=== PATIENT | female | born 1950 | race Caucasian/White ===

== ENCOUNTER 2018-12-06 14:27 | Observation (INO) | payer OTHER ==
--- NOTE | 2018-12-06 14:48 | RAD REPORT ---
EXAM DESCRIPTION: CT - Ct Stroke Brain Wo Cont - 12/06/2018 2:42 pm CLINICAL HISTORY: stroke symptoms CVA symptomology, headache COMPARISON: Head Brain Wo Cont dated 11/11/2017; Head Brain Wo Cont dated 11/12/2016 TECHNIQUE: All CT scans are performed using dose optimization technique as appropriate and may inclu de automated exposure control or mA/KV adjustment according to patient size. FINDINGS: No intracranial hemorrhage, hydrocephalus or extra-axial fluid collection.No areas of brai n edema or evidence of midline shift. The paranasal sinuses and mastoids are clear. The calvarium is intact. IMPRESSION: No acute intracranial abnormality. The findings were discussed with ER physician Dr. Donovan on 12/06/2018 at 2:24 p.m. by telephone.
[2018-12-06 15:02] LABS: Absolute Lymphocytes (CBC) 2.3 K/uL (0.7-4.9); Absolute Monocytes 0.5 K/uL (0.1-1.3); Absolute Neutrophil 5.3 K/uL (1.8-8.0); Basophils % 0.6 % (0-1.3); Eosinophils % 1.8 % (0-4.4); Hematocrit 41.2 % (36.0-45.0); Lymphocytes % 27.7 % (15.3-44.8); MPV 9.5 fL (7.6-11.3); Monocytes % 6.1 % (3.3-12.3); RBC Red Blood Cell Count 4.84 M/uL (3.86-4.86)
[2018-12-06 15:05] LABS: Protime INR 0.96
[2018-12-06] MEDS ORDERED: KETOROLAC 30 MG/ML INJ ONE (15:09)
[2018-12-06] MEDS ORDERED: NA CHLORIDE 0.9% 1,000 ML ONE (15:09)
[2018-12-06] MEDS ORDERED: NA CHLORIDE 0.9% 2,000 ML ONE (15:09)
[2018-12-06] MEDS ORDERED: CEFTRIAXONE/SWI 1gm 1 GM/10 ML SYR ONE (15:09)
[2018-12-06 15:32] LABS: ALT/SGPT 18 U/L (12-78); AST/SGOT 16 U/L (15-37); Albumin 4.1 g/dL (3.4-5.0); Alkaline Phosphatase 88 U/L (45-117); BUN Blood Urea Nitrogen 14 mg/dL (7-18); Bicarbonate 28 mmol/L (21-32); Bilirubin Direct < 0.1 mg/dL (0-0.2); Bilirubin Total 0.4 mg/dL (0.2-1.0); C-Reactive Protein 7.37 mg/L (<3.00); CKMB Creatine Kinase MB < 1.0 ng/mL (0.3-3.6); Creatine Phosphokinase 81 U/L (26-192); Glucose Level 207 mg/dL (74-106); Lipase 251 U/L (73-393); Potassium 3.8 mmol/L (3.5-5.1); Protein, Total 8.3 g/dL (6.4-8.2); Sodium Level 139 mmol/L (136-145)
[2018-12-06] MEDS ORDERED: ONDANSETRON 4 MG/2 ML VIAL ONE (15:42)
--- NOTE | 2018-12-06 15:51 | RAD REPORT ---
EXAM DESCRIPTION: [place] Single View12/06/2018 3:36 pm CLINICAL HISTORY: Cough COMPARISON: 2016 FINDINGS: The lungs appear clear of acute infiltrate. The heart is normal size IMPRESSION: No acute abnormalities displayed
--- NOTE | 2018-12-06 16:01 | ER ---
Nurse's Notes [facility] Name: Nelsy Perez Age: 68 yrs Sex: Female : 1950 Arrival Date: 12/06/2018 Time: 14:29 Bed 23 Private MD: Salomón Minaya Diagnosis: Cystitis, unspecified without hematuria;Sepsis due to unspecified staphylococcus Presentation: 12/06 14:30 Presenting complaint: Patient states: "balance is off and I've been running into sv ibarra." dizziness, midsternal chest pain, SOB started today around 1200. c/o occipital headache. Pt vomited after getting into the bed. Transition of care: patient was not received from another setting of care. Onset of symptoms was December 06, 2018 at 12:00. Care prior to arrival: None. 14:30 Method Of Arrival: Wheelchair sv 14:30 Acuity: ARRON 2 sv 16:04 No acute neurological deficit is noted. Risk Assessment: Do you want to hurt yourself mg2 or someone else? Patient reports no desire to harm self or others. Initial Sepsis Screen: Does the patient meet any 2 criteria? No. Patient's initial sepsis screen is negative. Does the patient have a suspected source of infection? No. Patient's initial sepsis screen is negative. Triage Assessment: 16:08 The onset of the patients symptoms was December 06, 2018 at 12:00. General: Appears in no mg2 apparent distress. Behavior is calm, cooperative. Pain: Complains of pain in chest. 16:09 Neuro: Reports dizziness. mg2 Stroke Activation: Symptom onset < 3 hours Physician: Stroke Attending; Name: ; Notified At: ; Arrived At: Physician: Chief Stroke Resident; Name: ; Notified At: ; Arrived At: Physician: Stroke Resident; Name: ; Notified At: ; Arrived At: Physician: ED Attending; Name: Dr Mackey; Notified At: 14:34; Arrived At: 14:34 Physician: ED Resident; Name: ; Notified At: ; Arrived At: Historical: - Allergies: 14:37 No Known Allergies; sv - Home Meds: 16:08 lisinopril 20 mg Oral tab 1 tab twice a day [Active]; metformin 1,000 mg Oral tab 1 tab mg2 2 times per day [Active]; metoprolol 100 mg daily ( pt reports she only takes half) [Active]; Novolog Sub-Q 5 unit before meals [Active]; - PMHx: 14:37 Diabetes - IDDM; Hypertension; sv - PSHx: 14:37 Tubal ligation; bilateral cataract surgery; sv - Immunization history:: Flu vaccine status is unknown. - Social history:: Patient/guardian denies using alcohol, street drugs, The patient lives with family, Smoking status: unknown. - Family history:: not pertinent. - Ebola Screening: : No symptoms or risks identified at this time. Screenin:09 Abuse screen: Denies threats or abuse. Denies injuries from another. Nutritional mg2 screening: No deficits noted. Tuberculosis screening: No symptoms or risk factors identified. Fall Risk IV access (20 points). Assessment: 14:31 VAN Scoring: Arm Drift: Minor drift Visual Disturbance: No visual disturbance noted. sv Aphasia: No aphasia noted. Neglect: No neglect noted. 14:36 Reassessment: CODE STROKE CALLED, PT TAKEN TO CT SCAN BY BETZAIDA. Pain: ls4 14:39 Reassessment: Pt back from CT at this time. ss 14:41 Reassessment: Araceli (molder labels) at bedside. sv 14:44 Reassessment: EKG at bedside. sv 16:05 Patient has been NPO before screening. The patient is alert, and able to follow mg2 commands. The patient does not exhibit slurred or garbled speech. The patient is not exhibiting difficulty speaking. The patient does not exhibit difficulty understanding words. The patient is able to swallow own secretions with no drooling or need for suction. Patient tolerated one teaspoon of water. No drooling, immediate coughing, gurgling, or clearing of the throat was noted. The patient tolerated 90mL of water. No drooling, immediate coughing, gurgling, or clearing of the throat was noted. The patient passed the bedside swallow screening. Oral medications may be given as ordered. Contact Physician for further diet orders. Pain: Pain began gradually, 4 hours ago. Neuro: Level of Consciousness is awake, alert, obeys commands, Oriented to person, place, time, situation. Cardiovascular: Capillary refill < 3 seconds Patient's skin is warm and dry. 16:07 Provider notified of bedside swallow screening results: Katarina Mackey MD. T-PA mg2 (Activase) Screening: Contraindications:. 16:09 Reassessment: patient for hospitalization. hospitalist at bedside examining the patient.mg2 Vital Signs: 14:43 Temp 97.6; Weight 101.6 kg; Height 5 ft. 3 in. (160.02 cm); sv 14:56 Pulse Ox 98% ; lt1 15:37 BP 161 / 86; Pulse 101; Resp 18; Pulse Ox 96% ; Pain 2/10; mg2 16:11 BP 139 / 72; Pulse 96; Resp 18; Pulse Ox 97% on R/A; mg2 16:35 BP 160 / 69; Pulse 90; Resp 16; Temp 98.4; Pulse Ox 98% ; lt1 18:24 BP 138 / 77; Pulse 79; Resp 18; Temp 98.4(O); Pulse Ox 98% on R/A; Pain 0/10; mg2 14:43 Body Mass Index 39.68 (101.60 kg, 160.02 cm) sv NIH Stroke Scale Scores: 16:05 NIHSS Score: 0 mg2 ED Course: 14:29 Patient arrived in ED. mr 14:30 Salomón Minaya MD is Private Physician. mr 14:30 Pippa Ortiz, MATHEW is Primary Nurse. ls4 14:30 Arm band placed on Patient placed in an exam room, on a stretcher. sv 14:[address] via stretcher. sv 14:36 Katarina Mackey MD is Attending Physician. ma2 14:36 Triage completed. sv 14:39 CT completed. Patient tolerated procedure well. Patient moved back from CT. vm2 14:41 [address] moved back from CT. sv 14:42 CT Stroke Brain w/o Contrast In Process Unspecified. EDMS 14:44 Patient has correct armband on for positive identification. Placed in gown. Bed in low sv position. Call light in reach. Side rails up X2. equipment monitor phototypesetting on. Pulse ox on. NIBP on. 14:45 Initial lab(s) drawn, by me, sent to lab. Inserted saline lock: 20 gauge in right sv antecubital area, using aseptic technique. ,using aseptic technique. done by Betzaida CARMONA Blood collected. 15:18 EKG done, by pharmacy technologist. reviewed by Katarina Mackey MD. 3 15:36 Davi Smith, MATHEW is Primary Nurse. mg2 15:37 Chest Single View XRAY In Process Unspecified. EDMS 15:59 Bob Ray DO is Hospitalizing Provider. ma2 16:09 No provider procedures requiring assistance completed. Patient admitted, IV remains in mg2 place. Patient maintains SpO2 saturation greater than 95% on room air. Administered Medications: 15:08 Drug: Rocephin 1 grams Route: IV; Rate: calculated rate; Site: right antecubital; mg2 16:03 Follow up: Response: No adverse reaction; IV Status: Completed infusion mg2 15:08 Drug: TORadol 30 mg Route: IVP; Site: right antecubital; mg2 16:03 Follow up: Response: No adverse reaction; Marked relief of symptoms mg2 15:09 Drug: NS 0.9% (30 ml/kg) 30 ml/kg Route: IV; Rate: bolus; Site: right antecubital; mg2 16:00 Follow up: Response: No adverse reaction; IV Status: Completed infusion mg2 15:30 Drug: Zofran 4 mg Route: IVP; Site: right antecubital; mg2 18:25 Follow up: Response: No adverse reaction; Marked relief of symptoms mg2 Point of Care Testing: Blood Glucose: 14:46 Blood Glucose: 188 mg/dL; sv 15:37 Blood Glucose: 190 mg/dL; mg2 Ranges: Outcome: 16:00 Decision to Hospitalize by Provider. ma2 18:24 Admitted to Tele accompanied by tech, via wheelchair, room 406, with chart, Report mg2 called to MATHEW Nolan 18:24 Condition: stable 18:24 Instructed on the need for admit. 18:34 Patient left the ED. mg2 NIH Stroke Scale - NIH Stroke Score Date: 12/06/2018 Time: 16:05 Total Score = 0 1a. Level of Consciousness (LOC) - 0(Alert) 1b. Level of Consciousness (LOC) (Year \\T\\ Age) - 0(Both) 1c. LOC Commands (Open \\T\\ Closes Eyes/Tinner Automatic) - 0(Both) 2. Best Gaze (Lateral Gaze Paresis) - 0(Normal) 3. Visual Field Loss - 0(No visual loss) 4. Facial Palsy - 0(Normal) 5a. Left Arm: Motor (10-second hold) - 0(No drift) 5b. Right Arm: Motor (10-second hold) - 0(No drift) 6a. Left Leg: Motor (5-second hold - always test supine) - 0(No drift) 6b. Right Leg: Motor (5-second hold - always test supine) - 0(No drift) 7. Limb Ataxia (finger/nose \\T\\ heel/castro - test with eyes open) - 0(Absent) 8. Sensory Loss (pinprick arms/legs/face) - 0(Normal) 9. Best Language: Aphasia (description/naming/reading) - 0(No aphasia) 10. Dysarthria (speech clarity - read or repeat words) - 0(Normal) 11. Extinction and Inattention (visual/tactile/auditory/spatial/personal) - 0(No abnormality) Initials: mg2 Signatures: Dispatcher [employer] Susan Jerome RN RN sv Rivera, Mary mr Betzaida Miller RN RN ss Alecia Ramirez 2 Katarina Mackey MD MD ma2 Davi Smith RN RN mg2 Farheen Hall 3 Pippa Ortiz RN RN ls4 Vanesa Alejo lt1 Corrections: (The following items were deleted from the chart) 14:43 14:30 Presenting complaint: Patient states: "balance is off and I've been sv running into ibarra." dizziness, midsternal chest pain, SOB started today around 1200. sv 15:38 15:37 Pulse 101bpm; Resp 18bpm; Pulse Ox 96%; Pain 2/10; mg2 mg2
--- NOTE | 2018-12-06 16:01 | EDPHYS ---
Physician Documentation [facility] Name: Nelsy Perez Age: 68 yrs Sex: Female : 1950 Arrival Date: 12/06/2018 Time: 14:29 Bed 23 Private MD: Salomón Minaya ED Physician Katarina Mackey HPI: 12/06 15:56 This 68 yrs old Female presents to ER via Wheelchair with complaints of Chest ma2 Pain, Shortness Of Breath. 15:56 The patient or guardian reports chest pain that is located primarily in the substernal ma2 area. Onset: suddenly, gradually, 1 day(s) ago. The pain does not radiate. Associated signs and symptoms: Pertinent positives: confusion, uti . The chest pain is described as aching. Duration: The patient or guardian reports a single episode. Severity of pain: At its worst the pain was moderate in the emergency department the pain is unchanged. Historical: - Allergies: 14:37 No Known Allergies; sv - Home Meds: 16:08 lisinopril 20 mg Oral tab 1 tab twice a day [Active]; metformin 1,000 mg Oral tab 1 tab mg2 2 times per day [Active]; metoprolol 100 mg daily ( pt reports she only takes half) [Active]; Novolog Sub-Q 5 unit before meals [Active]; - PMHx: 14:37 Diabetes - IDDM; Hypertension; sv - PSHx: 14:37 Tubal ligation; bilateral cataract surgery; sv - Immunization history:: Flu vaccine status is unknown. - Social history:: Patient/guardian denies using alcohol, street drugs, The patient lives with family, Smoking status: unknown. - Family history:: not pertinent. - Ebola Screening: : No symptoms or risks identified at this time. ROS: 15:56 Constitutional: Negative for fever, chills, and weight loss, Cardiovascular: Negative ma2 for chest pain, palpitations, and edema, Respiratory: Negative for shortness of breath, cough, wheezing, and pleuritic chest pain, Abdomen/GI: Negative for abdominal pain, nausea, diarrhea, and constipation, Psych: Negative for depression, anxiety, suicide ideation, homicidal ideation, and hallucinations, Endocrine: Negative for neck swelling, polydipsia, polyuria, polyphagia, and marked weight changes. 15:56 Cardiovascular: Positive for chest pain, Negative for orthopnea, palpitations. 15:56 All other systems are negative. Exam: 15:56 Constitutional: This is a well developed, well nourished patient who is awake, alert, ma2 and in no acute distress. Chest/axilla: Normal chest wall appearance and motion. Nontender with no deformity. No lesions are appreciated. Cardiovascular: Regular rate and rhythm with a normal S1 and S2. No gallops, murmurs, or rubs. Normal PMI, no JVD. No pulse deficits. Respiratory: Lungs have equal breath sounds bilaterally, clear to auscultation and percussion. No rales, rhonchi or wheezes noted. No increased work of breathing, no retractions or nasal flaring. Abdomen/GI: Soft, non-tender, with normal bowel sounds. No distension or tympany. No guarding or rebound. No evidence of tenderness throughout. MS/ Extremity: Pulses equal, no cyanosis. Neurovascular intact. Full, normal range of motion. Neuro: Awake and alert, GCS 15, oriented to person, place, time, and situation. Cranial nerves II-XII grossly intact. Motor strength 5/5 in all extremities. Sensory grossly intact. Cerebellar exam normal. Normal gait. Vital Signs: 14:43 Temp 97.6; Weight 101.6 kg; Height 5 ft. 3 in. (160.02 cm); sv 14:56 Pulse Ox 98% ; lt1 15:37 BP 161 / 86; Pulse 101; Resp 18; Pulse Ox 96% ; Pain 2/10; mg2 16:11 BP 139 / 72; Pulse 96; Resp 18; Pulse Ox 97% on R/A; mg2 16:35 BP 160 / 69; Pulse 90; Resp 16; Temp 98.4; Pulse Ox 98% ; lt1 18:24 BP 138 / 77; Pulse 79; Resp 18; Temp 98.4(O); Pulse Ox 98% on R/A; Pain 0/10; mg2 14:43 Body Mass Index 39.68 (101.60 kg, 160.02 cm) sv NIH Stroke Scale Scores: 16:05 NIHSS Score: 0 mg2 MDM: 14:36 Patient medically screened. ma2 15:56 Differential diagnosis: gastroesophageal reflux disease (GERD), unstable angina, UTI ma2 sepsis. Data reviewed: vital signs, nurses notes, lab test result(s), radiologic studies. ED course: has + nitrate on urine dipstick,HR 101, lactate 2. ED course: discussed with dr. darnell. 12/06 14:46 Order name: C-Reactive Protein; Complete Time: 15:38 ia2 12/06 14:46 Order name: Urine Culture [facility] 12/06 14:46 Order name: Basic Metabolic Panel; Complete Time: 15:38 [facility] 12/06 14:46 Order name: Blood Culture Adult (2) [facility] 12/06 14:46 Order name: CBC with Diff; Complete Time: 15:23 ia2 12/06 14:46 Order name: Ckmb; Complete Time: 15:38 [facility] 12/06 14:46 Order name: CPK; Complete Time: 15:38 ia12/06 14:46 Order name: Lactate; Complete Time: 15:54 [facility] 12/06 14:46 Order name: LFT's; Complete Time: 15:38 [facility] 12/06 14:46 Order name: Lipase; Complete Time: 15:38 [facility] 12/06 14:46 Order name: Procalcitonin [facility] 12/06 14:46 Order name: Protime (+inr); Complete Time: 15:23 [facility] 12/06 14:46 Order name: Ptt, Activated; Complete Time: 15:23 [facility] 12/06 14:38 Order name: CT Stroke Brain w/o Contrast; Complete Time: 15:23 bd 12/06 14:46 Order name: Urine Microscopic Only ia12/06 14:46 Order name: Chest Single View XRAY; Complete Time: 15:54 [facility] 12/06 14:46 Order name: Accucheck; Complete Time: 15:09 [facility] 12/06 14:46 Order name: Cardiac monitoring; Complete Time: 15:09 [facility] 12/06 14:46 Order name: EKG - Nurse/Tech; Complete Time: 15:09 [facility] 12/06 14:46 Order name: IV Saline Lock - Large Bore; Complete Time: 15:09 ia2 12/06 14:47 Order name: Glucose, Ancillary Testing; Complete Time: 14:47 EDMS 12/06 14:52 Order name: Troponin I [facility] 12/06 14:52 Order name: Troponin I; Complete Time: 15:23 EDMS 12/06 15:24 Order name: Urine Dipstick--Ancillary (enter results) 12/06 17:16 Order name: Glucose, Ancillary Testing [facility] 12/06 14:46 Order name: Labs collected and sent; Complete Time: 15:37 ma2 12/06 14:46 Order name: O2 Per Protocol; Complete Time: 14:49 ma2 12/06 14:46 Order name: O2 Sat Monitoring; Complete Time: 14:49 ma2 12/06 14:46 Order name: Urine Dipstick-Ancillary (obtain specimen); Complete Time: 14:49 ma2 Administered Medications: 15:08 Drug: Rocephin 1 grams Route: IV; Rate: calculated rate; Site: right antecubital; mg2 16:03 Follow up: Response: No adverse reaction; IV Status: Completed infusion mg2 15:08 Drug: TORadol 30 mg Route: IVP; Site: right antecubital; mg2 16:03 Follow up: Response: No adverse reaction; Marked relief of symptoms mg2 15:09 Drug: NS 0.9% (30 ml/kg) 30 ml/kg Route: IV; Rate: bolus; Site: right antecubital; mg2 16:00 Follow up: Response: No adverse reaction; IV Status: Completed infusion mg2 15:30 Drug: Zofran 4 mg Route: IVP; Site: right antecubital; mg2 18:25 Follow up: Response: No adverse reaction; Marked relief of symptoms mg2 Point of Care Testing: Blood Glucose: 14:46 Blood Glucose: 188 mg/dL; sv 15:37 Blood Glucose: 190 mg/dL; mg2 Ranges: Critical Glucose Levels:Adult <50 mg/dl or >400 mg/dl <40 mg/dl or >180 mg/dl Disposition: 12/06/18 16:00 Hospitalization ordered by Bob Ray for Observation. Preliminary diagnosis are Cystitis, unspecified without hematuria, Sepsis due to unspecified staphylococcus. - Bed requested for Telemetry/MedSurg (observation). - Status is Observation. mg2 - Condition is Stable. - Problem is new. - Symptoms are unchanged. UTI on Admission? Yes NIH Stroke Scale - NIH Stroke Score Date: 12/06/2018 Time: 16:05 Total Score = 0 1a. Level of Consciousness (LOC) - 0(Alert) 1b. Level of Consciousness (LOC) (Year \T\ Age) - 0(Both) 1c. LOC Commands (Open \T\ Closes Eyes/Security Operations Specialist) - 0(Both) 2. Best Gaze (Lateral Gaze Paresis) - 0(Normal) 3. Visual Field Loss - 0(No visual loss) 4. Facial Palsy - 0(Normal) 5a. Left Arm: Motor (10-second hold) - 0(No drift) 5b. Right Arm: Motor (10-second hold) - 0(No drift) 6a. Left Leg: Motor (5-second hold - always test supine) - 0(No drift) 6b. Right Leg: Motor (5-second hold - always test supine) - 0(No drift) 7. Limb Ataxia (finger/nose \T\ heel/castro - test with eyes open) - 0(Absent) 8. Sensory Loss (pinprick arms/legs/face) - 0(Normal) 9. Best Language: Aphasia (description/naming/reading) - 0(No aphasia) 10. Dysarthria (speech clarity - read or repeat words) - 0(Normal) 11. Extinction and Inattention (visual/tactile/auditory/spatial/personal) - 0(No abnormality) Initials: mg2 Signatures: Dispatcher [employer] EDMA Susan Pereira RN Sia Singh RN RN dw Alzahri, Mohammad, MD MD ma2 Gardose, Michele, RN RN mg2 Corrections: (The following items were deleted from the chart) 15:17 14:48 TROPONIN (EMERG DEPT USE ONLY)+C.LAB.BRZ ordered. EDMA EDMA 17:56 16:00 Hospitalization Ordered by Bob Ray DO for Observation. Preliminary diagnosis is Cystitis, unspecified without hematuria; Sepsis due to unspecified staphylococcus. Bed requested for Telemetry/MedSurg (observation). Status is Observation. Condition is Stable. Problem is new. Symptoms are unchanged. UTI on Admission? Yes. german 18:34 17:56 12/06/2018 16:00 Hospitalization Ordered by Bob Ray DO for mg2 Observation. Preliminary diagnosis is Cystitis, unspecified without hematuria; Sepsis due to unspecified staphylococcus. Bed requested for Telemetry/MedSurg (observation). Status is Observation. Condition is Stable. Problem is new. Symptoms are unchanged. UTI on Admission? Yes. darlin
[2018-12-06 16:07] LABS: Urine Blood TRACE (NEG); Urine Glucose 2+ (NEG); Urine Protein 1+ (NEG)
[2018-12-06 16:09] LABS: Urine Bacteria >50 /HPF (<20); Urine Culture Reflex Order NOT NEEDED; Urine RBC NONE SEEN /HPF (NONE SEEN)
--- NOTE | 2018-12-06 17:34 | P.HP ---
Certification for Inpatient Patient admitted to: Observation With expected LOS: <2 Midnights Patient will require the following post-hospital care: None Practitioner: I am a practitioner with admitting privileges, knowledge of patient current condition, hospital course, and medical plan of care. Services: Services provided to patient in accordance with Admission requirements found in Title 42 Section 412.3 of the Code of Federal Regulations Patient History Date of Service: 12/06/18 Primary Care Provider: Dr. Minaya Reason for admission: AMS, WEI, CP, back pain History of Present Illness: 68 yo HF presented emergency room with altered mental status, and other symptoms including chest pain, headache, back pain and dizziness. She also reported some fatigue. This all started today. Patient reports history of diabetes, hypertension and frequent UTIs. In the ER patient evaluated. Patient is slightly tachycardic. White count 8.2 , hemoglobin 13.6, sodium 139, potassium 3.8. Lactic acid within normal range. Urinalysis showed evidence of bacteria. CT head unremarkable. Chest x-ray unremarkable. Patient was admitted for further evaluation. IV antibiotic therapy initiated. Patient was given IV fluid bolus. When I saw the patient ER, she appeared in her normal mental state. She did not appear septic. Patient stable this time. Allergies No Known Allergies Allergy (Verified 07/21/15 11:19) Home medications list reviewed: Yes Home Medications: Canagliflozin [Invokana] 1 tab PO DAILY 11/15/15 Ezetimibe [Zetia*] 1 tab PO DAILY 11/15/15 Insulin 70/30 NPH/Reg Human [Novolin 70/30*] 26 units SQ DAILY AT SUPPER Metformin HCl [Glucophage] 1 tab PO BID 11/15/15 Lisinopril 20 mg PO BID #30 tablet 11/16/15 Magnesium Oxide [Mag 0X*] 800 mg PO DAILY #28 tab 11/16/15 - Past Medical/Surgical History Diabetic: Yes -: Diabetes mellitus type 2, insulin dependent -: HTN -: Cataracts -: Diabetic neuropathy -: Recurrent UTI -: Cataract surgery -: Tubal ligation Psychosocial/ Personal History: Patient is . She has 5 children. - Family History Family History: Reviewed- Non-Contributory - Family History Father -: Heart disease, Hypertension Notes: mother also Sister -: Cancer Notes: breast - Social History Smoking Status: Never smoker Alcohol use: Yes CD- Drugs: No Caffeine use: Yes Place of Residence: Home Review of Systems General: Fever, Weakness, Malaise, As per HPI Eyes: Unremarkable ENT: Unremarkable Respiratory: Unremarkable Cardiovascular: Chest Pain, Light Headedness, As per HPI Gastrointestinal: Nausea, Vomiting, As per HPI Genitourinary: Dysuria, Urgency, As per HPI Musculoskeletal: Unremarkable Integumentary: Unremarkable Neurological: Unremarkable Lymphatics: Unremarkable Physical Examination - Physical Exam General: Alert, In no apparent distress, Oriented x3, Cooperative HEENT: Atraumatic, Normocephalic, PERRLA, Mucous membr. moist/pink Neck: Supple Respiratory: Clear to auscultation bilaterally, Normal air movement Cardiovascular: Normal pulses, Regular rate/rhythm Gastrointestinal: Normal bowel sounds, Soft and benign, Non-distended, No tenderness, No masses, No rebound, No guarding Musculoskeletal: No erythema, No tenderness, No warmth Integumentary: No tenderness/swelling, No erythema, No warmth, No cyanosis Neurological: Normal speech, Normal strength at 5/5 x4 extr, Normal tone, Normal affect - Studies Laboratory Data (last 24 hrs) 12/06/18 14:46: WBC 8.2, Hgb 13.6, Hct 41.2, Plt Count 287 12/06/18 14:46: Sodium 139, Potassium 3.8, BUN 14, Creatinine 0.99, Glucose 207 H, Total Bilirubin 0.4, AST 16, ALT 18, Alkaline Phosphatase 88, Lipase 251 12/06/18 14:45: Troponin I < 0.02 12/06/18 14:45: PT 11.4, INR 0.96, APTT 34.8 Assessment and Plan - Plan Impression: UTI with history of recurrent UTI Diabetes mellitus type 2, insulin-dependent Hypertension Plan: UTI with history of recurrent UTI: Patient responded well to IV fluids in the emergency room. Will continue with IV fluids. IV Rocephin initiated. Blood and urine culture obtained. Anticipate discharge in the next 24 hr if significantly improved. Diabetes mellitus type 2, insulin-dependent: Will continue Accu-Cheks and sliding scale. Will start basal insulin. Hypertension: Restart home medication of lisinopril and metoprolol. Will monitor and adjust appropriately. Discharge Plan: Home Plan to discharge in: 24 Hours - Advance Directives Does patient have a Living Will: No Does patient have a Durable POA for Healthcare: No - Code Status/Comfort Care Code Status Assessed: Yes (Patient full code.) Time Spent Managing Pts Care (In Minutes): 55
[2018-12-06] MEDS ORDERED: D50W 25 GM/50 ML SYRINGE IV PRN (19:44)
[2018-12-06] MEDS ORDERED: ACETAMINOPHEN 500 MG TAB PO PRN (19:44)
[2018-12-06] MEDS ORDERED: TRAMADOL HCL 50 MG TAB PO PRN (19:44)
[2018-12-06] MEDS ORDERED: ONDANSETRON 4 MG/2 ML VIAL IV PRN (19:44)
[2018-12-06] MEDS: INSULIN -REGULAR HUMAN 50 UNIT/0.5 ML ML SQ SCH ×2 (19:44→21:00)
[2018-12-06] MEDS ORDERED: GLUCAGON 1 MG/VIAL IM PRN (19:44)
[2018-12-06] MEDS ORDERED: INSULIN GLARGINE 100 UNITS/ML SQ SCH (21:00)
[2018-12-06] MEDS: NA CHLORIDE 0.9% 1,000 ML IV SCH (21:06)
[2018-12-06] MEDS: METFORMIN HCL 500 MG TAB PO SCH (21:06)
[2018-12-06] MEDS: METOPROLOL TAR 25 MG TAB PO SCH (21:07)
[2018-12-06] MEDS: FAMOTIDINE 20 MG TAB PO SCH (21:07)
[2018-12-06] MEDS: LISINOPRIL 20 MG TAB PO SCH (21:07)
[2018-12-07 00:24] VITALS: BMI 39.6
[2018-12-07 04:57] LABS: Absolute Lymphocytes (CBC) 2.3 K/uL (0.7-4.9); Absolute Monocytes 0.4 K/uL (0.1-1.3); Absolute Neutrophil 2.5 K/uL (1.8-8.0); Basophils % 0.8 % (0-1.3); Eosinophils % 3.5 % (0-4.4); Hematocrit 33.9 % (36.0-45.0); Lymphocytes % 41.9 % (15.3-44.8); MPV 9.4 fL (7.6-11.3); Monocytes % 7.1 % (3.3-12.3); RBC Red Blood Cell Count 3.98 M/uL (3.86-4.86)
[2018-12-07 05:31] LABS: Magnesium 1.5 mg/dL (1.8-2.4); Potassium 3.8 mmol/L (3.5-5.1)
[2018-12-07] MEDS: NA CHLORIDE 0.9% 1,000 ML IV SCH (05:37)
[2018-12-07] MEDS: METOPROLOL TAR 25 MG TAB PO SCH (05:38)
[2018-12-07] MEDS: INSULIN -REGULAR HUMAN 50 UNIT/0.5 ML ML SQ SCH ×2 (07:30→11:05)
--- NOTE | 2018-12-07 07:47 | EKG ---
Test Date: 2018-12-06 Test Time: 14:46:55 Pathology Tech: DEANNA MEASUREMENT RESULTS: Intervals: Rate: 108 DE: 168 QRSD: 70 QT: 332 QTc: 444 [place]: P: 30 DE: 168 QRS: 35 T: 23 INTERPRETIVE STATEMENTS: Sinus tachycardia Cannot rule out Anterior infarct, age undetermined Abnormal ECG Compared to ECG 11/12/2016 15:00:54 Questionable myocardial infarct finding now present Sinus rhythm no longer present Electronically Signed On 12-07-18 07:47:17 CDT by Luis Turner
[2018-12-07] MEDS ORDERED: ENOXAPARIN 40 MG/0.4 ML SQ SCH (09:00)
[2018-12-07] MEDS ORDERED: Magnesium Sulfate 2gm IVPB 2 G/50 ML BAG IV ONE (09:00)
[2018-12-07] MEDS: METFORMIN HCL 500 MG TAB PO SCH (09:00)
[2018-12-07] MEDS ORDERED: CEFTRIAXONE 1 GM/NS 50 ML 1 GM/50 ML BAG IV SCH (09:00)
[2018-12-07] MEDS ORDERED: POTASSIUM CL SA 10 MEQ TAB PO ONE (09:00)
[2018-12-07] MEDS ORDERED: CEFTRIAXONE/SWI 1gm 1 GM/10 ML SYR IV SCH (09:00)
[2018-12-07] MEDS ORDERED: ASPIRIN EC 81 MG TAB PO SCH (09:00)
[2018-12-07] MEDS: LISINOPRIL 20 MG TAB PO SCH (09:14)
[2018-12-07] MEDS: FAMOTIDINE 20 MG TAB PO SCH (09:15)
[2018-12-07 09:25] VITALS: O2SAT 98
--- NOTE | 2018-12-07 10:40 | P.DS ---
Admission Date: 12/06/18 Discharge Date: 12/07/18 Primary Care Provider: Dr. Minaya Disposition: ROUTINE DISCHARGE Discharge Condition: GOOD Reason for Admission: AMS, WEI, CP, back pain Consultations: none Procedures: Chest x-ray: COMPARISON: 2016 FINDINGS: The lungs appear clear of acute infiltrate. The heart is normal size IMPRESSION: No acute abnormalities displayed CT head: FINDINGS: No intracranial hemorrhage, hydrocephalus or extra-axial fluid collection.No areas of brain edema or evidence of midline shift. The paranasal sinuses and mastoids are clear. The calvarium is intact. IMPRESSION: No acute intracranial abnormality. Medical problem list: UTI with history of recurrent UTI, urine culture shows Gram negative rods Diabetes mellitus type 2, insulin-dependent Hypertension Diabetic neuropathy Brief History of Present Illness: 68 yo HF presented emergency room with altered mental status, and other symptoms including chest pain, headache, back pain and dizziness. She also reported some fatigue. This all started today. Patient reports history of diabetes, hypertension and frequent UTIs. In the ER patient evaluated. Patient is slightly tachycardic. White count 8.2 , hemoglobin 13.6, sodium 139, potassium 3.8. Lactic acid within normal range. Urinalysis showed evidence of bacteria. CT head unremarkable. Chest x-ray unremarkable. Patient was admitted for further evaluation. IV antibiotic therapy initiated. Patient was given IV fluid bolus. When I saw the patient ER, she appeared in her normal mental state. She did not appear septic. Patient stable this time. Hospital Course: Patient presented with multiple complaints including confusion, chest pain, headache, and dizziness. Patient evaluated in the emergency room. Patient found to have UTI with history of recurrent UTI. Patient was given IV fluids with good response. Urine culture pending. At discharge she is without any significant headaches, dizziness, chest pain or fever. At discharge she will continue with Bactrim DS 1 pill twice daily for 7 days. I will also recommend to discontinue Jardiance as this will increase risk of UTIs. UTI prevention education provided. Her PCP will need to follow up on urine culture results. PCP Patient with diabetes type 2, insulin dependent. Blood sugars remained stable. Patient may continue with her current medication of insulin 70/30 20 units sub Q at night and metformin 1000 mg 1 pill twice daily. Will recommend to discontinue Jardiance due to recurrent history of UTI. Recommend for blood sugars remain less than 140 fasting and less than 200 after meals. Further adjustment can be done by her PCP. Patient with hypertension. Patient may continue with her medication of lisinopril 20 mg 1 pill twice daily and metoprolol 25 mg 1 pill twice daily. Recommend blood pressures less 150/80. Further adjustment can be done by her PCP. Patient with diabetic neuropathy. Patient may continue with gabapentin 300 mg at bedtime. Vital Signs/Physical Exam: Temp Pulse Resp BP Pulse Ox 97.2 F 70 18 169/79 H 98 12/07/18 08:00 12/07/18 09:14 12/07/18 08:00 12/07/18 09:14 12/07/18 08:00 General: Alert, In no apparent distress, Oriented x3, Cooperative HEENT: Atraumatic Neck: Supple Respiratory: Clear to auscultation bilaterally, Normal air movement Cardiovascular: Normal pulses, Regular rate/rhythm Gastrointestinal: Normal bowel sounds, Soft and benign, Non-distended, No tenderness, No masses, No rebound, No guarding Musculoskeletal: No erythema, No tenderness, No warmth Integumentary: No tenderness/swelling, No erythema, No warmth, No cyanosis Neurological: Normal speech, Normal strength at 5/5 x4 extr, Normal tone, Normal affect Laboratory Data at Discharge: WBC 5.4 K/uL (4.3-10.9) D 12/07/18 04:00 Hgb 11.2 g/dL (12.0-15.0) L 12/07/18 04:00 Hct 33.9 % (36.0-45.0) L D 12/07/18 04:00 Plt Count 206 K/uL (152-406) D 12/07/18 04:00 PT 11.4 SECONDS (9.5-12.5) 12/06/18 14:45 INR 0.96 12/06/18 14:45 APTT 34.8 SECONDS (24.3-36.9) 12/06/18 14:45 Sodium 142 mmol/L (136-145) 12/07/18 04:00 Potassium 3.8 mmol/L (3.5-5.1) 12/07/18 04:00 BUN 18 mg/dL (7-18) 12/07/18 04:00 Creatinine 0.91 mg/dL (0.55-1.3) 12/07/18 04:00 Glucose 140 mg/dL (74-106) H 12/07/18 04:00 Magnesium 1.5 mg/dL (1.8-2.4) L 12/07/18 04:00 Total Bilirubin 0.4 mg/dL (0.2-1.0) 12/06/18 14:46 AST 16 U/L (15-37) 12/06/18 14:46 ALT 18 U/L (12-78) 12/06/18 14:46 Alkaline Phosphatase 88 U/L (45-117) 12/06/18 14:46 Troponin I < 0.02 ng/mL (0.0-0.045) 12/06/18 14:45 Lipase 251 U/L (73-393) 12/06/18 14:46 Home Medications: Insulin 70/30 NPH/Reg Human [Novolin 70/30*] 20 units SQ DAILY AT SUPPER Metformin HCl [Glucophage] 1 tab PO BID 11/15/15 Lisinopril 20 mg PO BID #30 tablet 11/16/15 Gabapentin 300 mg PO BEDTIME 12/07/18 Metoprolol Succinate [Toprol Xl] 25 mg PO BID 12/07/18 Sulfamethoxazole/Trimethoprim [Bactrim Ds Tablet] 1 each PO BID #14 tablet 12/07 New Medications: Sulfamethoxazole/Trimethoprim [Bactrim Ds Tablet] 1 each PO BID #14 tablet Patient Discharge Instructions: 1. Recommend to follow up with her PCP in 1 week to follow up this hospitalization. 2. Patient presented with multiple complaints including confusion, chest pain, headache, and dizziness. Patient evaluated in the emergency room. Patient found to have UTI with history of recurrent UTI. Patient was given IV fluids with good response. Urine culture pending. At discharge she is without any significant headaches, dizziness, chest pain or fever. At discharge she will continue with Bactrim DS 1 pill twice daily for 7 days. I will also recommend to discontinue Jardiance as this will increase risk of UTIs. UTI prevention education provided. Her PCP will need to follow up on urine culture results. PCP. 3. Patient with diabetes type 2, insulin dependent. Blood sugars remained stable. Patient may continue with her current medication of insulin 70/30 20 units sub Q at night and metformin 1000 mg 1 pill twice daily. Will recommend to discontinue Jardiance due to recurrent history of UTI. Recommend for blood sugars remain less than 140 fasting and less than 200 after meals. Further adjustment can be done by her PCP. 4. Patient with hypertension. Patient may continue with her medication of lisinopril 20 mg 1 pill twice daily and metoprolol 25 mg 1 pill twice daily. Recommend blood pressures less 150/80. Further adjustment can be done by her PCP. 5. Patient with diabetic neuropathy. Patient may continue with gabapentin 300 mg at bedtime. Diet: ADA Activity: Ad regan Time spent managing pt's care (in minutes): 55
[2018-12-07 12:26] VITALS: BP 134/65; TEMP 97.1
== END 2018-12-07 13:55 | disposition home or self-care (01) ==
LOC: ER 14:27 → ERHOLD 16:19 → 4TH 18:24
PROVIDERS: ADMIT Family Medicine; ATTEND Family Medicine
DX: N39.0 Urinary tract infection, site not specified (principal); I10 Essential (primary) hypertension; E11.40 Type 2 diabetes mellitus with diabetic neuropathy, unspecified
CPT/HCPCS: 96365; 93005; 87040 ×2; 87088; 85025 ×2; 87086; 80048 ×2; 36415; 83735; 82550; 87205; 85610; 82962 ×5; 80076; 83605; 85730; 87077; 87186; 84484; 82553; 83690; 84145; 86140; 70450; 71045; 96375; 99285; J1650; J3475; J0696 ×2; J7030 ×4; J2405; G0378 ×2; 81003; 81015

== ENCOUNTER 2019-04-10 09:09 | Emergency (ER) | payer OTHER ==
[2019-04-10] MEDS ORDERED: NA CHLORIDE 0.9% 1,000 ML ONE (09:50)
--- NOTE | 2019-04-10 09:54 | RAD REPORT ---
EXAM DESCRIPTION: CT - Head Brain Wo Cont - 04/10/2019 9:29 am CLINICAL HISTORY: Double vision/headache COMPARISON: November 2018 TECHNIQUE: Computed axial tomography of the head was obtained. IV contrast was not requested. All CT scans are performed using dose optimization technique as appropriate and may include automated exposure control or mA/KV adjustment according to patient size. FINDINGS: An intracranial bleed is not seen . The ventricles are normal in caliber. No extra-axial fluid collection is noted. Mild to moderate low-density areas within periventricular, deep and subcortical white matter likely r epresent ischemic changes secondary to small vessel disease. Fluid within the sinuses/ mastoids is not seen. IMPRESSION: No acute intracranial abnormality is seen. If patient's symptoms persist MRI of the bra in would be recommended.
[2019-04-10 10:11] LABS: Absolute Lymphocytes (CBC) 1.6 K/uL (0.7-4.9); Basophils % 0.5 % (0-1.3); Hematocrit 41.9 % (36.0-45.0); Lymphocytes % 22.7 % (15.3-44.8); MPV 9.4 fL (7.6-11.3); Monocytes % 5.5 % (3.3-12.3); RBC Red Blood Cell Count 4.92 M/uL (3.86-4.86)
--- NOTE | 2019-04-10 10:14 | EKG ---
Test Date: 2019-04-10 Test Time: 09:40:26 Editorial Cartoonist: JOSSELYN MEASUREMENT RESULTS: Intervals: Rate: 68 MO: 192 QRSD: 76 QT: 418 QTc: 444 [place]: P: 44 MO: 192 QRS: 4 T: 61 INTERPRETIVE STATEMENTS: Normal sinus rhythm Normal ECG Compared to ECG 12/06/2018 14:46:55 Sinus tachycardia no longer present Myocardial infarct finding no longer present Electronically Signed On 04-10-19 10:14:24 CDT by Luis Turner
[2019-04-10 10:22] LABS: BUN Blood Urea Nitrogen 26 mg/dL (7-18); Bicarbonate 29 mmol/L (21-32); Glucose Level 100 mg/dL (74-106); Potassium 3.9 mmol/L (3.5-5.1); Sodium Level 143 mmol/L (136-145); Troponin (Emerg Dept Use Only) < 0.02 ng/mL (0.0-0.045)
[2019-04-10] MEDS ORDERED: HYDROCODONE/APAP 5/325 MG TAB ONE (10:57)
--- NOTE | 2019-04-10 12:19 | RAD REPORT ---
EXAM DESCRIPTION: MRI - Brain W/Wo Cont - 04/10/2019 12:04 pm CLINICAL HISTORY: . Headache, drowsiness, CVA symptomology COMPARISON: MRA Head Wo Cont dated 04/10/2019; Head Brain Wo Cont dated 04/10/2019; Ct Stroke Brain Wo Cont dated 12/06/2018 TECHNIQUE: Multi-sequence, multiplanar MR imaging of the brain was performed with contrast. FINDINGS: No intracranial hemorrhage, hydrocephalus, or extra-axial fluid collection.Mild T2 and FLA IR hyperintensity in the periventricular region likely representing chronic microvascular ischemia. N o edema or shift of midline structures. No intracranial mass. DWI is negative for acute CVA. The midline structures are normally formed. Mastoid air cells and paranasal sinuses are clear. Post-contrast images show no abnormal enhancement to suggest tumor or infection. IMPRESSION: Negative for acute CVA or other acute intracranial process. No pathologic post-contrast enhancement suspected.
--- NOTE | 2019-04-10 12:22 | RAD REPORT ---
EXAM DESCRIPTION: MRI - MRA Head Wo Cont - 04/10/2019 12:05 pm CLINICAL HISTORY: headache, right facial droop, diplopia CVA COMPARISON: Head Brain Wo Cont dated 04/10/2019 FINDINGS: 3D noncontrast [id number] MR angiography of the [place] was performed. No aneurysm, flow-limiting stenosis or vascular malformation is seen. Forward flow seen in codominant vertebral arteries. The visualized dural venous sinuses appear patent. IMPRESSION: No significant flow abnormality of the [place] is identified.
--- NOTE | 2019-04-10 12:27 | RAD REPORT ---
EXAM DESCRIPTION: MRI - MRA Neck W/Wo Cont - 04/10/2019 12:04 pm CLINICAL HISTORY: . Headache, drowsiness, CVA symptomology. COMPARISON: No comparisons FINDINGS: Contrast enhance 2D [id number] MR angiography of the neck vessels was performed. The left aortic arch is identified. Both common carotid arteries and subclavian arteries are widely p atent. Prominent lobulated irregular luminal narrowing is seen involving the proximal right ICA and right ca rotid bulb. Based on NASCET criteria, stenosis is estimated at 90-95%. No significant stenosis seen of the left internal carotid artery. Antegrade flow seen in both vertebr al arteries which are largely codominant. IMPRESSION: 90%-95% stenosis suspected involving the proximal right ICA.
--- NOTE | 2019-04-10 14:10 | EDPHYS ---
Physician Documentation [facility] Name: Nelsy Perez Age: 68 yrs Sex: Female : 1950 Arrival Date: 04/10/2019 Time: 09:10 Bed 2 Private MD: Unknown, Unknown ED Physician Mani Pierson HPI: 04/10 09:41 This 68 yrs old Female presents to ER via Wheelchair with complaints of rn Blurred Vision, Headache, S/S of Possible Stroke. 09:41 The patient complains of pain to the diffuse. The patient describes the headache as rn aching. Onset: The symptoms/episode began/occurred 3 day(s) ago. Associated signs and symptoms: Pertinent positives: double vision, weakness. Severity of symptoms: At its worst the pain was moderate, in the emergency department the pain has improved. The symptoms are alleviated by nothing. the symptoms are aggravated by nothing. The patient has not experienced similar symptoms in the past. Reports a few days of headache and double vision from right eye. Co-worker noticed drooping right eyelid today, patient reports has also been present but got worse today, no speech problems, no focal weakness of extremities. Reports double vision goes away when closes right eye. NO trauma. No loss of vision. Called pcp, told her to take tylenol, not improving, and along with worsening droop came in for eval today. NO chest pain/sob/abd pain.. Historical: - Allergies: 09:10 No Known Allergies; aa5 - PMHx: 09:10 Diabetes - IDDM; Hypertension; aa5 - PSHx: 09:10 Tubal ligation; bilateral cataract surgery; aa5 - Immunization history:: Adult Immunizations unknown. - Ebola Screening: : No symptoms or risks identified at this time. - Social history:: Smoking status: Patient/guardian denies using tobacco. - Family history:: not pertinent. - Hospitalizations: : No recent hospitalization is reported. ROS: 09:41 Constitutional: Negative for fever, chills, and weight loss, Eyes: Negative for injury, rn pain, redness, and discharge, ENT: Negative for injury, pain, and discharge, Neck: Negative for injury, pain, and swelling, Cardiovascular: Negative for chest pain, palpitations, and edema, Respiratory: Negative for shortness of breath, cough, wheezing, and pleuritic chest pain, Abdomen/GI: Negative for abdominal pain, nausea, vomiting, diarrhea, and constipation, MS/Extremity: Negative for injury and deformity, Skin: Negative for injury, rash, and discoloration, Neuro: Negative for numbness, tingling, and seizure. Exam: 09:41 Constitutional: This is a well developed, well nourished patient who is awake, alert, rn appears anxious Head/Face: Normocephalic, atraumatic. Eyes: Pupils equal round and reactive to light, + moderate right eyelid droop, EOM appear intact, no lower facial droop. ENT: dry MM Neck: Trachea midline, no thyromegaly or masses palpated, and no cervical lymphadenopathy. Supple, full range of motion without nuchal rigidity, or vertebral point tenderness. No Meningismus. Cardiovascular: Regular rate and rhythm. No pulse deficits. Respiratory: Lungs have equal breath sounds bilaterally, clear to auscultation. No increased work of breathing, no retractions or nasal flaring. Abdomen/GI: soft, non-tender MS/ Extremity: Pulses equal, no cyanosis. Neurovascular intact. Full, normal range of motion. Equal circumference. Neuro: Awake and alert, GCS 15, oriented to person, place, time, and situation. + right ptosis without upper facial weakness. No lower facial weakness. Motor strength 5/5 in all extremities. Sensory grossly intact. Cerebellar exam normal. 10:07 ECG was reviewed by the Attending Physician. rn Vital Signs: 09:11 BP 201 / 78; Pulse 74; Resp 18 S; Temp 97.7(O); Pulse Ox 97% on R/A; aa5 10:21 BP 164 / 66; Pulse 67; Resp 18; Pulse Ox 99% on R/A; ph 11:02 BP 154 / 82; Pulse 64; Resp 16; Pulse Ox 98% on R/A; ph 12:21 BP 180 / 87; Pulse 65; Resp 16; Pulse Ox 98% on R/A; Pain 6/10; ss 13:33 BP 170 / 72; Pulse 65; Resp 16; Pulse Ox 95% on R/A; ss 14:30 BP 167 / 70; Pulse 64; Resp 18; Pulse Ox 98% on R/A; ph 15:30 BP 170 / 71; Pulse 64; Resp 18; Temp 97.8; Pulse Ox 99% on R/A; ph NIH Stroke Scale Scores: 09:35 NIHSS Score: 1 ph [place] Com[place] Score: 14:05 Eye Response: spontaneous(4). Verbal Response: oriented(5). Motor Response: obeys rn commands(6). Total: 15. MDM: 09:18 Patient medically screened. rn 12:46 ED course: Pt just tried to eat/drink, states feels like slipping out of right side of rn mouth, so likely mild right lower facial droop as well, and in addition to ptosis, may be bells palsy if MRI brain negative for acute stroke or mass.. 14:05 Differential diagnosis: cerebral vascular accident, migraine, neoplasm, vasomotor rn headache, TIA, bells palsy, stenosis, vascular malformation. Data reviewed: vital signs, nurses notes, lab test result(s), EKG, radiologic studies, CT scan, MRI, and as a result, I will admit patient. Counseling: I had a detailed discussion with the patient and/or guardian regarding: the historical points, exam findings, and any diagnostic results supporting the discharge/admit diagnosis, lab results, radiology results, the need for further work-up and treatment in the hospital. 14:05 ED course: No neuro or vascular here for consultation, no indication for TPA given neg rn MRI for acute stroke and symptoms began 3 days ago, + 95% stenosis, will transfer to [facility] for further care, aspirin given and family updated. . 04/10 09:20 Order name: CBC with Diff; Complete Time: 11:15 rn 04/10 09:20 Order name: Basic Metabolic Panel; Complete Time: 11:15 rn 04/10 09:20 Order name: CT Head Brain wo Cont; Complete Time: 09:59 rn 04/10 09:20 Order name: Troponin (emerg Dept Use Only); Complete Time: 11:15 rn 04/10 09:20 Order name: IV Start; Complete Time: 09:57 rn 04/10 09:20 Order name: EKG; Complete Time: :22 rn 04/10 11:09 Order name: MRA Head Wo Cont; Complete Time: 13:33 EDMS 04/10 11:10 Order name: Brain W/Wo Cont; Complete Time: 13:33 EDMS 04/10 11:10 Order name: MRA Neck W/Wo Cont; Complete Time: 13:33 EDMS 04/10 09:20 Order name: EKG - Nurse/Tech; Complete Time: 09:38 rn 04/10 09:20 Order name: Robbie; Complete Time: 09:26 rn EC:07 Rate is 68 beats/min. Rhythm is regular. QRS [place] is Normal. NM interval is normal. QRS rn interval is normal. QT interval is normal. No Q waves. T waves are Normal. No ST changes noted. Clinical impression: Normal ECG. Interpreted by me. Reviewed by me. Administered Medications: 09:55 Drug: NS 0.9% 1000 ml Route: IV; Rate: 1000 ml; Site: left forearm; ph 12:30 Follow up: IV Status: Completed infusion; IV Intake: 1000ml ss 10:42 Drug: [place] 5 mg-325 mg 1 tabs Route: PO; ph 14:29 Follow up: Response: No adverse reaction; No change in condition ss 14:38 Drug: Aspirin Chewable Tablet 324 mg Route: PO; ss 15:48 Follow up: Response: No adverse reaction ph Point of Care Testing: Blood Glucose: 09:25 Blood Glucose: 97 mg/dL; aa5 Ranges: Critical Glucose Levels:Adult <50 mg/dl or >400 mg/dl <40 mg/dl or >180 mg/dl Disposition: 04/10/19 14:08 Transfer ordered to [facility]. Diagnosis are Occlusion and stenosis of right carotid artery, Ptosis of eyelid, Facial weakness, Diplopia. - Reason for transfer: Higher level of care. - Accepting physician is . - Condition is Stable. - Problem is new. - Symptoms are unchanged. NIH Stroke Scale - NIH Stroke Score Date: 04/10/2019 Time: 09:35 Total Score = 1 1a. Level of Consciousness (LOC) - 0(Alert) 1b. Level of Consciousness (LOC) (Year \T\ Age) - 0(Both) 1c. LOC Commands (Open \T\ Closes Eyes/Sports Equipment Racker) - 0(Both) 2. Best Gaze (Lateral Gaze Paresis) - 0(Normal) 3. Visual Field Loss - 0(No visual loss) 4. Facial Palsy - 1(Minor Paralysis) 5a. Left Arm: Motor (10-second hold) - 0(No drift) 5b. Right Arm: Motor (10-second hold) - 0(No drift) 6a. Left Leg: Motor (5-second hold - always test supine) - 0(No drift) 6b. Right Leg: Motor (5-second hold - always test supine) - 0(No drift) 7. Limb Ataxia (finger/nose \T\ heel/castro - test with eyes open) - 0(Absent) 8. Sensory Loss (pinprick arms/legs/face) - 0(Normal) 9. Best Language: Aphasia (description/naming/reading) - 0(No aphasia) 10. Dysarthria (speech clarity - read or repeat words) - 0(Normal) 11. Extinction and Inattention (visual/tactile/auditory/spatial/personal) - 0(No abnormality) Initials: ph Signatures: Dispatcher [employer] EDWA Kelly Viveros RN RN iw Mani Pierson MD MD rn Calderon, Audri, RN RN aa5 Betzaida Miller RN RN ss Hall, Patricia, RN RN ph Corrections: (The following items were deleted from the chart) 11:09 10:02 MR STROKE PROTOCOL+MRI.RAD.BRZ ordered. [facility] 15:50 14:08 04/10/2019 14:08 Transfer ordered to [facility]. ph Diagnosis is Occlusion and stenosis of right carotid artery; Ptosis of eyelid; Facial weakness; Diplopia. Reason for transfer: Higher level of care. Accepting physician is . Condition is Stable. Problem is new. Symptoms are unchanged. rn
--- NOTE | 2019-04-10 14:10 | ER ---
Nurse's Notes [facility] Name: Nelsy Perez Age: 68 yrs Sex: Female : 1950 Arrival Date: 04/10/2019 Time: 09:10 Bed 2 Private MD: Unknown, Unknown Diagnosis: Occlusion and stenosis of right carotid artery;Ptosis of eyelid;Facial weakness;Diplopia Presentation: 04/10 09:10 Presenting complaint: Patient states: double vision to right eye that began yesterday. aa5 Pt states "my right eye is also closed and I can barely open it". Pt c/o headaches to right side of head x 1 week ago. Pt states "my brother 1 week ago so I have been stressed". Transition of care: patient was not received from another setting of care. Onset of symptoms was April 09, 2019. Risk Assessment: Do you want to hurt yourself or someone else? Patient reports no desire to harm self or others. Initial Sepsis Screen: Does the patient meet any 2 criteria? No. Patient's initial sepsis screen is negative. Does the patient have a suspected source of infection? No. Patient's initial sepsis screen is negative. Care prior to arrival: None. 09:10 Acuity: ARRON 2 aa5 09:10 Method Of Arrival: Wheelchair aa5 Historical: - Allergies: 09:10 No Known Allergies; aa5 - PMHx: 09:10 Diabetes - IDDM; Hypertension; aa5 - PSHx: 09:10 Tubal ligation; bilateral cataract surgery; aa5 - Immunization history:: Adult Immunizations unknown. - Ebola Screening: : No symptoms or risks identified at this time. - Social history:: Smoking status: Patient/guardian denies using tobacco. - Family history:: not pertinent. - Hospitalizations: : No recent hospitalization is reported. Screenin:27 Abuse screen: Denies threats or abuse. Denies injuries from another. Nutritional ph screening: No deficits noted. Tuberculosis screening: No symptoms or risk factors identified. Fall Risk None identified. 10:30 Patient has been NPO before screening. The patient is alert, able to follow commands. ph The patient does not exhibit slurred or garbled speech The patient is not exhibiting difficulty speaking. The patient does not exhibit difficulty understanding words. The patient is able to swallow own secretions with no drooling or need for suction. Patient tolerated one teaspoon of water. No drooling, immediate coughing, gurgling, or clearing of the throat was noted. The patient tolerated 90mL of water. No drooling, immediate coughing, gurgling, or clearing of the throat was noted. The patient passed the bedside swallow screening. Oral medications may be given as ordered. Contact Physician for further diet orders. Assessment: 09:25 Reassessment: Pt taken to CT. aa5 09:58 General: Appears in no apparent distress. comfortable, well groomed, Behavior is calm, ph cooperative, appropriate for age, Denies fever, feeling ill. Pain: Complains of pain in right frontal area and right temporal area. Neuro: Level of Consciousness is awake, alert, obeys commands, Oriented to person, place, time, situation, Hypo Splasher are equal bilaterally Moves all extremities. Full function Speech is normal, droop noted to R lid, no droop noted to mouth. Reports blurred vision in right eye headache in right. Cardiovascular: Capillary refill < 3 seconds in bilateral fingers Patient's skin is warm and dry. Respiratory: Airway is patent Respiratory effort is even, unlabored. GI: No signs and/or symptoms were reported involving the gastrointestinal system. Patient currently denies abdominal pain, nausea, vomiting. Derm: Skin is intact, is healthy with good turgor, Skin is pink, warm \\T\\ dry. Musculoskeletal: Circulation, motion, and sensation intact. Range of motion: intact in all extremities. 10:44 Reassessment: Patient appears in no apparent distress at this time. Patient and/or ph family updated on plan of care and expected duration. Pain level reassessed. Patient is alert, oriented x 3, equal unlabored respirations, skin warm/dry/pink. Pt resting quietly, family at bedside, pain medication given per order, awaiting MRI, VSS. 11:30 Reassessment: Patient appears in no apparent distress at this time. Patient and/or ph family updated on plan of care and expected duration. Pain level reassessed. Patient is alert, oriented x 3, equal unlabored respirations, skin warm/dry/pink. 12:30 Reassessment: Patient appears in no apparent distress at this time. Patient and/or ph family updated on plan of care and expected duration. Pain level reassessed. Patient is alert, oriented x 3, equal unlabored respirations, skin warm/dry/pink. 13:36 Reassessment: Patient appears in no apparent distress at this time. Patient and/or ph family updated on plan of care and expected duration. Pain level reassessed. Patient is alert, oriented x 3, equal unlabored respirations, skin warm/dry/pink. Dr Pierson at bedside to speak w/ pt about MRI results. 15:24 Reassessment: Report given to community development specialist, MATHEW Das. ss 15:45 Reassessment: Patient appears in no apparent distress at this time. Patient and/or ph family updated on plan of care and expected duration. Pain level reassessed. Patient is alert, oriented x 3, equal unlabored respirations, skin warm/dry/pink. Report given to Rajat NICHOLAS-P, pt transferred by ambulance to [facility]. Vital Signs: 09:11 BP 201 / 78; Pulse 74; Resp 18 S; Temp 97.7(O); Pulse Ox 97% on R/A; aa5 10:21 BP 164 / 66; Pulse 67; Resp 18; Pulse Ox 99% on R/A; ph 11:02 BP 154 / 82; Pulse 64; Resp 16; Pulse Ox 98% on R/A; ph 12:21 BP 180 / 87; Pulse 65; Resp 16; Pulse Ox 98% on R/A; Pain 6/10; ss 13:33 BP 170 / 72; Pulse 65; Resp 16; Pulse Ox 95% on R/A; ss 14:30 BP 167 / 70; Pulse 64; Resp 18; Pulse Ox 98% on R/A; ph 15:30 BP 170 / 71; Pulse 64; Resp 18; Temp 97.8; Pulse Ox 99% on R/A; ph Earnest Coma Score: 14:05 Eye Response: spontaneous(4). Verbal Response: oriented(5). Motor Response: obeys rn commands(6). Total: 15. NIH Stroke Scale Scores: 09:35 NIHSS Score: 1 ph ED Course: 09:10 Patient arrived in ED. ag5 09:10 Arm band placed on Patient placed in an exam room, on a stretcher. aa5 09:11 Unknown, Unknown is Private Physician. ag5 09:18 Mani Pierson MD is Attending Physician. rn 09:20 Triage completed. aa5 09:22 Yeimy Sweet, RN is Primary Nurse. ph 09:28 Patient has correct armband on for positive identification. Placed in gown. Bed in low ph position. Side rails up X2. cardiac monitor on. Pulse ox on. NIBP on. Door closed. Noise minimized. Warm blanket given. Pillow given. Head of bed elevated. 09:32 CT Head Brain wo Cont In Process Unspecified. EDMS 09:50 Initial lab(s) drawn, by me, sent to lab. Inserted saline lock: 22 gauge in left ph forearm, using aseptic technique. Blood collected. 12:04 MRA Head Wo Cont In Process Unspecified. EDMS 12:04 Brain W/Wo Cont In Process Unspecified. EDMS 12:04 MRA Neck W/Wo Cont In Process Unspecified. EDMS 13:38 No provider procedures requiring assistance completed. ph 15:47 Patient transferred, IV remains in place. ph Administered Medications: 09:55 Drug: NS 0.9% 1000 ml Route: IV; Rate: 1000 ml; Site: left forearm; ph 12:30 Follow up: IV Status: Completed infusion; IV Intake: 1000ml ss 10:42 Drug: [place] 5 mg-325 mg 1 tabs Route: PO; ph 14:29 Follow up: Response: No adverse reaction; No change in condition ss 14:38 Drug: Aspirin Chewable Tablet 324 mg Route: PO; ss 15:48 Follow up: Response: No adverse reaction ph Point of Care Testing: Blood Glucose: 09:25 Blood Glucose: 97 mg/dL; aa5 Ranges: Intake: 12:30 IV: 1000ml; Total: 1000ml. ss Outcome: 14:08 ER care complete, transfer ordered by . rn 15:47 Transferred by ground EMS [place] to [facility], Transfer form ph completed. X-rays sent w/ patient. 15:47 Condition: stable 15:47 Instructed on the need for transfer. 15:50 Patient left the ED. NIH Stroke Scale - NIH Stroke Score Date: 04/10/2019 Time: 09:35 Total Score = 1 1a. Level of Consciousness (LOC) - 0(Alert) 1b. Level of Consciousness (LOC) (Year \\T\\ Age) - 0(Both) 1c. LOC Commands (Open \\T\\ Closes Eyes/Diet Therapist) - 0(Both) 2. Best Gaze (Lateral Gaze Paresis) - 0(Normal) 3. Visual Field Loss - 0(No visual loss) 4. Facial Palsy - 1(Minor Paralysis) 5a. Left Arm: Motor (10-second hold) - 0(No drift) 5b. Right Arm: Motor (10-second hold) - 0(No drift) 6a. Left Leg: Motor (5-second hold - always test supine) - 0(No drift) 6b. Right Leg: Motor (5-second hold - always test supine) - 0(No drift) 7. Limb Ataxia (finger/nose \\T\\ heel/castro - test with eyes open) - 0(Absent) 8. Sensory Loss (pinprick arms/legs/face) - 0(Normal) 9. Best Language: Aphasia (description/naming/reading) - 0(No aphasia) 10. Dysarthria (speech clarity - read or repeat words) - 0(Normal) 11. Extinction and Inattention (visual/tactile/auditory/spatial/personal) - 0(No abnormality) Initials: ph Signatures: Dispatcher [employer] EDMani Dawson MD MD rn Calderon, Audri RN RN aa5 Betzaida Miller RN RN ss Hall, Patricia, RN RN Heather Young [facility] Corrections: (The following items were deleted from the chart) 09:22 09:10 Presenting complaint: Patient states: double vision to right eye that aa5 began yesterday. Pt c/o headaches to right side of head x 1 week ago. Pt states "my brother 1 week ago so I have been stressed" aa5 09:57 09:55 NS 0.9% 1000 ml IV at 1000 ml in left antecubital ph ph 14:29 14:29 IV Status: Completed infusion; IV Intake: 1000ml ss ss
[2019-04-10] MEDS ORDERED: ASPIRIN 81 MG CHEWABLE TABLET ONE (14:53)
[2019-04-10 16:40] VITALS: BP 170/71; TEMP 97.8; O2SAT 99
== END 2019-04-10 15:50 | disposition short-term general hospital (02) ==
LOC: ER 09:09
DX: I65.21 Occlusion and stenosis of right carotid artery (principal); H02.401 Unspecified ptosis of right eyelid; R29.810 Facial weakness; H53.2 Diplopia; E11.9 Type 2 diabetes mellitus without complications; I10 Essential (primary) hypertension; Z79.4 Long term (current) use of insulin
CPT/HCPCS: 96361; 93005; 85025; 80048; 36415; 82962; 84484; 70450; 70553; 70544; 70549; 96360; 99285; A9577; J7030

== ENCOUNTER 2020-12-06 08:55 | Emergency (ER) | payer OTHER ==
--- OUTSIDE RECORDS SUMMARY | 2020-12-06 08:58 | XMS REPORT | Continuity of Care Document ---
:1950 Author Organization [facility] t Address [address] [place] [address] Care Team Providers Name Role Phone Michael Minaya Primary Care Physician Singer MICHAUD Attending Clinician Rex RN Attending Clinician Evert GAO Attending Clinician Sadaf JACOBSEN Attending Clinician PARAS SHERIDAN Attending Clinician Unavailable Sadaf JACOBSEN Admitting Clinician PARAS SHERIDAN Admitting Clinician Unavailable Problems Condition Condition Condition Status Onset Resolution Last Treating Co mments Source Name Details Category Date Date Treatment Clinician Date Carotid Carotid Disease Active [facility] artery artery 7-22 [facility] - stenosis stenosis 00:00: Medica l 00 Center Allergies, Adverse Reactions, Alerts This patient has no known allergies or adverse reactions. Social History Social Habit Start Date Stop Date Quantity Comments Source Sex Assigned At [facility] Medications Ordered Filled Start Stop Current Ordering Indication Dosage Frequency Signature Comments Components Source Medication Medication Date Date Medication? Clinician (SIG) Name Name metFORMIN Yes 1000mg Take 1,[address] [facility] (GLUCOPHAGE 7-26 mg by [facility] - ) 1000 MG 10:34: mouth 2 Medic al tablet 53 (two) Center times daily with breakfast and dinner. lisinopril Yes 20mg Take [address] (PRINIVIL,Z 7-26 by mouth 2 [facility] - ESTRIL) 20 10:34: (two) Medica l MG tablet 53 times Center daily with breakfast and dinner. gabapentin 2019-0 Yes 300mg QD Take [address] (NEURONTIN) 7-[facility] MG 10:34: mouth Medical capsule 53 daily. Center metoprolol 2019-0 Yes 25mg Q.5D Take [address] (LOPRESSOR) 7-26 by mouth 2 [facility] [facility] - 25 MG 10:34: (two) Medical tablet 53 times Center daily. Procedures This patient has no known procedures. Plan of Care Planned Activity Planned Date Details Comments Source Future Scheduled 2020-05-21 INFLUENZA VACCINE (#1) [facility]:00 [code = INFLUENZA Medical Ce nter VACCINE (#1)] Future Scheduled 2019-09-[address] [facility] - Test 00:00:00 WELLNESS (YEAR 2 or Medical Center FIRST YEAR if no IPPE) [code = MEDICARE ANNUAL WELLNESS (YEAR 2 or FIRST YEAR if no IPPE)] Future Scheduled 2015 PNEUMOCOCCAL 65+ YRS [facility] - Test 00:00:00 (1 of 1 - Medical Center [id number] PCV13) [code = PNEUMOCOCCAL 65+ YRS (1 of 1 - [id number] PCV13)] Future Scheduled [address] [facility] Test 00:00[facility]00 [facility] (procedure) [code = 745781770] Future Scheduled [address] [facility] - Test 00:00:00 [facility] breast (procedure) [code = 496515557] Encounters Start End Encounter Admission Attending Care Care Encounter Source Date/Time Date/Time Type Type Clinicians Facility Department ID 2020-08-08 2020-08-08 Emergency ADAM Rogers [id number] 09:00:00 10:08:00 Raj Eubanks [id number] [place] [id number] [place] [id number] 2019-11-29 2019-11-29 Transition Rain Goodman [id number] 00:00:00 00:00:00 of Care Sia Bowen [id number] [place] [id number] 2019-11-25 2019-11-28 Emergency Dalila Loyd [facility] [id number] 18:01:16 14:20:00 Aiyana Talavera 350.1.13.10 [place] 4.2.7.2.686 [place] [id number] Results Test Description Test Time Test Comments Results Result Comments Source POCT-GLUCOSE METER 2019-04-14 08:19:00 Test Item Value Reference Range Interpretation Comme nts POC-GLUCOSE METER (BEAKER) (test 194 mg/dL 70-110 H TESTED AT [facility] [address] [facility] code = 1538) [facility] [id number] 06:24:00 Test Item Value Reference Range Interpretation Comments MAGNESIUM (BEAKER) (test code = 1.7 mg/dL 1.6-2.6 627) BASIC METABOLIC [id number] 06:24:00 Test Item Value Reference Range Interpretation Comments SODIUM (BEAKER) 137 meq/L 136-145 (test code = 381) POTASSIUM (BEAKER) 4.4 meq/L 3.5-5.1 (test code = 379) CHLORIDE (BEAKER) 104 meq/L 98-107 (test code = 382) CO2 (BEAKER) (test 25 meq/L 22-29 code = 355) BLOOD UREA NITROGEN 31 mg/dL 7-21 H (BEAKER) (test code = 354) CREATININE (BEAKER) 0.97 mg/dL 0.57-1.25 (test code = 358) GLUCOSE RANDOM 235 mg/dL 70-105 H (BEAKER) (test code = 652) CALCIUM (BEAKER) 9.6 mg/dL 8.4-10.2 (test code = 697) EGFR (BEAKER) (test 57 mL/min/1.73 ESTIMA STACIE GFR IS code = 1092) sq m NOT ACCURATE CREATININE CLEARANCE IN PREDICTING GLOMERULAR FILTRATION RATE . ESTIMATED GFR I S NOT APPLICABLE FOR DIALYSIS PATIEN TS. CBC W/PLT COUNT & AUTO [id number] 04:51:00 Test Item Value Reference Range Interpretation Comments WHITE BLOOD CELL COUNT (BEAKER) 7.5 K/ L 3.5-10.5 (test code = 775) RED BLOOD CELL COUNT (BEAKER) 4.61 M/ L 3.93-5.22 (test code = 761) HEMOGLOBIN (BEAKER) (test code = 12.8 GM/DL 11.2-15.7 410) HEMATOCRIT (BEAKER) (test code = 39.6 % 34.1-44.9 411) MEAN CORPUSCULAR VOLUME (BEAKER) 85.9 fL 79.4-94.8 (test code = 753) MEAN CORPUSCULAR HEMOGLOBIN 27.8 pg 25.6-32.2 (BEAKER) (test code = 751) MEAN CORPUSCULAR HEMOGLOBIN CONC 32.3 GM/DL 32.2-35.5 (BEAKER) (test code = 752) RED CELL DISTRIBUTION WIDTH 13.8 % 11.7-14.4 (BEAKER) (test code = 412) PLATELET COUNT (BEAKER) (test 238 K/CU MM 150-450 code = 756) MEAN PLATELET VOLUME (BEAKER) 11.6 fL 9.4-12.3 (test code = 754) NUCLEATED RED BLOOD CELLS 0 /100 WBC 0-0 (BEAKER) (test code = 413) NEUTROPHILS RELATIVE PERCENT 57 % (BEAKER) (test code = 429) LYMPHOCYTES RELATIVE PERCENT 33 % (BEAKER) (test code = 430) MONOCYTES RELATIVE PERCENT 7 % (BEAKER) (test code = 431) EOSINOPHILS RELATIVE PERCENT 2 % (BEAKER) (test code = 432) BASOPHILS RELATIVE PERCENT 1 % (BEAKER) (test code = 437) NEUTROPHILS ABSOLUTE COUNT 4.30 K/ L 1.56-6.13 (BEAKER) (test code = 670) LYMPHOCYTES ABSOLUTE COUNT 2.47 K/ L 1.18-3.74 (BEAKER) (test code = 414) MONOCYTES ABSOLUTE COUNT (BEAKER) 0.52 K/ L 0.24-0.36 H (test code = 415) EOSINOPHILS ABSOLUTE COUNT 0.15 K/ L 0.04-0.36 (BEAKER) (test code = 416) BASOPHILS ABSOLUTE COUNT (BEAKER) 0.07 K/ L 0.01-0.08 (test code = 417) IMMATURE GRANULOCYTES-RELATIVE 0 % 0-1 PERCENT (TRUDY) (test code = 2801) POCT-GLUCOSE [id number] 22:18:00 Test Item Value Reference Range Interpretation Comments POC-GLUCOSE METER 252 mg/dL 70-110 H TESTED AT [facility] 67[address] (TRUDY) (test code = JEANNIE Jensen [facility] 1538) [id number] POCT-GLUCOSE [id number] 17:53:00 Test Item Value Reference Range Interpretation Comments POC-GLUCOSE METER 173 mg/dL 70-110 H TESTED AT [facility] [address] ([facility]) (test code = JEANNIE Jensen [facility] 1538) [id number] NEEDLE EMG, 2 [id number] 15:01:00Please do with repetitive stimulationReason for exam:->[facility] EM[facility]NCS [facility] [address] [place] [address] Name: Nelsy Perez Date of : 1950 Gender: Female Referring Physician: Freddy Awad M.D. Examining Physician: Terence Donovan D.O. Date of Exam: 04/12/2019 6:06 PM Patient History: The patient is a 68year old woman who presents for evaluation of right ptosis and diplopia. Brief neurological examination shows right ptosis and right ophthalmoplegia consistent with CN III palsy. There is weakness in(R/L) FDI (4/5) and ADM (4/5). Sensation to light touch is intact throughout. Query: Evaluate for neuromuscular junction disorder, myasthenia gravis, polyneuropathy, multiple mononeuropathies. Motor Nerve Conduction: Nerve and Site Latency Amplitude Segment Latency Difference Distance Conduction Velocity Median.R Wrist 3.7 ms 7.9 mV Abductor pollicis brevis-Wrist 3.7 ms 70 mm Elbow 7.9 ms 8.1 mV Wrist-Elbow 4.2 ms 210 mm 50 m/s Ulnar.R Wrist 3.6 ms 9.2 mV Abductor digiti minimi (manus)-Wrist 3.6 ms 70 mm Below elbow 7.5 ms 7.0 mV Wrist-Below elbow 3.9 ms 200 mm 51 m/s Above elbow 9.6 ms 6.6 mV Belowelbow-Above elbow 2.1 ms 100 mm 48 m/s Facial.R Nasalis 4.0 ms 1.5 mV Sensory Nerve Conduction: Nerve and Site Onset Latency Peak Latency Amplitude Segment Latency Difference Distance Conduction Velocity Median.R Wrist 2.7 ms 4.2 ms 14 𒣱V Digit II (index finger)-Wrist 2.7 ms 130 mm 48 m/s Ulnar.R Wrist NR ms NR ms NR 𓏛V Digit V (little finger)-Wrist 110 mm Radial.R Forearm1.9 ms 2.8 ms 24 𕐑V Anatomical snuff box-Forearm 1.9 ms 100 mm 53 m/s Sural.R Lower leg 3.3 ms 4.2 ms 5 땞V Ankle-Lower leg 3.3 ms 140 mm 42 m/s Repetitive Stimulation: Nerve Potential Amplitude Area Number Violeta. Decr. Violeta. Decr. Ulnar.R Pre-exercise 10 stimuli at 2Hz 1 8.97 mV 0 % 54.00 mVms 0 % 2 8.69 mV 3 % 53.20 mVms 1 % 3 8.54 mV 5 % 46.50 mVms 14 % 4 8.43 mV 6 % 44.50 mVms 18 % 5 8.46 mV 6 % 47.10 mVms 13 % 6 8.38 mV 7 % 50.30 mVms 7 % 7 8.28 mV 8 % 49.30 mVms 9 % 8 8.39 mV 6 % 47.20 mVms 13 % 9 8.33 mV 7 % 47.90 mVms 11 % 10 8.42 mV 6 % 45.00 mVms 17 % Immediately post-exercise 10 stimuli at 2Hz 1 9.63 mV 0 % 60.90 mVms 0 % 2 9.14 mV 5 % 57.80 mVms 5 % 3 8.94 mV 7 % 58.50 mVms 4 % 4 9.04 mV 6% 57.60 mVms 5 % 5 9.17 mV 5 % 60.00 mVms 1 % 6 9.12 mV 5 % 63.60 mVms -4 % 7 9.19 mV 5 % 67.70 mVms -11 % 8 9.18 mV 5 % 66.30 mVms -9 %9 9.18 mV 5 % 63.10 mVms -4 % 10 9.18 mV 5 % 57.70 mVms 5 % 2 min post-exercise 10 stimuli at 2Hz 1 9.64 mV 0 % 65.10 mVms 0 % 2 9.23 mV 4 % 60.00 mVms 8 % 3 9.00 mV 7 % 59.40 mVms 9 % 4 8.80 mV 9 % 57.50 mVms 12% 5 8.95 mV 7 % 59.80 mVms 8 % 6 8.78 mV 9 % 60.70 mVms 7 % 7 8.91 mV 8 % 59.30 mVms 9 % 8 8.73 mV 9 % 54.60 mVms 16 % 9 8.84 mV 8 % 54.40 mVms 16 % 10 8.81 mV 9 % 62.90 mVms 3 % 3 min post-exercise 10 stimuli at 2Hz 1 9.46 mV 0 % 60.30 mVms 0 % 2 9.13 mV 3 % 57.20 mVms 5 % 3 8.83 mV 7 % 53.00 mVms 12 % 4 8.81 mV 7 % 53.60 mVms 11 % 5 8.73 mV 8 % 52.70 mVms 13 % 6 8.73 mV 8 % 59.00 mVms 2 % 7 8.71 mV 8 % 52.20 mVms 13 % 8 8.68 mV 8 % 54.00 mVms 10 % 9 8.81 mV 7 % 59.10 mVms 2 % 10 8.67 mV 8 % 54.60 mVms 9 % 4 min post-exercise 10 stimuli at 2Hz 1 9 .15 mV 0 % 50.70 mVms 0 % 2 8.68 mV 5 % 49.00 mVms 3 % 3 8.45 mV 8 % 46.70 mVms 8 % 4 8.36 mV 9 % 47.60 mVms 6 % 5 8.41 mV 8 % 48.10 mVms 5% 6 8.44 mV 8 % 49.00 mVms 3 % 7 8.40 mV 8 % 47.50 mVms 6 % 8 8.44 mV 8 % 48.50 mVms 4 % 9 8.31 mV 9 % 47.30 mVms 7 % 10 8.51 mV 7 % 48.70 mVms 4 % Facial.R Pre-exercise 8 stimuli at 2Hz 1 1.42 mV 0 % 13.40 mVms 0 % 2 1.46 mV -3 % 13.40 mVms 0 % 3 1.44 mV -1 % 13.00 mVms 3 % 4 1.38 mV 3 % 13.10 mVms 2 % 5 1.43 mV -1 % 13.40 mVms 0 % 6 1.46 mV -3 % 13.30 mVms 1 % 7 1.43 mV -1 % 13.20 mVms 1 % 8 1.41 mV 1 % 13.20 mVms 1 % Immediately post-exercise 8 stimuli at 2Hz 1 1.47 mV 0 % 15.00 mVms 0 % 2 1.48 mV -1 % 15.00 mVms 0 % 3 1.51 mV -3 % 14.80 mVms 1 % 4 1.50 mV -2 % 15.20 mVms -1 % 5 1.57 mV -7 % 15.50 mVms -3 % 6 1.52 mV -3 %15.40 mVms -3 % 7 1.55 mV -5 % 15.40 mVms -3 % 8 1.48 mV -1 % 15.50 mVms -3 % 2 min post-exercise 8 stimuli at 2Hz 1 1.38 mV 0 % 13.50 mVms 0 % 2 1.41 mV -2 % 13.60 mVms -1 % 3 1.38 mV 0 % 13.50 mVms 0 % 4 1.42 mV -3 % 13.70 mVms -1 % 5 1.38 mV 0 % 13.60 mVms -1 % 6 1.42 mV -3 % 13.70 mVms -1 % 7 1.38 mV 0 % 13.80 mVms -2 % 8 1.40 mV -1 % 14.00 mVms -4 % 3 min post-exercise 8 stimuli at 2Hz 1 1.42 mV 0 % 12.90 mVms 0 % 2 1.44 mV -1 % 12.70 mVms 2 % 3 1.44 mV - 1 % 13.80 mVms -7 % 4 1.43 mV -1 % 14.10 mVms -9 % 5 1.43 mV -1 % 13.90 mVms -8 % 6 1.42 mV 0 % 13.70 mVms -6 % 7 1.44 mV -1 % 14.20 mVms -10 % 8 1.43 mV -1 % 14.20 mVms -10 % 4 min post-exercise 8 stimuli at 2Hz 1 1.39 mV 0 % 12.90 mVms 0 % 2 1.41 mV -1 % 13.30 mVms -3 % 3 1.47 mV -6 % 13.80 mVms -7 % 4 1.43 mV -3 % 14.10 mVms -9 % 5 1.45 mV -4 % 13.80 mVms -7 % 6 1.43 mV -3 % 13.70 mVms -6 % 7 1.45 mV -4 % 13.80 mVms -7 % 8 1.42 mV -2 % 14.00 mVms -9 % Needle EMG Examination: Insertional Spontaneous Activity Volitional MUAPs Muscle Insertional Fibs +Wave Fasc Duration Amplitude Poly Recruitment Other Deltoid.R Normal None None None Normal Normal None Normal Biceps brachii.R Normal None None None Normal Normal None Normal Triceps brachii.R Normal None None None Normal Normal None Normal Pronator teres.R Normal None None None Normal Normal None Normal Abductor pollicis brevis.R Normal None None None Normal Normal None Normal 1st dorsalinterosseous.R Normal None None None Sl. Incr. Sl. Incr. None Mild Red. Abductor digiti minimi.R Normal None None None Sl. Incr. Gr. Incr. None Mild Red. Summary of Findings: Motor and sensory nerve conduction studies are abnormal for no response in the right ulnar sensorystudy. Repetitive nerve stimulation of the right facial nerve to the nasalis muscle and the right ulnar nerve to the ADM muscle are normal. Needle electromyography (EMG) shows no abnormal insertional activity. On activation, there is evidence of chronic denervation/reinnervation in the right FDI and right ADM muscle. Impression: This is an abnormal study. 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 Comment: Repetitive nerve stimulation did not show evidence of a neuromuscular junction disorder. Normal repetitive nerve stimulation does not rule out a neuromuscular junction disorder. Terence Donovan D.O. POCT-GLUCOSE [id number] 12:29:00 Test Item Value Reference Range Interpretation Comments POC-GLUCOSE METER 233 mg/dL 70-110 H TESTED AT [facility] 6720 (BEAKER) (test code = [place]ANNIE [place] 1538) [id number] POCT-GLUCOSE [id number] 08:14:00 Test Item Value Reference Range Interpretation Comments POC-GLUCOSE METER 216 mg/dL 70-110 H TESTED AT [facility] 6720 (BEAKER) (test code = JEANNIE [place] 1538) [address] TSH/FREE T4 IF [id number] 07:06:00 Test Item Value Reference Range Interpretation Comments THYROID STIMULATING HORMONE 1.20 uIU/mL 0.35-4.94 (BEAKER) (test code = 772) [id number] 06:39:00 Test Item Value Reference Range Interpretation Comments MAGNESIUM (BEAKER) (test code = 1.9 mg/dL 1.6-2.6 627) BASIC METABOLIC [id number] 06:39:00 Test Item Value Reference Range Interpretation Comments SODIUM (BEAKER) 137 meq/L 136-145 (test code = 381) POTASSIUM (BEAKER) 4.2 meq/L 3.5-5.1 (test code = 379) CHLORIDE (BEAKER) 104 meq/L 98-107 (test code = 382) CO2 (BEAKER) (test 25 meq/L 22-29 code = 355) BLOOD UREA NITROGEN 30 mg/dL 7-21 H (BEAKER) (test code = 354) CREATININE (BEAKER) 0.91 mg/dL 0.57-1.25 (test code = 358) GLUCOSE RANDOM 244 mg/dL 70-105 H (BEAKER) (test code = 652) CALCIUM (BEAKER) 9.6 mg/dL 8.4-10.2 (test code = 697) EGFR (BEAKER) (test 61 mL/min/1.73 ESTIMA STACIE GFR IS code = 1092) sq m NOT ACCURATE CREATININE CLEARANCE IN PREDICTING GLOMERULAR FILTRATION RATE . ESTIMATED GFR I S NOT APPLICABLE FOR DIALYSIS PATIEN TS. CBC W/PLT COUNT & AUTO [id number] 05:54:00 Test Item Value Reference Range Interpretation Comments WHITE BLOOD CELL COUNT (BEAKER) 7.1 K/ L 3.5-10.5 (test code = 775) RED BLOOD CELL COUNT (BEAKER) 4.42 M/ L 3.93-5.22 (test code = 761) HEMOGLOBIN (BEAKER) (test code = 12.3 GM/DL 11.2-15.7 410) HEMATOCRIT (BEAKER) (test code = 39.0 % 34.1-44.9 411) MEAN CORPUSCULAR VOLUME (BEAKER) 88.2 fL 79.4-94.8 (test code = 753) MEAN CORPUSCULAR HEMOGLOBIN 27.8 pg 25.6-32.2 (BEAKER) (test code = 751) MEAN CORPUSCULAR HEMOGLOBIN CONC 31.5 GM/DL 32.2-35.5 L (BEAKER) (test code = 752) RED CELL DISTRIBUTION WIDTH 13.9 % 11.7-14.4 (BEAKER) (test code = 412) PLATELET COUNT (BEAKER) (test 250 K/CU MM 150-450 code = 756) MEAN PLATELET VOLUME (BEAKER) 11.3 fL 9.4-12.3 (test code = 754) NUCLEATED RED BLOOD CELLS 0 /100 WBC 0-0 (BEAKER) (test code = 413) NEUTROPHILS RELATIVE PERCENT 55 % (BEAKER) (test code = 429) LYMPHOCYTES RELATIVE PERCENT 34 % (BEAKER) (test code = 430) MONOCYTES RELATIVE PERCENT 8 % (BEAKER) (test code = 431) EOSINOPHILS RELATIVE PERCENT 2 % (BEAKER) (test code = 432) BASOPHILS RELATIVE PERCENT 1 % (BEAKER) (test code = 437) NEUTROPHILS ABSOLUTE COUNT 3.93 K/ L 1.56-6.13 (BEAKER) (test code = 670) LYMPHOCYTES ABSOLUTE COUNT 2.40 K/ L 1.18-3.74 (BEAKER) (test code = 414) MONOCYTES ABSOLUTE COUNT (BEAKER) 0.59 K/ L 0.24-0.36 H (test code = 415) EOSINOPHILS ABSOLUTE COUNT 0.12 K/ L 0.04-0.36 (BEAKER) (test code = 416) BASOPHILS ABSOLUTE COUNT (BEAKER) 0.05 K/ L 0.01-0.08 (test code = 417) IMMATURE GRANULOCYTES-RELATIVE 0 % 0-1 PERCENT (BEAKER) (test code = 2801) POCT-GLUCOSE [id number] 22:09:00 Test Item Value Reference Range Interpretation Comments POC-GLUCOSE METER 292 mg/dL 70-110 H TESTED AT [facility] 6720 (BEAKER) (test code = JEANNIE Jensen [facility] 1538) [id number] POCT-GLUCOSE [id number] 18:14:00 Test Item Value Reference Range Interpretation Comments POC-GLUCOSE METER 229 mg/dL 70-110 H TESTED AT [facility] 6720 (BEAKER) (test code = JEANNIE Jensen [facility] 1538) [id number] POCT-GLUCOSE [id number] 12:25:00 Test Item Value Reference Range Interpretation Comments POC-GLUCOSE METER 225 mg/dL 70-110 H TESTED AT [facility] 6720 (BEAKER) (test code = JEANNIE Jensen [facility] 1538) [id number] POCT-GLUCOSE [id number] 09:21:00 Test Item Value Reference Range Interpretation Comments POC-GLUCOSE METER 240 mg/dL 70-110 H TESTED AT [facility] 6720 (BEAKER) (test code = JEANNIE Jensen [facility] 1538) [id number] 06:17:00 Test Item Value Reference Range Interpretation Comments MAGNESIUM (BEAKER) (test code = 2.0 mg/dL 1.6-2.6 627) BASIC METABOLIC [id number] 06:17:00 Test Item Value Reference Range Interpretation Comments SODIUM (BEAKER) 136 meq/L 136-145 (test code = 381) POTASSIUM (BEAKER) 4.1 meq/L 3.5-5.1 (test code = 379) CHLORIDE (BEAKER) 104 meq/L 98-107 (test code = 382) CO2 (BEAKER) (test 26 meq/L 22-29 code = 355) BLOOD UREA NITROGEN 26 mg/dL 7-21 H (BEAKER) (test code = 354) CREATININE (BEAKER) 0.89 mg/dL 0.57-1.25 (test code = 358) GLUCOSE RANDOM 215 mg/dL 70-105 H (BEAKER) (test code = 652) CALCIUM (BEAKER) 9.5 mg/dL 8.4-10.2 (test code = 697) EGFR (BEAKER) (test 63 mL/min/1.73 ESTIMA STACIE GFR IS code = 1092) sq m NOT ACCURATE CREATININE CLEARANCE IN PREDICTING GLOMERULAR FILTRATION RATE . ESTIMATED GFR I S NOT APPLICABLE FOR DIALYSIS PATIEN TS. CBC W/PLT COUNT & AUTO [id number] 05:33:00 Test Item Value Reference Range Interpretation Comments WHITE BLOOD CELL COUNT (BEAKER) 6.9 K/ L 3.5-10.5 (test code = 775) RED BLOOD CELL COUNT (BEAKER) 4.52 M/ L 3.93-5.22 (test code = 761) HEMOGLOBIN (BEAKER) (test code = 12.5 GM/DL 11.2-15.7 410) HEMATOCRIT (BEAKER) (test code = 39.2 % 34.1-44.9 411) MEAN CORPUSCULAR VOLUME (BEAKER) 86.7 fL 79.4-94.8 (test code = 753) MEAN CORPUSCULAR HEMOGLOBIN 27.7 pg 25.6-32.2 (BEAKER) (test code = 751) MEAN CORPUSCULAR HEMOGLOBIN CONC 31.9 GM/DL 32.2-35.5 L (BEAKER) (test code = 752) RED CELL DISTRIBUTION WIDTH 13.7 % 11.7-14.4 (BEAKER) (test code = 412) PLATELET COUNT (BEAKER) (test 242 K/CU MM 150-450 code = 756) MEAN PLATELET VOLUME (BEAKER) 11.3 fL 9.4-12.3 (test code = 754) NUCLEATED RED BLOOD CELLS 0 /100 WBC 0-0 (BEAKER) (test code = 413) NEUTROPHILS RELATIVE PERCENT 59 % (BEAKER) (test code = 429) LYMPHOCYTES RELATIVE PERCENT 30 % (BEAKER) (test code = 430) MONOCYTES RELATIVE PERCENT 8 % (BEAKER) (test code = 431) EOSINOPHILS RELATIVE PERCENT 2 % (BEAKER) (test code = 432) BASOPHILS RELATIVE PERCENT 1 % (BEAKER) (test code = 437) NEUTROPHILS ABSOLUTE COUNT 4.08 K/ L 1.56-6.13 (BEAKER) (test code = 670) LYMPHOCYTES ABSOLUTE COUNT 2.06 K/ L 1.18-3.74 (BEAKER) (test code = 414) MONOCYTES ABSOLUTE COUNT (BEAKER) 0.55 K/ L 0.24-0.36 H (test code = 415) EOSINOPHILS ABSOLUTE COUNT 0.14 K/ L 0.04-0.36 (BEAKER) (test code = 416) BASOPHILS ABSOLUTE COUNT (BEAKER) 0.05 K/ L 0.01-0.08 (test code = 417) IMMATURE GRANULOCYTES-RELATIVE 0 % 0-1 PERCENT (BEAKER) (test code = 2801) MR, BRAIN, WITHOUT [id number] 05:23:00Reason for exam:->Right third nerve palsy/headacheWhat is the patient's sedation requirement?->No SedationIs the patient claustrophobic?->NoFINAL REPORT MRI Brain and orbits without contrast Clinical History: Right third nerve palsy/headacheRight third nerve palsy/headache Technique: MRI of the brain and orbit utilizing axial T2, FLAIR, GRE, DWI; sagittal and coronal T1-weighted images. Comparisons: None Findings: There is no evidence of acute infarct or hemorrhage. Brain parenchyma is within normal limits. Ventricles are normal in size and configuration. There is no hydrocephalus or midline shift. There are no extra-axial fluid collections. The craniocervical junction is preserved. The major intracranial flow-voids appear patent. Paranasal sinuses are clear. Middle ears and mastoid air cells are clear. Intraorbital contents are unremarkable. No aggressive osseous or soft tissue lesions identified. The preseptal soft tissues are within normal limits. The globes have a normal appearance. Extraocular muscles and intraconal spaces are within normal limits. There are no intraconal abnormalities, optic nerve lesions or mass effect. The optic chiasm is normal and there are no suprasellar cistern masses. Asymmetry of the bilateral internal auditory canals is favored to be related to volume averaging and slice selection. IMPRESSION: No evidence of acute infarct, hemorrhage, or hydrocephalus. Normal noncontrast MRI of the orbits. Signed: James Lux [facility] Verified Date/Time: 04/12/2019 05:23:37 Elec tronically signed by: JAMES LUX MD on 04/12/2019 05:23 AMMR, ORBIT, FACE, NECK, WITHOUT [id number] 05:23:00Reason for exam:->Right third nerve palsy/headacheFINAL REPORT MRI Brain and orbits without contrast Clinical History: Right third nerve palsy/headacheRight third nerve palsy/headache Technique: MRI of the brain and orbit utilizing axial T2, FLAIR, GRE, DWI; sagittal and coronal T1-weighted images. Comparisons: None Findings: There is no evidence of acute infarct or hemorrhage. Brain parenchyma is within normal limits. Ventricles are normal in size and configuration. There is no hydrocephalus or midline shift. There are no extra-axial fluid collections. The craniocervical junction is preserved. The major intracranial flow-voids appear patent. Paranasal sinuses are clear. Middle ears and mastoid air cells are clear. Intraorbital contents are unremarkable. No aggressive osseous or soft tissue lesions identified. The preseptal soft tissues are within normal limits. The globes have a normal appearance. Extraocular muscles and intraconal spaces are within normal limits. There are no intraconal abnormalities, optic nerve lesions or mass effect. The optic chiasm is normal and there are no suprasellar cistern masses. Asymmetry of the bilateral internal auditory canals is favored to be related to volume averaging and slice seven ection. IMPRESSION: No evidence of acute infarct, hemorrhage, or hydrocephalus. Normal noncontrast MRI of the orbits. Signed: [facility] Verified Date/Time: 04/12/2019 05:23:37 MR, MRA, NECK, WITHOUT IV CONTRAST 2019-04-12 05:09:00Reason for exam:->Right third nerve palsy/headacheWhat is the patient's sedation requirement?->No SedationIs the patient claustrophobic?->NoFINAL REPORT Clinical History: Right third nerve palsy/headacheRight third nerve palsy/headache Technique: MRA of the head utilizing 3-D [id number] technique, with 3-D reconstructions. MRA of the neck utilizing 2-D and 3-D lzzz-[id number] technique, with 3-D reconstructions. 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 Otherwise there is no evidence of intracranial aneurysm, focal stenosis,or major branch vessel occlusion. MRA neck: 60% stenosis of the origin of the right internal carotid artery. The left carotid artery in the neck is patent including the bifurcation. There is antegrade flow in the vertebral arteries in the neck. Enlarged right thyroid gland with a 1.5 cm hypodense nodule. IMPRESSION: MRA head: No evidence for a major saxman of [place] proximal branch vessel occlusion or intracranial aneurysm. MRA neck: 60% stenosis of the origin of the right internal carotid artery by NASCET criteria. No evidence of hemodynamically significant stenosis in the left cervical carotid or vertebral arteries. Enlarged right thyroid gland with a 1.5 cm hypodense nodule. Recommend further evaluation with a dedicated thyroid ultrasound on a nonemergent basis. Signed: James Lux Verified Date/Time: 04/12/2019 05:09:17 MR, MRA, BRAIN, WITHOUT [id number] 05:09:00Reason for exam:->Right third nerve palsy/headacheWhat is the patient's sedation requirement?->No SedationIs the patient claustrophobic?->NoFINAL REPORT Clinical History: Right third nerve palsy/headacheRight third nerve palsy/headache Technique: MRA of the head utilizing 3-D gdah-tn-txccex technique, with 3-D reconstructions. MRA of the neck utilizing 2-D and 3-D tczr-ly-bmznfu technique, with 3-D reconstructions. 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 Otherwise there is no evidence of intracranial aneurysm, focal stenosis,or major branch vessel occlusion. MRA neck: 60% stenosis of the origin of the right internal carotid artery. The left carotid artery in the neck is patent including the bifurcation. There is antegrade flow in the vertebral arteries in the neck. Enlarged right thyroid gland with a 1.5 cm hypodense n odule. IMPRESSION: MRA head: No evidence for a major saxman of [place] proximal branch vessel occlusion or intracranial aneurysm. MRA neck: 60% stenosis of the origin of the right internal carotid artery by NASCET criteria. No evidence of hemodynamically significant stenosis in the left cervical carotid or vertebral arteries. Enlarged right thyroid gland with a 1.5 cm hypodense nodule. Recommend further evaluation with a dedicated thyroid ultrasound on a nonemergent basis. Signed: James Lux Verified Date/Time: 04/12/2019 05:09:17 -GLUCOSE [id number] 21:59:00 Test Item Value Reference Range Interpretation Comments POC-GLUCOSE METER 283 mg/dL 70-110 H TESTED AT [place] [address] ([facility]) (test code = JEANNIE Jensen [place] 1538) [id number] POCT-GLUCOSE [id number] 17:44:00 Test Item Value Reference Range Interpretation Comments POC-GLUCOSE METER 178 mg/dL 70-110 H TESTED AT [place] [address] ([facility]) (test code = JEANNIE Jensen [place] 1538) [id number] POCT-GLUCOSE [id number] 17:44:00 Test Item Value Reference Range Interpretation Comments POC-GLUCOSE METER 262 mg/dL 70-110 H TESTED AT [place] [address] ([facility]) (test code = JEANNIE Jensen [facility] 1538) [id number] POCT-GLUCOSE [id number] 12:43:00 Test Item Value Reference Range Interpretation Comments POC-GLUCOSE METER 194 mg/dL 70-110 H TESTED AT [place] [address] ([facility]) (test code = JEANNIE Jensen [place] 1538) [id number] 08:18:00 Test Item Value Reference Range Interpretation Comments MAGNESIUM (BEAKER) (test code = 1.7 mg/dL 1.6-2.6 627) BASIC METABOLIC [id number] 08:18:00 Test Item Value Reference Range Interpretation Comments SODIUM (BEAKER) 138 meq/L 136-145 (test code = 381) POTASSIUM (BEAKER) 4.1 meq/L 3.5-5.1 (test code = 379) CHLORIDE (BEAKER) 103 meq/L 98-107 (test code = 382) CO2 (BEAKER) (test 27 meq/L 22-29 code = 355) BLOOD UREA NITROGEN 22 mg/dL 7-21 H (BEAKER) (test code = 354) CREATININE (BEAKER) 0.83 mg/dL 0.57-1.25 (test code = 358) GLUCOSE RANDOM 116 mg/dL 70-105 H (BEAKER) (test code = 652) CALCIUM (BEAKER) 9.5 mg/dL 8.4-10.2 (test code = 697) EGFR (BEAKER) (test 68 mL/min/1.73 ESTIMA STACIE GFR IS code = 1092) sq m NOT ACCURATE CREATININE CLEARANCE IN PREDICTING GLOMERULAR FILTRATION RATE . ESTIMATED GFR I S NOT APPLICABLE FOR DIALYSIS PATIEN TS. LIPID [id number] 08:18:00 Test Item Value Reference Range Interpretation Comments TRIGLYCERIDES (BEAKER) (test code = 276 mg/dL 540) CHOLESTEROL (BEAKER) (test code = 271 mg/dL 631) HDL CHOLESTEROL (BEAKER) (test code 35 mg/dL = 976) LDL CHOLESTEROL CALCULATED (BEAKER) 181 mg/dL (test code = 633) Triglyceride Reference Range: Low Risk <150 Borderline 150-199 High Risk 200-499 Very High Risk >=500Cholesterol Reference Range: Low Risk <200 Borderline 200-239 High Risk >240HDL Cholesterol Reference Range: Low Risk >=60 High Risk <40LDL Cholesterol Reference Range: Optimal <100 Near Optimal 100-129 Borderline 130-159 High 160-189 Very High >=190POCT-GLUCOSE [id number] 07:55:00 Test Item Value Reference Range Interpretation Comments POC-GLUCOSE METER 135 mg/dL 70-110 H TESTED AT [facility] [address] ([facility]) (test code = [place] [address]) [id number] HEMOGLOBIN [id number] 07:04:00 Test Item Value Reference Range Interpretation Comments HEMOGLOBIN A1C (BEAKER) (test code = 10.5 % 4.3-6.1 H 368) CBC W/PLT COUNT & AUTO [id number] 06:51:00 Test Item Value Reference Range Interpretation Comments WHITE BLOOD CELL COUNT (BEAKER) 7.0 K/ L 3.5-10.5 (test code = 775) RED BLOOD CELL COUNT (BEAKER) 4.61 M/ L 3.93-5.22 (test code = 761) HEMOGLOBIN (BEAKER) (test code = 12.9 GM/DL 11.2-15.7 410) HEMATOCRIT (BEAKER) (test code = 40.6 % 34.1-44.9 411) MEAN CORPUSCULAR VOLUME (BEAKER) 88.1 fL 79.4-94.8 (test code = 753) MEAN CORPUSCULAR HEMOGLOBIN 28.0 pg 25.6-32.2 (BEAKER) (test code = 751) MEAN CORPUSCULAR HEMOGLOBIN CONC 31.8 GM/DL 32.2-35.5 L (BEAKER) (test code = 752) RED CELL DISTRIBUTION WIDTH 13.9 % 11.7-14.4 (BEAKER) (test code = 412) PLATELET COUNT (BEAKER) (test 264 K/CU MM 150-450 code = 756) MEAN PLATELET VOLUME (BEAKER) 11.0 fL 9.4-12.3 (test code = 754) NUCLEATED RED BLOOD CELLS 0 /100 WBC 0-0 (BEAKER) (test code = 413) NEUTROPHILS RELATIVE PERCENT 61 % (BEAKER) (test code = 429) LYMPHOCYTES RELATIVE PERCENT 29 % (BEAKER) (test code = 430) MONOCYTES RELATIVE PERCENT 7 % (BEAKER) (test code = 431) EOSINOPHILS RELATIVE PERCENT 2 % (BEAKER) (test code = 432) BASOPHILS RELATIVE PERCENT 0 % (BEAKER) (test code = 437) NEUTROPHILS ABSOLUTE COUNT 4.27 K/ L 1.56-6.13 (BEAKER) (test code = 670) LYMPHOCYTES ABSOLUTE COUNT 2.05 K/ L 1.18-3.74 (BEAKER) (test code = 414) MONOCYTES ABSOLUTE COUNT (BEAKER) 0.51 K/ L 0.24-0.36 H (test code = 415) EOSINOPHILS ABSOLUTE COUNT 0.13 K/ L 0.04-0.36 (BEAKER) (test code = 416) BASOPHILS ABSOLUTE COUNT (BEAKER) 0.03 K/ L 0.01-0.08 (test code = 417) IMMATURE GRANULOCYTES-RELATIVE 1 % 0-1 PERCENT (BEAKER) (test code = 2801) [id number] 23:01:00 Test Item Value Reference Range Interpretation Comments MAGNESIUM (BEAKER) (test code = 1.6 mg/dL 1.6-2.6 627) BASIC METABOLIC [id number] 23:01:00 Test Item Value Reference Range Interpretation Comments SODIUM (BEAKER) 138 meq/L 136-145 (test code = 381) POTASSIUM (BEAKER) 4.2 meq/L 3.5-5.1 (test code = 379) CHLORIDE (BEAKER) 102 meq/L 98-107 (test code = 382) CO2 (BEAKER) (test 26 meq/L code = 355) BLOOD UREA NITROGEN 24 mg/dL 7-21 H (BEAKER) (test code = 354) CREATININE (BEAKER) 0.82 mg/dL 0.57-1.25 (test code = 358) GLUCOSE RANDOM 142 mg/dL 70-105 H (BEAKER) (test code = 652) CALCIUM (BEAKER) 9.4 mg/dL 8.4-10.2 (test code = 697) EGFR (BEAKER) (test 69 mL/min/1.73 ESTIMA STACIE GFR IS code = 1092) sq m NOT ACCURATE CREATININE CLEARANCE IN PREDICTING GLOMERULAR FILTRATION RATE . ESTIMATED GFR I S NOT APPLICABLE FOR DIALYSIS PATIEN TS. PROTHROMBIN [id number] 22:54:00 Test Item Value Reference Range Interpretation Comments PROTIME (BEAKER) (test code = 13.3 seconds 11.9-14.2 759) INR (BEAKER) (test code = 370) 1.1 <=5.9 Effective 02/15/2019: PT Reference Range ChangeNew: 11.9-14.2 Previous: 11.7- 14.7RECOMMENDED COUMADIN/WARFARIN INR THERAPY RANGESSTANDARD DOSE: 2.0-3.0 Includes: PROPHYLAXIS for venous thrombosis, systemic embolization; TREATMENT for venous thrombosis and/or pulmonary embolus.HIGH RISK: Target INR is2.5-3.5 for patients wiht mechanical heart valves.CBC W/PLT COUNT & AUTO [id number] 22:46:00 Test Item Value Reference Range Interpretation Comments WHITE BLOOD CELL COUNT (BEAKER) 7.7 K/ L 3.5-10.5 (test code = 775) RED BLOOD CELL COUNT (BEAKER) 4.67 M/ L 3.93-5.22 (test code = 761) HEMOGLOBIN (BEAKER) (test code = 13.2 GM/DL 11.2-15.7 410) HEMATOCRIT (BEAKER) (test code = 41.1 % 34.1-44.9 411) MEAN CORPUSCULAR VOLUME (BEAKER) 88.0 fL 79.4-94.8 (test code = 753) MEAN CORPUSCULAR HEMOGLOBIN 28.3 pg 25.6-32.2 (BEAKER) (test code = 751) MEAN CORPUSCULAR HEMOGLOBIN CONC 32.1 GM/DL 32.2-35.5 L (BEAKER) (test code = 752) RED CELL DISTRIBUTION WIDTH 13.9 % 11.7-14.4 (BEAKER) (test code = 412) PLATELET COUNT (BEAKER) (test 289 K/CU MM 150-450 code = 756) MEAN PLATELET VOLUME (BEAKER) 11.4 fL 9.4-12.3 (test code = 754) NUCLEATED RED BLOOD CELLS 0 /100 WBC 0-0 (BEAKER) (test code = 413) NEUTROPHILS RELATIVE PERCENT 71 % (BEAKER) (test code = 429) LYMPHOCYTES RELATIVE PERCENT 23 % (BEAKER) (test code = 430) MONOCYTES RELATIVE PERCENT 5 % (BEAKER) (test code = 431) EOSINOPHILS RELATIVE PERCENT 1 % (BEAKER) (test code = 432) BASOPHILS RELATIVE PERCENT 1 % (BEAKER) (test code = 437) NEUTROPHILS ABSOLUTE COUNT 5.42 K/ L 1.56-6.13 (BEAKER) (test code = 670) LYMPHOCYTES ABSOLUTE COUNT 1.73 K/ L 1.18-3.74 (BEAKER) (test code = 414) MONOCYTES ABSOLUTE COUNT (BEAKER) 0.39 K/ L 0.24-0.36 H (test code = 415) EOSINOPHILS ABSOLUTE COUNT 0.05 K/ L 0.04-0.36 (BEAKER) (test code = 416) BASOPHILS ABSOLUTE COUNT (BEAKER) 0.04 K/ L 0.01-0.08 (test code = 417) IMMATURE GRANULOCYTES-RELATIVE 0 % 0-1 PERCENT (BEAKER) (test code = 2801) POCT-GLUCOSE [id number] 21:32:00 Test Item Value Reference Range Interpretation Comments POC-GLUCOSE METER 143 mg/dL 70-110 H TESTED AT [facility] (BEAKER) (test code = JEANNIE [place] 1538) [address] RAD, CHEST, 1 VIEW, NON [id number] 19:49:00Reason for exam:->chest painShould this be performed at the bedside?->YesFINAL REPORT AP view of the chest dated 04/10/2019 CLINICAL INFORMATION: chest pain Comment: Heart is normal in size. Pulmonary vasculature is unremarkable. Lungs are clear. No pulmonary infiltrate or pleural effusion is present. Impression: No active cardiopulmonary disease.Signed: Ollie Mccain MDReport Verified Date/Time: 04/10/2019 19:49:30 Reading Location: [facility] [id number] Reading Room
--- NOTE | 2020-12-06 09:49 | ER ---
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 Coronavirus screen: At this time, the client does not indicate any symptoms associated with coronavirus-19. Ebola Screen: Patient negative for fever greater than or equal to 101.5 degrees Fahrenheit, and additional compatible Ebola Virus Disease symptoms Patient denies exposure to infectious person. Patient denies travel to an Ebola-affected area in the 21 days before illness onset. No symptoms or risks identified at this time. Initial Sepsis Screen: Does the patient meet any 2 criteria? No. Patient's initial sepsis screen is negative. Does the patient have a suspected source of infection? No. Patient's initial sepsis screen is negative. Risk Assessment: Do you want to hurt yourself or someone else? Patient reports no desire to harm self or others. Onset of symptoms was December 06, 2020. 09:14 Method Of Arrival: Ambulatory iw 09:14 Acuity: ARRON 3 iw Historical: - Allergies: 09:18 No Known Allergies; iw - Home Meds: 09:27 lisinopril 20 mg Oral tab 1 tab twice a day [Active]; metformin 1,000 mg Oral tab 1 tab tw2 2 times per day [Active]; metoprolol 100 mg daily ( pt reports she only takes half) [Active]; Novolog Sub-Q 5 unit before meals [Active]; - PMHx: 09:18 Diabetes - IDDM; Hypertension; iw - PSHx: 09:18 Tubal ligation; bilateral cataract surgery; iw - Immunization history:: Adult Immunizations up to date. - Social history:: Smoking status: Patient denies any tobacco usage or history of. Screenin:19 Abuse screen: Denies threats or abuse. Nutritional screening: No deficits noted. tw2 Tuberculosis screening: No symptoms or risk factors identified. Fall Risk None identified. Assessment: 09:19 General: Appears in no apparent distress. obese, well groomed, Behavior is calm, tw2 cooperative, appropriate for age. Pain: Denies pain. Neuro: Level of Consciousness is awake, alert, obeys commands, Oriented to person, place, time, situation. Cardiovascular: Capillary refill < 3 seconds Patient's skin is warm and dry. Respiratory: Airway is patent Respiratory effort is even, unlabored, Respiratory pattern is regular, symmetrical. GI: No signs and/or symptoms were reported involving the gastrointestinal system. : No signs and/or symptoms were reported regarding the genitourinary system. EENT: swelling present to right eyelid, compared to left eyelid right appears to be larger, pt denies pain. Derm: Skin is intact, is healthy with good turgor, Skin temperature is warm. Musculoskeletal: Range of motion: intact in all extremities. 10:01 Reassessment: PT D/C HOME AMBULATORY, DX WITH MAXIMO-ORBITAL CELLULITIS. bp Vital Signs: 09:14 BP 161 / 76; Pulse 69; Resp 16; Temp 97.6; Pulse Ox 99% on R/A; Weight 107.05 kg; iw Height 5 ft. 4 in. (162.56 cm); 10:01 BP 159 / 75; Pulse 72; Resp 16; Temp 97.8; Pulse Ox 99% ; bp 09:14 Body Mass Index 40.51 (107.05 kg, 162.56 cm) iw ED Course: 08:58 Patient arrived in ED. as 09:17 Triage completed. iw 09:18 Arm band placed on. iw 09:19 Shahana Velasquez, MATHEW is Primary Nurse. tw2 09:19 Lavon Castanon PA is PHCP. jr8 09:19 Ehsan Jordan MD is Attending Physician. jr8 09:20 Bed in low position. Call light in reach. Pulse ox on. NIBP on. Warm blanket given. tw2 10:01 No provider procedures requiring assistance completed. Patient did not have IV access bp during this emergency room visit. Administered Medications: No medications were administered Outcome: 09:49 Discharge ordered by . jr8 10:01 Discharged to home ambulatory. bp 10:01 Condition: stable 10:01 Discharge instructions given to patient, Instructed on discharge instructions, follow up and referral plans. medication usage, Demonstrated understanding of instructions, follow-up care, medications, Prescriptions given X 3. 10:03 Patient left the ED. bp Signatures: Luzmaria Ramos Irene, RN RN iw Lavon Castanon PA PA jr8 Shahana Velasquez RN RN tw2 Salomón Mak RN RN bp
--- NOTE | 2020-12-06 09:50 | EDPHYS ---
Physician Documentation [facility] Name: Nelsy Perez Age: 70 yrs Sex: Female : 1950 Arrival Date: 12/06/2020 Time: 08:58 Bed 4 Private MD: ED Physician Ehsan Jordan HPI: 12/06 09:51 This 70 yrs old Female presents to ER via Ambulatory with complaints of jr8 Facial Swelling, Eye Problem. 09:51 Onset: The symptoms/episode began/occurred acutely, today. Associated signs and jr8 symptoms: The patient has no apparent associated signs or symptoms. Modifying factors: The patient symptoms are alleviated by nothing, the patient symptoms are aggravated by nothing. The patient has not experienced similar symptoms in the past. The patient has not recently seen a physician. Patient stated that she went to bed fine. Woke up this morning with itching, burning, rash, and swelling to upper eyelids bilaterally. Had also been having tenderness to lower portion of nare on right side . Historical: - Allergies: :18 No Known Allergies; iw - Home Meds: 09:27 lisinopril 20 mg Oral tab 1 tab twice a day [Active]; metformin 1,000 mg Oral tab 1 tab tw2 2 times per day [Active]; metoprolol 100 mg daily ( pt reports she only takes half) [Active]; Novolog Sub-Q 5 unit before meals [Active]; - PMHx: 09:18 Diabetes - IDDM; Hypertension; iw - PSHx: 09:18 Tubal ligation; bilateral cataract surgery; iw - Immunization history:: Adult Immunizations up to date. - Social history:: Smoking status: Patient denies any tobacco usage or history of. ROS: 09:51 Neck: Negative for injury, pain, and swelling, Cardiovascular: Negative for chest pain, jr8 palpitations, and edema, Respiratory: Negative for shortness of breath, cough, wheezing, and pleuritic chest pain, Abdomen/GI: Negative for abdominal pain, nausea, vomiting, diarrhea, and constipation, Back: Negative for injury and pain, MS/Extremity: Negative for injury and deformity, Skin: Negative for injury, rash, and discoloration, Neuro: Negative for headache, weakness, numbness, tingling, and seizure. 09:51 Eyes: Positive for pain, redness, swelling, of the right upper eyelid and left upper eyelid. 09:51 ENT: Positive for nasal pain, Negative for drainage from ear(s), ear pain, rhinorrhea, sinus congestion. Exam: 09:51 Head/Face: Normocephalic, atraumatic. Neck: Trachea midline, no thyromegaly or masses jr8 palpated, and no cervical lymphadenopathy. Supple, full range of motion without nuchal rigidity, or vertebral point tenderness. No Meningismus. Cardiovascular: Regular rate and rhythm with a normal S1 and S2. No gallops, murmurs, or rubs. Normal PMI, no JVD. No pulse deficits. Respiratory: Lungs have equal breath sounds bilaterally, clear to auscultation and percussion. No rales, rhonchi or wheezes noted. No increased work of breathing, no retractions or nasal flaring. Skin: Warm, dry with normal turgor. Normal color with no rashes, no lesions, and no evidence of cellulitis. MS/ Extremity: Pulses equal, no cyanosis. Neurovascular intact. Full, normal range of motion. Neuro: Awake and alert, GCS 15, oriented to person, place, time, and situation. Cranial nerves II-XII grossly intact. Motor strength 5/5 in all extremities. Sensory grossly intact. Cerebellar exam normal. Normal gait. 09:51 Eyes: Periorbital structures: erythema, that is mild, bilaterally, Pupils: equal, round, and reactive to light and accomodation, Extraocular movements: intact throughout, Conjunctiva: normal, Corneas: are normal, Sclera: no appreciated abnormality, Anterior chamber: normal, no hyphema. 09:51 ENT: Exam is negative for earache, ear discharge, TM abnormalities, nasal discharge, enlarged tonsils, pharyngitis, exudate, Nose: External nose: mild swelling, erythema, and tenderness without pustule noted to right lower nare . Vital Signs: 09:14 BP 161 / 76; Pulse 69; Resp 16; Temp 97.6; Pulse Ox 99% on R/A; Weight 107.05 kg; iw Height 5 ft. 4 in. (162.56 cm); 10:01 BP 159 / 75; Pulse 72; Resp 16; Temp 97.8; Pulse Ox 99% ; bp 09:14 Body Mass Index 40.51 (107.05 kg, 162.56 cm) MDM: 09:25 Patient medically screened. jr8 09:46 Data reviewed: vital signs, nurses notes, and as a result, I will discharge patient. jr8 Data interpreted: Pulse oximetry: on room air is 99 %. Interpretation: normal. Counseling: I had a detailed discussion with the patient and/or guardian regarding: the historical points, exam findings, and any diagnostic results supporting the discharge/admit diagnosis, the need for outpatient follow up, a family practitioner, to return to the emergency department if symptoms worsen or persist or if there are any questions or concerns that arise at home. 09:51 ED course: Discussed with patient that this looks likes periocular dermititis but jr8 because she has this local nasal infection to the skin as well, will cover with Abx and muprocin to make sure it is not staph in nature . Administered Medications: No medications were administered Disposition: 10:20 Co-signature as Attending Physician, Ehsan Jordan MD I agree with the assessment and kdr plan of care. Disposition: 12/06/20 09:49 Discharged to Home. 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 - Condition is Stable. - Discharge Instructions: Cellulitis, Adult, Rash. - Prescriptions for Bactroban 2 % Topical Ointment - Apply to affected area 1 application by TOPICAL route every 12 hours apply to each nare; 30 gram. Prednisone 20 mg Oral Tablet - take 1 tablet by ORAL route once daily for 5 days; 5 tablet. Bactrim DS 800- 160 mg Oral Tablet - take 1 tablet by ORAL route every 12 hours for 7 days; 14 tablet. - Medication Reconciliation Form, Thank You Letter, Antibiotic Education, Prescription Opioid Use form. - Follow up: Private Physician; When: 5 - 6 days; Reason: Recheck today's complaints, Continuance of care, Re-evaluation by your physician. - Problem is new. - Symptoms have improved. Signatures: Ehsan Jordan MD MD [facility] Kelly Viveros, RN RN Lavon Castanon PA PA jr8 Shahana Velasquez, RN RN tw2 Salomón Mak RN RN bp Corrections: (The following items were deleted from the chart) 10:03 09:49 12/06/2020 09:49 Discharged to Home. Impression: Other degenerative disorders of bp eyelid and periocular area; Local infection of the skin and subcutaneous tissue, unspecified. Condition is Stable. Forms are Medication Reconciliation Form, Thank You Letter, Antibiotic Education, Prescription Opioid Use. Follow up: Private Physician; When: 5 - 6 days; Reason: Recheck today's complaints, Continuance of care, Re-evaluation by your physician. Problem is new. Symptoms have improved. jr8
[2020-12-06 10:07] VITALS: O2SAT 99
[2020-12-06 10:09] VITALS: BP 159/75; TEMP 97.8
== END 2020-12-06 10:03 | disposition home or self-care (01) ==
LOC: ER 08:55
DX: L08.9 Local infection of the skin and subcutaneous tissue, unspecified (principal); H02.7 Other and unspecified degenerative disorders of eyelid and periocular area; I10 Essential (primary) hypertension; E11.9 Type 2 diabetes mellitus without complications; Z79.4 Long term (current) use of insulin
CPT/HCPCS: 99283

== ENCOUNTER 2020-12-16 06:33 | Day surgery (SDC) | payer OTHER ==
[2020-12-13 16:00] LABS: Absolute Lymphocytes (CBC) 2.1 K/uL (0.7-4.9); Basophils % 0.7 % (0-1.3); Hematocrit 33.8 % (36.0-45.0); Lymphocytes % 33.4 % (15.3-44.8); MPV 9.5 fL (7.6-11.3)
[2020-12-13 16:02] LABS: Protime INR 0.91
--- NOTE | 2020-12-13 16:03 | RAD REPORT ---
EXAM DESCRIPTION: Bronson Paz (2 Views)12/13/2020 3:48 pm CLINICAL HISTORY: Hypertension/preop for cardiac catheterization COMPARISON: 2018 FINDINGS: The lungs appear clear of acute infiltrate. The heart is normal size IMPRESSION: No acute abnormalities displayed
[2020-12-13 16:19] LABS: Potassium 5.3 mmol/L (3.5-5.1)
[2020-12-16] MEDS ORDERED: LIDOCAINE 1% 20 ML MDV ONE (06:56)
[2020-12-16] MEDS ORDERED: HEPA 1000U/500MLS 2,000 UNIT/1,000 ML BAG IV ONE (06:56)
[2020-12-16] MEDS ORDERED: NA CHLORIDE 0.9% 500 ML ONE (07:26)
[2020-12-16] MEDS ORDERED: MIDAZOLAM HCL 2 MG/2 ML INJ ONE (07:39)
[2020-12-16] MEDS ORDERED: FENTANYL CITR 100 MCG/2 ML ONE (07:40)
[2020-12-16] MEDS ORDERED: ATROPINE SULF 1 MG/10 ML SYR IV ONE (07:40)
[2020-12-16 08:46] VITALS: TEMP 97
[2020-12-16 09:33] VITALS: BP 135/59; O2SAT 96
--- NOTE | 2020-12-16 10:40 | OP ---
Date of Procedure: 12/16/2020 Surgeon: Trevin Patel MD Principal Java Software Engineer: Mr. Alfred Harrison. Indications And Procedure In Detail: Ms. Nelsy Perez is a 70-year-old woman with history of C VD, hypertension, diabetes, dyslipidemia with worsening carotid Doppler on the right side, brought to the [facility] today as an outpatient for selective bilateral carotid angiogram. She was prepped and draped in the routine sterile fashion. Given Versed for sedation. It was very difficult to feel her pulse on the right common femoral area, so a venous sheath was introduced first for landmark. Dannyo wing that, a 6-Pashto sheath was introduced in the right common femoral artery successfully. Angiogr aphy there was normal. StarClose was used to close the case. A JR4 catheter was used to select the right common carotid artery first. Angiography there showed a 60% right ICA. Her common carotid art hong and external carotid artery on the right were normal. The catheter was then moved to select the left common carotid artery. The whole system, there was normal. The left ICA, left common carotid, left ECA were normal. There were no complications. Blood loss was 5 mL. Postoperative Diagnosis: Moderate cerebrovascular disease with 60% right ICA stenosis. Plan: Plan is for medical therapy. Anesthesia: Total conscious sedation was 45 minutes. As far as medical therapy is concerned, I am going to have a double her statin. She will remain at [facility] for 2 hours, go home today and I will see her in the office in 2 weeks. NICK/GONZALO Voice ID: [id number] Report ID: [id number]
== END 2020-12-16 10:10 | disposition home or self-care (01) ==
LOC: CCL 06:33
DX: I65.21 Occlusion and stenosis of right carotid artery (principal); I10 Essential (primary) hypertension; I34.1 Nonrheumatic mitral (valve) prolapse; I35.9 Nonrheumatic aortic valve disorder, unspecified; E78.2 Mixed hyperlipidemia; E11.9 Type 2 diabetes mellitus without complications; G62.9 Polyneuropathy, unspecified; E66.01 Morbid (severe) obesity due to excess calories; Z68.41 Body mass index [BMI] 40.0-44.9, adult; Z20.822 Contact with and (suspected) exposure to COVID-19; Z82.49 Family history of ischemic heart disease and other diseases of the circulatory system
CPT/HCPCS: 93005; 85025; 80048; 36415; 85610; 82947; 85730; 71046; 36222; U0003; C1893; J2250; J3010; J7040; J1644

== ENCOUNTER 2021-04-26 20:26 | Emergency (ER) | payer SELFPAY ==
--- OUTSIDE RECORDS SUMMARY | 2021-04-26 20:29 | XMS REPORT | Continuity of Care Document ---
:1950 Author Organization [facility] t Address [address] [place] [address] Care Team Providers Name Role Phone Kenton Minaya Primary Care Physician Singer MICHAUD Attending Clinician Doctor Unassigned, Name Attending Clinician Unavailable Rex CARMONA Attending Clinician Evert GAO Attending Clinician Sadaf JACOBSEN Attending Clinician PARAS SHERIDAN Attending Clinician Unavailable Sadaf JACOBSEN Admitting Clinician PARAS SHERIDAN Admitting Clinician Unavailable Problems Condition Condition Condition Status Onset Resolution Last Treating Co mments Source Name Details Category Date Date Treatment Clinician Date Carotid Carotid Disease Active [facility] artery artery 04-10 [facility] - stenosis stenosis 00:00: Medica 00 Center Allergies, Adverse Reactions, Alerts This patient has no known allergies or adverse reactions. Social History Social Habit Start Date Stop Date Quantity Comments Source Sex Assigned At [facility] Medications Ordered Filled Start Stop Current Ordering Indication Dosage Frequency Signature Comments Components Source Medication Medication Date Date Medication? Clinician (SIG) Name Name metFORMIN 2019- Yes 1000mg Take 1,[address] [facility] (GLUCOPHAGE 7-26 [facility] - ) 1000 MG 10:34: mouth 2 Medic al tablet 53 (two) Center times daily with breakfast and dinner. lisinopril 2019 Yes 20mg Take [address] (PRINIVIL,Z 7-26 by mouth 2 [facility] kes - ESTRIL) 20 10:34: (two) Medica l MG tablet 53 times Center daily with breakfast and dinner. gabapentin 2019 Yes 300mg QD Take [address] (NEURONTIN) 7-26 [facility] - 300 MG 10:34: mouth Medical capsule 53 daily. Center metoprolol Yes 25mg Q.5D Take 25 mg C [...] 00:00:00 (1 of 1 - Medical Center [id number] PCV13) [code = PNEUMOCOCCAL 65+ YRS (1 of 1 - [id number] PCV13)] Future Scheduled [address] [facility] - Test 00:00:00 malignant neoplasm of Medica l Center breast (procedure) [code = 870407519] Future Scheduled [address] [facility] - Test 00:00:00 malignant neoplasm of [facility] Center colon (procedure) [code = 416996742] Encounters Start End Encounter Admission Attending Care Care Encounter Source Date/Time Date/Time Type Type Clinicians Facility Department ID 2021-01-10 2021-01-10 Emergency Rogers, [facility] [id number] 19:30:00 21:51:00 Raj Eubanks [id number] [place] 4.2.7.2.686 [place] [id number] 2021-01-10 2021-01-10 Orders Doctor KENTON [id number] 00:00:00 00:00:00 Only Unassigned, DES 350.1.13.10 [facility] 4.2.7.2.686 [id number] 2020-08-08 2020-08-08 Emergency [facility] [id number] 09:00:00 10:08:00 Raj Eubanks 350.1.13.10 [place] 4.2.7.2.686 [place] [id number] 2019-11-29 2019-11-29 Transition Rain Goodman [id number] 00:00:00 00:00:00 of Care Sia Bowen 350.1.13.10 [place] 4.2.7.2.686 [id number] 2019-11-25 2019-11-28 [id number] 18:01:16 14:20:00 Aiyana Talavera Cha 350.1.13.10 [place] 4.2.7.2.686 [place] [id number] Results Test Description Test Time Test Comments Results Result Comments Source POCT-GLUCOSE METER 2019-04-14 08:19:00 Test Item Value Reference Range Interpretation Comme nts POC-GLUCOSE METER (BEAKER) (test 194 mg/dL 70-110 H TESTED AT [facility] [address] [facility] 7703 0 [id number] 06:24:00 Test Item Value Reference Range Interpretation Comments MAGNESIUM (BEAKER) (test code = 1.7 mg/dL 1.6-2.6 627) BASIC METABOLIC [id number] 06:24:00 Test Item Value Reference Range Interpretation [...] PATIEN TS. CBC W/PLT COUNT & AUTO [id number] 04:51:00 Test Item Value Reference Range Interpretation [...] PERCENT (BEAKER) (test code = 2801) POCT-GLUCOSE [id number] 22:18:00 Test Item Value Reference Range Interpretation Comments POC-GLUCOSE METER 252 mg/dL 70-110 H TESTED AT [facility] 67[address] [facility] (test code = JEANNIE Jensen [facility] 1538) [address] POCT-GLUCOSE [id number] 17:53:00 Test Item Value Reference Range Interpretation Comments POC-GLUCOSE METER 173 mg/dL 70-110 H TESTED AT [facility] 6720 ([facility]) (test code = JEANNIE Jensen [facility] 1538) [address] NEEDLE EMG, 2 [id number] 15:01:00Please do with repetitive stimulationReason for exam:->[facility] [address] [facility] [address] [place], [place] [address] Name: Nelsy Perez Date of : 1950 [...] Median.R Wrist 2.7 ms 4.2 ms 14 ਜV Digit II (index finger)-Wrist 2.7 ms 130 mm 48 m/s Ulnar.R Wrist NR ms NR ms NR 𔶬V Digit V (little finger)-Wrist 110 mm Radial.R Forearm1.9 ms 2.8 ms 24 𔑷V Anatomical snuff box-Forearm 1.9 ms 100 mm 53 m/s Sural.R Lower leg 3.3 ms 4.2 ms 5 悘V Ankle-Lower leg 3.3 ms 140 mm 42 [...] neuromuscular junction disorder. Terence Donovan D.O. POCT-GLUCOSE [id number] 12:29:00 Test Item Value Reference Range Interpretation Comments POC-GLUCOSE METER 233 mg/dL 70-110 H TESTED AT [place] [address] ([facility]) (test code = JEANNIE Jensen [facility] 1538) [address] POCT-GLUCOSE [id number] 08:14:00 Test Item Value Reference Range Interpretation Comments POC-GLUCOSE METER 216 mg/dL 70-110 H TESTED AT [place] [address] ([facility]) (test code = JEANNIE Jensen [facility] 1538) [address] TSH/FREE T4 IF [id number] 07:06:00 Test Item Value Reference Range Interpretation Comments THYROID STIMULATING HORMONE 1.20 uIU/mL 0.35-4.94 (BEAKER) (test code = 772) [id number] 06:39:00 Test Item Value Reference Range Interpretation Comments MAGNESIUM (BEAKER) (test code = 1.9 mg/dL 1.6-2.6 627) BASIC METABOLIC [id number] 06:39:00 Test Item Value Reference Range Interpretation [...] PATIEN TS. CBC W/PLT COUNT & AUTO [id number] 05:54:00 Test Item Value Reference Range Interpretation [...] PERCENT (BEAKER) (test code = 2801) POCT-GLUCOSE [id number] 22:09:00 Test Item Value Reference Range Interpretation Comments POC-GLUCOSE METER 292 mg/dL 70-110 H TESTED AT [place] [address] ([facility] (test code = JEANNIE Jensen [facility] 1538) [address] POCT-GLUCOSE [id number] 18:14:00 Test Item Value Reference Range Interpretation Comments POC-GLUCOSE METER 229 mg/dL 70-110 H TESTED AT [place] [address] ([facility] (test code = JEANNIE Jensen [facility] 1538) [address] POCT-GLUCOSE [id number] 12:25:00 Test Item Value Reference Range Interpretation Comments POC-GLUCOSE METER 225 mg/dL 70-110 H TESTED AT [place] [address] ([facility] (test [facility] = [facility] 1538) [address] POCT-GLUCOSE [id number] 09:21:00 Test Item Value Reference Range Interpretation Comments POC-GLUCOSE METER 240 mg/dL 70-110 H TESTED AT [place] [address] ([facility] (test code = [facility] 1538) [address] [id number] 06:17:00 Test Item Value Reference Range Interpretation Comments MAGNESIUM (BEAKER) (test code = 2.0 mg/dL 1.6-2.6 627) BASIC METABOLIC [id number] 06:17:00 Test Item Value Reference Range Interpretation [...] PATIEN TS. CBC W/PLT COUNT & AUTO [id number] 05:33:00 Test Item Value Reference Range Interpretation [...] (test code = 2801) MR, BRAIN, WITHOUT [id number] 05:23:00Reason for exam:->Right third nerve palsy/headacheWhat is [...] MRI of the orbits. Signed: James Lux Verified Date/Time: 04/12/2019 05:23:37 Elec tronically signed by: JAMES LUX MD on 04/12/2019 05:23 AMMR, ORBIT, FACE, NECK, WITHOUT [id number] 05:23:00Reason for exam:->Right third nerve palsy/headacheFINAL REPORT [...] MRI of the orbits. Signed: James Lux Verified Date/Time: 04/12/2019 05:23:37 MR, MRA, NECK, WITHOUT IV CONTRAST 2019-04-12 05:09:00Reason for exam:->Right third nerve palsy/headacheWhat is the patient's sedation requirement?->No SedationIs the patient claustrophobic?->NoFINAL REPORT Clinical History: Right third nerve palsy/headacheRight third nerve palsy/headache Technique: MRA of the head utilizing 3-D pfbt-fg-weodkf technique, with 3-D reconstructions. MRA of the neck utilizing 2-D and 3-D ogel-fo-gdkemm technique, with 3-D reconstructions. Comparisons: None Findings: [...] MRA head: No evidence for a major [place] proximal branch vessel occlusion or [...] on a nonemergent basis. Signed: James Lux [facility] Verified Date/Time: 04/12/2019 05:09:17 MR, MRA, BRAIN, WITHOUT [id number] 05:09:00Reason for exam:->Right third nerve palsy/headacheWhat is the patient's sedation requirement?->No SedationIs the patient claustrophobic?->NoFINAL REPORT Clinical History: Right third nerve palsy/headacheRight third nerve palsy/headache Technique: MRA of the head utilizing 3-D zeus-pc-vfibvr technique, with 3-D reconstructions. MRA of the neck utilizing 2-D and 3-D hyvt-ra-ozvhju technique, with 3-D reconstructions. Comparisons: None Findings: [...] MRA head: No evidence for a major [place] proximal branch vessel occlusion or [...] James Lux Verified Date/Time: 04/12/2019 05:09:17 -GLUCOSE [id number] 21:59:00 Test Item Value Reference Range Interpretation Comments POC-GLUCOSE METER 283 mg/dL 70-110 H TESTED AT [place] [address] ([facility]) (test code = JEANNIE Jensen [place] 1538) [address] POCT-GLUCOSE [id number] 17:44:00 Test Item Value Reference Range Interpretation Comments POC-GLUCOSE METER 178 mg/dL 70-110 H TESTED AT [place] [address] ([facility]) (test code = JEANNIE Jensen [place] 1538) [address] POCT-GLUCOSE [id number] 17:44:00 Test Item Value Reference Range Interpretation Comments POC-GLUCOSE METER 262 mg/dL 70-110 H TESTED AT [place] [address] ([facility]) (test code = СВЕТЛАНАNE Camila [place] 1538) [address] POCT-GLUCOSE [id number] 12:43:00 Test Item Value Reference Range Interpretation Comments POC-GLUCOSE METER 194 mg/dL 70-110 H TESTED AT [place] [address] ([facility]) (test code = JEANNIE Jensen [place] 1538) [address] [id number] 08:18:00 Test Item Value Reference Range Interpretation Comments MAGNESIUM ([facility]) (test code = 1.7 mg/dL 1.6-2.6 627) BASIC METABOLIC [id number] 08:18:00 Test Item Value Reference Range Interpretation [...] NOT APPLICABLE FOR DIALYSIS PATIEN TS. LIPID [id number] 08:18:00 Test Item Value Reference Range Interpretation [...] Borderline 130-159 High 160-189 Very High >=190POCT-GLUCOSE [id number] 07:55:00 Test Item Value Reference Range Interpretation Comments POC-GLUCOSE METER 135 mg/dL 70-110 H TESTED AT [facility] 6720 (BEAKER) (test code = JEANNIE REYNOLDS 6578) [address] HEMOGLOBIN [id number] 07:04:00 Test Item Value Reference Range Interpretation Comments HEMOGLOBIN A1C (BEAKER) (test code = 10.5 % 4.3-6.1 H 368) CBC W/PLT COUNT & AUTO [id number] 06:51:00 Test Item Value Reference Range Interpretation [...] 0-1 PERCENT (BEAKER) (test code = 2801) [id number] 23:01:00 Test Item Value Reference Range Interpretation Comments MAGNESIUM (BEAKER) (test code = 1.6 mg/dL 1.6-2.6 627) BASIC METABOLIC [id number] 23:01:00 Test Item Value Reference Range Interpretation Comments SODIUM (BEAKER) 138 meq/L 136-145 (test code = 381) POTASSIUM (BEAKER) 4.2 meq/L 3.5-5.1 (test code = 379) CHLORIDE (BEAKER) 102 meq/L 98-107 (test code = 382) CO2 (BEAKER) (test 26 meq/L 22-29 code = 355) BLOOD UREA NITROGEN 24 [...] NOT APPLICABLE FOR DIALYSIS PATIEN TS. PROTHROMBIN [id number] 22:54:00 Test Item Value Reference Range Interpretation [...] mechanical heart valves.CBC W/PLT COUNT & AUTO [id number] 22:46:00 Test Item Value Reference Range Interpretation [...] (test code = 416) BASOPHILS ABSOLUTE COUNT (TRUDY) 0.04 K/ L 0.01-0.08 (test code = 417) IMMATURE GRANULOCYTES-RELATIVE 0 % 0-1 PERCENT (TRUDY) (test code = 2801) POCT-GLUCOSE [id number] 21:32:00 Test Item Value Reference Range Interpretation Comments POC-GLUCOSE METER 143 mg/dL 70-110 H TESTED AT [facility] 6720 (TRUDY) (test code = JEANNIE Jensen [facility] 1538) [address] RAD, CHEST, 1 VIEW, NON [id number] 19:49:00Reason for exam:->chest painShould this be performed at the bedside?->YesFINAL REPORT AP view of the chest dated 04/10/2019 CLINICAL INFORMATION: chest pain Comment: Heart is normal in size. Pulmonary vasculature is unremarkable. Lungs are clear. No pulmonary infiltrate or pleural effusion is present. Impression: No active cardiopulmonary disease.Signed: Ollie Mccain Verified Date/Time: 04/10/2019 19:49:30 Reading Location: [facility] B1 [id number] Reading Room
[2021-04-26 23:47] LABS: Urine Blood 1+ (Negative); Urine Glucose Negative (Negative); Urine Protein 2+ (Negative)
[2021-04-27 00:30] LABS: Absolute Lymphocytes (CBC) 0.9 K/uL (0.7-4.9); Basophils % 0.8 % (0-1.3); Hematocrit 35.6 % (36.0-45.0); Lymphocytes % 12.6 % (15.3-44.8); MPV 9.3 fL (7.6-11.3); RBC Red Blood Cell Count 4.17 M/uL (3.86-4.86)
[2021-04-27 00:52] LABS: Urine Bacteria LOADED /HPF (<20)
[2021-04-27 00:53] LABS: Urine Mucus 1+ /HPF (NONE SEEN)
[2021-04-27 00:57] LABS: Bilirubin Direct 4.3 mg/dL (0-0.2); Potassium 3.8 mmol/L (3.5-5.1); Protein, Total 7.1 g/dL (6.4-8.2)
[2021-04-27 01:00] LABS: Bilirubin Total 5.1 mg/dL (0.2-1.0)
[2021-04-27] MEDS ORDERED: ACETAMINOPHEN 500 MG TAB ONE (01:01)
[2021-04-27] MEDS ORDERED: NA CHLORIDE 0.9% 1,000 ML ONE (01:56)
--- NOTE | 2021-04-27 02:43 | ER ---
Nurse's Notes [facility] Name: Nelsy Perez Age: 70 yrs Sex: Female : 1950 Arrival Date: 04/26/2021 Time: 20:26 Bed 9 Private MD: Diagnosis: Cholelithiasis. Elevated liver functions. Urinary tract infection Presentation: 04/26 20:36 Chief complaint: Patient states: Epigastric pain, fever, fatigue, no appetite x 3 days. kg Coronavirus screen: Client denies travel out of the [place] in the last 14 days. At this time, unable to obtain information related to travel outside the [place] Client presents with at least one sign or symptom that may indicate coronavirus-19. Standard/surgical mask placed on the client. Provider contacted for isolation considerations. Ebola Screen: Patient negative for fever greater than or equal to 101.5 degrees Fahrenheit, and additional compatible Ebola Virus Disease symptoms Patient denies exposure to infectious person. Patient denies travel to an Ebola-affected area in the 21 days before illness onset. Initial Sepsis Screen: Does the patient meet any 2 criteria? No. Patient's initial sepsis screen is negative. Does the patient have a suspected source of infection? No. Patient's initial sepsis screen is negative. Risk Assessment: Do you want to hurt yourself or someone else? Patient reports no desire to harm self or others. Onset of symptoms was April 24, 2021. 20:36 Method Of Arrival: Wheelchair kg 20:36 Acuity: ARRON 4 kg Triage Assessment: 20:38 General: Appears in no apparent distress. Behavior is calm, cooperative, appropriate kg for age, quiet. Pain: Complains of pain in epigastric area, Gordy legs Pain currently is 4 out of 10 on a pain scale. at worst was 6 out of 10 on a pain scale. level that patient reports is acceptable is 3 out of 10 on a pain scale. Historical: - Allergies: 20:38 No Known Allergies; kg - Home Meds: 20:38 lisinopril 20 mg Oral tab 1 tab twice a day [Active]; metformin 1,000 mg Oral tab 1 tab kg 2 times per day [Active]; metoprolol 100 mg daily ( pt reports she only takes half) [Active]; Tresiba FlexTouch U-100 100 unit/mL (3 mL) subcutaneous inpn 40 unit daily [Active]; gabapentin 300 mg oral cap 1 cap 3 times per day [Active]; atorvastatin 40 mg oral tab 1 tab once daily [Active]; - PMHx: 20:38 Diabetes - IDDM; Hypertension; Neuropathy; Hypercholesterolemia; kg - PSHx: 20:38 Ligation of fallopian tube; cataract sx both eyes; kg - Immunization history:: Adult Immunizations up to date, Client reports receiving the 2nd dose of the Covid vaccine, Date received: December 18, 2020 Moderna Client reports receiving the 1st dose of the Covid vaccine, November 21, 2020 Kirt. - Social history:: Smoking status: Patient denies any tobacco usage or history of. Screenin:43 Abuse screen: Denies threats or abuse. Denies injuries from another. Nutritional kg screening: No deficits noted. Tuberculosis screening: No symptoms or risk factors identified. Fall Risk None identified. No fall in past 12 months (0 pts). No secondary diagnosis (0 pts). No IV (0 pts). Ambulatory Aid- None/Bed Rest/Nurse Assist (0 pts). Gait- Normal/Bed Rest/Wheelchair (0 pts) Mental Status- Oriented to own ability (0 pts). Total [place] Fall Scale indicates No Risk (0-24 pts). Assessment: 04/27 01:10 Reassessment: critical lab result bili 5.[address] Lui. General: Appears in no ms4 apparent distress. Behavior is calm, cooperative. Pain: Denies pain. Neuro: No deficits noted. Cardiovascular: No deficits noted. Respiratory: No deficits noted. GI: No deficits noted. : No deficits noted. EENT: No deficits noted. Derm: No deficits noted. Vital Signs: 04/26 20:36 BP 143 / 69; Pulse 93; Resp 20; Temp 100; Pulse Ox 95% on R/A; Weight 117.93 kg (R); kg Height 5 ft. 3 in. (160.02 cm) (R); Pain 0/10; 23:24 Temp 100.4(O); kg 04/27 01:11 Temp 98.4; ms4 02:55 BP 133 / 79; Pulse 84; Resp 20; Temp 98.7; Pulse Ox 98% ; Pain 0/10; ms4 04/26 20:36 Body Mass Index 46.06 (117.93 kg, 160.02 cm) kg ED Course: 04/26 20:26 Patient arrived in ED. bp1 20:38 Triage completed. kg 20:44 Arm band placed on left wrist. kg 20:44 Patient has correct armband on for positive identification. kg 04/27 00:32 Abran Lui MD is Attending Physician. pkl 00:36 COVID-19 : Document "Date of Symptom Onset" if Symptomatic. Sent. ms4 00:36 Flu Sent. ms4 00:36 Basic Metabolic Panel Sent. ms4 01:37 CT Abd/Pelvis - IV Contrast Only Sent. ms4 02:03 XRAY CXR (1 view) In Process Unspecified. EDMS 02:10 CT Abd/Pelvis - IV Contrast Only In Process Unspecified. EDMS 02:55 No provider procedures requiring assistance completed. ms4 02:56 IV discontinued, intact, bleeding controlled, No redness/swelling at site. Pressure ms4 dressing applied. Administered Medications: 00:40 Drug: Tylenol 1000 mg Route: PO; ms4 02:54 Follow up: Response: No adverse reaction ms4 01:37 Drug: NS 0.9% 1000 ml Route: IV; Rate: 125 ml/hr; Site: right antecubital; ms4 02:54 Follow up: IV Status: Completed infusion; IV Intake: 100ml ms4 02:54 Drug: Cipro (ciprofloxacin) 500 mg Route: PO; ms4 02:54 Follow up: Response: No adverse reaction ms4 Intake: 02:54 IV: 100ml; Total: 100ml. ms4 Outcome: 02:42 Discharge ordered by . pkl 02:55 Discharged to home ambulatory. ms4 02:55 Condition: stable 02:55 Condition: stable 02:55 Discharge instructions given to patient, Instructed on discharge instructions, follow up and referral plans. Demonstrated understanding of instructions, follow-up care, medications, Prescriptions given X 1. 02:56 Patient left the ED. ms4 Signatures: Dispatcher [employer] EDMS Abran Lui MD MD pkDominique Shankar Kristen, RN RN kg Kaylen Juarez RN RN ms4
--- NOTE | 2021-04-27 02:43 | EDPHYS ---
Physician Documentation [facility] Name: Nelsy Perez Age: 70 yrs Sex: Female : 1950 Arrival Date: 04/26/2021 Time: 20:26 Bed 9 Private MD: ED Physician Abran Lui HPI: 04/27 00:46 This 70 yrs old Female presents to ER via Wheelchair with complaints of Fever.pkl 00:46 The patient presents with abdominal pain in the epigastric area. Onset: The pkl symptoms/episode began/occurred 2 day(s) ago. The symptoms do not radiate. Associated signs and symptoms: Pertinent positives: fever, decrease appetite and fatigue. Historical: - Allergies: 04/26 20:38 No Known Allergies; kg - Home Meds: 20:38 lisinopril 20 mg Oral tab 1 tab twice a day [Active]; metformin 1,000 mg Oral tab 1 tab kg 2 times per day [Active]; metoprolol 100 mg daily ( pt reports she only takes half) [Active]; Tresiba FlexTouch U-100 100 unit/mL (3 mL) subcutaneous inpn 40 unit daily [Active]; gabapentin 300 mg oral cap 1 cap 3 times per day [Active]; atorvastatin 40 mg oral tab 1 tab once daily [Active]; - PMHx: 20:38 Diabetes - IDDM; Hypertension; Neuropathy; Hypercholesterolemia; kg - PSHx: 20:38 Ligation of fallopian tube; cataract sx both eyes; kg - Immunization history:: Adult Immunizations up to date, Client reports receiving the 2nd dose of the Covid vaccine, Date received: December 18, 2020 [facility] Client reports receiving the 1st dose of the Covid vaccine, November 21, 2020 [facility]. - Social history:: Smoking status: Patient denies any tobacco usage or history of. ROS: 04/27 00:46 Eyes: Negative for injury, pain, redness, and discharge, ENT: Negative for injury, pkl pain, and discharge, Neck: Negative for injury, pain, and swelling, Cardiovascular: Negative for chest pain, palpitations, and edema, Respiratory: Negative for shortness of breath, cough, wheezing, and pleuritic chest pain. Abdomen/GI: Positive for abdominal pain, of the epigastric area. Back: Negative for acute changes. : Negative for urinary symptoms. MS/extremity: Negative for acute changes. Skin: Negative for rash. Neuro: Negative for altered mental status, loss of consciousness. Exam: 00:46 Head/Face: Normocephalic, atraumatic. Eyes: Pupils equal round and reactive to light, pkl extra-ocular motions intact. Lids and lashes normal. Conjunctiva and sclera are non-icteric and not injected. Cornea within normal limits. Periorbital areas with no swelling, redness, or edema. ENT: Nares patent. No nasal discharge, no septal abnormalities noted. Tympanic membranes are normal and external auditory canals are clear. Oropharynx with no redness, swelling, or masses, exudates, or evidence of obstruction, uvula midline. Mucous membranes moist. Neck: Trachea midline, no thyromegaly or masses palpated, and no cervical lymphadenopathy. Supple, full range of motion without nuchal rigidity, or vertebral point tenderness. No Meningismus. Chest/axilla: Normal chest wall appearance and motion. Nontender with no deformity. No lesions are appreciated. Cardiovascular: Regular rate and rhythm with a normal S1 and S2. No gallops, murmurs, or rubs. Normal PMI, no JVD. No pulse deficits. Respiratory: Lungs have equal breath sounds bilaterally, clear to auscultation and percussion. No rales, rhonchi or wheezes noted. No increased work of breathing, no retractions or nasal flaring. 00:46 Abdomen/GI: Bowel sounds: normal, Palpation: abdomen is soft and non-tender, in all quadrants. 00:46 Back: Exam negative for acute changes. 00:46 : Exam negative for acute changes. 00:46 Musculoskeletal/extremity: Exam is negative for acute changes. 00:46 Skin: Exam negative for rash. 00:46 Neuro: Orientation: is normal, Mentation: is normal, Cranial nerves: grossly normal, Motor: is normal. Vital Signs: 04/26 20:36 BP 143 / 69; Pulse 93; Resp 20; Temp 100; Pulse Ox 95% on R/A; Weight 117.93 kg (R); kg Height 5 ft. 3 in. (160.02 cm) (R); Pain 0/10; 23:24 Temp 100.4(O); kg 04/27 01:11 Temp 98.4; ms4 02:55 BP 133 / 79; Pulse 84; Resp 20; Temp 98.7; Pulse Ox 98% ; Pain 0/10; ms4 04/26 20:36 Body Mass Index 46.06 (117.93 kg, 160.02 cm) kg MDM: 00:32 Patient medically screened. pkl 02:35 Data reviewed: vital signs, nurses notes, lab test result(s), EKG, radiologic studies, pkl CT scan, plain films. ED course: Patient not in any distress. Discussed lab and CT Scan result with patient. Advised to follow up with PCP/ [facility] Dancer/Surgeon ( [facility] ) in 1 to 2 days. return if necessary. Patient understood instruction. 04/26 20:45 Order name: COVID-19 : Document "Date of Symptom Onset" if Symptomatic. kg 04/26 20:45 Order name: Flu kg 04/26 20:46 Order name: Influenza Screen (A ; Complete Time: 00:33 EDMS 04/26 21:58 Order name: SARS-COV-2 RT PCR; Complete Time: 00:33 EDMS 04/26 23:17 Order name: Urine Microscopic Only; Complete Time: 01:02 cp 04/26 23:28 Order name: Basic Metabolic Panel kg 04/26 23:28 Order name: CBC with Diff; Complete Time: 00:33 kg 04/26 23:28 Order name: Hepatic Function; Complete Time: 01:02 kg 04/26 23:28 Order name: Lipase; Complete Time: 01:02 kg 04/26 23:28 Order name: Basic Metabolic Panel; Complete Time: 01:02 EDMS 04/26 23:46 Order name: Urine Dipstick-Ancillary; Complete Time: 23:52 EDMS 04/27 00:41 Order name: Troponin (emerg Dept Use Only); Complete Time: 01:41 pkl 04/27 00:54 Order name: Urine Culture EDMS 04/26 23:17 Order name: Urine Dipstick-Ancillary (obtain specimen); Complete Time: 00:36 cp 04/26 23:28 Order name: IV Saline Lock; Complete Time: 00:36 kg 04/26 23:28 Order name: Labs collected and sent; Complete Time: 00:36 kg 04/27 00:41 Order name: EKG; Complete Time: 00:42 pkl 04/27 01:04 Order name: CT Abd/Pelvis - IV Contrast Only pkl 04/27 01:42 Order name: XRAY CXR (1 view) pkl Administered Medications: 00:40 Drug: Tylenol 1000 mg Route: PO; ms4 02:54 Follow up: Response: No adverse reaction ms4 01:37 Drug: NS 0.9% 1000 ml Route: IV; Rate: 125 ml/hr; Site: right antecubital; ms4 02:54 Follow up: IV Status: Completed infusion; IV Intake: 100ml ms4 02:54 Drug: Cipro (ciprofloxacin) 500 mg Route: PO; ms4 02:54 Follow up: Response: No adverse reaction ms4 Disposition Summary: 04/27/21 02:42 Discharge Ordered Location: Home pkl Problem: new pkl Symptoms: have improved pkl Condition: Stable pkl Diagnosis - Cholelithiasis. Elevated liver functions. Urinary tract infection pkl Followup: pkl - With: Private Physician - When: 1 - 2 days - Reason: Re-evaluation by your physician Discharge Instructions: - Discharge Summary Sheet pkl Forms: - Medication Reconciliation Form pkl - Thank You Letter pkl - Antibiotic Education pkl - Prescription Opioid Use pkl Prescriptions: - Cipro 500 mg Oral Tablet - take 1 tablet by ORAL route every 12 hours for 7 days; 14 tablet; Refills: 0, pkl Product Selection Permitted Signatures: Dispatcher [employer] EDAbran Uriarte MD MD pkl Dax Viramontes, COLLECTION CORRESPONDENT-C COLLECTION CORRESPONDENT-Cla1 Rashad Najera PA PA cp Graham, Kristen, MATHEW RN kg Kaylen Juarez RN RN ms4 Corrections: (The following items were deleted from the chart) 04/26 21:04 20:46 CORONAVIRUS ordered. EDMS EDMS
[2021-04-27 03:06] VITALS: BP 133/79; TEMP 98.7; O2SAT 98
[2021-04-27] MEDS ORDERED: CIPROFLOXACIN HCL 500 MG TAB ONE (03:11)
--- NOTE | 2021-04-27 08:01 | EKG ---
Test Date: 2021-04-27 Test Time: 01:05:54 Sql Manager: MEASUREMENT RESULTS: Intervals: Rate: 83 NE: 164 QRSD: 70 QT: 364 QTc: 427 [place]: P: 45 NE: 164 QRS: -4 T: 27 INTERPRETIVE STATEMENTS: Normal sinus rhythm Normal ECG Compared to ECG 12/13/2020 14:28:18 No significant changes Electronically Signed On 04-27-21 08:00:13 CDT by Trevin Patel
--- NOTE | 2021-04-27 08:35 | RAD REPORT ---
EXAM DESCRIPTION: RAD - Chest Single View - 04/27/2021 2:03 am CLINICAL HISTORY: FEVER COMPARISON: Chest Pa And Lat (2 Views) dated 12/13/2020; Chest Single View dated 12/06/2018; CHEST SIN GLE VIEW dated 11/15/2015; CHEST PA AND LAT 2 VIEW dated 12/09/2010 FINDINGS: No evidence of edema or pneumonia. The heart size is within normal limits.No acute osseous abnormality. No significant pleural effusions or pneumothorax. IMPRESSION: No acute cardiopulmonary disease.
--- NOTE | 2021-04-28 12:01 | RAD REPORT ---
EXAM DESCRIPTION: CT - Abdomen Pelvis W Contrast - 04/27/2021 7:09 am COMPARISON: None. CLINICAL HISTORY: Elevated liver functions TECHNIQUE: CT of the abdomen and pelvis was acquired with IV contrast material. Coronal and sagitt al reconstructions were obtained. Automated exposure control was utilized on this examination as a dose lowering technique. FINDINGS: Lung bases: Clear. Liver: Normal. Gallbladder and biliary: A small dependent gallstone is noted. Unremarkable biliary tree. Pancreas: Normal. Spleen: Normal. Adrenal glands: Normal adrenal glands. Kidneys: Chronic left renal cortical scars. Stomach and Small Bowel: The stomach is normal. There is a 6.0 cm duodenal diverticulum containing fe salvatore material. Urinary bladder: A small amount of intravesicular air is present. Uterus and Adnexa: Normal. Colon and Appendix: The colon is unremarkable. No evidence of appendicitis. Retroperitoneum and lymph nodes: Normal. Vascular: Moderate multivessel calcified atherosclerosis. Peritoneal cavity: No ascites or free air. Musculoskeletal and soft tissues: Soft tissues are unremarkable. Lumbar spondylosis. No aggressive eileen ne lesions. No compression fracture. IMPRESSION: 1. Cholelithiasis with mild prominence of the gallbladder wall. These findings are nonsp ecific for cholecystitis. 2. A small amount of intravesicular air in the bladder may be iatrogenic or due to cystitis. 3. Large duodenal diverticulum. 4. Moderate atherosclerosis. Electronically signed by: Reji Murphy MD 04/27/2021 2:21 AM CDT Due to temporary technical issues with the PACS/Fluency reporting system, reports are being signed by the in house radiologist without review as a courtesy to ensure prompt reporting. The interpreting r adiologist is fully responsible for the content of the report.
== END 2021-04-27 02:56 | disposition home or self-care (01) ==
LOC: ER 20:26
DX: K80.20 Calculus of gallbladder without cholecystitis without obstruction (principal); N39.0 Urinary tract infection, site not specified; R79.89 Other specified abnormal findings of blood chemistry; I10 Essential (primary) hypertension; E11.9 Type 2 diabetes mellitus without complications; Z20.822 Contact with and (suspected) exposure to COVID-19
CPT/HCPCS: 36415; 71045; 74177; 80048; 80076; 81003; 81015; 83690; 84484; 85025; 87077; 87086; 87088; 87186; 87804; 93005; 96360; 99284; J7030; Q9967; U0003

== ENCOUNTER 2021-05-09 08:34 | Day surgery (SDC) | payer OTHER ==
[2021-05-09] MEDS ORDERED: CEFOXITIN/SWI 1gm 1 GM/10 ML SYR ONE (09:06)
[2021-05-09] MEDS ORDERED: NA CHLORIDE 0.9% 1,000 ML ONE (09:06)
[2021-05-09] MEDS ORDERED: propofoL 200 MG/20 ML VIAL IV ONE (09:10)
[2021-05-09] MEDS ORDERED: FENTANYL CITR 100 MCG/2 ML ONE (09:10)
[2021-05-09] MEDS ORDERED: MIDAZOLAM HCL 2 MG/2 ML INJ ONE (09:11)
[2021-05-09] MEDS ORDERED: LIDOCAINE 2% MPF 5 ML VIAL ONE (09:11)
[2021-05-09] MEDS ORDERED: ONDANSETRON 4 MG/2 ML VIAL ONE (09:11)
[2021-05-09] MEDS ORDERED: dexAMETHasone 10 MG/ML VIAL ONE (09:11)
[2021-05-09] MEDS ORDERED: ROCURONIUM 50 MG/5 ML VIAL IV ONE (09:11)
[2021-05-09] MEDS ORDERED: BUPIVACAINE 0.5% PF 10 ML VIAL ONE (09:29)
[2021-05-09] MEDS ORDERED: KETOROLAC 30 MG/ML INJ ONE ×2 (09:58→11:27)
[2021-05-09] MEDS: Ringers Lactate 1,000 ML IV ONE ×2 (11:00→11:10)
[2021-05-09] MEDS ORDERED: EPHEDRINE SULF 50 MG/ML VIAL ONE (11:06)
[2021-05-09] MEDS ORDERED: HYDROCODONE/APAP 7.5/325 MG TAB ONE (12:57)
[2021-05-09 13:33] VITALS: BP 146/50; TEMP 96.4; O2SAT 95
--- NOTE | 2021-05-09 13:56 | OP ---
Date of Procedure: 05/09/2021 Surgeon: Anish Cain MD Hospital Personnel Director: NITIN Rocha. Preoperative Diagnoses: Chronic cholecystitis and cholelithiasis, history of elevated liver function tests, negative MRCP. Postoperative Diagnoses: Chronic cholecystitis and cholelithiasis, history of elevated liver functio n tests, negative MRCP. Procedure: Laparoscopic cholecystectomy. Estimated Blood Loss: Minimal. Specimen: Gallbladder. Findings: As above. Anesthesia: General. Complications: None. Disposition: The patient tolerated the procedure in stable condition, taken to Recovery in good gene ral condition. Operative Note: The patient was brought to the OR and placed in supine position. General anesthesia was begun. The patient was prepped and draped in the usual sterile fashion. Marcaine 0.5% was infi ltrated locally. A 15 blade was used to make a 1 cm supraumbilical midline incision. Subcutaneous t issue was divided. Fascia identified and divided. #1 Vicryl stay suture was placed. Peritoneal cav ity was entered with sharp and blunt dissection. A 12 mm trocar was placed into the peritoneal cavity under direct vision. Pneumoperitoneum was established. Then, three 5 mm trocars were placed, 1 in the epigastrium just to the right of midline and 2 in the right subcostal region. Laparoscopy reveal ed chronic inflammation of the gallbladder. Fundus was retracted superiorly. Infundibulum was ident ified and retracted inferolaterally. Cystic duct and cystic artery were clearly identified with blun t dissection. Clips were placed. Both structures were divided. Cautery used to remove the gallblad haider from the liver bed. Bleeding on the liver bed was controlled with cautery. Gallbladder was retr ieved through the umbilicus via an EndoCatch bag. Right upper quadrant was irrigated. Effluent was clear. No evidence of bleeding or bile leakage was appreciated. Subsequently, all trocars were morris jacqueline under direct vision. Stay sutures were tied to each other to approximate the fascial defect. Goodman bcutaneous wounds were irrigated. Bleeding was controlled with cautery. A 3-0 chromic was used to a pproximate the subcutaneous tissue and close the skin. Sterile dressing was applied. The patient wa s awakened and taken to Recovery in good general condition. Discharge Note: The patient will go to Day Surgery and home when stable. Disposition: Home. Condition: Stable. Discharge Instructions: Resume home meds and diet. Activity as tolerated. No heavy lifting. Remov e outer dressing in 2 days. Shower. Keep wound clean and dry. Keep Steri-Strips on at all times. Follow up in my office in 1 week. Call for appointment. Tylenol No.3 one tablet p.o. q.4 p.r.n. norberto ABEL/GONZALO Voice ID: [id number] Report ID: [id number]
== END 2021-05-09 13:05 | disposition home or self-care (01) ==
LOC: OR 08:34
PROVIDERS: ATTEND Surgery
PROC: 0FT44ZZ Resection of Gallbladder, Percutaneous Endoscopic Approach (ICD-10-PCS; principal; 2021-05-09 10:00)
DX: K80.10 Calculus of gallbladder with chronic cholecystitis without obstruction (principal); Z20.822 Contact with and (suspected) exposure to COVID-19
CPT/HCPCS: 82947 ×2; 88304; 47562; U0003; J2704; J2250; J3010; J1100; J7120; J7030; J2405

== ENCOUNTER 2021-12-24 14:26 | Observation (INO) | payer OTHER ==
--- OUTSIDE RECORDS SUMMARY | 2021-12-24 14:32 | XMS REPORT | Continuity of Care Document ---
:1950 Author Organization [facility] t Address [address] [place] [address] Care Team Providers Name Role Phone PCP, DOES NOT HAVE A Primary Care Physician Unavailable Mao LORA Attending Clinician Unavailable NATALIE KEYES Attending Clinician Unavailable Lev LOUIS Attending Clinician Unavailable LAB90 Attending Clinician Unavailable Lev Louis MD Attending Clinician Natalie Keyes MD Attending Clinician TESTING, COVID Attending Clinician Unavailable Singer MICHAUD Attending Clinician Attending Clinician Unavailable Doctor Unassigned, Name Attending Clinician Unavailable Rex CARMONA Attending Clinician Evert GAO Attending Clinician Cathy JACOBSEN Attending Clinician CATHY Attending Clinician Unavailable PARAS SHERIDAN Attending Clinician Unavailable Cathy JACOBSEN Admitting Clinician CATHY Admitting Clinician Unavailable PARAS SHERIDAN Admitting Clinician Unavailable Payers Payer Name Policy Type Policy Number Effective Date Expiration Date S liliana Marii [facility] 7 [id number] 2021 00:00:00 Problems Condition Condition Condition Status Onset Resolution Last Treating Co mments Source Name Details Category Date Date Treatment Clinician Date 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 06-18 Seybol d mellitus mellitus 00:00: with with 00 peripheral peripheral vascular vascular disease disease Body mass Body mass Disease Active Ismael sey index index 06-18 Seybold 40.0-44.9, 40.0-44.9, 00:00: adult adult 00 Current Current Disease Active Mary use of use of 06-18 Seybold insulin insulin 00:00: 00 Essential Essential Disease Active Ismael sey hypertensi hypertensi 8-10 Se ybold on on 00:00: 00 Glaucoma Glaucoma Disease Active Ismaelse y of both of both 8-10 Seybold eyes eyes 00:00: 00 PVD PVD Disease Active Mary (periphera (periphera 8-10 Se ybold l vascular l vascular 00:00: disease) disease) 00 Controlled Controlled Disease Active Mariela gilbert 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 Hyperlipid Hyperlipid Disease Active Mariela gilbert emia emia 8-10 Seybold 00:00: 00 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 8-10 Se ybold glaucoma glaucoma 00:00: of both of both 00 eyes, eyes, indetermin indetermin ate stage ate stage Acute on Acute on Disease Active Unive rs chronic chronic 309 ity of diastolic diastolic 00:00: [place] s congestive congestive 00 Me dical heart heart Branch failure failure Morbid Morbid Disease Active Univers obesity obesity 3-09 ity of 00:00: [place] 00 Medical Branch Essential Essential Disease Active Uni vers hypertensi hypertensi 3-08 it y of on on 00:00: [place] 00 Medical Branch History of History of Disease Active U nivers CVA CVA 3-08 ity of (cerebrova [place]rebro[place] scular scular 00 Medical accident) accident) Bran ch Type 2 Type 2 Disease Active Univers diabetes diabetes 3-08 ity of mellitus mellitus 00:00: [place] with other with other 00 Me dical specified specified Bran ch complicati complicati on on Dyslipidem Dyslipidem Disease Active U kendy ia ia 3-08 ity of 00:00: [place] 00 [facility] Chest pain Chest pain Disease Active 2005-09 Overview : Univers 124 ICD10 ity of 00:00: Diagnosis [place] 00 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 Branch Utility Allergies, Adverse Reactions, Alerts Allergy Allergy Status Severity Reaction(s) Onset Inactive Treating Comm ents Source Name Type Date Date Clinician NO KNOWN Drug Active [facility] [place] [facility] ALLERGIE Class ity of [facility] Social History Social Habit Start Date Stop Date Quantity Comments Source Exposure to Not sure Mary maldonado SARS-CoV-2 (event) Tobacco use and 2021-04-29 2021-04-29 Smokeless tobacco Ke lsey Seybold exposure 00:00:00 00:00:00 non-user Alcohol intake 2021-01-10 2021-01-10 Current drinker Unive rsity of 00:00:00 00:00:00 of alcohol [facility] (finding) [place] Alcohol Comment 2019-11-25 2019-11-25 socially drinks Univ ersity of 00:00:00 00:00:00 [facility] Sex Ass[birth year] At [birth year] Universit y of 00:00:00 00:00:00 [facility] Smoking Status Start Date Stop Date Source Never smoker [facility] Medications Ordered Filled Start Stop Current Ordering Indication Dosage Frequency Signature Comments Components Source Medication Medication Date Date Medication? Clinician (SIG) Name Name Lisinopril 2020-09- No 1{tbl} Take 1 Ke lsey 20 MG oral 09-23 tablet by Sey bold Tablet 08:33: 00:00 mouth 50 :00 Metformin 2020-09- No 1{tbl} Take 1 Ismael sey HCl 1000 MG 09-23 tablet by Se ybold oral Tablet 08:33: 00:00 mouth 50 :00 every 12 hours Atorvastati 2020-09 No 1{tbl} Take 1 K elsey n Calcium 09-23 tablet by Seyb old 40 MG oral 08:33: 00:00 mouth Tablet 50 :00 daily Amlodipine 2021-1 2021- No 1{tbl} Take 1 Ke lsey Besylate 10 -04 11-04 tablet by Se ybold MG oral 08:33: 00:00 mouth Tablet 50 :00 daily Metoprolol 2020-09- No 100mg Take 100 K elsey Tartrate 25 -04 11-04 mg by Seybol d MG oral 08:27: 00:00 mouth Tablet 36 :00 daily Gabapentin 2020-09 Yes 1{capsu Take 1 Ke lsey 300 MG oral 04 le} capsule by Se ybold Capsule 08:25: mouth 3 14 times daily Loratadine 2020-09 Yes 1{tbl} Take 1 Ismael sey (Claritin) 1-04 tablet by Seyb old 10 MG oral 08:25: mouth tablet 14 Metoprolol 2020-09 Yes [id number] 100mg Take 1 Mary Succinate 1-04 tablet Seybold 100 MG oral 00:00: (100 mg TABLET SR 00 total) by 24 HR mouth daily Metformin 2020-09 Yes [id number] 1000mg Take 1 Mary HCl 1000 MG -04 tablet Seybol d oral Tablet 00:00: (1,000 mg 00 total) by mouth every 12 hours Amlodipine 2020-09 Yes [id number] 10mg Take 1 K elsey Besylate 10 -04 tablet (10 Se ybold MG oral 00:00: mg total) Tablet 00 by mouth daily Atorvastati 2020-09 Yes [id number] 40mg Take 1 Mary n Calcium 1-04 tablet (40 Seyb old 40 MG oral 00:00: mg total) Tablet 00 by mouth daily Lisinopril 2020-09 Yes [id number] 20mg Take 1 K elsey 20 MG oral -04 tablet (20 Sey bold Tablet 00:00: mg total) 00 by mouth daily OneTouch 2020-09 Yes [id number] 1{each} 1 each by Mary Delica - does not Seybold Lancets 33G 00:00: apply does not 00 route 3 apply Misc times daily Glucose 2020-09 Yes [id number] Use as Chandni ey Blood 09-23 directed Seybold (OneTouch 00:00: three Verio) in 00 times vitro Strip daily Insulin 2020-09- No [id number] 40U Inject 40 Mary Degludec 1-04 02-03 units into Seyb old (Tresiba 00:00: 05:59 the skin FlexTouch) 00 :00 every 24 200 UNIT/ML hours subcutaneou s Solution Pen-injecto r Ciprofloxac 2020-09- No 500mg Take 500 Mary in HCl 0-26 10-26 mg by Seybold (Cipro) 500 16:40: 00:00 mouth 2 MG oral 33 :00 times Tablet daily Metoprolol 2020-09 Yes 100mg Take 100 Ke lsey Tartrate 25 0-26 mg by Seybold MG oral 15:58: mouth Tablet 22 daily Metoprolol 2020-09- No 1{tbl} Take 1 Ke lsey Succinate 0-26 10-26 tablet by Seyb old 100 MG oral 15:56: 00:00 mouth TABLET SR 58 :00 24 HR Lisinopril 2020-09 Yes 1{tbl} Take 1 Ismael sey 20 MG oral 0-26 tablet by Seyb old Tablet 15:56: mouth 16 Metformin 2020-09 Yes 1{tbl} Take 1 Chandni ey HCl 1000 MG 0-26 tablet by Sey bold oral Tablet 15:56: mouth 16 every 12 hours Gabapentin 2020-09 Yes 1{capsu Take 1 Ke lsey 300 MG oral 0-26 le} capsule by Se ybold Capsule 15:56: mouth as 16 needed Atorvastati 2020-09 Yes 1{tbl} Take 1 Ke lsey n Calcium 0-26 tablet by Seybo ld 40 MG oral 15:56: mouth Tablet 16 daily Amlodipine 2020-09 Yes 1{tbl} Take 1 Ismael sey Besylate 10 0-26 tablet by Sey bold MG oral 15:56: mouth Tablet 16 daily Loratadine 2020-09 Yes 1{tbl} Take 1 Ismael sey (Claritin) 0-26 tablet by Seyb old 10 MG oral 15:56: mouth tablet 16 Nitrofurant 2020-09 Yes [id number] 100mg Take 1 Mary oin Monohyd 0-26 capsule Seybo ld Macro 100 00:00: (100 mg MG oral 00 total) by Capsule mouth 2 times daily Nitrofurant 2020-09 No [id number] 100mg Take 1 Mary oin Monohyd 0-26 11-04 capsule Seyb old Macro 100 00:00: 00:00 (100 mg MG oral 00 :00 total) by Capsule mouth 2 times daily Glucose Yes [id number] Use as Chandni ey Blood 9- directed Seybold (OneTouch 00:00: three Verio) in 00 times vitro Strip daily Glucose 2020- No [id number] Use as Ismael sey Blood 9-27 11-04 directed Seybold (OneTouch 00:00: 00:00 three Verio) in 00 :00 times vitro Strip daily Albuterol Yes [id number] 2{puff} Q6H Inhale 2 Mary HFA 108 (90 9-07 puffs into Se ybold Base) 00:00: the lungs MCG/ACT IN 00 every 6 AERS hours as needed for wheezing Albuterol Yes [id number] 2{puff} Q6H Inhale 2 Mary HFA 108 (90 9-07 puffs into Se ybold Base) 00:00: the lungs MCG/ACT IN 00 every 6 AERS hours as needed for wheezing Albuterol 2020- No [id number] 2{puff} Q6H Inhale 2 Mary HFA 108 (90 9-07 11-04 puffs into S eybold Base) 00:00: 00:00 the lungs MCG/ACT IN 00 :00 every 6 AERS hours as needed for wheezing Doxycycline 2020- No [id number] 100mg Take 1 Mary Hyclate 100 05-27 09-15 capsule Seyb old MG oral 00:00: 04:59 (100 mg Capsule 00 :00 total) by mouth 2 times daily for 7 days Blood Yes [id number] 1{each} 1 each by Mary Glucose 8-27 does not Seybold Monitoring 00:00: apply Suppl 00 route 3 (OneTouch times Verio IQ daily System) w/Device does not apply Kit Blood 2020- Yes [id number] Use as Mary Glucose 8-27 directed Seybold Monitoring 00:00: to check Suppl 00 blood (Blood sugar Glucose three Monitor times System) daily. w/Device does not apply Kit Glucose Yes [id number] Use as Chandni ey Blood 8-27 directed Seybold (OneTouch 00:00: three Verio) in 00 times vitro Strip daily Blood 2020-0 Yes [id number] 1{each} 1 each by Mary Glucose 05-16 does not Seybold Monitoring 00:00: apply Suppl 00 route 3 (OneTouch times Verio IQ daily System) w/Device does not apply Kit OneTouch 2020-0 Yes [id number] 1{each} 1 each by Mary Paredes 05-16 does not Seybold Lancets 33G 00:00: apply does not 00 route 3 apply Misc times daily Blood 2020-0 Yes [id number] Use as Mary Glucose 05-16 directed Seybold Monitoring 00:00: to check Suppl 00 blood (Blood sugar Glucose three Monitor times System) daily. w/Device does not apply Kit Blood 2020-0 Yes [id number] 1{each} 1 each by Mary Amaral 05-16 does not Seybold Monitoring 00:00: apply Suppl 00 route 3 (OneTouch times Verio IQ daily System) w/Device does not apply Kit OneTouch 2020-0 Yes [id number] 1{each} 1 each by Mary Paredes 05-16 does not Seybold Lancets 33G 00:00: apply does not 00 route 3 apply Misc times daily Blood 2020-0 Yes [id number] Use as Mary Glucose 05-16 directed Seybold Monitoring 00:00: to check Suppl 00 blood (Blood sugar Glucose three Monitor times System) daily. w/Device does not apply Kit OneTouch 2020-0 2021- No [id number] 1{each} 1 each by Mary Paredes 05-16 does not Seybold Lancets 33G 00:00: 00:00 apply does not 00 :00 route 3 apply Misc times daily Lancets 33G 2020-0 Yes [id number] 1{each} 1 each by Mary does not 05-15 does not Seybold apply Misc 00:00: apply 00 route 3 times daily Use as directed Glucose 2020-0 Yes [id number] Use as Chandni ey Blood in 05-15 directed Seybold vitro Strip 00:00: three 00 times daily Lancets 33G 2021-0 Yes [id number] 1{each} 1 each by Mary does not 05-15 does not Seybold apply Misc 00:00: apply 00 route 3 times daily Use as directed Glucose Yes [id number] Use as Chandni ey Blood in 05-15 directed Seybold vitro Strip 00:00: three 00 times daily Lancets 33G 2020- No [id number] 1{each} 1 each by Mary does not 05-15 does not Seybol d apply Misc 00:00: 00:00 apply 00 :00 route 3 times daily Use as directed Glucose 0 2020- No [id number] Use as Ismael sey Blood in 05-15 directed Seybol d vitro Strip 00:00: 00:00 three 00 :00 times daily Glucose Yes [id number] Use as Chandni ey Blood 8 directed Seybold (Contour 00:00: three Test) in 00 times vitro Strip daily, patient uses Contour Plus Glucose Yes [id number] Use as Chandni ey Blood 8- directed Seybold (Contour 00:00: three Test) in 00 times vitro Strip daily, patient uses Contour Plus Glucose 2020- No [id number] Use as Ismael sey Blood 05-1404 directed Seybold (Contour 00:00: 00:00 three Test) in 00 :00 times vitro Strip daily, patient uses Contour Plus Continuous Yes [id number] Use 1 Ke lsey Blood Gluc 8-24 sensors Seybol d Sensor 00:00: every 14 (FreeStyle 00 days with Amaya 14 the Day Sensor) Freestyle does not Amaya apply Misc Continuous 0 Yes [id number] Use 1 Ke lsey Blood Gluc 8-24 sensors Seybol d Sensor 00:00: every 14 (FreeStyle 00 days with Amaya 14 the Day Sensor) Freestyle does not Amaya apply Misc Continuous 2020-0 202- No [id number] Use 1 K elsey Blood Gluc 8-24 11 sensors Seybo ld Sensor 00:00: 00:00 every 14 (FreeStyle 00 :00 days with Amaya 14 the Day Sensor) Freestyle does not Amaya apply Misc Ciprofloxac Yes 500mg Take 500 K elsey in HCl 8-10 mg by Seybold (Cipro) 500 09:39: mouth 2 MG oral 06 times Tablet daily Lisinopril Yes 1{tbl} Take 1 Ismael sey 20 MG oral 8-10 tablet by Seyb old Tablet 09:30: mouth 46 Metoprolol Yes 1{tbl} Take 1 Ismael sey Succinate 8-10 tablet by Seybo ld 100 MG oral 09:30: mouth TABLET SR 46 24 HR Metformin Yes 1{tbl} Take 1 Chandni ey HCl 1000 MG 8-10 tablet by Sey bold oral Tablet 09:30: mouth 46 every 12 hours Gabapentin Yes 1{capsu Take 1 Ke lsey 300 MG oral 8-10 le} capsule by Se ybold Capsule 09:30: mouth as 46 needed Atorvastati Yes 1{tbl} Take 1 Ke lsey n Calcium 8-10 tablet by Seybo ld 40 MG oral 09:30: mouth Tablet 46 daily Amlodipine Yes 1{tbl} Take 1 Ismael sey Besylate 10 8-10 tablet by Sey bold MG oral 09:30: mouth Tablet 46 daily allopurinoL Yes [id number] 100mg Take 1 Univers 100 mg 01-17 [id number] tablet by ity of tablet 00:00: mouth [place] 00 daily. Medical Branch methylPREDN Yes [id number] Take by Univers ISolone 01-10 [id number] mouth ity of (MEDROL, 00:00: SEE-INSTRU [place] as CHRISTIAN,) 4 mg 00 CTIONS. Medica l tablets follow Branch package directions indomethaci 2020- No [id number] 50mg Take 1 Univers n 50 mg 01-10 [id number] capsule by ity of capsule 00:00: 04:59 mouth 3 [place] 00 :00 (three) Medical times Branch daily with meals for 5 days. Insulin 2019-09 Yes every 24 Mary Degludec 2-17 hours Seybold (Tresiba 00:00: FlexTouch) 00 200 UNIT/ML subcutaneou s Solution Pen-injecto r Insulin 2019-09 Yes every 24 Mary Degludec 2-17 hours Seybold (Tresiba 00:00: FlexTouch) 00 200 UNIT/ML subcutaneou s Solution Pen-injecto r Insulin 2019-09- No every 24 Kelse y Degludec 2-17 11-04 hours Seybold (Tresiba 00:00: 00:00 FlexTouch) 00 :00 200 UNIT/ML subcutaneou s Solution Pen-injecto r methylPREDN 2019-09 Yes [id number] Take by [facility] [place] [facility] 10-08 9103 mouth ity of (MEDROL, 00:00: SEE-INSTRU [place] as CHRISTIAN,) 4 mg 00 CTIONS. Medica l tablets follow Branch package directions methylPREDN 2019-09 Yes [id number] Take by [facility] [place] [facility] 10-08 9103 mouth ity of (MEDROL, 00:00: SEE-INSTRU Willam as CHRISTIAN,) 4 mg 00 CTIONS. Medica l tablets follow Branch package directions methylPREDN 2019-09- No [id number] Take by [facility] [place] [facility] 10-08 9103 mouth ity of (MEDROL, 00:00: 00:00 [place] CHRISTIAN[place] 4 mg 00 :00 CTIONS. Medica l tablets follow Branch package directions Aspirin 81 2020-0 Yes 1{tbl} Take 1 Ismael sey MG oral 3-11 tablet by Seybold Chewable 00:00: mouth Tablet 00 daily Aspirin 81 2020-0 Yes 1{tbl} Take 1 Ismael sey MG oral 3-11 tablet by Seybold Chewable 00:00: mouth Tablet 00 daily Aspirin 81 2020-0 Yes 1{tbl} Take 1 Ismael sey MG oral 3-11 tablet by Seybold Chewable 00:00: mouth Tablet 00 daily aspirin 81 2020-0 Yes 81mg Take 1 Unive rs mg chewable 3-11 tablet by ity of tablet 00:00: mouth [place] 00 daily. Medical Branch amLODIPine 2020-0 Yes 10mg Take 2 Unive rs 5 mg tablet 3-11 tablets by it y of 00:00: mouth [place] 00 daily. Medical Branch clopidogreL 2020-0 Yes 75mg Take 1 Univ ers 75 mg 3-11 tablet by ity of tablet 00:00: mouth [place] 00 daily. Medical Branch aspirin 81 2020-0 Yes 81mg Take 1 Unive rs mg chewable 3-11 tablet by ity of tablet 00:00: mouth [place] 00 daily. Medical Branch amLODIPine 2020-0 Yes 10mg Take 2 Unive rs 5 mg tablet 3-11 tablets by it y of 00:00: mouth [place] 00 daily. Medical Branch clopidogreL 2020-0 Yes 75mg Take 1 Univ ers 75 mg 3-11 tablet by ity of tablet 00:00: mouth [place] 00 daily. Medical Branch aspirin 81 2020-0 Yes 81mg Take 1 Unive rs mg chewable 3-11 tablet by ity of tablet 00:00: mouth [place] 00 daily. Medical Branch amLODIPine 2020-0 Yes 10mg Take 2 Unive rs 5 mg tablet 3-11 tablets by it y of 00:00: mouth [place] 00 daily. Medical Branch clopidogreL 2020-0 Yes 75mg Take 1 Univ ers 75 mg 3-11 tablet by ity of tablet 00:00: mouth [place] 00 daily. Medical Branch aspirin 81 2020-0 Yes 81mg Take 1 Unive rs mg chewable 3-11 tablet by ity of tablet 00:00: mouth [place] 00 daily. Medical Branch amLODIPine 2020-0 Yes 10mg Take 2 Unive rs 5 mg tablet 3-11 tablets by it y of 00:00: mouth 00 daily. Medical Branch clopidogreL 2020-0 Yes 75mg Take 1 Univ ers 75 mg 3-11 tablet by ity of tablet 00:00: mouth 00 daily. Medical Branch aspirin 81 2020-0 Yes 81mg Take 1 Unive rs mg chewable 3-11 tablet by ity of tablet 00:00: mouth [place] 00 daily. Medical Branch amLODIPine 2020-0 Yes 10mg Take 2 Unive rs 5 mg tablet 3-11 tablets by it y of 00:00: mouth [place] 00 daily. Medical Branch clopidogreL 2020-0 Yes 75mg Take 1 Univ ers 75 mg 3-11 tablet by ity of tablet 00:00: mouth [place] 00 daily. Medical Branch metoprolol 2020-0 Yes 50mg Take 50 mg U nivers succinate 3-10 by mouth ity of XL 50 mg 24 19:23: daily. [place] hr tablet 08 Medical Branch lisinopril 2020-0 Yes 20mg Take 20 mg U nivers 20 mg 3-10 by mouth ity of tablet 19:23: daily. [place] 08 Medical Branch metFORMIN 2020-0 Yes 1000mg Take 1,000 Univers 1,000 mg 3-10 mg by ity of tablet 19:23: mouth 2 [place] 08 (two) Medical times Branch daily with meals. metoprolol 2020-0 Yes 50mg Take 50 mg U nivers succinate 3-10 by mouth ity of XL 50 mg 24 19:23: daily. [place] hr tablet [address] [place] [address] lisinopril 2020-0 Yes 20mg Take 20 mg U nivers 20 mg 3-10 by mouth ity of tablet 19:23: daily. [address] metFORMIN 2020-0 Yes 1000mg Take 1,000 Univers 1,000 mg 3-10 mg by ity of tablet 19:23: mouth 2 [place] [address] [facility] times [place] daily with meals. metoprolol 2020-0 Yes 50mg Take 50 mg U nivers succinate 3-10 by mouth ity of XL 50 mg 24 19:23: daily. [place] hr tablet [address] [place] [address] lisinopril 2020-0 Yes 20mg Take 20 mg U nivers 20 mg 3-10 by mouth ity of tablet 19:23: daily. [address] metFORMIN 2020-0 Yes 1000mg Take 1,000 Univers 1,000 mg 3-10 mg by ity of tablet 19:23: mouth 2 [place] [address] [facility] times [place] daily with meals. metoprolol 2020-0 Yes 50mg Take 50 mg U nivers succinate 3-10 by mouth ity of XL 50 mg 24 19:23: daily. [place] hr tablet [address] [place] [address] lisinopril 2020-0 Yes 20mg Take 20 mg U nivers 20 mg 3-10 by mouth ity of tablet 19:23: daily. [address] metFORMIN 2020-0 Yes 1000mg Take 1,000 Univers 1,000 mg 3-10 mg by ity of tablet 19:23: mouth 2 [place] [address] [facility] times [place] daily with meals. metoprolol 2020-0 Yes 50mg Take 50 mg U nivers succinate 3-10 by mouth ity of XL 50 mg 24 19:23: daily. [place] hr tablet [address] [place] [address] lisinopril 2020-0 Yes 20mg Take 20 mg U nivers 20 mg 3-10 by mouth ity of tablet 19:23: daily. [address] metFORMIN 2020-0 Yes 1000mg Take 1,000 Univers 1,000 mg 3-10 mg by ity of tablet 19:23: mouth 2 [place] [address] [facility] times [place] daily with meals. INSULN ASP 2020-0 2020- No 26U inject 26 U nivers PRT/INSULIN 3-10 03-10 Units ity of ASPART 18:36: 00:00 under the [place] (NOVOLOG 06 :00 skin 2 Medical MIX 70-30 (two) Branch SC) times daily. lisinopril- 2020-0 2020- No 1{tbl} Take 1 Tab Univers hydrochloro 3-10 03-10 by mouth ity of thiazide 18:36: 00:00 daily. [place] (PRINZIDE,Z 06 :00 Medical ESTORETIC) Branch 20-25 mg per tablet INSULIN 2020-0 2020- No 6U inject 6 Unive rs LISPRO 3-10 03-10 Units ity of (HUMALOG 18:36: 00:00 under the [place] as [place]) 06 :00 skin 3 Medical (three) Branch times daily. INSULIN 2020-0 2020- No 36U inject 36 Univ ers DEGLUDEC 3-10 03-10 Units ity of (TRESIBA 18:36: 00:00 under the [place] FLEXTOUCH 06 :00 skin Medical U-100 SC) daily. Branch Regadenoson 2019-0 2019- No .4mg 0.4 mg, IV Univers (LEXISCAN) 3- 03-10 Push, ity of injection 15:30: 15:00 ONCE, 1 [place] 0.4 mg 00 :00 dose, Tue Medical 11/28/19 at Branch 1030, Routine
member of congress approving Restricted medication : FLORENTIN MALAGON tc 2020-0 2020- No 44mCi 44 Univers 99m-tetrofo 3-10 03-10 millicurie i ty of smin 15:15: 15:01 , [place] (MYOVIEW) 00 :00 Intravenou Medi salvatore injection s, ONCE, 1 Bran ch 44 dose, Tue millicurie 11/28/19 at 1015, Routine tc 2020-0 2020- No 16.5mCi 16.5 Univers 99m-tetrofo 3-10 03-10 millicurie i ty of smin 13:15: 13:04 , [place] (MYOVIEW) 00 :00 Intravenou Medi salvatore injection s, ONCE, 1 Bran ch 16.5 dose, Tue millicurie 11/28/19 at 0815, Routine insulin 2020-0 Yes 34U inject 34 Unive rs degludec-li 3-10 Units ity of raglutide 00:00: under the [place] (XULTOPHY 00 skin at Medical 100/3.6) bedtime. Branch 100 unit-3.6 mg /mL (3 mL) InPn atorvastati 2020-0 Yes 40mg Take 2 Univ ers n 20 mg 3-10 tablets by ity of tablet 00:00: mouth at [place] 00 bedtime. Medical Branch insulin 2020-0 Yes 34U inject 34 Unive rs degludec-li 3-10 Units ity of raglutide 00:00: under the [place] (XULTOPHY 00 skin at [facility] 100/3.6) bedtime. Branch 100 unit-3.6 mg /mL (3 mL) InPn atorvastati 2020-0 Yes 40mg Take 2 Univ ers n 20 mg 3-10 tablets by ity of tablet 00:00: mouth at [place] 00 bedtime. Medical Branch insulin 2020-0 Yes 34U inject 34 Unive rs degludec-li 3-10 Units ity of raglutide 00:00: under the [place] (XULTOPHY 00 skin at [place] [address]/3.6) bedtime. Branch 100 unit-3.6 mg /mL (3 mL) InPn atorvastati 2020-0 Yes 40mg Take 2 Univ ers n 20 mg 3-10 tablets by ity of tablet 00:00: mouth at [place] 00 bedtime. Medical Branch insulin 2020-0 Yes 34U inject 34 Unive rs degludec-li 3-10 Units ity of raglutide 00:00: under the [place] (XULTOPHY 00 skin at [facility] 100/3.6) bedtime. Branch 100 unit-3.6 mg /mL (3 mL) InPn atorvastati 2020-0 Yes 40mg Take 2 Univ ers n 20 mg 3-10 tablets by ity of tablet 00:00: mouth at [place] 00 bedtime. Medical Branch insulin 2020-0 Yes 34U inject 34 Unive rs degludec-li 3-10 Units ity of raglutide 00:00: under the [place] (XULTOPHY 00 skin at [facility] 100/3.6) bedtime. Branch 100 unit-3.6 mg /mL (3 mL) InPn atorvastati 2020-0 Yes 40mg Take 2 Univ ers n 20 mg 3-10 tablets by ity of tablet 00:00: mouth at [place] 00 bedtime. Medical Branch pantoprazol 2020-0 2020- No [id number] 40mg Take 1 Univers e 40 mg EC 3-10 04-10 tablet by ity of tablet 00:00: 04:59 mouth [place] 00 :00 daily for Medical 30 days. Branch pantoprazol 2020-0 2020- No [id number] 40mg Take 1 Univers e 40 mg EC 3-10 04-10 tablet by ity of tablet 00:00: 04:59 mouth [place] 00 :00 daily for Medical 30 days. Branch sucralfate 2020-0 2020- No [id number] 1g Take 1 Univers 1 gram 3-10 03-10 tablet by ity of tablet 00:00: 00:00 mouth [place] 00 :00 before Medical meals and Branch at bedtime for 14 days. atorvastati 2020-0 Yes 20mg 20 mg, Univ ers n (LIPITOR) 3-09 Oral, QHS, it y of tablet 20 02:00: [place] dose [place] 00 on [facility] 11/26/19 at Branch 2100, Until Discontinu ed, Routine clopidogreL 2020-0 Yes 75mg 75 mg, Univ ers (PLAVIX) 3-08 Oral, ity of tablet 75 14:00: DAILY, [place] mg 00 First dose Medical on [facility] 11/26/19 at 0900, Until Discontinu ed, Routine aspirin 2020-0 Yes 81mg 81 mg, Univers chewable 3-08 Oral, ity of tablet 81 14:00: DAILY, [place] mg 00 First dose Medical on [facility] 11/26/19 at 0900, Until Discontinu ed, Routine amLODIPine 2020-0 Yes 5mg 5 mg, Univer s (NORVASC) 3-08 Oral, ity of tablet 5 mg 14:00: DAILY, [place] 00 First dose Medical on [facility] 11/26/19 at 0900, Until Discontinu ed, Routine lisinopril 2020-0 Yes 20mg 20 mg, Unive rs (PRINIVIL,Z 3-08 Oral, ity of ESTRIL) 14:00: DAILY, [place] tablet 20 00 First dose Medi salvatore mg on [facility] 11/26/19 at 0900, Until Discontinu ed, Routine metoprolol 2020-0 Yes 50mg 50 mg, Unive rs succinate 3-08 Oral, ity of XL (TOPROL 14:00: DAILY, [place] XL) tablet 00 First dose Med ical 50 mg on [place] [facility] 11/26/19 at 0900, Until Discontinu ed, Routine enoxaparin 2020-0 Yes 40mg 40 mg, Unive rs (LOVENOX) 3 Subcutaneo ity of injection 14:00: [place] 40 mg 00 First dose Medical on [place] [facility] 11/26/19 at 0900, Until Discontinu ed, Routine docusate 2020-0 Yes 100mg 100 mg, Unive rs (COLACE) 308 Oral, BID, ity o f capsule 100 13:00: First dose [place] mg 00 on [place] [facility] 11/26/19 at Branch 0800, Until Discontinu ed, Routine sucralfate 2020-0 Yes 1g 1,000 mg Uni vers (CARAFATE) 11-25 (1 g), ity of 100 mg/mL 04:45: Oral, [place] suspension 00 AC+HS, Medical 1,000 mg First dose Branc h on 11/25/19 at 2245, Until Discontinu ed, Routine pantoprazol 2020-0 Yes 40mg 40 mg, IV U nivers e 11-25 Piggyback, ity of (PROTONIX) 04:45: Q12H, [place] 40 mg in 00 First dose Medic al NaCl 0.9% on [facility] Branch (NS) 100 mL 11/25/19 at MINI-BAG 2245, Until Discontinu ed, 100 mL furosemide 2020-0 2020- No 20mg 20 mg, Univ ers (LASIX) 11-25 03-10 Slow IV ity of injection 04:45: 14:21 Push, [place] 20 mg 00 :16 QAM+PM, Medical First dose Branch on 11/25/19 at 2245, Until Discontinu ed, Routine insulin 2020-0 Yes 34U 34 Units, Unive rs glargine 3 Subcutaneo ity o f (LANTUS 04:30: us, QHS, [place] U-100) 00 First dose Medical injection on [facility] Branch 34 Units 11/25/19 at 2230, Until Discontinu ed Sliding 2020-0 Yes Subcutaneo Univ ers Scale 3-08 us, TID ity of Insulin - 04:30: MEALS+HS, [place] Lispro 00 First dose Medical (HumaLOG) + on Sat Branch Fsbg 11/25/19 at Testing 0, Until Discontinu ed, Routine ondansetron 2020-0 Yes 4mg 4 mg, Slow Univers (ZOFRAN 3-08 IV Push, ity of (PF)) 04:28: Q6HPRN, [place] injection 4 22 Starting Medi salvatore mg 11/25/19 Branch at 2228, Until Discontinu ed, Routine, Nausea and Vomiting (N/V) glucagon 2020-0 Yes 1mg 1 mg, Univers (GLUCAGEN - Intramuscu ity of DIAGNOSTIC 04:27: lar, PRN, [place] KIT) 39 Starting Medical injection 1 11/25/19 Br anch mg at 2226, Until Discontinu ed, FREDDIE, Blood Glucose < or = 70 mg/dL and patient is unable to swallow or has mental changes. dextrose 50 2020-0 Yes 25mL 25 mL, Univ ers % in water -08 Slow IV ity of (D50W) 04:27: Push, PRN, [place] injection 39 Starting Medica l 25 mL 11/25/19 Branch at 2226, Until Discontinu ed, FREDDIE, Blood Glucose < or = 70 mg/dL and patient is unable to swallow or has mental status changes. nitroglycer 2020-0 Yes .4mg 0.4 mg, Uni vers in -08 Sublingual ity of (NITROSTAT) 04:27: , Q5MIN [place] sublingual 05 PRN, Medical tablet 0.4 Starting Branc h mg 11/25/19 at 2226, Until Discontinu ed, Routine, Chest pain morpHINE 2020-0 Yes 2mg 2 mg, Slow Uni vers injection 2 -08 IV Push, ity of mg 04:26: Q4HPRN, [place] 55 Starting Medical 11/25/19 Branch at 2226, Until Discontinu ed, Routine, Pain (scale 7-10), Chest pain proMETHazin 2020-0 2020- No 12.5mg 12.5 mg, Univers e 11-25 03-08 IV ity of (PHENERGAN) 03:30: 03:30 [place], [place] 12.5 mg in 00 :00 ONCE, 1 Medica l NaCl 0.9% dose, Sat Branc h (NS) 50 mL 11/25/19 at piggyback 2130, 50 mL nitroglycer 2020-0 2020- No .4mg 0.4 mg, Un danny in 11-25 Sublingual ity of (NITROSTAT) 03:00: 02:02 , ONCE, 1 [place] sublingual 00 :00 dose, Sat Medi salvatore tablet 0.4 11/25/19 at Bran ch mg 2100, FREDDIE morpHINE 2020-0 2020- No 4mg 4 mg, Slow Un danny injection 4 11-25 IV Push, ity of mg 03:00: 02:08 ONCE, 1 [place] 00 :00 dose, Sat Medical 11/25/19 at Branch 2100, STAT iohexol 2020-0 2020- No 120mL 120 mL, Unive rs (OMNIPAQUE 11-25 Intravenou it y of 350 01:30: 01:15 s, ONCE, 1 [place] BULK-100 00 :00 dose, Sat Medica l mL) 11/25/19 at Branch injection 1930, 120 mL Routine nitroglycer 2019-0 2020- No .4mg 0.4 mg, Un danny in 11-25 Sublingual ity of (NITROSTAT) 01:30: 00:32 , ONCE, 1 [place] sublingual 00 :00 dose, Sat Medi salvatore tablet 0.4 11/25/19 at Bran ch mg 1930, FREDDIE NaCl 0.9% 2019-0 2020- No 500mL at 999 [facility] ers (NS) bolus 11-25 mL/hr, 500 it y of infusion 01:30: 01:04 mL, IV [place] 500 mL 00 :00 Infusion, Medical ONCE, 1 [place] dose, 11/25/19 at 1930, STAT diazePAM 2019-0 2020- No 5mg 5 mg, Slow Un danny (VALIUM) 11-25 IV Push, ity of injection 5 01:30: 00:37 ONCE, 1 [place] mg 00 :00 dose, Sat Medical 11/25/19 at Branch 1930, STAT acetaminoph 2017- Yes 2{tbl} Take 2 Un danny en-codeine 4-28 tablets by ity of (TYLENOL-CO 00:00: mouth [place] DEINE #3) 00 every 6 Medical 300-30 mg (six) Branch tablet hours as needed for Pain (scale 7-10). traMADOL 2017-0 Yes 50mg Take 1 Univers (ULTRAM) 50 4-28 tablet by ity of mg tablet 00:00: mouth [place] 00 every 6 Medical (six) Branch hours as needed for Pain (scale 7-10) (ALTERNATE WITH TYLENOL #3). acetaminoph 2018-0 Yes 2{tbl} Take 2 Un danny en-codeine 4-28 tablets by ity of (TYLENOL-CO 00:00: mouth [place] DEINE #3) 00 every 6 Medical 300-30 mg (six) Branch tablet hours as needed for Pain (scale 7-10). traMADOL 2018-0 Yes 50mg Take 1 Univers (ULTRAM) 50 4-28 tablet by ity of mg tablet 00:00: mouth [place] 00 every 6 Medical (six) Branch hours as needed for Pain (scale 7-10) (ALTERNATE WITH TYLENOL #3). acetaminoph 2018-0 Yes 2{tbl} Take 2 Un danny en-codeine 4-28 tablets by ity of (TYLENOL-CO 00:00: mouth [place] DEINE #3) 00 every 6 Medical 300-30 mg (six) Branch tablet hours as needed for Pain (scale 7-10). traMADOL 2018-0 Yes 50mg Take 1 Univers (ULTRAM) 50 4-28 tablet by ity of mg tablet 00:00: mouth [place] 00 every 6 Medical (six) Branch hours as needed for Pain (scale 7-10) (ALTERNATE WITH TYLENOL #3). acetaminoph 2018-0 Yes 2{tbl} Take 2 Un danny en-codeine 4-28 tablets by ity of (TYLENOL-CO 00:00: mouth [place] DEINE #3) 00 every 6 Medical 300-30 mg (six) Branch tablet hours as needed for Pain (scale 7-10). traMADOL 2018-0 Yes 50mg Take 1 Univers (ULTRAM) 50 4-28 tablet by ity of mg tablet 00:00: mouth [place] 00 every 6 Medical (six) Branch hours as needed for Pain (scale 7-10) (ALTERNATE WITH TYLENOL #3). acetaminoph 2018-0 Yes 2{tbl} Take 2 Un danny en-codeine 4-28 tablets by ity of (TYLENOL-CO 00:00: mouth [place] DEINE #3) 00 every 6 Medical 300-30 mg (six) Branch tablet hours as needed for Pain (scale 7-10). traMADOL Yes 50mg Take 1 Univers (ULTRAM) 50 4-28 tablet by ity of mg tablet 00:00: mouth [place] 00 every 6 Medical (six) Branch hours as needed for Pain (scale 7-10) (ALTERNATE WITH TYLENOL #3). Nitrofurant 2020- No 100mg Take 1 Un danny oin&Nit. 4-28 03-10 capsule by ity of Macrocryst 00:00: 00:00 mouth 2 [place] (MACROBID) 00 :00 (two) Medical 100 mg times Branch capsule daily. NITROGLYCER 2005-09 Yes 1 Tab SL Un danny IN 0.4 MG 1-24 Q5MIN PRN ity o f SL SUBL 00:00: [place] [facility] NITROGLYCER 2005-09 Yes 1 Tab SL Un danny IN 0.4 MG 1-24 Q5MIN PRN ity o f SL SUBL 00:00: [place] [facility] NITROGLYCER 2005-09 Yes 1 Tab SL Un danny IN 0.4 MG 1-24 Q5MIN PRN ity o f SL SUBL 00:00: [place] [facility] NITROGLYCER 2005-09 Yes 1 Tab SL Un danny IN 0.4 MG 1-24 Q5MIN PRN ity o f SL SUBL 00:00: [place] [facility] NITROGLYCER 2005-09 Yes 1 Tab SL Un danny IN 0.4 MG 1-24 Q5MIN PRN ity o f SL SUBL 00:00: [place] [facility] ATORVASTATI 2005-09 2020- No 1 Tab Oral Univers N 20 MG 1-24 03-10 QHS ity of ORAL TAB 00:00: 00:00 [place] 00 :00 [facility] Branch Immunizations Ordered Immunization Filled Immunization Date Status Commen ts Source Name Name Influenza Virus 2021-07-24 Completed Mary navarro Vaccine, 00:00:00 Quadrivalent, High Dose, Age 65 And Up Covid-19 Vaccine 2020-12-18 Completed Mary villeda (Moderna), Mrna-lnp, 00:00:00 Jorge Protein, Pf, 100 Mcg/0.5ml,IM Covid-19 Vaccine 2020-12-18 Completed Mary villeda (Moderna), Mrna-lnp, 00:00:00 Jorge Protein, Pf, 100 Mcg/0.5ml,IM Covid-19 Vaccine 2020-12-18 Completed Mary Harrison eybold (Moderna), Mrna-lnp, 00:00:00 Jorge Protein, Pf, 100 Mcg/0.5ml,IM Covid-19 Vaccine 2020-11-20 Completed Mary Harrison eybold (Moderna), Mrna-lnp, 00:00:00 Jorge Protein, Pf, 100 Mcg/0.5ml,IM Covid-19 Vaccine 2020-11-20 Completed Mary Harrison eybold (Moderna), Mrna-lnp, 00:00:00 Jorge Protein, Pf, 100 Mcg/0.5ml,IM Covid-19 Vaccine 2020-11-20 Completed Mary helmsbold (Moderna), Mrna-lnp, 00:00:00 Jorge Protein, Pf, 100 Mcg/0.5ml,IM Hep A/ Hep B Combo 2016-07-15 Completed Mary Seybold 00:00:00 Hep A/ Hep B Combo 2016-07-15 Completed Mary Seybold 00:00:00 Hep A/ Hep B Combo 2016-07-15 Completed Mary Seybold 00:00:00 Hep A/ Hep B Combo 2016-06-15 Completed Mary Seybold 00:00:00 Hep A/ Hep B Combo 2016-06-15 Completed Mary Seybold 00:00:00 Hep A/ Hep B Combo 2016-06-15 Completed Mary Seybold 00:00:00 Vital Signs Vital Name Observation Time Observation Value Comments Source Systolic blood 2021-07-24 13:15:00 143 mm[Hg] Mary Niceybold pressure Diastolic blood 2021-07-24 13:15:00 62 mm[Hg] Tenisha dempsey Seybjez pressure Heart rate 2021-07-24 13:15:00 86 /min Mary Hunter ronal Body temperature 2021-07-24 13:15:00 36.33 Brunilda Chandni Rosales Respiratory rate 2021-07-24 13:15:00 14 /min Chandni Rosales Body height 2021-07-24 13:15:00 160 cm Mary villeda Body weight 2021-07-24 13:15:00 107.049 kg Mary helmsbovee BMI 2021-07-24 13:15:00 41.81 kg/m2 Mary helmsbovee Systolic blood 2021-07-15 20:51:00 146 mm[Hg] Mary Rosales pressure Diastolic blood 2021-07-15 20:51:00 52 mm[Hg] Tenisha Rosales pressure Heart rate 2021-07-15 20:51:00 89 /min Mary helmsbovee Body temperature 2021-07-15 20:51:00 36.06 Brunilda Chandni Rosales Respiratory rate 2021-07-15 20:51:00 16 /min Chandni Rosales Body height 2021-07-15 20:51:00 160 cm Mary helmsbovee Body weight 2021-07-15 20:51:00 106.595 kg Mary helmsbovee BMI 2021-07-15 20:51:00 41.63 kg/m2 Mary helmsbovee Systolic blood 2021-01-11 02:48:00 178 mm[Hg] Univer sity of [facility] Diastolic blood 2021-01-11 02:48:00 84 mm[Hg] Unive rsity of [facility] Heart rate 2021-01-11 02:48:00 75 /min [facility] Respiratory rate 2021-01-11 02:48:00 18 /min [facility] Oxygen saturation in 2021-01-11 02:48:00 99 /min [facility] Arterial blood by [facility] Pulse oximetry Branch Body temperature 2021-01-11 00:30:00 36.33 Brnuilda [facility] [place] [facility] Body height 2021-01-11 00:30:00 161.3 cm [facility] Body weight 2021-01-11 00:30:00 109.317 kg [facility] BMI 2021-01-11 00:30:00 42.02 kg/m2 [facility] Systolic blood 2021-01-11 02:48:00 178 mm[Hg] Univer sity of [facility] Diastolic blood 2021-01-11 02:48:00 84 mm[Hg] Unive rsity of [facility] Heart rate 2021-01-11 02:48:00 75 /min [facility]i ty [facility] [place] [facility] Respiratory rate 2021-01-11 02:48:00 18 /min Univ ers[facility] [place] [facility] Oxygen saturation in 2021-01-11 02:48:00 99 /min University of Arterial blood by [facility] Pulse oximetry Branch Body temperature 2021-01-11 00:30:00 36.33 Brunilda Univ ersity [facility] [place] [facility] Body height 2021-01-11 00:30:00 161.3 cm [facility] [place] [facility] Body weight 2021-01-11 00:30:00 109.317 kg [facility] [place] [facility] BMI 2021-01-11 00:30:00 42.02 kg/m2 [facility] [place] [facility] Systolic blood 2020-08-08 15:03:00 176 mm[Hg] Univer sity of pressure [place] [facility] Diastolic blood 2020-08-08 15:03:00 67 mm[Hg] Unive rsity of pressure [place] [facility] Heart rate 2020-08-08 15:03:00 82 /min [facility] [place] [facility] Body temperature 2020-08-08 15:03:00 36.56 Brunilda Univ ersity [facility] [place] [facility] Respiratory rate 2020-08-08 15:03:00 14 /min Univ ers[facility] [place] [facility] Body weight 2020-08-08 15:03:00 108.863 kg [facility] [place] [facility] BMI 2020-08-08 15:03:00 42.51 kg/m2 [facility] [place] [facility] Oxygen saturation in 2020-08-08 15:03:00 98 /min University of Arterial blood by [facility] Pulse oximetry Branch Systolic blood 2020-08-08 15:03:00 176 mm[Hg] Univer sity of pressure [place] [facility] Diastolic blood 2020-08-08 15:03:00 67 mm[Hg] Unive rsity of pressure [place] [facility] Heart rate 2020-08-08 15:03:00 82 /min [facility] [place] [facility] Body temperature 2020-08-08 15:03:00 36.56 Brunilda Univ [facility] [place] [facility] Respiratory rate 2020-08-08 15:03:00 14 /min Univ [facility] [place] [facility] Body weight 2020-08-08 15:03:00 108.863 kg [facility] [place] [facility] BMI 2020-08-08 15:03:00 42.51 kg/m2 [facility] [place] [facility] Oxygen saturation in 2020-08-08 15:03:00 98 /min University of Arterial blood by [facility] Pulse oximetry Branch Systolic blood 2019-11-28 16:15:00 150 mm[Hg] Univer sity of pressure [place] [facility] Diastolic blood 2019-11-28 16:15:00 76 mm[Hg] Unive rsity of pressure [place] [facility] Heart rate 2019-11-28 16:15:00 93 /min [facility]i [facility] [place] [facility] Body temperature 2019-11-28 16:15:00 36.11 Brunilda Univ ers[facility] [place] [facility] Respiratory rate 2019-11-28 16:15:00 18 /min Univ ers[facility] [place] [facility] Oxygen saturation in 2019-11-28 16:15:00 98 /min University of Arterial blood by [facility] Pulse oximetry Branch Body height 2019-11-28 14:18:00 160 cm [facility] [place] [facility] Body weight 2019-11-28 14:18:00 107.502 kg [facility] [place] [facility] BMI 2019-11-28 14:18:00 41.98 kg/m2 [facility] [place] [facility] Systolic blood 2019-11-28 16:15:00 150 mm[Hg] Univer sity of pressure [place] [facility] Diastolic blood 2019-11-28 16:15:00 76 mm[Hg] Unive rsity of pressure [place] [facility] Heart rate 2019-11-28 16:15:00 93 /min [facility] [place] [facility] Body temperature 2019-11-28 16:15:00 36.11 Brunilda Univ ers[facility] [place] [facility] Respiratory rate 2019-11-28 16:15:00 18 /min Univ ers[facility] [place] [facility] Oxygen saturation in 2019-11-28 16:15:00 98 /min University of Arterial blood by [facility] Pulse oximetry Branch Body height 2019-11-28 14:18:00 160 cm [facility] [place] [facility] Body weight 2019-11-28 14:18:00 107.502 kg [facility] [place] [facility] BMI 2019-11-28 14:18:00 41.98 kg/m2 [facility] [place] [facility] Procedures Procedure Date / Time Performing Clinician Source Performed CBC WITH 2021-07-24 13:44:00 Cha Jimbo Lev baxter DIFFERENTIAL/PLATELET URINALYSIS NONAUTO W/O 2021-07-15 21:06:00 Ronak Keyes SCOPE Somogyi URIC ACID 2021-01-11 00:44:00 [facility] COMP. METABOLIC PANEL 2021-01-11 00:44:00 Raj Rogers [facility] ([id number]) Medical Branch CBC WITH DIFF 2021-01-11 00:44:00 [facility] XR FOOT <3 VW RIGHT 2021-01-11 00:42:14 Raj [facility] NOTICE OF PRIVACY 2021-01-11 00:20:55 Doctor Unassigned, No [facility] PRACTICES Name Medical Branch CONSENT/REFUSAL FOR 2020-08-08 14:50:51 Doctor Unassigned, No [facility] DIAGNOSIS AND TREATMENT Name Medical Branch POCT GLUCOSE 2019-11-28 16:18:00 Cathy [facility] (AUTOMATED) Medical Branch POCT GLUCOSE 2019-11-28 12:26:00 Cathy [facility] (AUTOMATED) Medical Branch POCT GLUCOSE 2019-11-28 08:06:00 Cathy [facility] (AUTOMATED) Medical Branch POCT GLUCOSE 2019-11-28 04:39:00 Cathy [facility] (AUTOMATED) Medical Branch POCT GLUCOSE 2019-11-28 00:58:00 Cathy [facility] (AUTOMATED) Medical Branch POCT GLUCOSE 2019-11-27 21:13:00 Cathy [facility] (AUTOMATED) Medical Branch POCT GLUCOSE 2019-11-27 17:17:00 Cathy [facility] (AUTOMATED) Medical Branch ECHO ROUTINE W/DOPPLER 2019-11-27 16:18:52 Nitesh Akhtar [facility] COLOR [facility] Branch POCT GLUCOSE 2019-11-27 12:22:00 Cathy [facility] (AUTOMATED) Medical Branch BASIC METABOLIC PANEL 2019-11-27 08:32:00 Cathy [facility] (NA, K, CL, CO2, Medical Branch GLUCOSE, BUN, CREATININE, CA) CBC WITH DIFFERENTIAL 2019-11-27 08:32:00 Cathy [facility] Medical [place] N-TERMINAL PRO-BNP 2019-11-27 08:32:00 Cathy [facility] Medical [place] POCT GLUCOSE 2019-11-27 07:06:00 Cathy [facility] (AUTOMATED) Medical Branch POCT GLUCOSE 2019-11-27 00:57:00 Cathy [facility] (AUTOMATED) Medical Branch POCT GLUCOSE 2019-11-26 21:30:00 Cathy [facility] (AUTOMATED) [facility] TROPONIN I 2019-11-26 20:26:[address] [facility] POCT GLUCOSE 2019-11-26 19:51:00 Cathy [facility] (AUTOMATED) [facility] EKG-12 LEAD 2019-11-26 19:03:[address] [facility] POCT GLUCOSE 2019-11-26 16:30:00 Cathy [facility] (AUTOMATED) [facility] POCT GLUCOSE 2019-11-26 11:27:00 Cathy [facility] (AUTOMATED) [facility] PHOSPHORUS 2019-11-26 09:29:00 [facility] MAGNESIUM 2019-11-26 09:29:00 [facility] TROPONIN I 2019-11-26 09:29:00 [facility] BASIC METABOLIC PANEL 2019-11-26 09:29:00 Cathy [facility] (NA, K, CL, CO2, Medical Branch GLUCOSE, BUN, CREATININE, CA) LIPID PANEL 2019-11-26 09:29:00 Nitesh Akhtar [facility] ([id number])(TOTAL Medical Branch CHOLESTEROL, TRIGLYCERIDES, HDL) N-TERMINAL PRO-BNP 2019-11-26 09:29:00 Cathy [facility] TROPONIN I 2019-11-26 06:05:00 Cathy Adnan [facility] POCT GLUCOSE 2019-11-26 05:50:00 Cathy [facility] (AUTOMATED) [facility] EKG-12 LEAD 2019-11-26 04:25:00 [facility] TROPONIN I 2019-11-26 03:04:00 Evert [facility] CRITICAL CARE 2019-11-26 01:45:00 Evert [facility] CT CHEST PULMONARY 2019-11-26 01:20[facility] HEAD WO CONTRAST 2019-11-26 01:20[facility] VW 2019-11-26 00:35:51 Evert [facility] EKG-12 LEAD 2019-11-26 00:30:29 Brayan [facility] POCT GLUCOSE 2019-11-26 00:29:00 Evert [facility] (AUTOMATED) [facility] TROPONIN I 2019-11-26 00:17:00 Evert [facility] COMP. METABOLIC PANEL 2019-11-26 00:17[id number] CBC WITH DIFFERENTIAL 2019-11-26 00:17:00 Evert Dalila [facility] GLYCOSYLATED HEMOGLOBIN 2019-11-26 00:17:00 Cathy [facility] (A1C) [facility] PROTHROMBIN TIME / INR 2019-11-26 00:17:00 Evert Dalila [facility] D-DIMER 2019-11-26 00:17:00 Evert [facility] ACTIVATED PARTIAL 2019-11-26 00:17:00 [facility] N-TERMINAL PRO-BNP 2019-11-26 00:17[facility] 2019-11-26 00:10:13 [facility] 2019-11-26 00:04:49 Brayan [facility] NOTICE OF PRIVACY 2019-11-25 23:54:05 Doctor Unassigned, No [facility] [place] PRACTICES Name [facility] CONSENT/REFUSAL FOR 2019-11-25 23:53:07 Doctor Unassigned, No [facility] [place] DIAGNOSIS AND TREATMENT Name [facility] ADM - MISC 2019-11-25 06:01:00 Doctor Unassigned, No [facility] [place] Name [facility] Encounters Start End Encounter Admission Attending Care Care Encounter Source Date/Time Date/Time Type Type Clinicians Facility Department ID 2022-01-12 2022-01-12 Outpatient GUIDO FREDY MARY CORADO [id number] Mary 16:15:00 16:15:00 Seybol d 2021-11-10 2021-11-10 Outpatient MARY KEYES [id number] Mary 00:00:00 00:00:00 RONAK Seybol d 2021-11-10 2021-11-10 Outpatient JIMBO LOUIS [id number] Mary 00:00:00 00:00:00 Seybol d 2021-08-01 2021-08-01 Outpatient MARY KEYES [id number] Mary 00:00:00 00:00:00 RONAK Seybol d 2021-07-24 2021-07-24 Outpatient LAB90 MARY CORADO [id number] Mary 09:15:00 09:15:00 Seybol d 2021-07-24 2021-07-24 Office Jimbo Louis [id number] Mary 08:12:47 08:57:47 Visit Lev Potter [id number] Se ybjez [id number] 2021-07-16 2021-07-16 Outpatient MARY KEYES [id number] Mary 00:00:00 00:00:00 RONAK Seybol d 2021-07-15 2021-07-15 Office Eriberto Keyes [id number] Mary 15:47:06 16:17:06 Visit Ronak Potter [id number] Se ybold Somogyi [id number] 2021-07-09 2021-07-09 Outpatient MARY KEYES [id number] Mary 00:00:00 00:00:00 RONAK Seybol d 2021-06-10 2021-06-10 Outpatient MARY KEYES [id number] Mary 00:00:00 00:00:00 RONAK Seybol d 2021-06-10 2021-06-10 Outpatient CHA JIMBOCAROLYN CORADO [id number] Mary 00:00:00 00:00:00 Seybol d 2021-06-02 2021-06-02 Outpatient MARY KEYES [id number] Mary 00:00:00 00:00:00 RONAK Seybol d 2021-05-30 2021-05-30 Outpatient TESTING, JULIO CORADO [id number] Mary 15:25:00 15:25:00 Seybol d 2021-05-27 2021-05-27 Telemedici Jimbo Louis [id number] Mary 09::09 09:48:19 ne W Tariq [id number] Se old [id number] 2021-04-30 2021-04-30 Outpatient LAB90 MARY CORADO [id number] Mary 10:55:00 10:55:00 Seybol d 2021-04-30 2021-04-30 Outpatient JIMBO LOUIS [id number] Mary 00:00:00 00:00:00 Seybol d 2021-04-29 2021-04-29 Outpatient LAB90 MARY CORADO [id number] Mary 10:15:00 10:15:00 Seybol d 2021-04-29 2021-04-29 Outpatient JIMBO LOUIS [id number] Mary 09:30:00 09:30:00 Seybol d 2021-04-24 2021-04-24 Outpatient MARY KEYES [id number] Mary 16:30:00 16:30:00 RONAK Seybol d 2021-01-10 2021-01-10 Emergency Singer MNMELISSA [id number] 19:30:00 21:51:00 Raj [place] [id number] [place] [id number] [place] [id number] 2021-01-10 2021-01-10 Emergency [facility] [id number] Univers 19:30:00 21:51:00 Rajshiraz [place] [id number] i ty of [place] [id number] [facility] [id number] [address] 2021-01-10 2021-01-10 Emergency X , [facility] ERT [id number] Univers 19:30:00 19:30:00 RAJ albarran of [facility] 2021-01-10 2021-01-10 Orders Doctor KENTON [id number] 00:00:00 00:00:00 Only Unassigned, DES [id number] [place] [facility] 4.2.7.2.68 [id number] 2021-01-10 2021-01-10 Orders Doctor KENTON [id number] Univers 00:00:00 00:00:00 Only Unassigned, DES [id number] ity of [place] [facility] [id number] [facility] [id number] [place] [address] Branch 2020-08-08 2020-08-08 Emergency [facility] [id number] 09:00:00 10:08:00 Raj [place] [id number] [place] [id number] [place] [id number] [facility] 2020-08-08 2020-08-08 Emergency [facility] [id number] Univers 09:00:00 10:08:00 Raj [place] [id number] i ty of [place] [id number] [facility] [id number] [place] [address] Branch 2020-08-08 2020-08-08 Emergency X , [facility] ERT [id number] Univers 09:00:00 09:00:00 RAJ albarran [facility] [place] [facility] 2019-11-29 2019-11-29 Transition Rain Goodman [id number] 00:00:00 00:00:00 of Care Sia Bowen [id number] [place] [id number] [id number] 2019-11-29 2019-11-29 Transition Rain Goodman [id number] [id number] Univers 00:00:00 00:00:00 of Care Sia Bowen 350.1.13.10 it [id number] [address] 2019-11-25 2019-11-28 Emergency [facility] 1.2.840. 114 [id number] 18:01:16 14:20:00 Alexia Talavera 350.1.13.10 [place] 4.2.7.2.686 [place] [phone] [facility] 2019-11-25 2019-11-28 Outpatient X [facility] [id number] [facility] 18:01:16 14:20:00 ALEXIA albarran [facility] 2019-11-25 2019-11-28 [facility] 1.2.840. 114 [id number] [facility] 18:01:16 14:20:00 Alexia Talavera 350.1.13.10 it[place] [phone] [address] Results Test Description Test Time Test Comments Results Result Comments Source CBC WITH DIFFERENTIAL/PLATELET 2021-07-25 12:10:00 Test Item Value Reference Range Interpretation Comme nts WHITE BLOOD CELL (WBC) See_Comment [Aut omated message] The COUNT (test code = ffk environment [employer] generated this 6690-2) result transmit cipriano reference range : 3.4 - 10.8 x10E3/uL. The r eference range was not u sed to interpret this result as normal/abnormal . RED BLOOD CELL (RBC) See_Comment [Autom ated message] The COUNT (test code = [employer] generated this 789-8) result transmit cipriano reference range : 3.77 - 5.28 x10E6/uL. The reference range was not used to interpr et this result as canelo l/abnormal. HEMOGLOBIN (test code = 11.7 g/dL 11.1-15.9 718-7) HEMATOCRIT (test code = 37.2 % 34.0-46.6 4544-3) MCV (test code = 787-2) 88 fL 79-97 MCH (test code = 785-6) 27.8 pg 26.6-33.0 MCHC (test code = 786-4) 31.5 g/dL 31.5-35.7 RDW (test code = 788-0) 14.0 % 11.7-15.4 PLATELETS (test code = See_Comment [Aut omated message] The 777-3) system which ge nerated this result transmit cipriano reference range : 150 - 450 x10E3/uL. The r eference range was not u sed to interpret this result as normal/abnormal . NEUTROPHILS (test code = 58 % Not Estab. 770-8) LYMPHS (test code = 31 % Not Estab. 736-9) MONOCYTES (test code = 7 % Not Estab. 5905-5) EOS (test code = 713-8) 3 % Not Estab. BASOS (test code = 1 % Not Estab. 706-2) NEUTROPHILS (ABSOLUTE) See_Comment [Aut omated message] The (test code = 751-8) system [employer] generated this result transmit cipriano reference range : 1.4 - 7.0 x10E3/uL. The r eference range was not u sed to interpret this result as normal/abnormal . LYMPHS (ABSOLUTE) (test See_Comment [Au tomated message] The code = 731-0) system which g enerated this result transmit cipriano reference range : 0.7 - 3.1 x10E3/uL. The r eference range was not u sed to interpret this result as normal/abnormal . MONOCYTES(ABSOLUTE) See_Comment [Automa cipriano message] The (test code = 742-7) system w [employer] generated this result transmit cipriano reference range : 0.1 - 0.9 x10E3/uL. The r eference range was not u sed to interpret this result as normal/abnormal . EOS (ABSOLUTE) (test See_Comment [Autom ated message] The code = 711-2) system which g enerated this result transmit cipriano reference range : 0.0 - 0.4 x10E3/uL. The r eference range was not u sed to interpret this result as normal/abnormal . BASO (ABSOLUTE) (test See_Comment [Auto mated message] The code = 704-7) system which g enerated this result transmit cipriano reference range : 0.0 - 0.2 x10E3/uL. The r eference range was not u sed to interpret this result as normal/abnormal . IMMATURE GRANULOCYTES 0 % Not Estab. (test code = 00834-1) IMMATURE GRANS (ABS) See_Comment [Autom ated message] The (test code = 38101-6) system which generated this result transmit cipriano reference range : 0.0 - 0.1 x10E3/uL. The r eference range was not u sed to interpret this result as normal/abnormal . OLMAN (test code = OLMAN) [facility] results reported in Eastern Time. [facility] Clinical Information:SRC:Bloo d, venous*Venipunc ture ? [facility] Source of Specimen:Blood, venous*Venipunc Mary SeyboldURINALYSIS NONAUTO W/O [id number] 21:06:00 Test Item Value Reference Range Interpretation Comments UD KETONES (test code = neg 5-160 022726) UD GLUCOSE (test code = neg 100-2000 073841) UD PROTEIN (test code = 30 mg/dL Trace - 2,000 659847) UD LEUKOCYTES (test moderate Trace - Large @ 2 code = 547730) min. UD NITRITE (test code = neg Neg. - Pos. @ 60 956573) sec. UD UROBILINOGEN (test 0.2 mg/dL 0.2-8 code = 786338) UD PH (test code = See_Comment [Automat ed 030467) message] The sy stem which generated this result transmitted reference range : 5.0 - 8.5 @ 60 sec.. The refer ence range was not u sed to interpret th is result as normal/abnormal . UD BLOOD (test code = trace Neg. - Large @ 60 102499) sec. UD SPECIFIC GRAVITY See_Comment [Automa cipriano (test code = 088831) message ] The system which generated this result transmitted reference range : 1.000 - 1.030 @ 45 sec.. The refer ence range was not u sed to interpret th is result as normal/abnormal . UD BILIRUBIN (test code neg Neg. - Large @ 45 = 850725) sec. Lab Interpretation Abnormal (test code = 97636-9) Mary Duong METABOLIC PANEL (42690)2021-01-11 02:20:56 Test Item Value Reference Range Interpretation Comments NA (test code = 140 mmol/L 135-145 2778997927) K (test code = 4.5 mmol/L 3.5-5.0 2189842075) CL (test code = 102 mmol/L 98-108 7365883622) CO2 TOTAL (test code = 27 mmol/L 23-31 1693728374) AGAP (test code = 2-16 9576278153) BUN (test code = 23 mg/dL 7-23 3884299215) GLUCOSE (test code = 239 mg/dL 70-110 H 4285467650) CREATININE (test code = 0.84 mg/dL 0.50-1.04 9587677062) TOTAL BILI (test code = 0.4 mg/dL 0.1-1.7 6538617954) CALCIUM (test code = 8.9 mg/dL 8.6-10.6 1437100614) T PROTEIN (test code = 6.8 g/dL 6.3-8.2 6103757575) ALBUMIN (test code = 4.1 g/dL 3.5-5.0 2633399298) ALK PHOS (test code = 81 U/L 34-122 9492757886) ALTv (test code = 14 U/L 5-35 1742-6) AST(SGOT) (test code = 24 U/L 13-40 3306988793) eGFR (test code = mL/min/1.73m2 5240795408) OLMAN (test code = OLMAN) Association of Glomerular Filtration Rate (GFR) and Staging of Kidney Disease* + --+ --+ ------+| GFR (mL/min/1.73 m2) ?| With Kidney Damage ?| ?Without Kidney Damage+ --------+ --------+ +| ?>90 ?| ?Stage one ?| ? Normal ?+ ---+ ---+ -------+| ?60-89 ?| ?Stage two ?| ? Decreased GFR ? + --+ --+ ------+| ?30-59 ?| ?Stage three ?| ? Stage three ? + --+ --+ ------+| ?15-29 ?| ?Stage four ? | ? Stage four ?+ ---+ ---+ -------+| ?<15 (or dialysis) ? ?| ?Stage five ? | ? Stage five ?+ ---+ ---+ -------+ *Each stage assumes the associated GFR level has been in effect for at least three months. ?Stages 1 to 5, with or without kidney disease, indicate chronic kidney disease. Notes: Determination of stages one and two (with eGFR >59mL/min/1.73 m2) requires estimation of kidney damage for at least three months as defined by structural or functional abnormalities of the kidney, manifested by either:Pathological abnormalities or Markers of kidney damage (including abnormalities in the composition of the blood or urine or abnormalities in imaging tests). Lab Interpretation Abnormal (test code = 15969-8) [id number] 02:20:55 Test Item Value Reference Range Interpretation Comments URIC ACID (test code = 0341949321) 8.9 mg/dL 2.9-6.0 H Lab Interpretation (test code = Abnormal 66840-8) [facility] WITH [id number] 00:59:14 Test Item Value Reference Range Interpretation Comments WBC (test code = See_Comment [Automated 0361-2) message] The sy stem which generated this result transmitted reference range : 4.30 - 11.10 10*3/?L. The reference range was not used to interpret this result as normal/abnormal . RBC (test code = See_Comment L [Automated 968-3) message] The sy stem which generated this result transmitted reference range : 3.93 - 5.25 10*6/?L. The reference range was not used to interpret this result as normal/abnormal . HGB (test code = 11.0 g/dL 11.6-15.0 L 718-7) HCT (test code = 35.0 % 35.7-45.2 L 4544-3) MCV (test code = 89.3 fL 80.6-95.5 787-2) MCH (test code = 28.1 pg 25.9-32.8 785-6) MCHC (test code = 31.4 g/dL 31.6-35.1 L 786-4) RDW-SD (test code = 47.5 fL 39.0-49.9 30893-1) RDW-CV (test code = 14.6 % 12.0-15.5 788-0) PLT (test code = See_Comment [Automated 777-3) message] The sy stem which generated this result transmitted reference range : 166 - 358 10*3/ ?L. The reference r hernandez was not used to interpret this result as normal/abnormal . MPV (test code = 11.0 fL 9.5-12.9 96690-4) NRBC/100 WBC (test See_Comment [Automat ed code = 9956232702) message] The system which generated this result transmitted reference range : 0.0 - 10.0 /100 WBCs. The refer ence range was not u sed to interpret th is result as normal/abnormal . NRBC x10^3 (test code <0.01 See_Comment [Auto mated = 1433006175) message] The s ystem which generated this result transmitted reference range : 10*3/?L. The reference range was not used to interpret this result as normal/abnormal . GRAN MAT (NEUT) % 52.4 % (test code = 770-8) IMM GRAN % (test code 0.20 % = 7629739671) LYMPH % (test code = 36.6 % 736-9) MONO % (test code = 6.7 % 5905-5) EOS % (test code = 3.6 % 713-8) BASO % (test code = 0.5 % 706-2) GRAN MAT x10^3(ANC) 3.03 10*3/uL 1.88-7.09 (test code = 9485769664) IMM GRAN x10^3 (test <0.03 0.00-0.06 code = 4532145703) LYMPH x10^3 (test code 2.12 10*3/uL 1.32-3.29 = 731-0) MONO x10^3 (test code 0.39 10*3/uL 0.33-0.92 = 742-7) EOS x10^3 (test code = 0.21 10*3/uL 0.03-0.39 711-2) BASO x10^3 (test code 0.03 10*3/uL 0.01-0.07 = 704-7) Lab Interpretation Abnormal (test code = 12545-1) [facility] GLUCOSE (AUTOMATED)2019-11-28 16:42:00 Test Item Value Reference Range Interpretation Comments POCT GLU (test code = 6364330804) 187 mg/dL 70-110 H Lab Interpretation (test code = Abnormal 63789-3) [facility] GLUCOSE (AUTOMATED)2019-11-28 13:25:00 Test Item Value Reference Range Interpretation Comments POCT GLU (test code = 2951933281) 154 mg/dL 70-110 H Lab Interpretation (test code = Abnormal 85003-9) [facility] GLUCOSE (AUTOMATED)2019-11-28 08:09:00 Test Item Value Reference Range Interpretation Comments POCT GLU (test code = 3685024239) 134 mg/dL 70-110 H Lab Interpretation (test code = Abnormal 50330-1) [facility] GLUCOSE (AUTOMATED)2019-11-28 04:55:00 Test Item Value Reference Range Interpretation Comments POCT GLU (test code = 3462423342) 184 mg/dL 70-110 H Lab Interpretation (test code = Abnormal 86713-3) [facility] GLUCOSE (AUTOMATED)2019-11-28 01:21:00 Test Item Value Reference Range Interpretation Comments POCT GLU (test code = 6208054589) 333 mg/dL 70-110 H Lab Interpretation (test code = Abnormal 23458-2) [facility] GLUCOSE (AUTOMATED)2019-11-27 21:22:00 Test Item Value Reference Range Interpretation Comments POCT GLU (test code = 2012369947) 361 mg/dL 70-110 H Lab Interpretation (test code = Abnormal 86181-8) [facility] GLUCOSE (AUTOMATED)2019-11-27 17:21:00 Test Item Value Reference Range Interpretation Comments POCT GLU (test code = 4034941438) 236 mg/dL 70-110 H Lab Interpretation (test code = Abnormal 68872-7) [facility]-11-27 12:41:00 Test Item Value Reference Range Interpretation Comments POCT GLU (test code = 4936861887) 154 mg/dL 70-110 H Lab Interpretation (test code = Abnormal 19725-2) [facility] [id number] 11:42:00 Test Item Value Reference Range Interpretation Comments NT-proBNP (test code 62 pg/mL See_Comment [Autom ated = 6083553857) message] The system which generated this result transmitted reference range : <=125. The reference range was not used to interpret this result as normal/abnormal . OLMAN (test code = OLMAN) Biotin has been reported to cause a negative bias, interpret results relative to patient's use of biotin. Lab Interpretation Normal (test code = 66321-8) [facility] METABOLIC PANEL (NA, K, CL, CO2, GLUCOSE, BUN, CREATININE, CA)2019-11-27 11:40:00 Test Item Value Reference Range Interpretation Comments NA (test code = 141 mmol/L 135-145 4668974356) K (test code = 3.7 mmol/L 3.5-5 7545573620) CL (test code = 102 mmol/L 98-108 3165084426) CO2 TOTAL (test code = 31 mmol/L 23-31 3456921243) AGAP (test code = 2-16 5445918741) BUN (test code = 24 mg/dL 7-23 H 3126033032) GLUCOSE (test code = 136 mg/dL 70-110 H 6738511401) CREATININE (test code = 0.86 mg/dL 0.5-1.04 5504813386) CALCIUM (test code = 9.2 mg/dL 8.6-10.6 1287967140) eGFR Calculation mL/min/1.73m2 (Non-) (test code = 4358256634) eGFR Calculation mL/min/1.73m2 () (test code = 1701662417) OLMAN (test code = OLMAN) Association of Glomerular Filtration Rate (GFR) and Staging of Kidney Disease* + --+ --+ ------+| GFR (mL/min/1.73 m2) ?| With Kidney Damage ?| ?Without Kidney Damage+ --------+ --------+ +| ?>90 ?| ?Stage one ?| ? Normal ?+ ---+ ---+ -------+| ?60-89 ?| ?Stage two ?| ? Decreased GFR ? + --+ --+ ------+| ?30-59 ?| ?Stage three ?| ? Stage three ? + --+ --+ ------+| ?15-29 ?| ?Stage four ? | ? Stage four ?+ ---+ ---+ -------+| ?<15 (or dialysis) ? ?| ?Stage five ? | ? Stage five ?+ ---+ ---+ -------+ *Each stage assumes the associated GFR level has been in effect for at least three months. ?Stages 1 to 5, with or without kidney disease, indicate chronic kidney disease. Notes: Determination of stages one and two (with eGFR >59mL/min/1.73 m2) requires estimation of kidney damage for at least three months as defined by structural or functional abnormalities of the kidney, manifested by either:Pathological abnormalities or Markers of kidney damage (including abnormalities in the composition of the blood or urine or abnormalities in imaging tests). Lab Interpretation Abnormal (test code = 59721-3) [facility] WITH [id number] 11:07:00 Test Item Value Reference Range Interpretation Comments WBC (test code = See_Comment [Automated 9890-2) message] The sy stem which generated this result transmitted reference range : 4.30 - 11.10 10*3/?L. The reference range was not used to interpret this result as normal/abnormal . RBC (test code = See_Comment L [Automated 679-8) message] The sy stem which generated this result transmitted reference range : 3.93 - 5.25 10*6/?L. The reference range was not used to interpret this result as normal/abnormal . HGB (test code = 9.8 g/dL 11.6-15 L 718-7) HCT (test code = 29.8 % 35.7-45.2 L 4544-3) MCV (test code = 83.5 fL 80.6-95.5 787-2) MCH (test code = 27.5 pg 25.9-32.8 785-6) MCHC (test code = 32.9 g/dL 31.6-35.1 786-4) RDW-SD (test code = 43.7 fL 39-49.9 20050-4) RDW-CV (test code = 14.4 % 12-15.5 788-0) PLT (test code = See_Comment [Automated 777-3) message] The sy stem which generated this result transmitted reference range : 166 - 358 10*3/ ?L. The reference r hernandez was not used to interpret this result as normal/abnormal . MPV (test code = 11.5 fL 9.5-12.9 91575-0) NRBC/100 WBC (test See_Comment [Automat ed code = 2691064170) message] The system which generated this result transmitted reference range : 0.0 - 10.0 /100 WBCs. The refer ence range was not u sed to interpret th is result as normal/abnormal . NRBC x10^3 (test code <0.01 See_Comment [Auto mated = 0500126230) message] The s ystem which generated this result transmitted reference range : 10*3/?L. The reference range was not used to interpret this result as normal/abnormal . GRAN MAT (NEUT) % 57.3 % (test code = 770-8) IMM GRAN % (test code 0.30 % = 2571999926) LYMPH % (test code = 31.4 % 736-9) MONO % (test code = 7.2 % 5905-5) EOS % (test code = 3.3 % 713-8) BASO % (test code = 0.5 % 706-2) GRAN MAT x10^3(ANC) 3.53 10*3/uL 1.88-7.09 (test code = 4371550990) IMM GRAN x10^3 (test <0.03 0-0.06 code = 0553123401) LYMPH x10^3 (test code 1.93 10*3/uL 1.32-3.29 = 731-0) MONO x10^3 (test code 0.44 10*3/uL 0.33-0.92 = 742-7) EOS x10^3 (test code = 0.20 10*3/uL 0.03-0.39 711-2) BASO x10^3 (test code 0.03 10*3/uL 0.01-0.07 = 704-7) Lab Interpretation Abnormal (test code = 84653-5) [facility] GLUCOSE (AUTOMATED)2019-11-27 07:09:00 Test Item Value Reference Range Interpretation Comments POCT GLU (test code = 9913345509) 163 mg/dL 70-110 H Lab Interpretation (test code = Abnormal 76697-8) [facility] GLUCOSE (AUTOMATED)2019-11-27 01:10:00 Test Item Value Reference Range Interpretation Comments POCT GLU (test code = 0432278585) 214 mg/dL 70-110 H Lab Interpretation (test code = Abnormal 47585-6) [facility] GLUCOSE (AUTOMATED)2019-11-26 21:32:00 Test Item Value Reference Range Interpretation Comments POCT GLU (test code = 8544398135) 193 mg/dL 70-110 H Lab Interpretation (test code = Abnormal 00014-5) [facility] GLUCOSE (AUTOMATED)2019-11-26 21:23:00 Test Item Value Reference Range Interpretation Comments POCT GLU (test code = 0404710572) 224 mg/dL 70-110 H Lab Interpretation (test code = Abnormal 42145-2) [id number] 21:14:00 Test Item Value Reference Range Interpretation Comments TROPONIN I (test 0.002 ng/mL See_Comment [Automated code = 1161326828) message] The system which generated this result transmitted reference range : <=0.034. The reference range was not used to interpret this result as normal/abnormal . OLMAN (test code = Equal or Less than OLMAN) 0.034 ng/ml---Normal ?Note: Cardiac troponin begins to rise 3-4 hours after the onset of ischemia. Repeat in 4-6 hours if the sample was drawn within 3-4 hours of the onset of the symptom and found normal. Between 0.035 and 0.120 ng/mL--- Borderline. Questionable myocardial injury or necrosis ? ?Note: Serial measurement may be necessary to confirm or exclude the diagnosis of myocardial injury or necrosis; Clinical correlation (symptoms, EKGs, imaging studies, and others) required; Repeat in 4-6 hours if clinically indicated. ? Equal or Higher than 0.121 ng/mL---Abnormal. Myocardial Injury or Necrosis Likely ? Biotin has been reported to cause a negative bias, interpret results relative to patient's use of biotin. ? Lab Interpretation Normal (test code = 40343-4) [facility] GLUCOSE (AUTOMATED)2019-11-26 16:50:00 Test Item Value Reference Range Interpretation Comments POCT GLU (test code = 7798430098) 140 mg/dL 70-110 H Lab Interpretation (test code = Abnormal 37002-2) [facility]TOTAL CHOLESTEROL, TRIGLYCERIDES, HDL)2019-11-26 16:08:00 Test Item Value Reference Range Interpretation Comments CHOL (test code = 126 mg/dL 120-200 1077132089) HDL (test code = 26 mg/dL >50 L 5277000450) HDLC RATIO (test code = See_Comment H [Au tomated message] 0754326645) The system [employer] generated this result transmit cipriano reference range : <=4.5. The refe rence range was not u sed to interpret th is result as normal/abnormal . TRIG (test code = 118 mg/dL 30-170 5875615841) LDL CHOL (test code = 76 mg/dL See_Comment [Auto mated message] 57468-9) The system [employer] generated this result transmit cipriano reference range : <=160. The refe rence range was not u sed to interpret th is result as normal/abnormal . VLDL (test code = 24 mg/dL 5-60 8804942670) Lab Interpretation (test Abnormal code = 82118-7) [facility] GLUCOSE (AUTOMATED)2019-11-26 13:00:00 Test Item Value Reference Range Interpretation Comments POCT GLU (test code = 7977376349) 101 mg/dL 70-110 Lab Interpretation (test code = Normal 93770-0) [facility] [id number] 10:41:00 Test Item Value Reference Range Interpretation Comments TROPONIN I (test 0.005 ng/mL See_Comment [Automated code = 2901387460) message] The system which generated this result transmitted reference range : <=0.034. The reference range was not used to interpret this result as normal/abnormal . OLMAN (test code = Equal or Less than OLMAN) 0.034 ng/ml---Normal ?Note: Cardiac troponin begins to rise 3-4 hours after the onset of ischemia. Repeat in 4-6 hours if the sample was drawn within 3-4 hours of the onset of the symptom and found normal. Between 0.035 and 0.120 ng/mL--- Borderline. Questionable myocardial injury or necrosis ? ?Note: Serial measurement may be necessary to confirm or exclude the diagnosis of myocardial injury or necrosis; Clinical correlation (symptoms, EKGs, imaging studies, and others) required; Repeat in 4-6 hours if clinically indicated. ? Equal or Higher than 0.121 ng/mL---Abnormal. Myocardial Injury or Necrosis Likely ? Biotin has been reported to cause a negative bias, interpret results relative to patient's use of biotin. ? Lab Interpretation Normal (test code = 97963-4) [facility] [id number] 10:38:00 Test Item Value Reference Range Interpretation Comments NT-proBNP (test code 136 pg/mL See_Comment H [Autom ated = 7033063505) message] The system which generated this result transmitted reference range : <=125. The reference range was not used to interpret this result as normal/abnormal . OLMAN (test code = OLMAN) Biotin has been reported to cause a negative bias, interpret results relative to patient's use of biotin. Lab Interpretation Abnormal (test code = 11234-4) [facility] 10:35:00 Test Item Value Reference Range Interpretation Comments MAGNESIUM (test code = 6404378018) 1.1 mg/dL 1.7-2.4 L Lab Interpretation (test code = Abnormal 64221-5) [facility] METABOLIC PANEL (NA, K, CL, CO2, GLUCOSE, BUN, CREATININE, CA)2019-11-26 10:30:00 Test Item Value Reference Range Interpretation Comments NA (test code = 141 mmol/L 135-145 1067870997) K (test code = 4.2 mmol/L 3.5-5 8377485699) CL (test code = 104 mmol/L 98-108 6830506031) CO2 TOTAL (test code = 31 mmol/L 23-31 7299450343) AGAP (test code = 2-16 2657573010) BUN (test code = 18 mg/dL 7-23 3019502343) GLUCOSE (test code = 103 mg/dL 70-110 0029033317) CREATININE (test code 0.74 mg/dL 0.5-1.04 = 4361468597) CALCIUM (test code = 9.4 mg/dL 8.6-10.6 1746471077) eGFR Calculation mL/min/1.73m2 (Non-) (test code = 5910409954) eGFR Calculation mL/min/1.73m2 () (test code = 9258305631) OLMAN (test code = OLMAN) Association of Glomerular Filtration Rate (GFR) and Staging of Kidney Disease* + -+ + ---+| GFR (mL/min/1.73 m2) ?| With Kidney Damage ?| ?Without Kidney Damage+ -------+ ------+ ---------+| ?>90 ?| ?Stage one ?| ? Normal ?+ --+ -+ ----+| ?60-89 ?| ?Stage two ?| ? Decreased GFR ? + -+ + ---+| ?30-59 ?| ?Stage three ?| ? Stage three ? + -+ + ---+| ?15-29 ?| ?Stage four ? | ? Stage four ?+ --+ -+ ----+| ?<15 (or dialysis) ? ?| ?Stage five ? | ? Stage five ?+ --+ -+ ----+ *Each stage assumes the associated GFR level has been in effect for at least three months. ?Stages 1 to 5, with or without kidney disease, indicate chronic kidney disease. Notes: Determination of stages one and two (with eGFR >59mL/min/1.73 m2) requires estimation of kidney damage for at least three months as defined by structural or functional abnormalities of the kidney, manifested by either:Pathological abnormalities or Markers of kidney damage (including abnormalities in the composition of the blood or urine or abnormalities in imaging tests). [facility] 10:30:00 Test Item Value Reference Range Interpretation Comments PHOSPHORUS (test code = 5617036304) 3.6 mg/dL 2.5-5 Lab Interpretation (test code = Normal 97159-3) [facility] [id number] 06:54:00 Test Item Value Reference Range Interpretation Comments TROPONIN I (test 0.006 ng/mL See_Comment [Automated code = 9476563915) message] The system which generated this result transmitted reference range : <=0.034. The reference range was not used to interpret this result as normal/abnormal . OLMAN (test code = Equal or Less than OLMAN) 0.034 ng/ml---Normal ?Note: Cardiac troponin begins to rise 3-4 hours after the onset of ischemia. Repeat in 4-6 hours if the sample was drawn within 3-4 hours of the onset of the symptom and found normal. Between 0.035 and 0.120 ng/mL--- Borderline. Questionable myocardial injury or necrosis ? ?Note: Serial measurement may be necessary to confirm or exclude the diagnosis of myocardial injury or necrosis; Clinical correlation (symptoms, EKGs, imaging studies, and others) required; Repeat in 4-6 hours if clinically indicated. ? Equal or Higher than 0.121 ng/mL---Abnormal. Myocardial Injury or Necrosis Likely ? Biotin has been reported to cause a negative bias, interpret results relative to patient's use of biotin. ? Lab Interpretation Normal (test code = 30442-7) [facility] 06:14:00 Test Item Value Reference Range Interpretation Comments POCT GLU (test code = 6398023720) 116 mg/dL 70-110 H Lab Interpretation (test code = Abnormal 89943-8) [facility] CenterGLYCOSYLATED HEMOGLOBIN (A1C)2019-11-26 05:58:00 Test Item Value Reference Interpretation Comments Range HGB A1C (test code = See_Comment H [Autom ated 4548-4) message] The system which generated this result transmitted reference range : 4.0 - 6.0 % NGSP. The reference range was not used to interpret this result as normal/abnormal . OLMAN (test code = %A1C (NGSP) OLMAN) Interpretation (ADA)4.8-5.6 ? ? Normal or (Non-Diabetic Range)5.7-6.4 ? ? Increased Risk (Pre-Diabetic)>6.5 ?Diabetes Indicated Lab Interpretation Abnormal (test code = 37140-2) [facility] CenterTROP[facility] [id number] 02:54:00 Test Item Value Reference Range Interpretation Comments TROPONIN I (test 0.004 ng/mL See_Comment [Automated code = 1930321468) message] The system which generated this result transmitted reference range : <=0.034. The reference range was not used to interpret this result as normal/abnormal . OLMAN (test code = Equal or Less than OLMAN) 0.034 ng/ml---Normal ?Note: Cardiac troponin begins to rise 3-4 hours after the onset of ischemia. Repeat in 4-6 hours if the sample was drawn within 3-4 hours of the onset of the symptom and found normal. Between 0.035 and 0.120 ng/mL--- Borderline. Questionable myocardial injury or necrosis ? ?Note: Serial measurement may be necessary to confirm or exclude the diagnosis of myocardial injury or necrosis; Clinical correlation (symptoms, EKGs, imaging studies, and others) required; Repeat in 4-6 hours if clinically indicated. ? Equal or Higher than 0.121 ng/mL---Abnormal. Myocardial Injury or Necrosis Likely ? Biotin has been reported to cause a negative bias, interpret results relative to patient's use of biotin. ? Lab Interpretation Normal (test code = 77837-7) [facility] CenterCritical [id number] 01:45:00Dalila Loyd FNP ? ? 11/26/2019 10:35 AMCritical CarePerformed by: Dalila Loyd FNPAuthorized by: Dalila Loyd FNP Critical care provider statement: ?Critical care time (minutes): ?35 ?Critical care time was exclusive of: ?Separately billable procedures and treating other patients and teaching time ?Critical care was necessary to treat or prevent imminent or life-threatening deteriorationof the following conditions: ?Cardiac failure ?Critical care was time spent personally by me on the following activities: ?Development of treatment plan with patient or surrogate, discussions with consultants, evaluation of patient's response to treatment, examination of patient, interpretation of cardiac output measurements, obtaining history from patient or surrogate, ordering and performing treatments and interventions, ordering and review of laboratory studies, ordering and review of radiographic studies, pulse oximetry, re-evaluation of patient's condition and review of old charts ?I assumed direction of critical care for this patient from another provider in my specialty: no ?[facility]CT [facility] 2019-11-26 01:36:12No evidence of pulmonary embolism. Possible gastritis. There is diffuse mosaic attenuation groundglass densities throughout thelungs, nonspecific but can be seen with air trapping and/or mild edema. CLINICAL HISTORY:Short of breath. ?Pain. COMPARISON:None TECHNIQUE:CT angiogram of the chest performed. ?Contiguous axial CT images wereobtained before and after arterial phase injection of intravenous contrastmaterial. ?Multiplanar 3-D images alsoobtained and interpreted. Study was performed using ALARA principle. FINDINGS:There are no filling defects visualized within the pulmonary arteries tosuggest pulmonary embolism. No aortic dissection. There is right nodular goiter. There are multiplesmall mediastinal and hilar lymph nodes, nonspecific and may be reactive.Each individually does not meet size criteria for pathologic enlargement. Hiatal hernia. Some wall thickening of the stomach, possible gastritis. There is diffuse mosaic attenuation groundglass densities throughout thelungs, nonspecific but can be seen with air trapping and/or mild edema.There are no appreciable effusions or pneumothorax. There are degenerative changes of the dorsal spine and visualized bones.There are no appreciable compressions or subluxations. ?No appreciablefracture lines. [facility], Radiant Results Inft User - 11/25/2019 7:37 PM CSTCLINICAL HISTORY:Short of breath. Pain.COMPARISON:NoneTECHNIQUE:CT angiogram of the chest performed. Contiguous axial CT images wereobtained before and after arterial phase injection of intravenous contrastmaterial. Multiplanar 3-D images also obtained and interpreted.Study was performed using ALARA principle.FINDINGS:There are no filling defects visualized within the pulmonary arteries tosuggest pulmonary embolism.No aortic dissection. There is right nodular goiter. There are multiplesmall mediastinal and hilar lymph nodes, nonspecific and may be reactive.Each individually does not meet size criteria for pathologic enlargemen t.Hiatal hernia. Some wall thickening of the stomach, possible gastritis.There is diffuse mosaic attenuation groundglass densities throughout thelungs, nonspecific but can be seen with air trapping and/or mild edema.There are no appreciable effusions or pneumothorax.There are degenerative changes of the dorsal spine and visualized bones.There are no appreciable compressions or subluxations. No appreciablefracture lines.IMPRESSIONNo evidence of pulmonary embolism.Possible gastritis.There is diffuse mosaic attenuation groundglass densities throughout thelungs, nonspecific but can be seen with air trapping and/or mild edema. [facility] CenterCT HEAD WO [id number] 01:34:31 No acute intracranial abnormality. Preliminary Report Dictated by Resident: Juliane Ford MD., have reviewed this study and agree with the abovereport.CT HEAD WO CONTRAST HISTORY:Altered mental status (AMS), unclear cause COMPARISON: 01/15/2018 TECHNIQUE: Noncontrast CT of the brain was obtained with coronal andsagittal reconstructions. FINDINGS: The ventricles and cerebral sulci are normal in caliber and configuration.No hydrocephalus, midline shift or pathological extra-axial fluidcollection is present. The basal cisterns are unremarkable. There is no acute intraparenchymalhemorrhage or significant mass effect.No parenchymal attenuation abnormality. The mora-white matterdi fferentiation is preserved. There are no acute extracranial findings. [facility], Radiant Results Inft User - 11/25/2019 8:28 PM CSTCT HEAD WO CONTRASTHISTORY: Altered mental status (AMS), unclear cause COMPARISON: 01/15/2018TECHNIQUE: Noncontrast CT of the brain was obtained with coronal andsagittal reconst ructions.FINDINGS:The ventricles and cerebral sulci are normal in caliber and configuration.No hydrocephalus, midline shift or pathological extra-axial fluidcollection is present. The basal cisterns are unremarkable.There is no acute intraparenchymal hemorrhage or significant mass effect.No parenchymal attenuation abnormality. The mora-white matterdifferentiation is preserved. There are no acute extracranial findings.IMPRESSIONNo acute intracranial abnormality.Preliminary Report Dictated by Resident: Juliane Gutierrez MD., have reviewed this study and agree with the abovereport. [facility] CenterD-[id number] 01:13:00 Test Item Value Reference Interpretation Comments Range D-DIMER (test code = See_Comment H [Autom ated [id number]) message] The system which generated this result transmitted reference range : <0.41 ?g/mL (FEU). The reference range was not used to interpret this result as normal/abnormal . OLMAN (test code = This test may be OLMAN) used in conjunction with a clinical pretest probability (PTP) assessment model to exclude venous thromboembolism (VTE) in patients suspected of deep venous thrombosis (DVT) and pulmonary embolism (PE) A D-Dimer value less than 0.50 ?g/ml (FEU) has a negative predicative value of 96 to 100% (95% CI)and 97 to 100% (95% CI) as an aid in the diagnosis of deep vein thrombosis (DVT) and pulmonary embolism when there is low or moderate pretest probability of PE or DVT. D-Dimer values are expressed in initial fibrinogen equivalent units (FEU)" The assay results should be used with other information, including the clinical context, in forming a diagnosis. Lab Interpretation Abnormal (test code = 55737-4) [facility] CenterXR CHEST 1 [id number] 01:08:23No evidence of acute cardiopulmonary disease. 2 VIEWS OF THE CHEST HISTORY: sob COMPARISON: none TECHNIQUE: PA and lateral views of the chest. FINDINGS: Suboptimal inspiratory volumes resulting vascular crowding and exaggerationof mediastinal contour. Otherwise, lungs are clear. There is no focalconsolidation, pleural effusion or pneumothorax. The cardiomediastinal silhouette is within normal limits. ?No acute bonyabnormalities are seen. Degenerative changes at bilateral acromioclavicularjoints. [facility], Radiant Results Inft User - 11/25/2019 7:09 PM CST2 VIEWS OF THE CHESTHISTORY: sob COMPARISON: noneTECHNIQUE: PA and lateral views of the chest.FINDINGS:Suboptimal inspiratory volumes resulting vascular crowding and exaggerationof mediastinal contour. Otherwise, lungs are clear. There is no focalconsolidation, pleural effusion or pneumothorax.The cardiomediastinal silhouette is within normal limits. No acute bonyabnormalities are seen. Degenerative changes at bilateral acromioclavicularjoints.IMPRESSIONNo evidence of acute cardiopulmonary disease. [facility] CenterTRSOHAMNIN [id number] 01:05:00 Test Item Value Reference Range Interpretation Comments TROPONIN I (test 0.002 ng/mL See_Comment [Automated code = 9350876381) message] The system which generated this result transmitted reference range : <=0.034. The reference range was not used to interpret this result as normal/abnormal . OLMAN (test code = Equal or Less than OLMAN) 0.034 ng/ml---Normal ?Note: Cardiac troponin begins to rise 3-4 hours after the onset of ischemia. Repeat in 4-6 hours if the sample was drawn within 3-4 hours of the onset of the symptom and found normal. Between 0.035 and 0.120 ng/mL--- Borderline. Questionable myocardial injury or necrosis ? ?Note: Serial measurement may be necessary to confirm or exclude the diagnosis of myocardial injury or necrosis; Clinical correlation (symptoms, EKGs, imaging studies, and others) required; Repeat in 4-6 hours if clinically indicated. ? Equal or Higher than 0.121 ng/mL---Abnormal. Myocardial Injury or Necrosis Likely ? Biotin has been reported to cause a negative bias, interpret results relative to patient's use of biotin. ? Lab Interpretation Normal (test code = 69209-6) [facility] CenterN-TERMINAL [id number] 01:02:00 Test Item Value Reference Range Interpretation Comments NT-proBNP (test code 163 pg/mL See_Comment H [Autom ated = 5863192553) message] The system which generated this result transmitted reference range : <=125. The reference range was not used to interpret this result as normal/abnormal . OLMAN (test code = OLMAN) Biotin has been reported to cause a negative bias, interpret results relative to patient's use of biotin. Lab Interpretation Abnormal (test code = 31255-8) [facility] CenterCOMP. METABOLIC PANEL (49714)2019-11-26 00:53:00 Test Item Value Reference Range Interpretation Comments NA (test code = 142 mmol/L 135-145 8236450215) K (test code = 4.3 mmol/L 3.5-5 6072820926) CL (test code = 104 mmol/L 98-108 2745655721) CO2 TOTAL (test code = 26 mmol/L 23-31 6336071976) AGAP (test code = 2-16 8120955273) BUN (test code = 19 mg/dL 7-23 7556969437) GLUCOSE (test code = 155 mg/dL 70-110 H 4885536441) CREATININE (test code = 0.69 mg/dL 0.5-1.04 3421721887) TOTAL BILI (test code = 0.3 mg/dL 0.1-1.1 1779143026) CALCIUM (test code = 10.0 mg/dL 8.6-10.6 9102447282) T PROTEIN (test code = 7.9 g/dL 6.3-8.2 5904546201) ALBUMIN (test code = 4.6 g/dL 3.5-5 4489313375) ALK PHOS (test code = 90 U/L 34-122 8208848442) ALTv (test code = 21 U/L 5-35 1742-6) AST(SGOT) (test code = 36 U/L 13-40 0929997663) eGFR Calculation mL/min/1.73m2 (Non-) (test code = 8152861887) eGFR Calculation mL/min/1.73m2 () (test code = 9030269201) OLMAN (test code = OLMAN) Association of Glomerular Filtration Rate (GFR) and Staging of Kidney Disease* + --+ --+ ------+| GFR (mL/min/1.73 m2) ?| With Kidney Damage ?| ?Without Kidney Damage+ --------+ --------+ +| ?>90 ?| ?Stage one ?| ? Normal ?+ ---+ ---+ -------+| ?60-89 ?| ?Stage two ?| ? Decreased GFR ? + --+ --+ ------+| ?30-59 ?| ?Stage three ?| ? Stage three ? + --+ --+ ------+| ?15-29 ?| ?Stage four ? | ? Stage four ?+ ---+ ---+ -------+| ?<15 (or dialysis) ? ?| ?Stage five ? | ? Stage five ?+ ---+ ---+ -------+ *Each stage assumes the associated GFR level has been in effect for at least three months. ?Stages 1 to 5, with or without kidney disease, indicate chronic kidney disease. Notes: Determination of stages one and two (with eGFR >59mL/min/1.73 m2) requires estimation of kidney damage for at least three months as defined by structural or functional abnormalities of the kidney, manifested by either:Pathological abnormalities or Markers of kidney damage (including abnormalities in the composition of the blood or urine or abnormalities in imaging tests). Lab Interpretation Abnormal (test code = 28048-1) [facility] CenteraPTT2020-03-08 00:42:00 Test Item Value Reference Range Interpretation Comments APTT Patient (test See_Comment [Automat ed code = 3173-2) message] The system which generated this result transmitted reference range : 23 - 38 Seconds . The reference range was not used to interpr et this result as normal/abnormal . OLMAN (test code = OLMAN) The [facility] patient population mean normal value for aPTT is 30 seconds. Lab Interpretation Normal (test code = 64680-2) [facility] CenterPROTHROMBIN TIME / [id number] 00:40:00 Test Item Value Reference Range Interpretation Comments PROTIME PATIENT (test See_Comment [Auto mated message] code = 5964-2) The system wh ich generated this result transmitted ref erence range: 12.0 - 1 4.7 Seconds. The re ference range was not u sed to interpret this result as normal/abnor mal. INR (test code = 6301-6) Nor mal INR <1.1; Warfarin Therap eutic range 2.0 to 3. 0 or 2.5 to 3.5, dep ending upon the indica tions. Lab Interpretation (test Normal code = 48631-4) [facility] CenterPOOH GLUCOSE (AUTOMATED)2019-11-26 00:31:00 Test Item Value Reference Range Interpretation Comments POCT GLU (test code = 6477230214) 141 mg/dL 70-110 H Lab Interpretation (test code = Abnormal 09680-6) [facility] WITH [id number] 00:30:00 Test Item Value Reference Range Interpretation Comments WBC (test code = See_Comment [Automated 6690-2) message] The sy stem which generated this result transmitted reference range : 4.30 - 11.10 10*3/?L. The reference range was not used to interpret this result as normal/abnormal . RBC (test code = See_Comment [Automated 789-8) message] The sy stem which generated this result transmitted reference range : 3.93 - 5.25 10*6/?L. The reference range was not used to interpret this result as normal/abnormal . HGB (test code = 11.2 g/dL 11.6-15 L 718-7) HCT (test code = 35.4 % 35.7-45.2 L 4544-3) MCV (test code = 84.1 fL 80.6-95.5 787-2) MCH (test code = 26.6 pg 25.9-32.8 785-6) MCHC (test code = 31.6 g/dL 31.6-35.1 786-4) RDW-SD (test code = 43.8 fL 39-49.9 56002-5) RDW-CV (test code = 14.4 % 12-15.5 788-0) PLT (test code = See_Comment [Automated 777-3) message] The sy stem which generated this result transmitted reference range : 166 - 358 10*3/ ?L. The reference r hernandez was not used to interpret this result as normal/abnormal . MPV (test code = 10.5 fL 9.5-12.9 55293-3) NRBC/100 WBC (test See_Comment [Automat ed code = 9859209481) message] The system which generated this result transmitted reference range : 0.0 - 10.0 /100 WBCs. The refer ence range was not u sed to interpret th is result as normal/abnormal . NRBC x10^3 (test code <0.01 See_Comment [Auto mated = 5949346364) message] The s ystem which generated this result transmitted reference range : 10*3/?L. The reference range was not used to interpret this result as normal/abnormal . GRAN MAT (NEUT) % 57.1 % (test code = 770-8) IMM GRAN % (test code 0.40 % = 0838483819) LYMPH % (test code = 32.2 % 736-9) MONO % (test code = 7.3 % 5905-5) EOS % (test code = 2.7 % 713-8) BASO % (test code = 0.3 % 706-2) GRAN MAT x10^3(ANC) 3.81 10*3/uL 1.88-7.09 (test code = 9742313561) IMM GRAN x10^3 (test 0.03 10*3/uL 0-0.06 code = 8900597757) LYMPH x10^3 (test code 2.15 10*3/uL 1.32-3.29 = 731-0) MONO x10^3 (test code 0.49 10*3/uL 0.33-0.92 = 742-7) EOS x10^3 (test code = 0.18 10*3/uL 0.03-0.39 711-2) BASO x10^3 (test code <0.03 0.01-0.07 = 704-7) Lab Interpretation Abnormal (test code = 89865-7) [facility] CenterPOCT-GLUCOSE [id number] 08:19:00 Test Item Value Reference Range Interpretation Comments POC-GLUCOSE METER 194 mg/dL 70-110 H TESTED AT [facility] [address] (TRUDY) (test code = [place] 1538) [address] [id number] 06:24:00 Test Item Value Reference Range Interpretation Comments MAGNESIUM (BEAKER) (test code = 1.7 mg/dL 1.6-2.6 627) BASIC METABOLIC [id number] 06:24:00 Test Item Value Reference Range Interpretation [...] 697) EGFR (BEAKER) (test 57 mL/min/1.73 ESTIMA CIPRIANO GFR IS code = 1092) sq m NOT ACCURATE CREATININE CLEARANCE IN PREDICTING GLOMERULAR FILTRATION RATE . ESTIMATED GFR I S NOT APPLICABLE FOR DIALYSIS PATIEN TS. CBC W/PLT COUNT & AUTO [id number] 04:51:00 Test Item Value Reference Range Interpretation [...] PERCENT (BEAKER) (test code = 2801) POCT-GLUCOSE [id number] 22:18:00 Test Item Value Reference Range Interpretation Comments POC-GLUCOSE METER 252 mg/dL 70-110 H [facility] [address] [facility] (test code = [place] 1538) [address] POCT-GLUCOSE [id number] 17:53:00 Test Item Value Reference Range Interpretation Comments POC-GLUCOSE METER 173 mg/dL 70-110 H TESTED AT [facility] [address] ([facility]) (test code = [place] 1538) [address] NEEDLE EMG, 2 [id number] 15:01:00Please do with repetitive stimulationReason for exam:->[facility]osisB[facility] EMG/NCS [address] [place] [address] Name: Nelsy Perez Date of : 1950 [...] Median.R Wrist 2.7 ms 4.2 ms 14 𕙖V Digit II (index finger)-Wrist 2.7 ms 130 mm 48 m/s Ulnar.R Wrist NR ms NR ms NR 𑠕V Digit V (little finger)-Wrist 110 mm Radial.R Forearm1.9 ms 2.8 ms 24 𘋥V Anatomical snuff box-Forearm 1.9 ms 100 mm 53 m/s Sural.R Lower leg 3.3 ms 4.2 ms 5 蝈V Ankle-Lower leg 3.3 ms 140 mm 42 [...] neuromuscular junction disorder. Terence Donovan D.O. POCT-GLUCOSE [id number] 12:29:00 Test Item Value Reference Range Interpretation Comments POC-GLUCOSE METER 233 mg/dL 70-110 H TESTED AT [facility] [address] ([facility]) (test code = [place] 1538) [address] POCT-GLUCOSE [id number] 08:14:00 Test Item Value Reference Range Interpretation Comments POC-GLUCOSE METER 216 mg/dL 70-110 H TESTED AT [facility] [address] ([facility]) (test code = [place] 1538) [address] TSH/FREE T4 IF [id number] 07:06:00 Test Item Value Reference Range Interpretation Comments THYROID STIMULATING HORMONE 1.20 uIU/mL 0.35-4.94 ([facility]) (test code = 772) [id number] 06:39:00 Test Item Value Reference Range Interpretation Comments MAGNESIUM ([facility]) (test code = 1.9 mg/dL 1.6-2.6 627) BASIC METABOLIC [id number] 06:39:00 Test Item Value Reference Range Interpretation [...] 697) EGFR (BEAKER) (test 61 mL/min/1.73 ESTIMA CIPRIANO GFR IS code = 1092) sq m NOT ACCURATE CREATININE CLEARANCE IN PREDICTING GLOMERULAR FILTRATION RATE . ESTIMATED GFR I S NOT APPLICABLE FOR DIALYSIS PATIEN TS. CBC W/PLT COUNT & AUTO [id number] 05:54:00 Test Item Value Reference Range Interpretation [...] PERCENT (BEAKER) (test code = 2801) POCT-GLUCOSE [id number] 22:09:00 Test Item Value Reference Range Interpretation Comments POC-GLUCOSE METER 292 mg/dL 70-110 H TESTED AT [place] [address] [facility] (test code = JEANNIE [place] [facility] 1538) [address] POCT-GLUCOSE [id number] 18:14:00 Test Item Value Reference Range Interpretation Comments POC-GLUCOSE METER 229 mg/dL 70-110 H TESTED AT [place] [address] (BEAKER) (test code = JEANN[place] 1538) [address] POCT-GLUCOSE [id number] 12:25:00 Test Item Value Reference Range Interpretation Comments POC-GLUCOSE METER 225 mg/dL 70-110 H TESTED AT [place] [address] (BEAKER) (test code = JEANN[place] 1538) [address] POCT-GLUCOSE [id number] 09:21:00 Test Item Value Reference Range Interpretation Comments POC-GLUCOSE METER 240 mg/dL 70-110 H TESTED AT [facility] [address] (BEAKER) (test code = [place] 1538) [address] [id number] 06:17:00 Test Item Value Reference Range Interpretation Comments MAGNESIUM (BEAKER) (test code = 2.0 mg/dL 1.6-2.6 627) BASIC METABOLIC [id number] 06:17:00 Test Item Value Reference Range Interpretation [...] 697) EGFR (BEAKER) (test 63 mL/min/1.73 ESTIMA CIPRIANO GFR IS code = 1092) sq m NOT ACCURATE CREATININE CLEARANCE IN PREDICTING GLOMERULAR FILTRATION RATE . ESTIMATED GFR I S NOT APPLICABLE FOR DIALYSIS PATIEN TS. CBC W/PLT COUNT & AUTO [id number] 05:33:00 Test Item Value Reference Range Interpretation [...] (test code = 2801) MR, BRAIN, WITHOUT [id number] 05:23:00Reason for exam:->Right third nerve palsy/headacheWhat is [...] Normal noncontrast MRI of the orbits. Signed: Deborah Lux Verified Date/Time: 04/12/2019 05:23:37 Elec tronically signed by: DEBORAH LUX MD on 04/12/2019 05:23 AMMR, ORBIT, FACE, NECK, WITHOUT [id number] 05:23:00Reason for exam:->Right third nerve palsy/headacheFINAL REPORT [...] Normal noncontrast MRI of the orbits. Signed: Deborah Lux Verified Date/Time: 04/12/2019 05:23:37 MR, MRA, NECK, WITHOUT IV CONTRAST 2019-04-12 05:09:00Reason for exam:->Right third nerve palsy/headacheWhat is the patient's sedation requirement?->No SedationIs the patient claustrophobic?->NoFINAL REPORT Clinical History: Right third nerve palsy/headacheRight third nerve palsy/headache Technique: MRA of the head utilizing 3-D qvuv-du-rinqdj technique, with 3-D reconstructions. MRA of the neck utilizing 2-D and 3-D qjqe-eu-bwzyjp technique, with 3-D reconstructions. Comparisons: None Findings: [...] MRA head: No evidence for a major [place] of [place] proximal branch vessel occlusion or intracranial aneurysm. MRA neck: 60% stenosis of the origin of the right internal carotid artery by NASCET criteria. No evidence of hemodynamically significant stenosis in the left cervical carotid or vertebral arteries. Enlarged right thyroid gland with a 1.5 cm hypodense nodule. Recommend further evaluation with a dedicated thyroid ultrasound on a nonemergent basis. Signed: Deborah Lux Verified Date/Time: 04/12/2019 05:09:17 MR, MRA, BRAIN, WITHOUT [id number] 05:09:00Reason for exam:->Right third nerve palsy/headacheWhat is the patient's sedation requirement?->No SedationIs the patient claustrophobic?->NoFINAL REPORT Clinical History: Right third nerve palsy/headacheRight third nerve palsy/headache Technique: MRA of the head utilizing 3-D nkkm-ur-dikvbt technique, with 3-D reconstructions. MRA of the neck utilizing 2-D and 3-D asth-un-bchgdq technique, with 3-D reconstructions. Comparisons: None Findings: [...] MRA head: No evidence for a major [place] of [place] proximal branch vessel occlusion or intracranial aneurysm. MRA neck: 60% stenosis of the origin of the right internal carotid artery by NASCET criteria. No evidence of hemodynamically significant stenosis in the left cervical carotid or vertebral arteries. Enlarged right thyroid gland with a 1.5 cm hypodense nodule. Recommend further evaluation with a dedicated thyroid ultrasound on a nonemergent basis. Signed: Deborah Lux [facility] Verified Date/Time: 04/12/2019 05:09:17 -GLUCOSE [id number] 21:59:00 Test Item Value Reference Range Interpretation Comments POC-GLUCOSE METER 283 mg/dL 70-110 H TESTED AT [place] [address] ([facility]) (test code = [place]IE [place] 1538) [id number] POCT-GLUCOSE [id number] 17:44:00 Test Item Value Reference Range Interpretation Comments POC-GLUCOSE METER 178 mg/dL 70-110 H TESTED AT [place] [address] ([facility]) (test code = [place] 1538) [id number] POCT-GLUCOSE [id number] 17:44:00 Test Item Value Reference Range Interpretation Comments POC-GLUCOSE METER 262 mg/dL 70-110 H TESTED AT [place] [address] (BEAKER) (test code = JEANNIE Jensen [facility] 1538) [id number] POCT-GLUCOSE [id number] 12:43:00 Test Item Value Reference Range Interpretation Comments POC-GLUCOSE METER 194 mg/dL 70-110 H TESTED AT [facility] 67[facility] (BEAKER) (test code = JEANNIE Jensen [facility] 1538) [id number] 08:18:00 Test Item Value Reference Range Interpretation Comments MAGNESIUM (BEAKER) (test code = 1.7 mg/dL 1.6-2.6 627) BASIC METABOLIC [id number] 08:18:00 Test Item Value Reference Range Interpretation [...] 697) EGFR (BEAKER) (test 68 mL/min/1.73 ESTIMA CIPRIANO GFR IS code = 1092) sq m NOT ACCURATE CREATININE CLEARANCE IN PREDICTING GLOMERULAR FILTRATION RATE . ESTIMATED GFR I S NOT APPLICABLE FOR DIALYSIS PATIEN TS. LIPID [id number] 08:18:00 Test Item Value Reference Range Interpretation [...] Borderline 130-159 High 160-189 Very High >=190POCT-GLUCOSE [id number] 07:55:00 Test Item Value Reference Range Interpretation Comments POC-GLUCOSE METER 135 mg/dL 70-110 H TESTED AT [facility] 67[facility] (BEAKER) (test code = [place] 1538) [id number] HEMOGLOBIN [id number] 07:04:00 Test Item Value Reference Range Interpretation Comments HEMOGLOBIN A1C (BEAKER) (test code = 10.5 % 4.3-6.1 H 368) CBC W/PLT COUNT & AUTO [id number] 06:51:00 Test Item Value Reference Range Interpretation [...] 0-1 PERCENT (BEAKER) (test code = 2801) [id number] 23:01:00 Test Item Value Reference Range Interpretation Comments MAGNESIUM (BEAKER) (test code = 1.6 mg/dL 1.6-2.6 627) BASIC METABOLIC [id number] 23:01:00 Test Item Value Reference Range Interpretation [...] 697) EGFR (BEAKER) (test 69 mL/min/1.73 ESTIMA CIPRIANO GFR IS code = 1092) sq m NOT ACCURATE CREATININE CLEARANCE IN PREDICTING GLOMERULAR FILTRATION RATE . ESTIMATED GFR I S NOT APPLICABLE FOR DIALYSIS PATIEN TS. PROTHROMBIN [id number] 22:54:00 Test Item Value Reference Range Interpretation [...] mechanical heart valves.CBC W/PLT COUNT & AUTO [id number] 22:46:00 Test Item Value Reference Range Interpretation [...] PERCENT (BEAKER) (test code = 2801) POCT-GLUCOSE [id number] 21:32:00 Test Item Value Reference Range Interpretation Comments POC-GLUCOSE METER 143 mg/dL 70-110 H TESTED AT [facility] 67[facility] ([facility]) (test code = [place] 1538) [id number] RAD, CHEST, 1 VIEW, NON [id number] 19:49:00Reason for exam:->chest painShould this be performed at the bedside?->YesFINAL REPORT AP view of the chest dated 04/10/2019 CLINICAL INFORMATION: chest pain Comment: Heart is normal in size. Pulmonary vasculature is unremarkable. Lungs are clear. No pulmonary infiltrate or pleural effusion is present. Impression: No active cardiopulmonary disease.Signed: Ollie Mccain Verified Date/Time: 04/10/2019 19:49:30 Reading Location: [facility] B1 [id number] Reading Room
--- NOTE | 2021-12-24 14:50 | RAD REPORT ---
EXAM DESCRIPTION: CT - Head Brain Wo Cont - 12/24/2021 2:44 pm CLINICAL HISTORY: DIZZINESS Headache, drowsiness COMPARISON: Head Brain Wo Cont dated 04/10/2019; Ct Stroke Brain Wo Cont dated 12/06/2018 TECHNIQUE: All CT scans are performed using dose optimization technique as appropriate and may inclu de automated exposure control or mA/KV adjustment according to patient size. FINDINGS: No intracranial hemorrhage, hydrocephalus or extra-axial fluid collection.No areas of brai n edema or evidence of midline shift. The paranasal sinuses and mastoids are clear. The calvarium is intact. IMPRESSION: No acute intracranial abnormality.
--- NOTE | 2021-12-24 15:04 | RAD REPORT ---
EXAM DESCRIPTION: RAD - Chest Single View - 12/24/2021 2:59 pm CLINICAL HISTORY: dizziness Chest pain. COMPARISON: Chest Single View dated 04/27/2021; Chest Pa And Lat (2 Views) dated 12/13/2020; Chest Sing le View dated 12/06/2018; CHEST SINGLE VIEW dated 11/15/2015 FINDINGS: Portable technique limits examination quality. The lungs are grossly clear. The heart is normal in size. No displaced fractures. IMPRESSION: No acute intrathoracic process suspected.
[2021-12-24 15:19] LABS: Absolute Lymphocytes (CBC) 2.1 K/uL (0.7-4.9); Hematocrit 37.3 % (36.0-45.0); Lymphocytes % 27.6 % (15.3-44.8); MPV 8.8 fL (7.6-11.3); RBC Red Blood Cell Count 4.41 M/uL (3.86-4.86)
[2021-12-24 15:20] LABS: Protime INR 1.06
[2021-12-24] MEDS ORDERED: LORazepam 2 MG/ML VIAL ONE (15:22)
[2021-12-24] MEDS ORDERED: MECLIZINE HCL 12.5 MG TAB ONE (15:22)
[2021-12-24] MEDS ORDERED: NA CHLORIDE 0.9% 500 ML ONE (15:23)
[2021-12-24] MEDS ORDERED: ONDANSETRON 4 MG/2 ML VIAL ONE (15:23)
[2021-12-24 15:47] LABS: Albumin 3.4 g/dL (3.4-5.0); Bilirubin Direct 0.1 mg/dL (0-0.2); Bilirubin Total 0.4 mg/dL (0.2-1.0); Potassium 4.3 mmol/L (3.5-5.1); Protein, Total 7.3 g/dL (6.4-8.2); Troponin High Sensitivity 16.5 pg/mL (<58.9)
[2021-12-24 15:51] LABS: Magnesium 1.2 mg/dL (1.8-2.4)
[2021-12-24] MEDS ORDERED: Magnesium Sulfate 2gm IVPB 2 G/50 ML BAG IV ONE (16:40)
--- NOTE | 2021-12-24 16:57 | RAD REPORT ---
EXAM DESCRIPTION: MRI - Brain Wo Cont - 12/24/2021 4:47 pm CLINICAL HISTORY: r/o stroke Headache, drowsiness, CVA symptomology COMPARISON: Head Brain Wo Cont dated 12/24/2021 TECHNIQUE: Multi-sequence, multiplanar MR imaging of the brain was performed without contrast. FINDINGS: No intracranial hemorrhage, hydrocephalus or extra-axial fluid collections. No edema or sh ift of midline structures. No findings to suspect brain mass. DWI is negative for acute CVA. Midline structures are normally formed. Mastoid air cells and paranasal sinuses are clear. IMPRESSION: Negative for acute CVA or other acute intracranial abnormality.
--- NOTE | 2021-12-24 18:38 | ER ---
Nurse's Notes [facility] Name: Nelsy Perez Age: 71 yrs Sex: Female : 1950 Arrival Date: 12/24/2021 Time: 14:27 Bed 8 Private MD: Diagnosis: Chest pain, unspecified;Dizziness and giddiness Presentation: 12/24 14:27 Chief complaint: EMS states: DIZZY AT WORK. Coronavirus screen: At this time, the bp client does not indicate any symptoms associated with coronavirus-19. Ebola Screen: No symptoms or risks identified at this time. Initial Sepsis Screen: Does the patient meet any 2 criteria? HR > 90 bpm. No. Patient's initial sepsis screen is negative. Does the patient have a suspected source of infection? No. Patient's initial sepsis screen is negative. Risk Assessment: Do you want to hurt yourself or someone else? Patient reports no desire to harm self or others. Onset of symptoms is unknown. Care prior to arrival: Glucose check: 165. 14:27 Method Of Arrival: EMS: [facility] bp 14:27 Acuity: ARRON 3 bp Triage Assessment: 14:28 General: Appears in no apparent distress. comfortable, obese, Behavior is cooperative, bp appropriate for age, anxious. Pain: Denies pain. EENT: No deficits noted. Neuro: Level of Consciousness is awake, alert, obeys commands, Oriented to Appropriate for age Denies SYNCOPE. Cardiovascular: Rhythm is sinus tachycardia. Respiratory: No deficits noted. GI: No signs and/or symptoms were reported involving the gastrointestinal system. : No signs and/or symptoms were reported regarding the genitourinary system. Derm: No deficits noted. Musculoskeletal: No deficits noted. Historical: - Allergies: 14:28 No Known Allergies; bp - Home Meds: 14:28 gabapentin 300 mg Oral cap 1 cap 3 times per day [Active]; lisinopril 20 mg Oral tab 1 bp tab twice a day [Active]; metformin 1,000 mg Oral tab 1 tab 2 times per day [Active]; metoprolol 100 mg daily ( pt reports she only takes half) [Active]; atorvastatin 40 mg Oral tab 1 tab once daily [Active]; Novolog Sub-Q 5 unit before meals [Active]; Tresiba FlexTouch U-100 100 unit/mL (3 mL) subcutaneous inpn 40 unit daily [Active]; - PMHx: 14:28 Diabetes - IDDM; neuropathy; Hypertension; Hypercholesterolemia; Panic attack; bp - PSHx: 14:28 Ligation of fallopian tube; cataract sx both eyes; bp - Immunization history:: Client reports receiving the 2nd dose of the Covid vaccine. - Social history:: Smoking status: Patient denies any tobacco usage or history of. Screenin:30 Abuse screen: Denies threats or abuse. Denies injuries from another. Nutritional bp screening: No deficits noted. Tuberculosis screening: No symptoms or risk factors identified. Fall Risk None identified. Assessment: 14:30 General: SEE TRIAGE NOTE. bp 16:30 Reassessment: No changes from previously documented assessment. Patient and/or family bp updated on plan of care and expected duration. Pain level reassessed. 17:30 Reassessment: AMBULATION DELAYED, PT SLEEPING. bp 19:45 Reassessment: Patient appears in no apparent distress at this time. Patient aware of lp1 pending admission to floor; Denies chest pain at this time; Daughter at bedside; Patient given sandwich and water per request Patient states feeling better. Vital Signs: 14:27 BP 167 / 73; Pulse 108; Resp 16; Temp 97.9; Pulse Ox 97% ; bp 15:30 BP 162 / 55; Pulse 97; Resp 17 S; Pulse Ox 96% on R/A; bp 16:30 BP 146 / 54; Pulse 93; Resp 16; Pulse Ox 95% ; bp 17:30 BP 129 / 52; Pulse 90; Resp 16; Pulse Ox 95% ; bp 18:00 BP 134 / 64; Pulse 89; Resp 17 S; Pulse Ox 95% on R/A; bp 19:45 BP 174 / 69; Pulse 96; Resp 18; Pulse Ox 95% on R/A; Pain 0/10; lp1 21:00 BP 164 / 83; Pulse 90; Resp 18; Pulse Ox 97% ; vc1 21:56 BP 154 / 57; Pulse 91; Resp 18; Pulse Ox 96% on R/A; Pain 0/10; lp1 ED Course: 14:27 Patient arrived in ED. bp 14:28 Triage completed. bp 14:28 Arm band placed on. bp 14:30 Patient has correct armband on for positive identification. Call light in reach. Side bp rails up X2. Adult w/ patient. 14:31 Rashad Najera PA is PHCP. cp 14:31 Ehsan Jordan MD is Attending Physician. cp 14:35 Salomón Mak, AMTHEW is Primary Nurse. bp 14:46 CT Head Brain wo Cont In Process Unspecified. EDMS 15:01 XRAY Chest (1 view) In Process Unspecified. EDMS 15:09 Warm blanket given. hall monitor on. Pulse ox on. NIBP on. 5 15:09 Basic Metabolic Panel Sent. 5 15:09 CBC with Diff Sent. mh5 15:09 LFT's Sent. 5 15:09 Magnesium Sent. 5 15:09 NT PRO-BNP Sent. 5 15:09 PT-INR Sent. 5 15:09 Troponin HS Sent. 5 15:10 Initial lab(s) drawn, by me, sent to lab. EKG done, by ED staff, reviewed by Rashad MEJIAS. 15:11 Inserted saline lock: 20 gauge in right antecubital area, using aseptic technique. [facility] Blood collected. 16:47 Brain Wo Cont In Process Unspecified. EDMS 18:20 Patient ambulated from from 8 down to room 6 when she started c/o burning chest pain. bp Patient was alert and seemed to sway a little so we turned around and went back to the room the provider was notified. Patient had no associated symptoms reported or noted, once in room patient vitals were reassessed and WNL, and a second ekg performed, once at rest the chest pain subsided. 18:30 No apparent distress. Resting quietly. Awaiting re-evaluation by ER provider. bp 18:37 Katarina Freeman MD is Hospitalizing Provider. cp 20:49 No provider procedures requiring assistance completed. Patient admitted, IV remains in lp1 place. Administered Medications: 15:10 Drug: Ativan (LORazepam) 1 mg Route: IVP; Site: right forearm; bp 16:00 Follow up: Response: No adverse reaction; No change in condition jg9 15:10 Drug: Zofran (Ondansetron) 4 mg Route: IVP; Site: right forearm; bp 16:00 Follow up: Response: No adverse reaction; Nausea is decreased jg9 15:10 Drug: Meclizine 25 mg Route: PO; bp 16:00 Follow up: Response: No adverse reaction; No change in condition jg9 15:10 Drug: NS 0.9% 500 ml Route: IV; Rate: calculated rate; Site: right forearm; bp 16:57 Follow up: IV Status: Completed infusion; IV Intake: 500ml jg9 16:56 Drug: Magnesium Sulfate 2 grams Route: IVPB; Infused Over: 2 hrs; Site: right jg9 antecubital; Intake: 16:57 IV: 500ml; Total: 500ml. jg9 Outcome: 18:37 Decision to Hospitalize by Provider. cp 20:49 Condition: stable lp1 20:49 Instructed on the need for admit. 22:45 Admitted to Med/surg room 224, with chart, Report called to MATHEW Davis lp1 23:15 Patient left the ED. lp1 Signatures: Dispatcher [employer] EDMS Lorena Rea RN RN lp1 Rashad Najera PA PA cp Martinez, Maria [facility] Salomón Mak RN RN Swapna Neely RN RN jg9 Geovanna Ford RN RN vc1 Corrections: (The following items were deleted from the chart) 18:32 18:20 Patient ambulated from from 8 down to room 6 when she started c/o burning chest bp pain-we turned around and went back to the room and I notified the provider. bp
--- NOTE | 2021-12-24 18:38 | EDPHYS ---
Physician Documentation [facility] Name: Nelsy Perez Age: 71 yrs Sex: Female : 1950 Arrival Date: 12/24/2021 Time: 14:27 Bed 8 Private MD: ED Physician Ehsan Jordan HPI: 12/24 14:35 This 71 yrs old Female presents to ER via EMS with complaints of Dizziness. cp 14:35 The patient presents with dizziness, feeling faint, lightheadedness, sense of spinning. cp 14:35 Onset: The symptoms/episode began/occurred today. cp 14:35 Context: occurred at work, just prior to the episode the patient experienced no cp apparent symptoms. Patient's baseline: Neuro: alert and fully oriented, Motor: no deficits, Ambulation: walks without assistance, Speech: normal. Historical: - Allergies: 14:28 No Known Allergies; bp - Home Meds: 14:28 gabapentin 300 mg Oral cap 1 cap 3 times per day [Active]; lisinopril 20 mg Oral tab 1 bp tab twice a day [Active]; metformin 1,000 mg Oral tab 1 tab 2 times per day [Active]; metoprolol 100 mg daily ( pt reports she only takes half) [Active]; atorvastatin 40 mg Oral tab 1 tab once daily [Active]; Novolog Sub-Q 5 unit before meals [Active]; Tresiba FlexTouch U-100 100 unit/mL (3 mL) subcutaneous inpn 40 unit daily [Active]; - PMHx: 14:28 Diabetes - IDDM; neuropathy; Hypertension; Hypercholesterolemia; Panic attack; bp - PSHx: 14:28 Ligation of fallopian tube; cataract sx both eyes; bp - Immunization history:: Client reports receiving the 2nd dose of the Covid vaccine. - Social history:: Smoking status: Patient denies any tobacco usage or history of. ROS: 14:40 Constitutional: Negative for body aches, chills, fever, poor PO intake. cp 14:40 Eyes: Negative for injury, pain, redness, and discharge. cp 14:40 ENT: Negative for drainage from ear(s), ear pain, sore throat, difficulty swallowing, difficulty handling secretions. 14:40 Neck: Negative for pain with movement, pain at rest, stiffness. 14:40 Cardiovascular: Negative for chest pain, edema, palpitations. 14:40 Respiratory: Negative for cough, shortness of breath, wheezing. 14:40 Abdomen/GI: Negative for abdominal pain, nausea, vomiting, and diarrhea. 14:40 : Negative for urinary symptoms. 14:40 Neuro: Positive for dizziness, Negative for altered mental status, headache, loss of consciousness, speech changes, syncope, weakness. 14:40 All other systems are negative. Exam: 14:45 Constitutional: The patient appears in no acute distress, alert, awake, cp non-diaphoretic, non-toxic, well developed, well nourished, obese. 14:45 Head/Face: Normocephalic, atraumatic. cp 14:45 Eyes: Periorbital structures: appear normal, Pupils: equal, round, and reactive to light and accomodation, Extraocular movements: intact throughout, Conjunctiva: normal, no exudate, no injection, Sclera: no appreciated abnormality, Lids and lashes: appear normal, bilaterally. 14:45 ENT: External ear(s): are unremarkable, Nose: is normal, Mouth: Lips: moist, Oral mucosa: pink and intact, moist, Posterior pharynx: Airway: no evidence of obstruction, patent. 14:45 Neck: ROM/movement: is normal, is supple, without pain, no range of motions limitations, no nuchal rigidity. 14:45 Chest/axilla: Inspection: normal. 14:45 Cardiovascular: Rate: tachycardic, Rhythm: regular, Edema: is not appreciated, JVD: is not appreciated. 14:45 Respiratory: the patient does not display signs of respiratory distress, Respirations: normal, no use of accessory muscles, no retractions, labored breathing, is not present, Breath sounds: are clear throughout, no decreased breath sounds, no stridor, no wheezing. 14:45 Abdomen/GI: Inspection: abdomen appears normal, Palpation: abdomen is soft and non-tender, in all quadrants. 14:45 Back: pain, is absent, ROM is normal. 14:45 Neuro: Orientation: to person, place \T\ time. Mentation: is normal, Cerebellar function: is grossly normal, Motor: moves all fours, strength is normal, Sensation: is normal. 14:56 ECG was reviewed by the Attending Physician. cp 18:15 ECG was reviewed by the Attending Physician. cp Vital Signs: 14:27 BP 167 / 73; Pulse 108; Resp 16; Temp 97.9; Pulse Ox 97% ; bp 15:30 BP 162 / 55; Pulse 97; Resp 17 S; Pulse Ox 96% on R/A; bp 16:30 BP 146 / 54; Pulse 93; Resp 16; Pulse Ox 95% ; bp 17:30 BP 129 / 52; Pulse 90; Resp 16; Pulse Ox 95% ; bp 18:00 BP 134 / 64; Pulse 89; Resp 17 S; Pulse Ox 95% on R/A; bp 19:45 BP 174 / 69; Pulse 96; Resp 18; Pulse Ox 95% on R/A; Pain 0/10; lp1 21:00 BP 164 / 83; Pulse 90; Resp 18; Pulse Ox 97% ; vc1 21:56 BP 154 / 57; Pulse 91; Resp 18; Pulse Ox 96% on R/A; Pain 0/10; lp1 MDM: 14:36 Patient medically screened. 15:00 Differential diagnosis: cardiac arrhythmia, CVA, hypovolemia, idiopathic dizziness, TIA. 17:15 Data reviewed: vital signs, nurses notes, lab test result(s), EKG, radiologic studies, cp CT scan, MRI, plain films. 17:15 Test interpretation: by ED physician or midlevel provider: ECG, plain radiologic cp studies. 18:30 ED course: VSS. Patient able to ambulate in ED w/o assistance. Nurse reports patient cp complained of chest pain described as burning while ambulating in ED. Pain resolved with rest. Will admit for chest pain and cardiac r/o. 18:35 Physician consultation: Nereyda MEJIAS was called at 18:35, was contacted at 18:35, regarding admission, to the telemetry unit. patient's condition. 12/24 14:34 Order name: Basic Metabolic Panel; Complete Time: 16:20 cp 12/24 16:20 Interpretation: Normal except: CL 108; GLUC 159; BUN 24; GFR 48. cp 12/24 14:34 Order name: CBC with Diff; Complete Time: 16:20 cp 12/24 14:34 Order name: LFT's; Complete Time: 16:20 12/24 16:21 Interpretation: Normal except: GLOB 3.9; A/G 0.9. 12/24 14:34 Order name: Magnesium; Complete Time: 16:20 cp 04/ 16:20 Interpretation: Abnormal: MG 1.2. cp 12/24 14:34 Order name: NT PRO-BNP; Complete Time: 16:20 cp 04 14:34 Order name: PT-INR; Complete Time: 15:23 cp 12/24 14:34 Order name: CT Head Brain wo Cont; Complete Time: 15:23 cp 12/24 15:23 Interpretation: Report reviewed. cp 12/24 14:34 Order name: Troponin HS; Complete Time: 16:20 cp 04 14:34 Order name: XRAY Chest (1 view); Complete Time: 15:23 cp 12/24 14:34 Order name: Urine Microscopic Only cp 12/24 15:29 Order name: Brain Wo Cont; Complete Time: 17:01 EDMS 04 17:01 Interpretation: Report reviewed. cp 12/24 18:36 Order name: Troponin High Sensitivity 12/24 20:16 Order name: SARS-COV-2 RT PCR EDMS 12/24 14:34 Order name: EKG; Complete Time: 14:35 cp 04 14:34 Order name: Cardiac monitoring; Complete Time: 14:57 cp 04 14:34 Order name: EKG - Nurse/Tech; Complete Time: 14:57 cp 12/24 14:34 Order name: IV Saline Lock; Complete Time: 15:09 cp 04 14:34 Order name: Labs collected and sent; Complete Time: 15:09 cp 12/24 14:34 Order name: O2 Per Protocol; Complete Time: 15:09 cp 12/24 14:34 Order name: O2 Sat Monitoring; Complete Time: 15:09 cp 04 17:14 Order name: Misc. Order: ambulate patient; Complete Time: 18:55 cp EC:56 Rate is 100 beats/min. Rhythm is regular. UT interval is normal. QRS interval is cp normal. QT interval is normal. T waves are Inverted in lead aVR. Interpreted by me. Reviewed by me. 18:15 Rate is 93 beats/min. Rhythm is regular. UT interval is normal. QRS interval is normal. cp QT interval is normal. T waves are Inverted in lead aVR. Interpreted by me. Reviewed by me. Administered Medications: 15:10 Drug: Ativan (LORazepam) 1 mg Route: IVP; Site: right forearm; bp 16:00 Follow up: Response: No adverse reaction; No change in condition jg9 15:10 Drug: Zofran (Ondansetron) 4 mg Route: IVP; Site: right forearm; bp 16:00 Follow up: Response: No adverse reaction; Nausea is decreased jg9 15:10 Drug: Meclizine 25 mg Route: PO; bp 16:00 Follow up: Response: No adverse reaction; No change in condition j9 15:10 Drug: NS 0.9% 500 ml Route: IV; Rate: calculated rate; Site: right forearm; bp 16:57 Follow up: IV Status: Completed infusion; IV Intake: 500ml j9 16:56 Drug: Magnesium Sulfate 2 grams Route: IVPB; Infused Over: 2 hrs; Site: right jg9 antecubital; Disposition: 12/25 07:29 Co-signature as Attending Physician, Ehsan Jordan MD I agree with the assessment and kdr plan of care. Disposition Summary: 12/24/21 18:37 Hospitalization Ordered Hospitalization Status: Observation cp Provider: Katarina Freeman cp Location: Telemetry/MedSurg (observation) cp Condition: Stable cp Problem: new cp Symptoms: have improved cp Bed/Room Type: Standard cp Room Assignment: 224(12/24/21 22:15) cg Diagnosis - Chest pain, unspecified cp - Dizziness and giddiness cp Forms: - Medication Reconciliation Form cp - SBAR form cp Signatures: Dispatcher [employer] Ehsan Orta MD MD kdr Page, Corey, PA PA cp Cassy Page RN RN Salomón Mak RN RN Swapna Neely RN RN jg9 Corrections: (The following items were deleted from the chart) 12/24 20:16 19:49 COVID 19 CPL+MR.LAB.BRZ ordered. EDWI EDWI 22:15 18:37 cp cg
--- NOTE | 2021-12-24 19:21 | P.HP ---
Certification for Inpatient Patient admitted to: Observation With expected LOS: <2 Midnights Patient will require the following post-hospital care: None Practitioner: I am a practitioner with admitting privileges, knowledge of patient current condition, hospital course, and medical plan of care. Services: Services provided to patient in accordance with Admission requirements found in Title 42 Section 412.3 of the Code of Federal Regulations Patient History Date of Service: 12/24/21 Primary Care Provider: Dr. Minaya Reason for admission: Chest Pain, Dizziness History of Present Illness: Patient is a 71-year-old female with type 2 diabetes insulin-dependent and hypertension who presented to the ED with complaints of new onset dizziness. Upon evaluation, symptoms likely vertigo related. Head CT and MRI were negative for acute findings. Patient was going to be discharged then started experiencing an episode of chest pain with walking. Initial and repeat EKG and troponin negative. Patient does see Dr. Patel outpatient. She states she had an echo and a stress test recently that were normal. All labs within normal limits except for magnesium of 1.2. She was given Ativan, meclizine, and magnesium in the ED. Upon my assessment, patient denies chest pain. She states she thinks it was more related to GERD but is not sure. ED provider wishes to admit patient for observation. Allergies No Known Allergies Allergy (Verified 05/08/21 09:40) Home Medications: Metformin HCl [Glucophage] 1,000 mg PO BID 11/15/15 lisinopriL [Lisinopril] 20 mg PO BID #30 tablet 11/16/15 Gabapentin 300 mg PO TID 12/07/18 Metoprolol Succinate [Toprol Xl] 100 mg PO DAILY 12/07/18 Allopurinol 100 mg PO DAILY 05/08/21 Atorvastatin Calcium 40 mg PO DAILY 05/08/21 Insulin Degludec [Tresiba] 36 unit SQ BEDTIME 05/08/21 - Past Medical/Surgical History Diabetic: Yes -: Diabetes mellitus type 2, insulin dependent -: HTN -: Cataracts -: Diabetic neuropathy -: Recurrent UTI -: chest pain - told it was a panic attact -: Cataract surgery -: Tubal ligation Psychosocial/ Personal History: Patient is . She has 5 children. - Family History Father -: Heart disease, Hypertension, Diabetes Notes: mother also Sister -: Cancer Notes: breast Mother -: Heart disease, Hypertension, Diabetes - Social History Smoking Status: Never smoker Alcohol use: Yes CD- Drugs: No Caffeine use: Yes Place of Residence: Home Review of Systems 10-point ROS is otherwise unremarkable Cardiovascular: Chest Pain Gastrointestinal: Nausea Neurological: Other (dizziness) Physical Examination - Physical Exam General: Alert, In no apparent distress, Oriented x3 HEENT: Atraumatic, PERRLA, Mucous membr. moist/pink, EOMI, Sclerae nonicteric Neck: Supple, 2+ carotid pulse no bruit, No LAD, Without JVD or thyroid abnormality Respiratory: Clear to auscultation bilaterally, Normal air movement Cardiovascular: Regular rate/rhythm, Normal S1 S2 Gastrointestinal: Normal bowel sounds, No tenderness Musculoskeletal: No tenderness Integumentary: No rashes Neurological: Normal speech, Normal strength at 5/5 x4 extr, Normal tone, Normal affect - Studies Laboratory Data (last 24 hrs) 12/24/21 15:07: PT 11.7, INR 1.06 12/24/21 15:07: WBC 7.8, Hgb 12.4, Hct 37.3, Plt Count 281 12/24/21 15:07: Sodium 142, Potassium 4.3, BUN 24 H, Creatinine 1.11, Glucose 159 H, Magnesium 1.2 L*, Total Bilirubin 0.4, AST 30, ALT 32, Alkaline Phosphatase 108 Assessment and Plan - Problems (Diagnosis) (1) Chest pain Current Visit: Yes Status: Acute Qualifiers: Chest pain type: unspecified Qualified Code(s): R07.9 - Chest pain, unspecified (2) Dizziness Current Visit: Yes Status: Acute (3) Hypomagnesemia Current Visit: Yes Status: Chronic (4) Hypertension Current Visit: Yes Status: Acute Qualifiers: Hypertension type: primary hypertension Qualified Code(s): I10 - Essential (primary) hypertension (5) Type 2 diabetes mellitus Current Visit: Yes Status: Chronic 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 Telemetry. Will give 324 mg aspirin and atorvastatin. Meclizine as needed dizziness Magnesium was low at 1.2. She was given 2 in the ED. Will continue to replete as necessary. Patient reports her dizziness and chest pain have resolved. CT head, MRI brain, EKG, troponin negative x2. Will repeat troponin one more time. Patient states she had an echo, carotid ultrasound, and stress test about 1 year ago that were normal. Cardiology consulted Reconcile continue home medications DVT PPx: Lovenox Code: Full Discharge Plan: Home Plan to discharge in: 24 Hours - Advance Directives Does patient have a Living Will: No Does patient have a Durable POA for Healthcare: No - Code Status/Comfort Care Code Status Assessed: Yes (Full) Time Spent Managing Pts Care (In Minutes): 70
[2021-12-24] MEDS ORDERED: ASPIRIN 81 MG CHEWABLE TABLET PO ONE (23:40)
[2021-12-24] MEDS ORDERED: MECLIZINE HCL 12.5 MG TAB PO PRN (23:40)
[2021-12-24] MEDS ORDERED: ZOLPIDEM TARTRATE 5 MG TABLET PO PRN (23:40)
[2021-12-24] MEDS ORDERED: ACETAMINOPHEN 500 MG TAB PO PRN (23:40)
[2021-12-24] MEDS ORDERED: ONDANSETRON 4 MG/2 ML VIAL IV PRN (23:40)
[2021-12-24 23:47] VITALS: BMI 40.8
[2021-12-25] MEDS: METOPROLOL XL 25 MG TAB PO SCH ×2 (00:27→09:50)
[2021-12-25] MEDS: lisinopriL 10 MG TAB PO SCH ×3 (00:27→20:17)
[2021-12-25] MEDS: AMLODIPINE 10 MG TAB PO SCH ×2 (00:28→09:51)
[2021-12-25] MEDS: GABAPENTIN 300 MG CAP PO SCH ×4 (00:28→20:16)
[2021-12-25] MEDS: ATORVASTATIN 40 MG TAB PO SCH ×2 (00:28→20:16)
[2021-12-25] MEDS: METFORMIN HCL 500 MG TAB PO SCH ×2 (09:50→20:16)
[2021-12-25] MEDS: ENOXAPARIN 40 MG/0.4 ML SQ SCH (09:50)
[2021-12-25] MEDS: allopurinoL 100 MG TAB PO SCH (09:51)
[2021-12-25] MEDS ORDERED: MAGNESIUM SULFATE 1 gm IVPB 1 GM/100 ML BAG IV ONE (10:00)
--- NOTE | 2021-12-25 13:56 | CON ---
Date of Consultation: 12/25/2021 Reason For Consultation: Dizziness. History Of Present Illness: Ms. Perez is 71. Came in with presyncopal episode. No chest pain re ported by her. Denies any nausea, vomiting, diaphoresis, PND, orthopnea, pedal edema, or palpitation . She just got very dizzy and felt that she was in pain, but episode happened after she stood out. So far, she has ruled out for an NE. She has dyslipidemia, magnesium 1.2, otherwise all her workup h as been negative so far. She is asymptomatic now. Past Medical History: Includes diabetes, hypertension, dyslipidemia, and panic disorder. Allergies: NONE. Review of Systems: Negative. Social History: Negative. Family History: Noncontributory. Medications: At home include insulin, allopurinol, metformin, Norvasc, metoprolol, Lipitor, Neuronti n, and lisinopril. Physical Examination: General: She was very pleasant, in no acute distress. Vital Signs: Stable, afebrile. HEENT: Negative. Neck: Supple with no bruit. Chest: Clear. Cardiac: Revealed a regular rhythm and rate. No murmurs, gallops, or rubs. Abdomen: Benign. Extremities: Revealed no clubbing, cyanosis, or edema. Neurological: She was nonfocal. Skin: Dry and intact. Pulses were present distally bilaterally. Diagnostic Data: As stated. EKG is nonspecific. Chest x-ray is negative. Impression And Plan: 1.Presyncope secondary to orthostatic hypotension. 2.Diabetes. 3.Hypertension. 4.Dyslipidemia, well controlled. 5.Panic disorder. 6.Neuropathy. 7.Gout. I think the patient is on appropriate regimen. I think she needs to be gently hydrated. E chocardiogram is pending. I think she needs to go home on her home medications, but I think she need s to stop the Norvasc as I believe this was orthostatic hypotension. I will make arrangements for he r as an outpatient to have an event monitor and a carotid Doppler, and I will see her. NICK/GONZALO Voice ID: [id number] Report ID: [id number]
--- NOTE | 2021-12-25 14:30 | ECHO ---
HEIGHT: 5 ft 3 in WEIGHT: 230 lb 12.8 oz DATE OF STUDY: 12/25/[address]: Trevin Patel MD 2-DIMENSIONAL: YES M.MODE: YES DOPPLER: YES COLOR FLOW: YES TDS: PORTABLE: DEFINITY: BUBBLE STUDY: DIAGNOSIS: CHEST PAIN CARDIAC HISTORY: CATHERIZATION: NO SURGERY: NO PROSTHETIC VALVE: NO PACEMAKER: NO MEASUREMENTS (cm) DIASTOLIC (NORMALS) SYSTOLIC (NORMALS) IVSd 1.0 (0.6-1.2) LA Diam 3.1 (1.9-4.0) LVEF 60% LVIDd 4.7 (3.5-5.7) LVIDs 3.2 (2.0-3.5) %FS 32% LVPWd 1.2 (0.6-1.2) Ao Diam 2.4 (2.0-3.7) 2 DIMENSIONAL ASSESSMENT: RIGHT ATRIUM: NORMAL LEFT ATRIUM: NORMAL RIGHT VENTRICLE: NORMAL LEFT VENTRICLE: NORMAL TRICUSPID VALVE: NORMAL MITRAL VALVE: MILD MITRAL REGURGITATION PULMONIC VALVE: NORMAL AORTIC VALVE: THICKENED , NO AORTIC STENOSIS PERICARDIAL EFFUSION: NONE AORTIC ROOT: NORMAL LEFT VENTRICULAR WALL MOTION: NORMAL DOPPLER/COLOR FLOW: MILD MITRAL REGURGITATION. MILD TRICUSPID REGURGITATION. COMMENTS: NORMAL LEFT VENTRICULAR EJECTION FRACTION 55-60%. NORMAL WALL MOTION. MILD TRICUSPID REGURGITATION. MILD MITRAL REGURGITATION. TECHNOLOGIST: JODEE HERNANDEZ
--- NOTE | 2021-12-25 15:32 | RAD REPORT ---
EXAM DESCRIPTION: US - CP - 12/25/2021 2:50 pm CLINICAL HISTORY: carotid artery stenosis COMPARISON: MRA Neck W/Wo Cont dated 04/10/2019 TECHNIQUE: Real-time sonographic evaluation of bilateral carotid and vertebral systems was performed . Tran scale and Doppler interrogation were performed with waveform tracing bilaterally. FINDINGS: Normal high resistance waveforms are noted in both external carotid arteries. The common c arotid arteries and internal carotid arteries show normal low resistance waveforms. Calcified and noncalcified of 5 irregular plaquing changes are present in the right carotid bulb exte nding superiorly into the right ICA. Calcified plaquing changes are present in the proximal left ICA to a much lesser degree. No dissection changes are present. Velocity and waveform measurements were technically difficult to obtain. ICA velocities are elevated ranging from 205 cm/second- 332 cm/second. The common carotid velocity was 66 cm/second. Right-side ICA/ CCA ratio is 5.0 in value. Left-sided velocities are elevated up to 162 cm/second in the mid ICA . Left-sided CCA was 73 cm/second. Left-sided ICA/CCA ratio is in value. Antegrade flow seen in both vertebral arteries. Velocity values and ratios were recorded and are retained in the patient's imaging records. IMPRESSION: Significant right greater than left carotid plaquing changes. No acute dissection. Significant right-sided stenosis is present estimated at 90% with left-sided stenosis estimated at 60 % (NASCET criteria). The MRA study of 2019 estimated 90% stenosis of the right vasculature as well.
[2021-12-25 16:24] VITALS: O2SAT 95
[2021-12-26 03:58] LABS: Magnesium 1.7 mg/dL (1.8-2.4); Potassium 4.4 mmol/L (3.5-5.1)
[2021-12-26 05:56] VITALS: TEMP 97
[2021-12-26] MEDS: METFORMIN HCL 500 MG TAB PO SCH (08:40)
[2021-12-26] MEDS: ENOXAPARIN 40 MG/0.4 ML SQ SCH (08:41)
[2021-12-26] MEDS: GABAPENTIN 300 MG CAP PO SCH (08:41)
[2021-12-26] MEDS: AMLODIPINE 10 MG TAB PO SCH (08:42)
[2021-12-26] MEDS: allopurinoL 100 MG TAB PO SCH (08:42)
[2021-12-26] MEDS: lisinopriL 10 MG TAB PO SCH (08:42)
[2021-12-26] MEDS: METOPROLOL XL 25 MG TAB PO SCH (08:42)
[2021-12-26 08:43] VITALS: BP 151/60
[2021-12-26] MEDS ORDERED: Magnesium Sulfate 2gm IVPB 2 G/50 ML BAG IV ONE (09:00)
== END 2021-12-26 09:06 | disposition home or self-care (01) ==
LOC: ER 14:26 → ERHOLD 19:14 → 2ND 22:46
PROVIDERS: ADMIT Hospitalist; ATTEND Hospitalist
DX: I95.1 Orthostatic hypotension (principal); R07.9 Chest pain, unspecified; E11.9 Type 2 diabetes mellitus without complications; E83.42 Hypomagnesemia; I10 Essential (primary) hypertension; E11.40 Type 2 diabetes mellitus with diabetic neuropathy, unspecified; E78.5 Hyperlipidemia, unspecified; F41.0 Panic disorder [episodic paroxysmal anxiety]; M10.9 Gout, unspecified; Z20.822 Contact with and (suspected) exposure to COVID-19; Z79.84 Long term (current) use of oral hypoglycemic drugs; Z79.4 Long term (current) use of insulin; Z79.899 Other long term (current) drug therapy; Z87.440 Personal history of urinary (tract) infections; Z82.49 Family history of ischemic heart disease and other diseases of the circulatory system; Z83.3 Family history of diabetes mellitus; Z80.3 Family history of malignant neoplasm of breast
CPT/HCPCS: 93005 ×2; 93306; 85025; 80048 ×2; 36415 ×2; 83735 ×3; 85610; 80061; 82947 ×2; 80076; 84484 ×3; 84439; 83880; 70450; 71045; 93880; 70551; 99285; U0003; J8597 ×2; J1650; J3475 ×2; J7040; J2405; G0378

== ENCOUNTER 2022-01-05 08:40 | Day surgery (SDC) | payer OTHER ==
[2022-01-05] MEDS ORDERED: NA CHLORIDE 0.9% 500 ML ONE (08:55)
[2022-01-05] MEDS ORDERED: HEPA 1000U/500MLS 1,000 UNIT/500 ML BAG IV ONE (09:30)
[2022-01-05] MEDS ORDERED: MIDAZOLAM HCL 2 MG/2 ML INJ ONE (09:35)
[2022-01-05] MEDS ORDERED: FENTANYL CITR 100 MCG/2 ML ONE (09:35)
[2022-01-05 12:11] VITALS: BP 138/58; O2SAT 96
--- NOTE | 2022-01-05 13:49 | OP ---
Surgeon: Trevin Patel MD Sink Maker: Ms. Leonard Saha. The patient will remain in the hospital for 2 hours of bedrest and then she can go home. I will make arrangements for her outpatient CEA in the near future. Admitted to my service to the tin can laborer as an outpatient today 01/05/2022. Procedure: Bilateral selective carotid angiogram. Indication: Symptomatic worsening right carotid artery stenosis. Procedure In Detail: In the tin can laborer, the patient was prepped and draped in routine sterile fashion. Given Versed and fentanyl for sedation. A 6-Turkmen sheath introduced in the right common femoral a rtery using 10 cc of Xylocaine and Seldinger technique. Angiography there was normal. Angio-Seal wa s used to close the case. A JR4 catheter was used to cannulate the right common carotid and left com mon carotid separately. Both common carotid arteries were normal. The external carotid arteries wer e normal. The left ICA was very tortuous. The right ICA had an 80% stenosis at the ostium. There w ere no complications. Anesthesia: Total conscious sedation was 30 minutes. Blood Loss: 5 mL. Postoperative Diagnosis: CVD, severe right ICA stenosis. Plan: For right carotid endarterectomy. NICK/GONZALO Voice ID: [id number] Report ID: [id number]
== END 2022-01-05 12:38 | disposition home or self-care (01) ==
LOC: CCL 08:40
DX: I65.21 Occlusion and stenosis of right carotid artery (principal); I10 Essential (primary) hypertension; E78.2 Mixed hyperlipidemia; I35.9 Nonrheumatic aortic valve disorder, unspecified; I34.1 Nonrheumatic mitral (valve) prolapse; E11.9 Type 2 diabetes mellitus without complications; G62.9 Polyneuropathy, unspecified; E66.01 Morbid (severe) obesity due to excess calories; Z68.41 Body mass index [BMI] 40.0-44.9, adult; Z79.4 Long term (current) use of insulin; Z79.899 Other long term (current) drug therapy; Z20.822 Contact with and (suspected) exposure to COVID-19; Z82.49 Family history of ischemic heart disease and other diseases of the circulatory system
CPT/HCPCS: 36415; 82947 ×2; 85730; 36222; U0003; C1893; C1760; G0269; J2250; J3010; J7040; J1644

== ENCOUNTER 2022-01-19 12:15 | Emergency (ER) | payer OTHER ==
--- OUTSIDE RECORDS SUMMARY | 2022-01-19 12:22 | XMS REPORT | Continuity of Care Document ---
:1950 Author Organization [facility] t Address [address] [place] [address] Care Team Providers Name Role Phone Natalie Keyes MD Primary Care Physician Mao LORA Attending Clinician Unavailable [id number] Attending Clinician Unavailable Mao Lora DO Attending Clinician NATALIE KEYES Attending Clinician Unavailable Natalie Keyes MD Attending Clinician Lev LOUIS Attending Clinician Unavailable Lev Louis MD Attending Clinician TESTING, COVID Attending Clinician Unavailable Singer MICHAUD Attending Clinician Attending Clinician Unavailable Doctor Unassigned, Name Attending Clinician Unavailable Rex CARMONA Attending Clinician CATHY Attending Clinician Unavailable Evert GAO Attending Clinician Cathy JACOBSEN Attending Clinician PARAS SHERIDAN Attending Clinician Unavailable CATHY Admitting Clinician Unavailable Cathy JACOBSEN Admitting Clinician PARAS SHERIDAN Admitting Clinician Unavailable Payers Payer Name Policy Type Policy Number Effective Date Expiration Date [employer] PAYNE HMO 7 [id number] 2021 00:00:00 Problems Condition Condition Condition Status Onset Resolution Last Treating Co mments Source Name Details Category Date Date Treatment Clinician Date 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 Carotid Carotid Disease Active Mary artery artery 4-22 Seybold disease disease 00:00: 00 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 9-29 Seybol d mellitus mellitus 00:00: with with 00 peripheral peripheral vascular vascular disease disease Body mass Body mass Disease Active Ismael sey index index 9-29 Seybold 40.0-44.9, 40.0-44.9, 00:00: adult adult 00 Current Current Disease Active Mary use of use of 9-29 Seybold insulin insulin 00:00: 00 Essential Essential Disease Active Ismael sey hypertensi hypertensi 8-10 Se ybold on on 00:00: 00 Glaucoma Glaucoma Disease Active Kelse y of both of both 8-10 Seybold [...] on Disease Active Unive rs chronic chronic 3-09 [place]y of [place] congestive congestive 00 Me dical heart heart Branch failure failure Morbid Morbid Disease Active Univers obesity obesity 3-09 ity of 00:00: [place] 00 Medical Branch Essential Essential Disease Active Uni vers hypertensi hypertensi 3-08 it y of on on 00:00: [place] [facility] History of History of Disease Active U nivers CVA CVA 3-08 ity of (cerebro[place] sc[place] scular 00 Medical accident) accident) Bran ch Type 2 Type 2 Disease Active Univers diabetes diabetes 308 ity of mellitus mellitus 00:00: [place] with other with other 00 Me dical specified specified Bran ch complicati complicati on on Dyslipidem Dyslipidem Disease Active U nivers ia ia 11-25 ity of 00:00: [place] 00 Medical Branch Chest pain Chest pain Disease Active 2005-09 Overview : Univers 10-13 ICD10 ity of 00:00: Diagnosis 00 Term 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 Utility Allergies, Adverse Reactions, Alerts Allergy Allergy Status Severity Reaction(s) Onset Inactive Treating Comm ents Source Name Type Date Date Clinician NO KNOWN Drug Active Univers ALLERGIE Class ity of [facility] Social History Social Habit Start Date Stop Date Quantity Comments Source Exposure to Not sure Mary maldonado SARS-CoV-2 (event) Tobacco use and 2021-04-29 2021-04-29 Smokeless tobacco Ke lsey Seybold exposure 00:00:00 00:00:00 non-user Alcohol intake 2021-01-10 2021-01-10 Current drinker Unive rsity of 00:00:00 00:00:00 of alcohol [facility] (finding) [place] Alcohol Comment 2019-11-25 2019-11-25 socially drinks Univ ersity of 00:00:00 00:00:00 [facility] Sex Assigned At [birth year] Universit y of 00:00:00 00:00:00 [facility] Smoking Status Start Date Stop Date Source Never smoked tobacco Mary story Medications Ordered Filled Start Stop Current Ordering Indication Dosage Frequency Signature Comments Components Source Medication Medication Date Date Medication? Clinician (SIG) Name Name Gabapentin Yes 1{capsu Take 1 Kian lsey 300 MG oral 4-25 le} capsule by Se ybold Capsule 16:00: mouth 3 22 times daily Loratadine Yes 1{tbl} Take 1 Ismael sey (CLARITIN) 4-25 tablet by Seyb old 10 MG oral 16:00: mouth tablet 22 Insulin Yes [id number] 36 units Ke lsey Glargine-Li 4-25 SQ daily Seyb old xisenatide 00:00: in AM (Soliqua) 00 100-33 UNT-MCG/ML subcutaneou s Solution Pen-injecto r Dapaglifloz Yes [id number] 1 tablet Mary in 4-25 po Q daily Seybold Propanediol 00:00: (Farxiga) 00 10 MG oral Tablet Glucose Yes [id number] 100{eac 100 each Mary Blood in 4-25 h} by other Seybold vitro Strip 00:00: route 00 daily Insulin Pen Yes [id number] Takes K elsey Needle 31G 4-25 insulin Seybol d X 5 MM does 00:00: once daily not apply 00 Misc Gabapentin Yes 1{capsu Take 1 Ke lsey 300 MG oral 4-22 le} capsule by Se ybold Capsule 14:07: mouth 3 21 times daily Loratadine Yes 1{tbl} Take 1 Ismael sey (CLARITIN) 4-22 tablet by Seyb old 10 MG oral 14:07: mouth tablet 21 Gabapentin Yes 1{capsu Take 1 Ke lsey 300 MG oral 4-11 le} capsule by Se ybold Capsule 08:12: mouth 3 53 times daily Loratadine 0 Yes 1{tbl} Take 1 Ismael sey (CLARITIN) 4-11 tablet by Seyb old 10 MG oral 08:12: mouth tablet 53 Trazodone 0 Yes [id number] 50mg Take 1 K elsey HCl 50 MG 4-11 tablet (50 Seyb old oral Tablet 00:00: mg total) 00 by mouth nightly Pantoprazol Yes [id number] 40mg Take 1 Mary e Sodium 40 4-11 tablet (40 Se ybold MG oral 00:00: mg total) Tablet 00 by mouth Delayed daily Response Allopurinol Yes [id number] 100mg Take 1 Mary 100 MG oral 4-11 tablet Seybol d Tablet 00:00: (100 mg 00 total) by mouth daily Trazodone Yes [id number] 50mg Take 1 K elsey HCl 50 MG 4-11 tablet (50 Seyb old oral Tablet 00:00: mg total) 00 by mouth nightly Pantoprazol Yes [id number] 40mg Take 1 Mary e Sodium 40 4-11 tablet (40 Se ybold MG oral 00:00: mg total) Tablet 00 by mouth Delayed daily Response Allopurinol Yes [id number] 100mg Take 1 Mary 100 MG oral 4-11 tablet Seybol d Tablet 00:00: (100 mg 00 total) by mouth daily Trazodone Yes [id number] 50mg Take 1 K elsey HCl 50 MG 4-11 tablet (50 Seyb old oral Tablet 00:00: mg total) 00 by mouth nightly Pantoprazol Yes [id number] 40mg Take 1 Mary e Sodium 40 4-11 tablet (40 Se ybold MG oral 00:00: mg total) Tablet 00 by mouth Delayed daily Response Allopurinol Yes [id number] 100mg Take 1 Mray 100 MG oral 4-11 tablet Seybol d Tablet 00:00: (100 mg 00 total) by mouth daily Gabapentin Yes TAKE 1 Kelse y 300 MG oral 2-22 CAPSULE BY Se ybold Capsule 00:00: MOUTH 00 THREE TIMES A DAY Gabapentin 2021-0 Yes TAKE 1 Kelse y 300 MG oral 2-22 CAPSULE BY Se ybold Capsule 00:00: MOUTH 00 THREE TIMES A DAY Gabapentin 2021-0 Yes TAKE 1 Kelse y 300 MG oral 2-22 CAPSULE BY Se ybold Capsule 00:00: MOUTH 00 THREE TIMES A DAY Insulin 2021-0 2021- Yes [id number] 40U Inject 40 Mary Degludec 2-22 05-24 units into Seyb old (Tresiba 00:00: 04:59 the skin FlexTouch) 00 :00 every 24 200 UNIT/ML hours subcutaneou s Solution Pen-injecto r Insulin 2021-2021- Yes [id number] 40U Inject 40 Mary Degludec 2-22 05-24 units into Seyb old (Tresiba 00:00: 04:59 the skin FlexTouch) 00 :00 every 24 200 UNIT/ML hours subcutaneou s Solution Pen-injecto r Insulin 2021- No [id number] 40U Inject 40 Mary Degludec 222 04-25 units into Seyb old (Tresiba 00:00: 00:00 the skin FlexTouch) 00 :00 every 24 200 UNIT/ML hours subcutaneou s Solution Pen-injecto r Glucose 2020-09 Yes 100{eac 100 each Ismael sey Blood in 1-12 h} by other Seybold vitro Strip 00:00: route 00 daily Glucose 2020-09 Yes 100{eac 100 each Ismael sey Blood in 1-12 h} by other Seybold vitro Strip 00:00: route 00 daily Glucose 2020-09- No 100{eac 100 each Ke lsey Blood in -12 04-25 h} by other Seybol d vitro Strip 00:00: 00:00 route 00 :00 daily Lisinopril 2020-09- No 1{tbl} Take 1 Ke lsey 20 MG oral 09-23 tablet by Sey bold Tablet 08:33: 00:00 mouth 50 :00 Metformin 2020-09- No 1{tbl} Take 1 Ismael sey HCl 1000 MG 09-23 tablet by Se ybold oral Tablet 08:33: 00:00 mouth 50 :00 every 12 hours Atorvastati 2020-09- No 1{tbl} Take 1 K elsey n Calcium 09-23 tablet by yb old 40 MG oral 08:33: 00:00 mouth Tablet 50 :00 daily Amlodipine 2020-09- No 1{tbl} Take 1 Ke lsey Besylate 10 09-23 tablet by Se ybold MG oral 08:33: 00:00 mouth Tablet 50 :00 daily Metoprolol 2020-09- No 100mg Take 100 K elsey Tartrate 25 09-23 mg by Seybol d MG oral 08:27: 00:00 mouth Tablet 36 :00 daily Gabapentin 2020-09 Yes 1{capsu Take 1 Ke lsey 300 MG oral 09-23 le} capsule by Se ybold Capsule 08:25: mouth 3 14 times daily Loratadine 2020-09 Yes 1{tbl} Take 1 Ismael sey (Claritin) 1-04 tablet by Seyb old 10 MG oral 08:25: mouth tablet 14 Metoprolol 2020-09 Yes [id number] 100mg Take 1 Mary Succinate 1-04 tablet Seybold 100 MG oral 00:00: (100 mg TABLET SR 00 total) by 24 HR mouth daily Metformin 2020-09 Yes [id number] 1000mg Take 1 Mary HCl 1000 MG 1-04 tablet Seybol d oral Tablet 00:00: (1,000 mg 00 total) by mouth every 12 hours Amlodipine 2020-09 Yes [id number] 10mg Take 1 K elsey Besylate 10 1-04 tablet (10 Se ybold MG oral 00:00: mg total) Tablet 00 by mouth daily Atorvastati 2020-09 Yes [id number] 40mg Take 1 Mary n Calcium 1-04 tablet (40 Seyb old 40 MG oral 00:00: mg total) Tablet 00 by mouth daily Lisinopril 2020-09 Yes [id number] 20mg Take 1 K elsey 20 MG oral 1-04 tablet (20 Sey bold Tablet 00:00: mg total) 00 by mouth daily OneTouch 2020-09 Yes [id number] 1{each} 1 each by Mary Delica -04 does not Seybold Lancets 33G 00:00: apply does not 00 route 3 apply Misc times daily Glucose 2020-09 Yes [id number] Use as Chandni ey Blood -04 directed Seybold (OneTouch 00:00: three Verio) in 00 times vitro Strip daily Metoprolol 2020-09 Yes [id number] 100mg Take 1 Mary Succinate 1-04 tablet Seybold 100 MG oral 00:00: (100 mg TABLET SR 00 total) by 24 HR mouth daily Metformin 2020-09 Yes [id number] 1000mg Take 1 Mary HCl 1000 MG 1-04 tablet Seybol d oral Tablet 00:00: (1,000 mg 00 total) by mouth every 12 hours Amlodipine 2020-09 Yes [id number] 10mg Take 1 K elsey Besylate 10 1-04 tablet (10 Se ybold MG oral 00:00: mg total) Tablet 00 by mouth daily Atorvastati 2020-09 Yes [id number] 40mg Take 1 Mary n Calcium 1-04 tablet (40 Seyb old 40 MG oral 00:00: mg total) Tablet 00 by mouth daily Lisinopril 2020-09 Yes [id number] 20mg Take 1 K elsey 20 MG oral 1-04 tablet (20 Sey bold Tablet 00:00: mg total) 00 by mouth daily OneTouch 2020-09 Yes [id number] 1{each} 1 each by Mary Luaica 1-04 does not Seybold Lancets 33G 00:00: apply does not 00 route 3 apply Misc times daily Glucose 2020-09 Yes [id number] Use as Chandni ey Blood 1-04 directed Seybold (OneTouch 00:00: three Verio) in 00 times vitro Strip daily Metoprolol 2020-09 Yes [id number] 100mg Take 1 Mary Succinate 1-04 tablet Seybold 100 MG oral 00:00: (100 mg TABLET SR 00 total) by 24 HR mouth daily Metformin 2020-09 Yes [id number] 1000mg Take 1 Mary HCl 1000 MG 1-04 tablet Seybol d oral Tablet 00:00: (1,000 mg 00 total) by mouth every 12 hours Amlodipine 2020-09 Yes [id number] 10mg Take 1 K elsey Besylate 10 1-04 tablet (10 Se ybold MG oral 00:00: mg total) Tablet 00 by mouth daily Atorvastati 2020-09 Yes [id number] 40mg Take 1 Mary n Calcium 1-04 tablet (40 Seyb old 40 MG oral 00:00: mg total) Tablet 00 by mouth daily Lisinopril 2020-09 Yes [id number] 20mg Take 1 K elsey 20 MG oral 1-04 tablet (20 Sey bold Tablet 00:00: mg total) 00 by mouth daily OneTouch 2020-09 Yes [id number] 1{each} 1 each by Mary Luaica 1-04 does not Seybold Lancets 33G 00:00: apply does not 00 route 3 apply Misc times daily Glucose 2020-09 Yes [id number] Use as Chandni ey Blood 1-04 directed Seybold (OneTouch 00:00: three Verio) in 00 times vitro Strip daily Metoprolol 2020-09 Yes [id number] 100mg Take 1 Mary Succinate 1-04 tablet Seybold 100 MG oral 00:00: (100 mg TABLET SR 00 total) by 24 HR mouth daily Metformin 2020-09 Yes [id number] 1000mg Take 1 Mary HCl 1000 MG 1-04 tablet Seybol d oral Tablet 00:00: (1,000 mg 00 total) by mouth every 12 hours Amlodipine 2020-09 Yes [id number] 10mg Take 1 K elsey Besylate 10 -04 tablet (10 Se ybold MG oral 00:00: mg total) Tablet 00 by mouth daily Atorvastati 2020-09 Yes [id number] 40mg Take 1 Mary n Calcium 1-04 tablet (40 Seyb old 40 MG oral 00:00: mg total) Tablet 00 by mouth daily Lisinopril 2020-09 Yes [id number] 20mg Take 1 K elsey 20 MG oral 1-04 tablet (20 Sey bold Tablet 00:00: mg total) 00 by mouth daily OneTouch 2020-09 Yes [id number] 1{each} 1 each by Mary Deljasmeet 09-23 does not Seybold Lancets 33G 00:00: apply does not 00 route 3 apply Misc times daily Glucose 2020-09 Yes [id number] Use as Chandni ey Blood 09-23 directed Seybold (OneTouch 00:00: three Verio) in 00 times vitro Strip daily Insulin 2020-09- No [id number] 40U Inject 40 Mary Degludec 09-23 02-03 units into Seyb old (Tresiba 00:00: [...] 15:56: mouth tablet 16 Nitrofurant 2020-09 Yes [id number] 100mg Take 1 Mary oin Monohyd 0-26 capsule Seybo ld Macro 100 00:00: (100 mg MG oral 00 total) by Capsule mouth 2 times daily Nitrofurant 2020-09- No [id number] 100mg Take 1 Mary oin Monohyd 0-26 11-04 capsule Seyb old Macro 100 00:00: 00:00 (100 mg MG oral 00 :00 total) by Capsule mouth 2 times daily Glucose Yes [id number] Use as Chandni ey Blood 06-16 directed Seybold (OneTouch 00:00: three Verio) in 00 times vitro Strip daily Glucose 2020- No [id number] Use as Ismael sey Blood 9-27 11-04 directed Seybold (OneTouch 00:00: 00:00 three Verio) in 00 :00 times vitro Strip daily Albuterol Yes [id number] 2{puff} Q6H Inhale 2 Mary HFA 108 (90 9-07 puffs into Se ybold Base) 00:00: the lungs MCG/ACT IN 00 every 6 AERS hours as needed for wheezing Albuterol Yes [id number] 2{puff} Q6H Inhale 2 Mary HFA 108 (90 9-07 puffs into Se ybold Base) 00:00: the lungs MCG/ACT IN 00 every 6 AERS hours as needed for wheezing Albuterol 2020- No [id number] 2{puff} Q6H Inhale 2 Mary HFA 108 (90 05-27 11-04 puffs into S eybold Base) 00:00: 00:00 the lungs MCG/ACT IN 00 :00 every 6 AERS hours as needed for wheezing Doxycycline 2020- No [id number] 100mg Take 1 Mary Hyclate 100 05-27 09-15 capsule Seyb old MG oral 00:00: 04:59 (100 mg Capsule 00 :00 total) by mouth 2 times daily for 7 days Blood 2020-0 Yes [id number] 1{each} 1 each by Mary Glucose 8-27 does not Seybold Monitoring 00:00: apply Suppl 00 route 3 (OneTouch times Verio IQ daily System) w/Device does not apply Kit Blood 202-0 Yes [id number] Use as Mary Glucose 8-27 directed Seybold Monitoring 00:00: to check Suppl 00 blood (Blood sugar Glucose three Monitor times System) daily. w/Device does not apply Kit Blood 2021-0 Yes [id number] 1{each} 1 each by Mary Glucose 8-27 does not Seybold Monitoring 00:00: apply Suppl 00 route 3 (OneTouch times Verio IQ daily System) w/Device does not apply Kit Blood 2021-0 Yes [id number] Use as Mary Glucose 8-27 directed Seybold Monitoring 00:00: to check Suppl 00 blood (Blood sugar Glucose three Monitor times System) daily. w/Device does not apply Kit Blood 2021-0 Yes [id number] 1{each} 1 each by Mary Glucose 8-27 does not Seybold Monitoring 00:00: apply Suppl 00 route 3 (OneTouch times Verio IQ daily System) w/Device does not apply Kit Blood 2021-0 Yes [id number] Use as Mary Glucose 8-27 directed Seybold Monitoring 00:00: to check Suppl 00 blood (Blood sugar Glucose three Monitor times System) daily. w/Device does not apply Kit Blood 2021-0 Yes [id number] 1{each} 1 each by Mary Glucose 8-27 does not Seybold Monitoring 00:00: apply Suppl 00 route 3 (OneTouch times Verio IQ daily System) w/Device does not apply Kit Blood 2020-0 Yes [id number] Use as Mary Glucose 8-27 directed Seybold Monitoring 00:00: to check Suppl 00 blood (Blood sugar Glucose three Monitor times System) daily. w/Device does not apply Kit Glucose 2020-0 Yes [id number] Use as Chandni helms Blood 8-27 directed Seybold (OneTouch 00:00: three Verio) in 00 times vitro Strip daily Blood 2020-0 Yes [id number] 1{each} 1 each by Mary Glucose 8- does not Seybold Monitoring 00:00: apply Suppl 00 route 3 (OneTouch times Verio IQ daily System) w/Device does not apply Kit OneTouch 2020-0 Yes [id number] 1{each} 1 each by Mary Paredes 8 does not Seybold Lancets 33G 00:00: apply does not 00 route 3 apply Misc times daily Blood 2020-0 Yes [id number] Use as Mary Glucose 8-27 directed Seybold Monitoring 00:00: to check Suppl 00 blood (Blood sugar Glucose three Monitor times System) daily. w/Device does not apply Kit Blood 2020-0 Yes [id number] 1{each} 1 each by Mary Glucose 8 does not Seybold Monitoring 00:00: apply Suppl 00 route 3 (OneTouch times Verio IQ daily System) w/Device does not apply Kit OneTouch 2020-0 Yes [id number] 1{each} 1 each by Mary Paredes 05-16 does not Seybold Lancets 33G 00:00: apply does not 00 route 3 apply Misc times daily Blood 2020-0 Yes [id number] Use as Mary Glucose 8-27 directed Seybold Monitoring 00:00: to check Suppl 00 blood (Blood sugar Glucose three Monitor times System) daily. w/Device does not apply Kit OneTouch 2020-0 2020- No [id number] 1{each} 1 each by Mary Paredes 8- does not Seybold Lancets 33G 00:00: 00:00 apply does not 00 :00 route 3 apply Misc times daily Lancets 33G 1-0 Yes [id number] 1{each} 1 each by Mary does not 8-26 does not Seybold apply Misc 00:00: apply 00 route 3 times daily Use as directed Glucose 2021-0 Yes [id number] Use as Chandni ey Blood in 05-15 directed Seybold vitro Strip 00:00: three 00 times daily Lancets 33G 2021-0 Yes [id number] 1{each} 1 each by Mary does not 05-15 does not Seybold apply Misc 00:00: apply 00 route 3 times daily Use as directed Glucose 2021-0 Yes [id number] Use as Chandni ey Blood in 05-15 directed Seybold vitro Strip 00:00: three 00 times daily Lancets 33G 2021-0 2021- No [id number] 1{each} 1 each by Mary does not 05-15 does not Seybol d apply Misc 00:00: 00:00 apply 00 :00 route 3 times daily Use as directed Glucose 2021-0 2021- No [id number] Use as Ismael sey Blood in 05-15 directed Seybol d vitro Strip 00:00: 00:00 three 00 :00 times daily Glucose 2021-0 Yes [id number] Use as Chandni ey Blood 8-25 directed Seybold (Contour 00:00: three Test) in 00 times vitro Strip daily, patient uses Contour Plus Glucose 2021-0 Yes [id number] Use as Chandni ey Blood 8-25 directed Seybold (Contour 00:00: three Test) in 00 times vitro Strip daily, patient uses Contour Plus Glucose 2021-0 2021- No [id number] Use as Ismael sey Blood 8- 1104 directed Seybold (Contour 00:00: 00:00 three Test) in 00 :00 times vitro Strip daily, patient uses Contour Plus Continuous 2021-0 Yes [id number] Use 1 Ke lsey Blood Gluc 8-24 sensors Seybol d Sensor 00:00: every 14 (FreeStyle 00 days with Amaya 14 the Day Sensor) Freestyle does not Amaya apply Misc Continuous 2021-0 Yes [id number] Use 1 Ke lsey Blood Gluc 8-24 sensors Seybol d Sensor 00:00: every 14 (FreeStyle 00 days with Amaya 14 the Day Sensor) Freestyle does not Amaya apply Misc Continuous 2021-0 2021- No [id number] Use 1 K elsey Blood Gluc 8- 11-04 sensors Seybo ld Sensor 00:00: 00:00 every [...] 09:30: mouth Tablet 46 daily allopurinoL Yes [id number] 100mg Take 1 Univers 100 mg 01-17 tablet by ity of tablet 00:00: mouth [place] 00 daily. Medical Branch methylPREDN Yes [id number] Take by Univers ISolone 01-10 [id number] mouth ity of (MEDROL, 00:00: SEE-INSTRU [place]am as CHRISTIAN,) 4 mg 00 CTIONS. Medica l tablets follow Branch package directions indomethaci 2020- No [id number] 50mg Take 1 Univers n 50 mg 01-10 capsule by ity of capsule 00:00: 04:59 [...] s Solution Pen-injecto r methylPREDN 2019-09 Yes [id number] Take by [facility] 10-08 9103 mouth ity of (MEDROL, 00:00: SEE-INSTRU Willam as CHRISTIAN,) 4 mg 00 CTIONS. Medica l tablets follow Branch package directions methylPREDN 2019-09 Yes [id number] Take by [facility] 10-08 9103 mouth ity of (MEDROL, 00:00: SEE-INSTRU Willam as CHRISTIAN,) 4 mg 00 CTIONS. Medica l tablets follow Branch package directions methylPREDN 2019-09- No [id number] Take by [facility] 10-08 9103 mouth ity of (MEDROL, 00:00: [...] tablets by it y of 00:00: mouth [place] 00 daily. Medical Branch clopidogreL 2020-0 Yes 75mg Take 1 Univ ers 75 mg 3-11 tablet by ity of tablet 00:00: mouth [place] 00 daily. Medical Branch metoprolol 2020-0 Yes 50mg Take 50 mg U nivers succinate 3-10 by mouth ity of XL 50 mg 24 19:23: daily. [place] hr tablet [address] [place] [address] Branch lisinopril 2020-0 Yes 20mg Take 20 mg U nivers 20 mg 3-10 by mouth ity of tablet 19:23: daily. [address] metFORMIN 2020-0 Yes 1000mg Take 1,000 Univers 1,000 mg 3-10 mg by ity of tablet 19:23: mouth [address] [place] [address] ([facility]) [facility] times [place] daily with meals. metoprolol 2020-0 Yes 50mg Take 50 mg U nivers succinate 3-10 by mouth ity of XL 50 mg 24 19:23: daily. [place] hr tablet [address] [place] [address] Branch lisinopril 2020-0 Yes 20mg Take 20 mg U nivers 20 mg 3-10 by mouth ity of tablet 19:23: daily. [address] metFORMIN 2020-0 Yes 1000mg Take 1,000 Univers 1,000 mg 3-10 mg by ity of tablet 19:23: mouth 2 [place] [address] ([facility] times [place] daily with meals. metoprolol 2020-0 Yes 50mg Take 50 mg U nivers succinate 3-10 by mouth ity of XL 50 mg 24 19:23: daily. [place] hr tablet [address] [place] [address] lisinopril 2020-0 Yes 20mg Take 20 mg U nivers 20 mg 3-10 by mouth ity of tablet 19:23: daily. [address] metFORMIN 2020-0 Yes 1000mg Take 1,000 Univers 1,000 mg 3-10 mg by ity of tablet 19:23: mouth [address] [place] [address] ([facility] times [place] daily with meals. metoprolol 2020-0 Yes 50mg Take 50 mg U nivers succinate 3-10 by mouth ity of XL 50 mg 24 19:23: daily. [place] hr tablet [address] [place] [address] lisinopril 2020-0 Yes 20mg Take 20 mg U nivers 20 mg 3-10 by mouth ity of tablet 19:23: daily. [address] metFORMIN 2020-0 Yes 1000mg Take 1,000 Univers 1,000 mg 3-10 mg by ity of tablet 19:23: mouth [address] [place] [address] (two) Medical times Branch daily with meals. metoprolol 2020-0 Yes 50mg Take 50 mg U nivers succinate 3-10 by mouth ity of XL 50 mg 24 19:23: daily. [place] hr [address] Branch lisinopril 2020-0 Yes 20mg Take 20 mg U nivers 20 mg 3-10 by mouth ity of tablet 19:23: daily. [address] metFORMIN 2020-0 Yes 1000mg Take 1,000 Univers 1,000 mg 3-10 mg by ity of tablet 19:23: mouth [address] [place] [address] (two) Medical times [place] daily with meals. INSULN ASP 2020-0 2020- No 26U inject 26 U nivers PRT/INSULIN 3-10 03-10 Units ity of ASPART 18:36: 00:00 under the [place] (NOVOLOG 06 :00 skin 2 Medical MIX 70-30 (two) Branch SC) times daily. lisinopril- 2020-0 2020- No 1{tbl} Take 1 Tab Univers hydrochloro 3-10 03-10 by mouth ity of thiazide 18:36: 00:00 daily. [place] (PRINZIDE,Z 06 :00 Medical ESTORETIC) Branch 20-25 [...] Medical U-100 SC) daily. Branch Regadenoson 2019-0 2020- No .4mg 0.4 mg, IV Univers (LEXISCAN) 3-10 03-10 Push, ity of injection 15:30: 15:00 ONCE, 1 [place] 0.4 mg 00 :00 dose, [facility] Medical 11/28/19 at Branch 1030, Routine
committee member approving Restricted medication : FLORENTIN MALAGON tc 2020-0 2020- No 44mCi 44 Univers 99m-tetrofo 3-10 03-10 millicurie i ty of smin 15:15: 15:01 , [place] (MYOVIEW) 00 :00 Intravenou Medi salvatore injection s, ONCE, 1 Bran ch 44 dose, Tue millicurie 11/28/19 at 1015, Routine tc 2020-0 2020- No 16.5mCi 16.5 Univers 99m-tetrofo 3-10 03-10 [facility] 13:15: 13:04 , [place] (MYOVIEW) 00 :00 Intravenou Medi salvatore injection [...] by ity of tablet 00:00: mouth at [place] 00 bedtime. Medical Branch insulin 2020-0 Yes 34U inject 34 Unive rs degludec-li 3-10 Units ity of raglutide 00:00: under the [place] as (XULTOPHY 00 skin at Medical 100/3.6) bedtime. Branch 100 unit-3.6 mg /mL (3 mL) InPn atorvastati 2020-0 Yes 40mg Take 2 Univ ers n 20 mg 3-10 tablets by ity of tablet 00:00: mouth at [place] 00 bedtime. Medical Branch insulin 2020-0 Yes 34U inject 34 Unive rs degludec-li 3-10 Units ity of raglutide 00:00: under the [place] (XULTOPHY 00 skin at Medical 100/3.6) bedtime. Branch 100 unit-3.6 mg /mL (3 mL) InPn atorvastati 2020-0 Yes 40mg Take 2 Univ ers n 20 mg 3-10 tablets by ity of tablet 00:00: mouth at [place] 00 bedtime. Medical Branch insulin 2020-0 Yes 34U inject 34 Unive rs degludec-li 3-10 Units ity of raglutide 00:00: under the [place] (XULTOPHY 00 skin at Medical 100/3.6) bedtime. Branch 100 unit-3.6 mg /mL (3 mL) InPn atorvastati 2020-0 Yes 40mg Take 2 Univ ers n 20 mg 3-10 tablets by ity of tablet 00:00: mouth at [place] 00 bedtime. Medical Branch insulin 2020-0 Yes 34U inject 34 Unive rs degludec-li 3-10 Units ity of raglutide 00:00: under the [place] (XULTOPHY 00 skin at Medical 100/3.6) bedtime. Branch 100 unit-3.6 mg /mL (3 mL) InPn atorvastati 2020-0 Yes 40mg Take 2 Univ ers n 20 mg 3-10 tablets by ity of tablet 00:00: mouth at [place] 00 bedtime. Medical Branch pantoprazol 2020-0 2020- No [id number] 40mg Take 1 Univers e 40 mg EC 3-10 04-10 tablet by ity of tablet 00:00: 04:59 mouth [place] 00 :00 daily for Medical 30 days. Branch pantoprazol 2020-0 2020- No [id number] 40mg Take 1 Univers e 40 mg EC 3-10 04-10 tablet by ity of tablet 00:00: 04:59 mouth [place] 00 :00 daily for Medical 30 days. Branch sucralfate 2020-0 2020- No [id number] 1g Take 1 Univers 1 gram 3-10 03-10 tablet by ity of tablet 00:00: 00:00 mouth [place] 00 :00 before Medical meals and Branch at bedtime for 14 days. atorvastati 2020-0 Yes 20mg 20 mg, Univ ers n (LIPITOR) 3-09 Oral, QHS, it y of tablet 20 02:00: [place] 00 on [facility] 11/26/19 at [place] 2100, Until Discontinu ed, Routine clopidogreL 2020-0 Yes 75mg 75 mg, Univ ers (PLAVIX) 3-08 Oral, ity of tablet 75 14:00: DAILY, [place] mg 00 First dose Medical on [facility] 11/26/19 at 0900, Until Discontinu ed, Routine aspirin 2020-0 Yes 81mg 81 mg, Univers chewable 3-08 Oral, ity of tablet 81 14:00: DAILY, [place] mg 00 First dose Medical on [facility] 11/26/19 at 0900, Until Discontinu ed, Routine amLODIPine 2020-0 Yes 5mg 5 mg, Univer s (NORVASC) 3-08 Oral, ity of tablet 5 mg 14:00: [place]ILY, [place] First dose Medical on [facility] 11/26/19 at 0900, Until Discontinu ed, Routine lisinopril 2020-0 Yes 20mg 20 mg, Unive rs (PRINIVIL,Z 3-08 Oral, ity of ESTRIL) 14:00: DAILY, [place] tablet 20 00 First dose Medi salvatore mg on [facility] 11/26/19 at 0900, Until Discontinu ed, Routine metoprolol 2020-0 Yes 50mg 50 mg, Unive rs succinate 3 Oral, ity of XL (TOPROL 14:00: DAILY, [place] XL) tablet 00 First dose Med ical 50 mg on [facility] 11/26/19 at 0900, Until Discontinu ed, Routine enoxaparin 2020-0 Yes 40mg 40 mg, Unive rs (LOVENOX) 3- Subcutaneo ity of injection 14:00: [place], DAILY, [place] 40 mg 00 First dose Medical on [facility] 11/26/19 at 0900, Until Discontinu ed, Routine docusate 2020-0 Yes 100mg 100 mg, Unive rs (COLACE) 3-08 Oral, BID, ity o f capsule 100 13:00: First dose [place] mg 00 on [facility] 11/26/19 at Branch 0800, Until Discontinu ed, Routine sucralfate 2020-0 Yes 1g 1,000 mg Uni vers (CARAFATE) 308 (1 g), ity of 100 mg/mL 04:45: Oral, [place] suspension 00 AC+HS, Medical 1,000 mg First dose Branc h on [facility] 11/25/19 at 2245, Until Discontinu ed, Routine pantoprazol 2020-0 Yes 40mg 40 mg, IV U nivers e 3-08 Piggyback, ity of (PROTONIX) 04:45: Q12H, [place] 40 mg in 00 First dose Medic al NaCl 0.9% on [facility] Branch (NS) 100 mL 11/25/19 at [place] 2245, Until Discontinu ed, 100 mL furosemide 2020-0 2020- No 20mg 20 mg, Univ ers (LASIX) 3- 03-10 Slow IV ity of injection 04:45: 14:21 Push, [place] 20 mg 00 :16 QAM+PM, Medical First dose Branch on 11/25/19 at 2245, Until Discontinu ed, Routine insulin 2020-0 Yes 34U 34 Units, Unive rs glargine - Subcutaneo ity o f (LANTUS 04:30: us, QHS, [place] U-100) 00 First dose Medical injection on Sat Branch 34 Units 11/25/19 at 2230, Until Discontinu ed Sliding 2020-0 Yes Subcutaneo Univ ers Scale 3- us, TID ity of Insulin - 04:30: MEALS+HS, [place] Lispro 00 First dose Medical (HumaLOG) + on Sat Branch Fsbg 11/25/19 at Testing 2230, Until Discontinu ed, Routine ondansetron 2019-0 Yes 4mg 4 mg, Slow Univers (ZOFRAN 11-25 IV Push, ity of (PF)) 04:28: Q6HPRN, [place] injection 4 22 Starting Medi salv[place] mg 11/25/19 Branch at 2227, Until Discontinu ed, Routine, Nausea and Vomiting (N/V) glucagon 2020-0 Yes 1mg 1 mg, Univers (GLUCAGEN 11-25 Intramuscu ity of DIAGNOSTIC 04:27: lar, PRN, [place] KIT) 39 Starting Medical injection 1 11/25/19 Br anch mg at 2226, Until Discontinu ed, FREDDIE, Blood Glucose < or = 70 mg/dL and patient is unable to swallow or has mental changes. dextrose 50 2020-0 Yes 25mL 25 mL, Univ ers % in water 3- Slow IV ity of (D50W) 04:27: Push, PRN, [place] injection 39 Starting Medica l 25 mL 11/25/19 Branch at 2226, Until Discontinu ed, FREDDIE, Blood Glucose < or = 70 mg/dL and patient is unable to swallow or has mental status changes. nitroglycer 2020-0 Yes .4mg 0.4 mg, Uni vers in 3-08 Sublingual ity of (NITROSTAT) 04:27: , Q5MIN [place] sublingual 05 PRN, Medical tablet 0.4 Starting Branc h mg 11/25/19 at 2227, Until Discontinu ed, Routine, Chest pain morpHINE 2020-0 Yes 2mg 2 mg, Slow Uni vers injection 2 11-25 IV Push, ity of mg 04:26: Q4HPRN, [place] 55 Starting Medical 11/25/19 Branch at 2226, Until Discontinu ed, Routine, Pain (scale 7-10), Chest pain proMETHazin 2020-0 2020- No 12.5mg 12.5 mg, Univers e 11-25 IV ity of (PHENERGAN) 03:30: 03:30 Piggyback, [place] 12.5 mg in 00 :00 ONCE, 1 Medica l NaCl 0.9% dose, Sat Branc h (NS) 50 mL 11/25/19 at piggyback 2130, 50 mL nitroglycer 2020-0 2020- No .4mg 0.4 mg, Un danny in 11-25 Sublingual ity of (NITROSTAT) 03:00: 02:02 , ONCE, 1 [place] sublingual 00 :00 dose, Sat Medi salvatore tablet 0.4 11/25/19 at Bran ch mg 2100, FREDDIE morpHINE 2020-0 2020- No 4mg 4 mg, Slow Un danny injection 4 11-25 IV Push, ity of mg 03:00: 02:08 ONCE, 1 [place] 00 :00 dose, Sat Medical 11/25/19 at Branch 2100, STAT iohexol 2020-0 2020- No 120mL 120 mL, Unive rs (OMNIPAQUE 11-25 Intravenou it y of 350 01:30: 01:15 s, ONCE, 1 [place] BULK-100 00 :00 dose, Sat Medica l mL) 11/25/19 at Branch injection 1930, 120 mL Routine nitroglycer 2020-0 2020- No .4mg 0.4 mg, Un danny in 11-25 Sublingual ity of (NITROSTAT) 01:30: 00:32 , ONCE, 1 [place] sublingual 00 :00 dose, Sat Medi salvatore tablet 0.4 11/25/19 at Bran ch mg 1930, FREDDIE NaCl 0.9% 2020-0 2020- No 500mL at 999 Univ ers (NS) bolus 11-25 03-08 mL/hr, 500 it y of infusion 01:30: 01:04 mL, IV [place] 500 mL 00 :00 Infusion, Medical ONCE, 1 Branch dose, 11/25/19 at 1930, STAT diazePAM 2019- No 5mg 5 mg, Slow Un danny (VALIUM) 11-25 03-08 IV Push, ity of injection 5 01:30: 00:37 ONCE, 1 [place] mg 00 :00 dose, Sat Medical 11/25/19 at Branch 1930, STAT acetaminoph 2017-0 Yes 2{tbl} Take 2 Un danny en-codeine 4-28 tablets by ity of (TYLENOL-CO 00:00: mouth [place] DEINE #3) 00 every 6 Medical 300-30 mg (six) Branch tablet hours as needed for Pain (scale 7-10). traMADOL 2018- Yes 50mg Take 1 Univers (ULTRAM) 50 4-28 tablet by ity of mg tablet 00:00: mouth [place] 00 every 6 Medical (six) Branch hours as needed for Pain (scale 7-10) (ALTERNATE WITH TYLENOL #3). acetaminoph 2017-0 Yes 2{tbl} Take 2 Un danny en-codeine [...] acetaminoph 2018-0 Yes 2{tbl} Take 2 Un dnany en-codeine 4-28 tablets by ity of (TYLENOL-CO [...] (scale 7-10) (ALTERNATE WITH TYLENOL #3). acetaminoph 2017-0 Yes 2{tbl} Take 2 Un danny en-codeine 4-28 tablets by ity of (TYLENOL-CO 00:00: mouth [place] DEINE #3) 00 every 6 Medical 300-30 mg (six) Branch tablet hours as needed for Pain (scale 7-10). traMADOL 2017- Yes 50mg Take 1 Univers (ULTRAM) 50 [...] PRN ity o f SL SUBL 00:00: [place] 00 Medical Branch NITROGLYCER 2005-09 Yes 1 Tab SL Un danny IN 0.4 MG 1-24 Q5MIN PRN ity o f SL SUBL 00:00: [place] [facility] Branch NITROGLYCER 2005-09 Yes 1 Tab SL Un danny IN 0.4 MG 1-24 Q5MIN PRN ity o f SL SUBL 00:00: [place] Medical Branch NITROGLYCER 2005-09 Yes 1 Tab SL Un danny IN 0.4 MG 1-24 Q5MIN PRN ity o f SL SUBL 00:00: [place] 00 Medical Branch NITROGLYCER 2005-09 Yes 1 Tab SL Un danny IN 0.4 MG 1-24 Q5MIN PRN ity o f SL SUBL 00:00: [address] ATORVASTATI 2005-09 2020- No 1 Tab Oral Univers N 20 MG 1-24 03-10 QHS ity of ORAL TAB 00:00: 00:00 [place] 00 :00 [facility] Immunizations Ordered Immunization Filled Immunization Date Status Commen ts Source Name Name Influenza Virus 2021-07-24 Completed Mary Nice ybold Vaccine, 00:00:00 Quadrivalent, High Dose, Age 65 And Up Influenza Virus 2021-07-24 Completed Mary Se ybold Vaccine, 00:00:00 Quadrivalent, High Dose, Age 65 And Up Influenza Virus 2021-07-24 Completed Mary ybold Vaccine, 00:00:00 Quadrivalent, High Dose, Age 65 And Up Influenza Virus 2021-07-24 Completed Mary ybold Vaccine, 00:00:00 Quadrivalent, High Dose, Age 65 And Up Covid-19 Vaccine 2020-12-18 Completed Mary villeda (Moderna), Mrna-lnp, 00:00:00 Jorge Protein, Pf, 100 Mcg/0.5ml,IM Covid-19 Vaccine 2020-12-18 Completed Mary villeda Moderna (Spikevax), 00:00:00 Mrna-lnp, Jorge Protein, Pf Covid-19 Vaccine 2020-12-18 Completed Mary arayald Moderna (Spikevax), 00:00:00 Mrna-lnp, Jorge Protein, Pf Covid-19 Vaccine 2020-12-18 Completed Mary arayald Moderna (Spikevax), 00:00:00 Mrna-lnp, Jorge Protein, Pf Covid-19 Vaccine 2020-12-18 Completed Mary arayald (Moderna), Mrna-lnp, 00:00:00 Jorge Protein, Pf, 100 Mcg/0.5ml,IM Covid-19 Vaccine 2020-12-18 Completed Mary helmsbold (Moderna), Mrna-lnp, 00:00:00 Jorge Protein, Pf, 100 Mcg/0.5ml,IM Covid-19 Vaccine 2020-11-20 Completed Mary villeda (Moderna), Mrna-lnp, 00:00:00 Jorge Protein, Pf, 100 Mcg/0.5ml,IM Covid-19 Vaccine 2020-11-20 Completed Mary villeda Moderna (Spikevax), 00:00:00 Mrna-lnp, Jorge Protein, Pf Covid-19 Vaccine 2020-11-20 Completed Mary villeda Moderna (Spikevax), 00:00:00 Mrna-lnp, Jorge Protein, Pf Covid-19 Vaccine 2020-11-20 Completed Mary villeda Moderna (Spikevax), 00:00:00 Mrna-lnp, Jorge Protein, Pf Covid-19 Vaccine 2020-11-20 Completed Mary villeda (Moderna), Mrna-lnp, 00:00:00 Jorge Protein, Pf, 100 Mcg/0.5ml,IM Covid-19 Vaccine 2020-11-20 Completed Mary villeda (Moderna), Mrna-lnp, 00:00:00 Jorge [...] A/ Hep B Combo 2016-06-15 Completed Mary Niceybold 00:00:00 Vital Signs Vital Name Observation Time Observation Value Comments Source Systolic blood 2022-01-12 20:58:00 156 mm[Hg] Mary Seybold pressure Diastolic blood 2022-01-12 20:58:00 66 mm[Hg] Kelse y Seybold pressure Heart rate 2022-01-12 20:58:00 64 /min Mary S eybold Body temperature 2022-01-12 20:58:00 36.5 Brunilda Chandni ey Seybold Respiratory rate 2022-01-12 20:58:00 16 /min Chandni ey Seybold Body height 2022-01-12 20:58:00 160 cm Mary Harrison eybold Body weight 2022-01-12 20:58:00 108.954 kg Mary S eybold BMI 2022-01-12 20:58:00 42.55 kg/m2 Mary S eybold Systolic blood 2022-01-09 19:06:00 142 mm[Hg] Mary Seybold pressure Diastolic blood 2022-01-09 19:06:00 68 mm[Hg] Kelse y Seybold pressure Heart rate 2022-01-09 19:06:00 62 /min Mary Harrison eybold Body temperature 2022-01-09 19:06:00 36.28 Brunilda Chandni ey Seybold Respiratory rate 2022-01-09 19:06:00 14 /min Chandni ey Seybold Body height 2022-01-09 19:06:00 160 cm Mary Harrison eybold Body weight 2022-01-09 19:06:00 109.226 kg Mary Harrison eybold BMI 2022-01-09 19:06:00 42.66 kg/m2 Mary Harrison eybold Systolic blood 2021-12-29 13:11:00 143 mm[Hg] Mary Seybold pressure Diastolic blood 2021-12-29 13:11:00 76 mm[Hg] Kelse y Seybold pressure Heart rate 2021-12-29 13:11:00 94 /min Mary S eybold Body temperature 2021-12-29 13:11:00 36.33 Brunilda Chandni ey Seybold Respiratory rate 2021-12-29 13:11:00 14 /min Chandni ey Seybold Body height 2021-12-29 13:11:00 160 cm Mary S eybold Body weight 2021-12-29 13:11:00 110.36 kg Mary S eybold BMI 2021-12-29 13:11:00 43.10 kg/m2 Mary S eybold Systolic blood 2021-07-24 13:15:00 143 mm[Hg] Mary Seybold pressure Diastolic blood 2021-07-24 13:15:00 62 mm[Hg] Kelse y Seybold pressure Heart rate 2021-07-24 13:15:00 86 /min Mary S eybold Body temperature 2021-07-24 13:15:00 36.33 Brunilda Chandni ey Seybold Respiratory rate 2021-07-24 13:15:00 14 /min Chandni ey Seybold Body height 2021-07-24 13:15:00 160 cm Mary S eybold Body weight 2021-07-24 13:15:00 107.049 kg Mary S eybold BMI 2021-07-24 13:15:00 41.81 kg/m2 Mary S eybold Systolic blood 2021-07-15 20:51:00 146 mm[Hg] Mary Seybold pressure Diastolic blood 2021-07-15 20:51:00 52 mm[Hg] Kelse y Seybold pressure Heart rate 2021-07-15 20:51:00 89 /min aMry S eybold Body temperature 2021-07-15 20:51:00 36.06 Brunilda Chandni ey Seybold Respiratory rate 2021-07-15 20:51:00 16 /min Chandni ey Seybold Body height 2021-07-15 20:51:00 160 cm Mary S eybold Body weight 2021-07-15 20:51:00 106.595 kg Mary S eybold BMI 2021-07-15 20:51:00 41.63 kg/m2 Mary S eybold Systolic blood 2021-01-11 02:48:00 178 mm[Hg] Univer sity of pressure [facility] Diastolic blood 2021-01-11 02:48:00 84 mm[Hg] Unive rsity of pressure [place] [facility] Heart rate 2021-01-11 02:48:00 75 /min Universi ty [facility] [place] [facility] Respiratory rate 2021-01-11 02:48:00 18 /min Univ ersity of [place] [facility] Oxygen saturation in 2021-01-11 02:48:00 99 /min University of Arterial blood by [facility] [place] [facility] Pulse oximetry Branch Body temperature 2021-01-11 00:30:00 36.33 Brunilda Univ ersity of [place] [facility] Body height 2021-01-11 00:30:00 161.3 cm [facility]i ty [facility] [place] [facility] Body weight 2021-01-11 00:30:00 109.317 kg [facility]i ty [facility] [place] [facility] BMI 2021-01-11 00:30:00 42.02 kg/m2 [facility] [place] [facility] Systolic blood 2021-01-11 02:48:00 178 mm[Hg] Univer sity of pressure [place] [facility] Diastolic blood 2021-01-11 02:48:00 84 mm[Hg] Unive rsity of pressure [place] [facility] Heart rate 2021-01-11 02:48:00 75 /min [facility]i [facility] [place] [facility] Respiratory rate 2021-01-11 02:48:00 18 /min Univ ersity of [place] [facility] Oxygen saturation in 2021-01-11 02:48:00 99 /min University of Arterial blood by [facility] [place] [facility] Pulse oximetry Branch Body temperature 2021-01-11 00:30:00 36.33 Brunilda Univ ersity of [place] [facility] Body height 2021-01-11 00:30:00 161.3 cm Universi [facility] [place] [facility] Body weight 2021-01-11 00:30:00 109.317 kg [facility]i ty [facility] [place] [facility] BMI 2021-01-11 00:30:00 42.02 kg/m2 [facility] [place] [facility] Systolic blood 2020-08-08 15:03:00 176 mm[Hg] Univer sity of pressure [place] [facility] Diastolic blood 2020-08-08 15:03:00 67 mm[Hg] Unive rsity of pressure [place] [facility] Heart rate 2020-08-08 15:03:00 82 /min [facility] [place] [facility] Body temperature 2020-08-08 15:03:00 36.56 Brunilda Univ ersity [facility] [place] [facility] Respiratory rate 2020-08-08 15:03:00 14 /min Univ ersity [facility] [place] [facility] Body weight 2020-08-08 15:03:00 108.863 kg [facility]i [facility] [place] [facility] BMI 2020-08-08 15:03:00 42.51 kg/m2 [facility] [place] [facility] Oxygen saturation in 2020-08-08 15:03:00 98 /min University of Arterial blood by [facility] salvatore Pulse oximetry Branch Systolic blood 2020-08-08 15:03:00 176 mm[Hg] Univer sity of pressure [place] [facility] Diastolic blood 2020-08-08 15:03:00 67 mm[Hg] Unive rsity of pressure [place] [facility] Heart rate 2020-08-08 15:03:00 82 /min [facility] [place] [facility] Body temperature 2020-08-08 15:03:00 36.56 Brunilda Univ ersity [facility] [place] [facility] Respiratory rate 2020-08-08 15:03:00 14 /min Univ ersity [facility] [place] [facility] Body weight 2020-08-08 15:03:00 108.863 kg [facility] [place] [facility] BMI 2020-08-08 15:03:00 42.51 kg/m2 [facility] [place] [facility] Oxygen saturation in 2020-08-08 15:03:00 98 /min University of Arterial blood by [facility] salvatore Pulse oximetry Branch Systolic blood 2019-11-28 16:15:00 150 mm[Hg] Univer sity of pressure [place] [facility] Diastolic blood 2019-11-28 16:15:00 76 mm[Hg] Unive rsity of pressure [place] [facility] Heart rate 2019-11-28 16:15:00 93 /min [facility]i [facility] [place] [facility] Body temperature 2019-11-28 16:15:00 36.11 Brunilda Univ ersity [facility] [place] [facility] Respiratory rate 2019-11-28 16:15:00 18 /min Univ ersity [facility] [place] [facility] Oxygen saturation in 2019-11-28 16:15:00 98 /min University of Arterial blood by [place] [facility]i salvatore Pulse oximetry Branch Body height 2019-11-28 14:18:00 160 cm [facility] [place] [facility] Body weight 2019-11-28 14:18:00 107.502 kg [facility]i [facility] [place] [facility] BMI 2019-11-28 14:18:00 41.98 kg/m2 [facility] Systolic blood 2019-11-28 16:15:00 150 mm[Hg] Univer sity of pressure [facility] Diastolic blood 2019-11-28 16:15:00 76 mm[Hg] Unive rsity of pressure [facility] Heart rate 2019-11-28 16:15:00 93 /min [facility] Body temperature 2019-11-28 16:15:00 36.11 Brunilda [facility] 2019-11-28 16:15:00 18 /min [facility] Oxygen saturation in 2019-11-28 16:15:00 98 /min [facility] blood by [facility] [place] [facility] Pulse oximetry [place] Body height 2019-11-28 14:18:00 160 cm [facility] Body weight 2019-11-28 14:18:00 107.502 kg [facility] BMI 2019-11-28 14:18:00 41.98 kg/m2 [facility] Procedures Procedure Date / Time Performing Clinician Source Performed REAGENT STRIP/BLOOD 2022-01-12 21:02:00 Outside, Reported Mary Rosales GLUCOSE CBC WITH 2021-07-24 13:44:00 AgaJimbo ld DIFFERENTIAL/PLATELET URINALYSIS NONAUTO W/O 2021-07-15 21:06:00 Ronak Keyes SCOPE Somogyi URIC ACID 2021-01-11 00:44:00 Raj Rogers Juliaetta o [facility] COMP. METABOLIC PANEL 2021-01-11 00:44:00 [facility] ([id number]) [facility] CBC WITH DIFF 2021-01-11 00:44:00 Singer Raj Juliaetta o [facility] XR FOOT <3 VW RIGHT 2021-01-11 00:42:14 Raj Rogers [facility] NOTICE OF PRIVACY 2021-01-11 00:20:55 Doctor Unassigned, No Univ [facility] PRACTICES Name Medical [place] CONSENT/REFUSAL FOR 2020-08-08 14:50:51 Doctor Unassigned, [facility] [place] [facility] DIAGNOSIS AND TREATMENT Name Medical [place] POCT GLUCOSE 2019-11-28 16:18:00 Cathy, [facility] (AUTOMATED) Medical Branch POCT GLUCOSE 2019-11-28 12:26:00 Cathy [facility] (AUTOMATED) Medical Branch POCT GLUCOSE 2019-11-28 08:06:00 Cathy [facility] (AUTOMATED) Medical Branch POCT GLUCOSE 2019-11-28 04:39:00 Cathy [facility] (AUTOMATED) Medical Branch POCT GLUCOSE 2019-11-28 00:58:00 Cathy [facility] (AUTOMATED) Medical Branch POCT GLUCOSE 2019-11-27 21:13:00 Cathy [facility] (AUTOMATED) Medical Branch POCT GLUCOSE 2019-11-27 17:17:00 Cathy [facility] (AUTOMATED) [facility] Branch ECHO ROUTINE W/DOPPLER 2019-11-27 16:18:52 Nitesh Akhtar [facility] POCT GLUCOSE 2019-11-27 12:22:00 Cathy [facility] (AUTOMATED) [facility] BASIC METABOLIC PANEL 2019-11-27 08:32:00 Cathy [facility] (NA, K, CL, CO2, Medical Branch GLUCOSE, BUN, CREATININE, CA) CBC WITH DIFFERENTIAL 2019-11-27 08:32:00 Cathy [facility] N-TERMINAL PRO-BNP 2019-11-27 08:32:00 Cathy [facility] POCT GLUCOSE 2019-11-27 07:06:00 Cathy [facility] (AUTOMATED) [facility] Branch POCT GLUCOSE 2019-11-27 00:57:00 Cathy [facility] (AUTOMATED) [facility] POCT GLUCOSE 2019-11-26 21:30:00 Cathy [facility] (AUTOMATED) [facility] TROPONIN I 2019-11-26 20:26:00 Leonid [facility] POCT GLUCOSE 2019-11-26 19:51:00 Cathy [facility] (AUTOMATED) [facility] Branch EKG-12 LEAD 2019-11-26 19:03:59 Leonid [facility] POCT GLUCOSE 2019-11-26 16:30:00 Cathy [facility] (AUTOMATED) [facility] POCT GLUCOSE 2019-11-26 11:27:00 Cathy [facility] (AUTOMATED) Medical Branch PHOSPHORUS 2019-11-26 09:29:00 Cathy [facility] MAGNESIUM 2019-11-26 09:29:00 Cathy [facility] TROPONIN I 2019-11-26 09:29:00 Cathy [facility] BASIC METABOLIC PANEL 2019-11-26 09:29:00 Cathy [facility] (NA, K, CL, CO2, Medical Branch GLUCOSE, BUN, CREATININE, CA) LIPID PANEL 2019-11-26 09:29:00 Nitesh Akhtar [facility] ([id number])(TOTAL Medical Branch CHOLESTEROL, TRIGLYCERIDES, HDL) N-TERMINAL PRO-BNP 2019-11-26 09:29:00 Cathy [facility] TROPONIN I 2019-11-26 06:05:00 Cathy [facility] POCT GLUCOSE 2019-11-26 05:50:00 Cathy [facility] (AUTOMATED) [facility] EKG-12 LEAD 2019-11-26 04:25:00 Cathy [facility] TROPONIN I 2019-11-26 03:04:00 Evert [facility] CRITICAL CARE 2019-11-26 01:45:00 Evert [facility] CT CHEST PULMONARY 2019-11-26 01:20:39 [facility] CT HEAD WO CONTRAST 2019-11-26 01:20:21 Evert Dalila [facility] XR CHEST 1 VW 2019-11-26 00:35:51 Evert [facility] EKG-12 LEAD 2019-11-26 00:30:29 Frederick Schmidt [facility] POCT GLUCOSE 2019-11-26 00:29:00 Evert [facility] (AUTOMATED) [facility] TROPONIN I 2019-11-26 00:17[facility]OLIC [facility]EL 2019-11-26 00:17[id number] CBC WITH DIFFERENTIAL 2019-11-26 00:17:00 Evert Dalila [facility] GLYCOSYLATED HEMOGLOBIN 2019-11-26 00:17:00 Alexia Talavera [facility] (A1C) [facility] PROTHROMBIN TIME / INR 2019-11-26 00:17[facility] 2019-11-26 00:17[facility] 2019-11-26 00:17:00 Evert [facility] THRMPLAS [facility] N-TERMINAL PRO-BNP 2019-11-26 00:17[facility] 2019-11-26 00:10[facility] 2019-11-26 00:04:49 Frederick Schmidt [facility] NOTICE OF PRIVACY 2019-11-25 23:54:05 Doctor Unassigned, No [facility] PRACTICES Name [facility] CONSENT/REFUSAL FOR 2019-11-25 23:53:07 Doctor Unassigned, No [facility] [place] DI[facility]IS AND TREATMENT [facility] HOSPITAL ADM - MISC 2019-11-25 06:01:00 [facility]igned[facility] [place] [facility] Start End Encounter Admission Attending Care Care Encounter Source Date/Time Date/Time Type Type Clinicians Facility Department ID 2022-02-23 2022-02-23 Outpatient FREDY LORA [id number] Mary 10:00:00 10:00:00 Seybol d 2022-01-15 2022-01-15 Outpatient LAB90 MARY CORADO [id number] Mary 08:35:00 08:35:00 Seybol d 2022-01-12 2022-01-12 Office Fredy Lora [id number] Mary 16:15:00 16:45:00 Visit Mao [id number] Se navarro [id number] 2022-01-12 2022-01-12 Outpatient MARY KEYES [id number] Mary 00:00:00 00:00:00 RONAK Seybol d 2022-01-09 2022-01-09 Office Eriberto Keyes [id number] Mary 14:00:00 14:30:00 Visit Ronak Potter [id number] Se ybold Somogyi [id number] 2021-12-29 2021-12-29 Office Eriberto Keyes [id number] Mary 08:15:00 08:45:00 Visit Ronak Potter [id number] Se ybold Somogyi [id number] 2021-11-10 2021-11-10 Outpatient MARY KEYES [id number] Mary 00:00:00 00:00:00 RONAK Seybol d 2021-11-10 2021-11-10 Outpatient JIMBO LOUIS MARY CORADO [id number] Mary 00:00:00 00:00:00 Seybol d 2021-08-01 2021-08-01 Outpatient MARY KEYES [id number] Mary 00:00:00 00:00:00 RONAK Seybol d 2021-07-24 2021-07-24 Outpatient LAB90 MARY CORADO [id number] Mary 09:15:00 09:15:00 Seybol d 2021-07-24 2021-07-24 Office Jimbo Louis Wei 1.2.840.114 10 [id number] Mary 08:12:47 08:57:47 Visit Lev Potter 350.1.13.13 Se ybold 1.2.7.2.686 [id number] 2021-07-16 2021-07-16 Outpatient MARY KEYES [id number] Mary 00:00:00 00:00:00 RONAK Seybol d 2021-07-15 2021-07-15 Office Eriberto Keyes 1.2.840.114 [id number] Mary 15:47:06 16:17:06 Visit Ronak Potter 350.1.13.13 Se ybold Somogyi 1.2.7.2.686 [id number] 2021-07-09 2021-07-09 Outpatient MARY KEYES [id number] Mary 00:00:00 00:00:00 RONAK Seybol d 2021-06-10 2021-06-10 Outpatient MARY KEYES [id number] Mary 00:00:00 00:00:00 RONAK Seybol d 2021-06-10 2021-06-10 Outpatient JIMBO LOUIS [id number] Mary 00:00:00 00:00:00 Seybol d 2021-06-02 2021-06-02 Outpatient MARY KEYES [id number] Mary 00:00:00 00:00:00 RONAK Seybol d 2021-05-30 2021-05-30 Outpatient TESTING, PL MARY CORADO 101 [id number] Mary 15:25:00 15:25:00 Seybol d 2021-05-27 2021-05-27 Telemedici Jimbo Louis 1.2.840.114 [id number] Mary 09:21:09 09:48:19 kristy Lev Potter 350.1.13.13 Se melanie 1.2.7.2.686 [id number] 2021-04-30 2021-04-30 Outpatient LAB90 MARY CORADO [id number] Mary 10:55:00 10:55:00 Seybol d 2021-04-30 2021-04-30 Outpatient JIMBO LOUIS 101 [id number] Mary 00:00:00 00:00:00 Seybol d 2021-04-29 2021-04-29 Outpatient LAB90 MARY CORADO [id number] Mary 10:15:00 10:15:00 Seybol d 2021-04-29 2021-04-29 Outpatient JIMBO LOUIS 101 [id number] Mary 09:30:00 09:30:00 Seybol d 2021-04-24 2021-04-24 Outpatient MARY KEYES [id number] Mary 16:30:00 16:30:00 RONAK maldonado 2021-01-10 2021-01-10 Emergency Rogers, [facility] [id number] 19:30:00 21:51:00 Raj Eubanks 350.1.13.10 [place] [address] [place] [address] [id number] 2021-01-10 2021-01-10 Emergency Rogers, [facility] 1.2.073.870 [id number] Univers 19:30:00 21:51:00 Raj Eubanks 350.1.13.10 i ty of [place] 4.2.7.2.[address] [place] [id number] 2021-01-10 2021-01-10 Emergency X ROGERS, [facility] ERT [id number] Univers 19:30:00 19:30:00 RAJ albarran [facility] 2021-01-10 2021-01-10 Orders Doctor KENTON 1.2.840.114 [id number] Univers 00:00:00 00:00:00 Only Unassigned, DES 350.1.13.10 ity of [place] [facility] 4.2.7.2.686 [place] [id number] [address] 2021-01-10 2021-01-10 Orders Doctor KENTON 1.2.840.114 [id number] 00:00:00 00:00:00 Only Unassigned, [facility]13[facility]10 [facility] 4.2.7.2.686 [id number] 2020-08-08 2020-08-08 Emergency Rogers, [facility] [id number] Univers 09:00:00 10:08:00 Raj Eubanks 350.1.13.10 i ty of [place] 4.2.7.2.[address] [place] [id number] 2020-08-08 2020-08-08 Emergency Rogers, [facility] [id number] [id number] 09:00:00 10:08:00 Raj Eubanks 350.1.13.10 [place] 4.2.7.2.686 [place] [id number] 2020-08-08 2020-08-08 Emergency X SINGER [facility] ERT [id number] Univers 09:00:00 09:00:00 RAJ albarran [facility] 2019-11-29 2019-11-29 Transition Anatoly Goodmanbert 1.2.840.114 [id number] Univers 00:00:00 00:00:00 of Care Sia Bowen 350.1.13.10 it y [place] [id number] [facility] [address] 2019-11-29 2019-11-29 Transition Rain Goodman 1.2.840.114 [id number] 00:00:00 00:00:00 of Care Sia Bowen 350.1.13.10 [place] 4.2.7.2.686 [id number] 2019-11-25 2019-11-28 Outpatient X CATHY [facility] [id number] Univers 18:01:16 14:20:00 ALEXIA albarran [facility] 2019-11-25 2019-11-28 Emergency [facility] 1.2.840. 114 [id number] Univers 18:01:16 14:20:00 Alexia Talavera 350.1.13.10 [place] [id number] [facility] [address] 2019-11-25 2019-11-28 Emergency [facility] 1.2.840. 114 [id number] 18:01:16 14:20:00 Alexia Talavera 350.1.13.10 [place] 4.2.7.2.686 [place] [id number] 081 Results Test Description Test Time Test Comments Results Result Comments Source REAGENT STRIP/BLOOD GLUCOSE 2022-01-12 21:02:00 Test Item Value Reference Range Interpretation Comme nts BLOOD SUGAR (test code = 946025) 156 mg/dL 65-99 A Lab Interpretation (test code = 82544-3) Abnormal Mary SeyboldCBC WITH DIFFERENTIAL/[id number] 12:10:00 Test Item Value Reference Range Interpretation Comments WHITE BLOOD CELL See_Comment [Automated (WBC) COUNT (test message] T he code = 6690-2) system which generated this result transmit cipriano reference range : 3.4 - 10.8 x10E3/uL. The reference range was not used to interpret this result as normal/abnormal . RED BLOOD CELL (RBC) See_Comment [Autom ated COUNT (test code = message] The 789-8) system which generated this result transmit cipriano reference range : 3.77 - 5.28 x10E6/uL. The reference range was not used to interpret this result as normal/abnormal . HEMOGLOBIN (test 11.7 g/dL 11.1-15.9 code = 718-7) HEMATOCRIT (test 37.2 % 34.0-46.6 code = 4544-3) MCV (test code = 88 fL 79-97 787-2) MCH (test code = 27.8 pg 26.6-33.0 785-6) MCHC (test code = 31.5 g/dL 31.5-35.7 786-4) RDW (test code = 14.0 % 11.7-15.4 788-0) PLATELETS (test code See_Comment [Autom ated = 777-3) message] The system which generated this result transmit cipriano reference range : 150 - 450 x10E3/uL. The reference range was not used to interpret this result as normal/abnormal . NEUTROPHILS (test 58 % Not Estab. code = 770-8) LYMPHS (test code = 31 % Not Estab. 736-9) MONOCYTES (test code 7 % Not Estab. = 5905-5) EOS (test code = 3 % Not Estab. 713-8) BASOS (test code = 1 % Not Estab. 706-2) NEUTROPHILS See_Comment [Automated (ABSOLUTE) (test message] Th e code = 751-8) system which generated this result transmit cipriano reference range : 1.4 - 7.0 x10E3/uL. The reference range was not used to interpret this result as normal/abnormal . LYMPHS (ABSOLUTE) See_Comment [Automate d (test code = 731-0) message] The system which generated this result transmit cipriano reference range : 0.7 - 3.1 x10E3/uL. The reference range was not used to interpret this result as normal/abnormal . MONOCYTES(ABSOLUTE) See_Comment [Automa cipriano (test code = 742-7) message] The system which generated this result transmit cipriano reference range : 0.1 - 0.9 x10E3/uL. The reference range was not used to interpret this result as normal/abnormal . EOS (ABSOLUTE) (test See_Comment [Autom ated code = 711-2) message] The system which generated this result transmit cipriano reference range : 0.0 - 0.4 x10E3/uL. The reference range was not used to interpret this result as normal/abnormal . BASO (ABSOLUTE) See_Comment [Automated (test code = 704-7) message] The system which generated this result transmit cipriano reference range : 0.0 - 0.2 x10E3/uL. The reference range was not used to interpret this result as normal/abnormal . IMMATURE 0 % Not Estab. GRANULOCYTES (test code = 28186-9) IMMATURE GRANS (ABS) See_Comment [Autom ated (test code = message] The 25377-2) system which generated this result transmit cipriano reference range : 0.0 - 0.1 x10E3/uL. The reference range was not used to interpret this result as normal/abnormal . OLMAN (test code = [facility] results OLMAN) reported in Eastern Time. [facility] Clinical Information:SRC: Blood, venous*Venipunc ture ? [facility] Source of Specimen:Blood, venous*Venipunc Mary SeyboldURINALYSIS NONAUTO W/O [id number] 21:06:00 Test Item Value Reference Range Interpretation Comments UD KETONES (test code = neg 5-160 070383) UD GLUCOSE (test code = neg 100-2000 872837) UD PROTEIN (test code = 30 mg/dL Trace - 2,000 195970) UD LEUKOCYTES (test moderate Trace - Large @ 2 code = 035537) min. UD NITRITE (test code = neg Neg. - Pos. @ 60 837798) sec. UD UROBILINOGEN (test 0.2 mg/dL 0.2-8 code = 382867) UD PH (test code = See_Comment [Automat ed 180702) message] The sy stem which generated this result transmitted reference range : 5.0 - 8.5 @ 60 sec.. The refer ence range was not u sed to interpret th is result as normal/abnormal . UD BLOOD (test code = trace Neg. - Large @ 60 568062) sec. UD SPECIFIC GRAVITY See_Comment [Automa cipriano (test code = 341965) message ] The system which generated this result transmitted reference range : 1.000 - 1.030 @ 45 sec.. The refer ence range was not u sed to interpret th is result as normal/abnormal . UD BILIRUBIN (test code neg Neg. - Large @ 45 = 910788) sec. Lab Interpretation Abnormal (test code = 11672-3) aMry Duong METABOLIC PANEL (79361)2021-01-11 02:20:56 Test Item Value Reference Range Interpretation Comments NA (test code = 140 mmol/L 135-145 9261720466) K (test code = 4.5 mmol/L 3.5-5.0 6185619444) CL (test code = 102 mmol/L 98-108 1957261264) CO2 TOTAL (test code = 27 mmol/L 23-31 4426823316) AGAP (test code = 2-16 4599496636) BUN (test code = 23 mg/dL 7-23 9063479174) GLUCOSE (test code = 239 mg/dL 70-110 H 2780913938) CREATININE (test code = 0.84 mg/dL 0.50-1.04 9499591603) TOTAL BILI (test code = 0.4 mg/dL 0.1-1.0 9077289852) CALCIUM (test code = 8.9 mg/dL 8.6-10.6 9945479242) T PROTEIN (test code = 6.8 g/dL 6.3-8.2 1592393296) ALBUMIN (test code = 4.1 g/dL 3.5-5.0 7515082497) ALK PHOS (test code = 81 U/L 34-122 9657646439) ALTv (test code = 14 U/L 5-35 1742-6) AST(SGOT) (test code = 24 U/L 13-40 0905020591) eGFR (test code = mL/min/1.73m2 0495553700) OLMAN (test code = OLMAN) Association of [...] tests). Lab Interpretation Abnormal (test code = 26971-8) [id number] 02:20:55 Test Item Value Reference Range Interpretation Comments URIC ACID (test code = 4484747732) 8.9 mg/dL 2.9-6.0 H Lab Interpretation (test code = Abnormal 47066-6) [facility] WITH [id number] 00:59:14 Test Item Value Reference Range Interpretation Comments WBC (test code = See_Comment [Automated 7290-2) message] The sy stem which generated this result transmitted reference range : 4.30 - 11.10 10*3/?L. The reference range was not used to interpret this result as normal/abnormal . RBC (test code = See_Comment L [Automated 819-8) message] The sy stem which generated this [...] RDW-SD (test code = 47.5 fL 39.0-49.9 61518-5) RDW-CV (test code = 14.6 % 12.0-15.5 788-0) PLT (test code = See_Comment [Automated 777-3) message] The sy stem which generated this result transmitted reference range : 166 - 358 10*3/ ?L. The reference r hernandez was not used to interpret this result as normal/abnormal . MPV (test code = 11.0 fL 9.5-12.9 65103-3) NRBC/100 WBC (test See_Comment [Automat ed code = 8549968567) message] The system which generated this result transmitted reference range : 0.0 - 10.0 /100 WBCs. The refer ence range was not u sed to interpret th is result as normal/abnormal . NRBC x10^3 (test code <0.01 See_Comment [Auto mated = 5281521273) message] The s ystem which generated this result transmitted reference range : 10*3/?L. The reference range was not used to interpret this result as normal/abnormal . GRAN MAT (NEUT) % 52.4 % (test code = 770-8) IMM GRAN % (test code 0.20 % = 1646831041) LYMPH % (test code = 36.6 % 736-9) MONO % (test code = 6.7 % 5905-5) EOS % (test code = 3.6 % 713-8) BASO % (test code = 0.5 % 706-2) GRAN MAT x10^3(ANC) 3.03 10*3/uL 1.88-7.09 (test code = 3968871036) IMM GRAN x10^3 (test <0.03 0.00-0.06 code = 5713729300) LYMPH x10^3 (test code 2.12 10*3/uL 1.32-3.29 = 731-0) MONO x10^3 (test code 0.39 10*3/uL 0.33-0.92 = 742-7) EOS x10^3 (test code = 0.21 10*3/uL 0.03-0.39 711-2) BASO x10^3 (test code 0.03 10*3/uL 0.01-0.07 = 704-7) Lab Interpretation Abnormal (test code = 71326-6) [facility] GLUCOSE (AUTOMATED)2019-11-28 16:42:00 Test Item Value Reference Range Interpretation Comments POCT GLU (test code = 1663463147) 187 mg/dL 70-110 H Lab Interpretation (test code = Abnormal 89780-9) [facility] GLUCOSE (AUTOMATED)2019-11-28 13:25:00 Test Item Value Reference Range Interpretation Comments POCT GLU (test code = 3286146800) 154 mg/dL 70-110 H Lab Interpretation (test code = Abnormal 42140-3) [facility] GLUCOSE (AUTOMATED)2019-11-28 08:09:00 Test Item Value Reference Range Interpretation Comments POCT GLU (test code = 9872673069) 134 mg/dL 70-110 H Lab Interpretation (test code = Abnormal 53974-6) [facility] GLUCOSE (AUTOMATED)2019-11-28 04:55:00 Test Item Value Reference Range Interpretation Comments POCT GLU (test code = 1217167511) 184 mg/dL 70-110 H Lab Interpretation (test code = Abnormal 37327-0) [facility] GLUCOSE (AUTOMATED)2019-11-28 01:21:00 Test Item Value Reference Range Interpretation Comments POCT GLU (test code = 8302000557) 333 mg/dL 70-110 H Lab Interpretation (test code = Abnormal 74532-7) [facility] GLUCOSE (AUTOMATED)2019-11-27 21:22:00 Test Item Value Reference Range Interpretation Comments POCT GLU (test code = 1414395746) 361 mg/dL 70-110 H Lab Interpretation (test code = Abnormal 59960-1) [facility] GLUCOSE (AUTOMATED)2019-11-27 17:21:00 Test Item Value Reference Range Interpretation Comments POCT GLU (test code = 6462737770) 236 mg/dL 70-110 H Lab Interpretation (test code = Abnormal 36881-7) [facility] GLUCOSE (AUTOMATED)2019-11-27 12:41:00 Test Item Value Reference Range Interpretation Comments POCT GLU (test code = 0717597158) 154 mg/dL 70-110 H Lab Interpretation (test code = Abnormal 17995-4) [facility] [id number] 11:42:00 Test Item Value Reference Range Interpretation Comments NT-proBNP (test code 62 pg/mL See_Comment [Autom ated = 6808698339) message] The system which generated this result transmitted reference range : <=125. The reference range was not used to interpret this result as normal/abnormal . OLMAN (test code = OLMAN) Biotin has been reported to cause a negative bias, interpret results relative to patient's use of biotin. Lab Interpretation Normal (test code = 77711-4) [facility] METABOLIC PANEL (NA, K, CL, CO2, GLUCOSE, BUN, CREATININE, CA)2019-11-27 11:40:00 Test Item Value Reference Range Interpretation Comments NA (test code = 141 mmol/L 135-145 0180615120) K (test code = 3.7 mmol/L 3.5-5 4900362602) CL (test code = 102 mmol/L 98-108 8557682676) CO2 TOTAL (test code = 31 mmol/L 23-31 6468956082) AGAP (test code = 2-16 9983647883) BUN (test code = 24 mg/dL 7-23 H 1917909847) GLUCOSE (test code = 136 mg/dL 70-110 H 8041975024) CREATININE (test code = 0.86 mg/dL 0.5-1.04 9890505064) CALCIUM (test code = 9.2 mg/dL 8.6-10.6 4526182602) eGFR Calculation mL/min/1.73m2 (Non-) (test code = 5519024099) eGFR Calculation mL/min/1.73m2 () (test code = 4549465007) OLMAN (test code = OLMAN) Association of [...] tests). Lab Interpretation Abnormal (test code = 78322-2) [facility] WITH [id number] 11:07:00 Test Item Value Reference Range Interpretation Comments WBC (test code = See_Comment [Automated 8978-2) message] The sy stem which generated this result transmitted reference range : 4.30 - 11.10 10*3/?L. The reference range was not used to interpret this result as normal/abnormal . RBC (test code = See_Comment L [Automated 875-8) message] The sy stem which generated this [...] RDW-SD (test code = 43.7 fL 39-49.9 24338-2) RDW-CV (test code = 14.4 % 12-15.5 788-0) PLT (test code = See_Comment [Automated 777-3) message] The sy stem which generated this result transmitted reference range : 166 - 358 10*3/ ?L. The reference r hernandez was not used to interpret this result as normal/abnormal . MPV (test code = 11.5 fL 9.5-12.9 06706-6) NRBC/100 WBC (test See_Comment [Automat ed code = 9005371089) message] The system which generated this result transmitted reference range : 0.0 - 10.0 /100 WBCs. The refer ence range was not u sed to interpret th is result as normal/abnormal . NRBC x10^3 (test code <0.01 See_Comment [Auto mated = 0927125879) message] The s ystem which generated this result transmitted reference range : 10*3/?L. The reference range was not used to interpret this result as normal/abnormal . GRAN MAT (NEUT) % 57.3 % (test code = 770-8) IMM GRAN % (test code 0.30 % = 9888040686) LYMPH % (test code = 31.4 % 736-9) MONO % (test code = 7.2 % 5905-5) EOS % (test code = 3.3 % 713-8) BASO % (test code = 0.5 % 706-2) GRAN MAT x10^3(ANC) 3.53 10*3/uL 1.88-7.09 (test code = 1734120703) IMM GRAN x10^3 (test <0.03 0-0.06 code = 8563615942) LYMPH x10^3 (test code 1.93 10*3/uL 1.32-3.29 = 731-0) MONO x10^3 (test code 0.44 10*3/uL 0.33-0.92 = 742-7) EOS x10^3 (test code = 0.20 10*3/uL 0.03-0.39 711-2) BASO x10^3 (test code 0.03 10*3/uL 0.01-0.07 = 704-7) Lab Interpretation Abnormal (test code = 94819-4) [facility] GLUCOSE (AUTOMATED)2019-11-27 07:09:00 Test Item Value Reference Range Interpretation Comments POCT GLU (test code = 7547794452) 163 mg/dL 70-110 H Lab Interpretation (test code = Abnormal 52022-8) [facility] GLUCOSE (AUTOMATED)2019-11-27 01:10:00 Test Item Value Reference Range Interpretation Comments POCT GLU (test code = 4527553134) 214 mg/dL 70-110 H Lab Interpretation (test code = Abnormal 82758-5) [facility] GLUCOSE (AUTOMATED)2019-11-26 21:32:00 Test Item Value Reference Range Interpretation Comments POCT GLU (test code = 0536095042) 193 mg/dL 70-110 H Lab Interpretation (test code = Abnormal 78463-4) [facility] GLUCOSE (AUTOMATED)2019-11-26 21:23:00 Test Item Value Reference Range Interpretation Comments POCT GLU (test code = 9218456891) 224 mg/dL 70-110 H Lab Interpretation (test code = Abnormal 61799-5) [facility] [id number] 21:14:00 Test Item Value Reference Range Interpretation Comments TROPONIN I (test 0.002 ng/mL See_Comment [Automated code = 0446447072) message] The system which generated this result [...] ? Lab Interpretation Normal (test code = 26801-5) [facility] GLUCOSE (AUTOMATED)2019-11-26 16:50:00 Test Item Value Reference Range Interpretation Comments POCT GLU (test code = 1534873952) 140 mg/dL 70-110 H Lab Interpretation (test code = Abnormal 32720-8) [facility] RockLIPID PANEL (43847)(TOTAL CHOLESTEROL, TRIGLYCERIDES, HDL)2019-11-26 16:08:00 Test Item Value Reference Range Interpretation Comments CHOL (test code = 126 mg/dL 120-200 7339532910) HDL (test code = 26 mg/dL >50 L 2186995878) HDLC RATIO (test code = See_Comment H [Au tomated message] 5288511487) The system [employer] generated this result transmit cipriano reference range : <=4.5. The refe rence range was not u sed to interpret th is result as normal/abnormal . TRIG (test code = 118 mg/dL 30-170 4860322806) LDL CHOL (test code = 76 mg/dL See_Comment [Auto mated message] 20432-9) The system [employer] generated this result transmit cipriano reference range : <=160. The refe rence range was not u sed to interpret th is result as normal/abnormal . VLDL (test code = 24 mg/dL 5-60 7869161741) Lab Interpretation (test Abnormal code = 86116-2) [facility] GLUCOSE (AUTOMATED)2019-11-26 13:00:00 Test Item Value Reference Range Interpretation Comments POCT GLU (test code = 7729092291) 101 mg/dL 70-110 Lab Interpretation (test code = Normal 39474-9) [facility] [id number] 10:41:00 Test Item Value Reference Range Interpretation Comments TROPONIN I (test 0.005 ng/mL See_Comment [Automated code = 4972484509) message] The system which generated this result [...] ? Lab Interpretation Normal (test code = 77993-4) [facility] Rock[facility]-TERMINAL [id number] 10:38:00 Test Item Value Reference Range Interpretation Comments NT-proBNP (test code 136 pg/mL See_Comment H [Autom ated = 2432449672) message] The system which generated this result transmitted reference range : <=125. The reference range was not used to interpret this result as normal/abnormal . OLMAN (test code = OLMAN) Biotin has been reported to cause a negative bias, interpret results relative to patient's use of biotin. Lab Interpretation Abnormal (test code = 88854-1) [facility]2020-03-08 10:35:00 Test Item Value Reference Range Interpretation Comments MAGNESIUM (test code = 5277780988) 1.1 mg/dL 1.7-2.4 L Lab Interpretation (test code = Abnormal 94025-6) [facility] METABOLIC PANEL (NA, K, CL, CO2, GLUCOSE, BUN, CREATININE, CA)2019-11-26 10:30:00 Test Item Value Reference Range Interpretation Comments NA (test code = 141 mmol/L 135-145 4712141808) K (test code = 4.2 mmol/L 3.5-5 2845632632) CL (test code = 104 mmol/L 98-108 5595986493) CO2 TOTAL (test code = 31 mmol/L 23-31 6322110061) AGAP (test code = 2-16 0008904529) BUN (test code = 18 mg/dL 7-23 0785846775) GLUCOSE (test code = 103 mg/dL 70-110 3808730526) CREATININE (test code 0.74 mg/dL 0.5-1.04 = 7627545190) CALCIUM (test code = 9.4 mg/dL 8.6-10.6 0831337025) eGFR Calculation mL/min/1.73m2 (Non-) (test code = 1334887466) eGFR Calculation mL/min/1.73m2 () (test code = 1848869714) OLMAN (test code = OLMAN) Association of [...] or urine or abnormalities in imaging tests). [facility] RockPHOSPHORUS2020-03-08 10:30:00 Test Item Value Reference Range Interpretation Comments PHOSPHORUS (test code = 2988241963) 3.6 mg/dL 2.5-5 Lab Interpretation (test code = Normal 25970-6) [facility] [id number] 06:54:00 Test Item Value Reference Range Interpretation Comments TROPONIN I (test 0.006 ng/mL See_Comment [Automated code = 2958863251) message] The system which generated this result [...] ? Lab Interpretation Normal (test code = 57775-1) [facility]2019-11-26 06:14:00 Test Item Value Reference Range Interpretation Comments POCT GLU (test code = 6200162459) 116 mg/dL 70-110 H Lab Interpretation (test code = Abnormal 75953-8) [facility] RockGLYCOSYLATED HEMOGLOBIN (A1C)2019-11-26 05:58:00 Test Item Value Reference [...] Indicated Lab Interpretation Abnormal (test code = 44904-1) [facility] RockTROP[facility] [id number] 02:54:00 Test Item Value Reference Range Interpretation Comments TROPONIN I (test 0.004 ng/mL See_Comment [Automated code = 2245887129) message] The system which generated this result [...] ? Lab Interpretation Normal (test code = 10889-0) [facility] RockCritical [id number] 01:45:00Dalila Loyd FNP ? ? 11/26/2019 10:35 [...] from another provider in my specialty: no ?[facility] CHE[facility] PULMON[facility] ANGIOGRAM 2019-11-26 01:36:12No evidence of [...] seen with air trapping and/or mild edema. [facility] RockCT HEAD WO [id number] 01:34:31 No acute intracranial abnormality. Preliminary Report [...] this study and agree with the abovereport. [facility] RockD-[id number] 01:13:00 Test Item Value Reference Interpretation Comments Range D-DIMER (test code = See_Comment H [Autom ated 6232325941) message] The system which generated this result [...] diagnosis. Lab Interpretation Abnormal (test code = 11887-1) [facility] RockXR CHEST 1 [id number] 01:08:23No evidence of acute cardiopulmonary disease. 2 VIEWS OF THE CHEST HISTORY: sob COMPARISON: none TECHNIQUE: PA and lateral views of the chest. FINDINGS: Suboptimal inspiratory volumes resulting vascular crowding and exaggerationof mediastinal contour. Otherwise, lungs are clear. There is no focalconsolidation, pleural effusion or pneumothorax. The cardiomediastinal silhouette is within normal limits. ?No acute bonyabnormalities are seen. Degenerative changes at bilateral acromioclavicularjoints. [facility], Radiant Results Inft User - 11/25/2019 7:09 [...] bilateral acromioclavicularjoints.IMPRESSIONNo evidence of acute cardiopulmonary disease. [facility] [id number] 01:05:00 Test Item Value Reference Range Interpretation Comments TROPONIN I (test 0.002 ng/mL See_Comment [Automated code = 9112047776) message] The system which generated this result [...] ? Lab Interpretation Normal (test code = 58166-5) [facility] Rock[facility]MINAL [id number] 01:02:00 Test Item Value Reference Range Interpretation Comments NT-proBNP (test code 163 pg/mL See_Comment H [Autom ated = 6743313368) message] The system which generated this result transmitted reference range : <=125. The reference range was not used to interpret this result as normal/abnormal . OLMAN (test code = OLMAN) Biotin has been reported to cause a negative bias, interpret results relative to patient's use of biotin. Lab Interpretation Abnormal (test code = 41686-7) [facility] RockCOMP. METABOLIC PANEL (00800)2019-11-26 00:53:00 Test Item Value Reference Range Interpretation Comments NA (test code = 142 mmol/L 135-145 9518007089) K (test code = 4.3 mmol/L 3.5-5 9683137762) CL (test code = 104 mmol/L 98-108 9529314270) CO2 TOTAL (test code = 26 mmol/L 23-31 6711319507) AGAP (test code = 2-16 1116085429) BUN (test code = 19 mg/dL 7-23 8491114067) GLUCOSE (test code = 155 mg/dL 70-110 H 5705518763) CREATININE (test code = 0.69 mg/dL 0.5-1.04 0477234729) TOTAL BILI (test code = 0.3 mg/dL 0.1-1.2 1559088063) CALCIUM (test code = 10.0 mg/dL 8.6-10.6 0392729727) T PROTEIN (test code = 7.9 g/dL 6.3-8.2 8221075759) ALBUMIN (test code = 4.6 g/dL 3.5-5 3750159608) ALK PHOS (test code = 90 U/L 34-122 0173917294) ALTv (test code = 21 U/L 5-35 1742-6) AST(SGOT) (test code = 36 U/L 13-40 1200925118) eGFR Calculation mL/min/1.73m2 (Non-) (test code = 7871324630) eGFR Calculation mL/min/1.73m2 () (test code = 5730797979) OLMAN (test code = OLMAN) Association of [...] tests). Lab Interpretation Abnormal (test code = 75793-1) [facility] Rock[facility]PTT2020-03-08 00:42:00 Test Item Value Reference Range Interpretation Comments APTT Patient (test See_Comment [Automat ed code = 3173-2) message] The system which generated this result transmitted reference range : 23 - 38 Seconds . The reference range was not used to interpr et this result as normal/abnormal . OLMAN (test code = OLMAN) The [facility] patient population mean normal value for aPTT is 30 seconds. Lab Interpretation Normal (test code = 61292-3) [facility] RockPROTHROMBIN TIME / [id number] 00:40:00 Test Item Value Reference Range Interpretation [...] tions. Lab Interpretation (test Normal code = 52726-8) [facility] RockPO[facility] GLU[facility] (AUTOMATED)2019-11-26 00:31:00 Test Item Value Reference Range Interpretation Comments POCT GLU (test code = 4413943092) 141 mg/dL 70-110 H Lab Interpretation (test code = Abnormal 38517-6) [facility] RockCBC WITH [id number] 00:30:00 Test Item Value Reference Range Interpretation Comments WBC (test code = See_Comment [Automated 7990-2) message] The sy stem which generated this result transmitted reference range : 4.30 - 11.10 10*3/?L. The reference range was not used to interpret this result as normal/abnormal . RBC (test code = See_Comment [Automated 069-8) message] The sy stem which generated this [...] RDW-SD (test code = 43.8 fL 39-49.9 28267-8) RDW-CV (test code = 14.4 % 12-15.5 788-0) PLT (test code = See_Comment [Automated 777-3) message] The sy stem which generated this result transmitted reference range : 166 - 358 10*3/ ?L. The reference r hernandez was not used to interpret this result as normal/abnormal . MPV (test code = 10.5 fL 9.5-12.9 14376-2) NRBC/100 WBC (test See_Comment [Automat ed code = 8869650118) message] The system which generated this result transmitted reference range : 0.0 - 10.0 /100 WBCs. The refer ence range was not u sed to interpret th is result as normal/abnormal . NRBC x10^3 (test code <0.01 See_Comment [Auto mated = 2146400451) message] The s ystem which generated this result transmitted reference range : 10*3/?L. The reference range was not used to interpret this result as normal/abnormal . GRAN MAT (NEUT) % 57.1 % (test code = 770-8) IMM GRAN % (test code 0.40 % = 1275988744) LYMPH % (test code = 32.2 % 736-9) MONO % (test code = 7.3 % 5905-5) EOS % (test code = 2.7 % 713-8) BASO % (test code = 0.3 % 706-2) GRAN MAT x10^3(ANC) 3.81 10*3/uL 1.88-7.09 (test code = 6094793984) IMM GRAN x10^3 (test 0.03 10*3/uL 0-0.06 code = 3128479779) LYMPH x10^3 (test code 2.15 10*3/uL 1.32-3.29 = 731-0) MONO x10^3 (test code 0.49 10*3/uL 0.33-0.92 = 742-7) EOS x10^3 (test code = 0.18 10*3/uL 0.03-0.39 711-2) BASO x10^3 (test code <0.03 0.01-0.07 = 704-7) Lab Interpretation Abnormal (test code = 67306-3) [facility]-GLUCOSE [id number] 08:19:00 Test Item Value Reference Range Interpretation Comments POC-GLUCOSE METER 194 mg/dL 70-110 H TESTED AT [facility] [address] (BEAKER) (test code = JEANNIE [place] 1538) [address] [id number] 06:24:00 Test Item Value Reference Range Interpretation Comments MAGNESIUM (BEAKER) (test code = 1.7 mg/dL 1.6-2.6 627) BASIC METABOLIC [id number] 06:24:00 Test Item Value Reference Range Interpretation [...] PATIEN TS. CBC W/PLT COUNT & AUTO [id number] 04:51:00 Test Item Value Reference Range Interpretation [...] PERCENT (BEAKER) (test code = 2801) POCT-GLUCOSE [id number] 22:18:00 Test Item Value Reference Range Interpretation Comments POC-GLUCOSE METER 252 mg/dL 70-110 H TESTED AT [facility] [address] [facility] (test code = JEANNIE Jensen [facility] 1538) [address] POCT-GLUCOSE [id number] 17:53:00 Test Item Value Reference Range Interpretation Comments POC-GLUCOSE METER 173 mg/dL 70-110 H TESTED AT [facility] [address] ([facility] (test code = [place] 1538) [address] NEEDLE EMG, 2 [id number] 15:01:00Please do with repetitive stimulationReason for exam:->[facility]osisB[facility] EMG/NCS [address] [place] [address] Name: Nelsy Perez Date of [...] Median.R Wrist 2.7 ms 4.2 ms 14 𖺱V Digit II (index finger)-Wrist 2.7 ms 130 mm 48 m/s Ulnar.R Wrist NR ms NR ms NR 钂V Digit V (little finger)-Wrist 110 mm Radial.R Forearm1.9 ms 2.8 ms 24 𘅏V Anatomical snuff box-Forearm 1.9 ms 100 mm 53 m/s Sural.R Lower leg 3.3 ms 4.2 ms 5 𖡑V Ankle-Lower leg 3.3 ms 140 mm 42 [...] neuromuscular junction disorder. Terence Donovan D.O. POCT-GLUCOSE [id number] 12:29:00 Test Item Value Reference Range Interpretation Comments POC-GLUCOSE METER 233 mg/dL 70-110 H TESTED AT [place] [address] ([employer]) (test code = JEANNIE Jensen [place] 1538) [address] POCT-GLUCOSE [id number] 08:14:00 Test Item Value Reference Range Interpretation Comments POC-GLUCOSE METER 216 mg/dL 70-110 H TESTED AT [place] [address] ([employer]) (test code = JEANNIE Jensen [facility] 1538) [address] TSH/FREE T4 IF [id number] 07:06:00 Test Item Value Reference Range Interpretation Comments THYROID STIMULATING HORMONE 1.20 uIU/mL 0.35-4.94 (BEAKER) (test code = 772) [id number] 06:39:00 Test Item Value Reference Range Interpretation Comments MAGNESIUM (BEAKER) (test code = 1.9 mg/dL 1.6-2.6 627) BASIC METABOLIC [id number] 06:39:00 Test Item Value Reference Range Interpretation [...] PATIEN TS. CBC W/PLT COUNT & AUTO [id number] 05:54:00 Test Item Value Reference Range Interpretation [...] PERCENT (BEAKER) (test code = 2801) POCT-GLUCOSE [id number] 22:09:00 Test Item Value Reference Range Interpretation Comments POC-GLUCOSE METER 292 mg/dL 70-110 H TESTED AT [place] [address] ([facility] (test code = JEANNIE Jensen [facility] 1538) [address] POCT-GLUCOSE [id number] 18:14:00 Test Item Value Reference Range Interpretation Comments POC-GLUCOSE METER 229 mg/dL 70-110 H TESTED AT [place] [address] ([facility] (test code = JEANNIE Jensen [facility] 1538) [address] POCT-GLUCOSE [id number] 12:25:00 Test Item Value Reference Range Interpretation Comments POC-GLUCOSE METER 225 mg/dL 70-110 H TESTED AT [facility] [address] (BEAKER) (test code = JEANNIE Jensen [place] 1538) [address] POCT-GLUCOSE [id number] 09:21:00 Test Item Value Reference Range Interpretation Comments POC-GLUCOSE METER 240 mg/dL 70-110 H TESTED AT [facility] [address] (BEAKER) (test code = JEANNIE Jensen [place] 1538) [address] [id number] 06:17:00 Test Item Value Reference Range Interpretation Comments MAGNESIUM (BEAKER) (test code = 2.0 mg/dL 1.6-2.6 627) BASIC METABOLIC [id number] 06:17:00 Test Item Value Reference Range Interpretation [...] PATIEN TS. CBC W/PLT COUNT & AUTO [id number] 05:33:00 Test Item Value Reference Range Interpretation [...] (test code = 2801) MR, BRAIN, WITHOUT [id number] 05:23:00Reason for exam:->Right third nerve palsy/headacheWhat is [...] MRI of the orbits. Signed: Deborah Lux [facility] Verified Date/Time: 04/12/2019 05:23:37 Elec tronically signed by: DEBORAH LUX MD on 04/12/2019 05:23 AMMR, ORBIT, FACE, NECK, WITHOUT [id number] 05:23:00Reason for exam:->Right third nerve palsy/headacheFINAL REPORT [...] Technique: MRA of the head utilizing 3-D zxev-dp-tsjzzs technique, with 3-D reconstructions. MRA of the neck utilizing 2-D and 3-D tfuw-vq-qhtcaa technique, with 3-D reconstructions. Comparisons: None Findings: [...] MRA head: No evidence for a major [place] proximal branch vessel occlusion or [...] Date/Time: 04/12/2019 05:09:17 MR, MRA, BRAIN, WITHOUT [id number] 05:09:00Reason for exam:->Right third nerve palsy/headacheWhat is the patient's sedation requirement?->No SedationIs the patient claustrophobic?->NoFINAL REPORT Clinical History: Right third nerve palsy/headacheRight third nerve palsy/headache Technique: MRA of the head utilizing 3-D ixxs-vv-hkmzlo technique, with 3-D reconstructions. MRA of the neck utilizing 2-D and 3-D elcy-ch-iqyoeb technique, with 3-D reconstructions. Comparisons: None Findings: [...] MRA head: No evidence for a major [place] proximal branch vessel occlusion or [...] on a nonemergent basis. Signed: Deborah Lux [facility] Verified Date/Time: 04/12/2019 05:09:17 -GLUCOSE [id number] 21:59:00 Test Item Value Reference Range Interpretation Comments POC-GLUCOSE METER 283 mg/dL 70-110 H TESTED AT [place] [address] ([employer]) (test code = JEANNIE Jensen [facility] 1538) [address] POCT-GLUCOSE [id number] 17:44:00 Test Item Value Reference Range Interpretation Comments POC-GLUCOSE METER 178 mg/dL 70-110 H TESTED AT [place] [address] ([employer]) (test code = JEANNIE Jensen [facility] 1538) [address] POCT-GLUCOSE [id number] 17:44:00 Test Item Value Reference Range Interpretation Comments POC-GLUCOSE METER 262 mg/dL 70-110 H TESTED AT [facility] [address] (BEAKER) (test code = JEANNIE Jensen [facility] 1538) [address] POCT-GLUCOSE [id number] 12:43:00 Test Item Value Reference Range Interpretation Comments POC-GLUCOSE METER 194 mg/dL 70-110 H TESTED AT [facility] [address] (BEAKER) (test code = CARLOSMT Camila [facility] 1538) [address] [id number] 08:18:00 Test Item Value Reference Range Interpretation Comments MAGNESIUM (BEAKER) (test code = 1.7 mg/dL 1.6-2.6 627) BASIC METABOLIC [id number] 08:18:00 Test Item Value Reference Range Interpretation [...] NOT APPLICABLE FOR DIALYSIS PATIEN TS. LIPID [id number] 08:18:00 Test Item Value Reference Range Interpretation [...] Borderline 130-159 High 160-189 Very High >=190POCT-GLUCOSE [id number] 07:55:00 Test Item Value Reference Range Interpretation Comments POC-GLUCOSE METER 135 mg/dL 70-110 H TESTED AT [facility] [address] (BEAKER) (test code = [place] 1538) [address] HEMOGLOBIN [id number] 07:04:00 Test Item Value Reference Range Interpretation Comments HEMOGLOBIN A1C (BEAKER) (test code = 10.5 % 4.3-6.1 H 368) CBC W/PLT COUNT & AUTO [id number] 06:51:00 Test Item Value Reference Range Interpretation [...] 0-1 PERCENT (BEAKER) (test code = 2801) [id number] 23:01:00 Test Item Value Reference Range Interpretation Comments MAGNESIUM (BEAKER) (test code = 1.6 mg/dL 1.6-2.6 627) BASIC METABOLIC [id number] 23:01:00 Test Item Value Reference Range Interpretation [...] NOT APPLICABLE FOR DIALYSIS PATIEN TS. PROTHROMBIN [id number] 22:54:00 Test Item Value Reference Range Interpretation [...] mechanical heart valves.CBC W/PLT COUNT & AUTO [id number] 22:46:00 Test Item Value Reference Range Interpretation [...] PERCENT (BEAKER) (test code = 2801) POCT-GLUCOSE [id number] 21:32:00 Test Item Value Reference Range Interpretation Comments POC-GLUCOSE METER 143 mg/dL 70-110 H TESTED AT [facility] [address] (BEAKER) (test code = JEANNIE [place] 1538) [address] RAD, CHEST, 1 VIEW, NON [id number] 19:49:00Reason for exam:->chest painShould this be performed at the bedside?->YesFINAL REPORT AP view of the chest dated 04/10/2019 CLINICAL INFORMATION: chest pain Comment: Heart is normal in size. Pulmonary vasculature is unremarkable. Lungs are clear. No pulmonary infiltrate or pleural effusion is present. Impression: No active cardiopulmonary disease.Signed: Ollie Mccainort Verified Date/Time: 04/10/2019 19:49:30 Reading Location: [facility] I472MRyodqiw Reading Room
[2022-01-19] MEDS ORDERED: ONDANSETRON 4 MG/2 ML VIAL ONE (13:05)
[2022-01-19] MEDS ORDERED: DIAZEPAM 10 MG/2 ML INJ SYRINGE ONE (13:05)
[2022-01-19] MEDS ORDERED: MECLIZINE HCL 12.5 MG TAB ONE (13:05)
[2022-01-19 13:31] LABS: Absolute Lymphocytes (CBC) 2.6 K/uL (0.7-4.9); Hematocrit 38.5 % (36.0-45.0); Lymphocytes % 33.2 % (15.3-44.8); MPV 8.7 fL (7.6-11.3); RBC Red Blood Cell Count 4.47 M/uL (3.86-4.86)
--- NOTE | 2022-01-19 13:31 | RAD REPORT ---
EXAM DESCRIPTION: CT - Head Brain Wo Cont - 01/19/2022 1:14 pm CLINICAL HISTORY: Dizziness COMPARISON: December 24, 2021 TECHNIQUE: Computed axial tomography of the head was obtained. IV contrast was not requested. All CT scans are performed using dose optimization technique as appropriate and may include automated exposure control or mA/KV adjustment according to patient size. FINDINGS: An intracranial bleed is not seen . The ventricles are normal in caliber. No extra-axial fluid collection is noted. Empty sella turcica. Fluid within the sinuses/ mastoids is not seen. IMPRESSION: No acute intracranial abnormality is seen. If patient's symptoms persist MRI of the bra in would be recommended.
[2022-01-19 13:37] LABS: Albumin 3.7 g/dL (3.4-5.0); Bilirubin Direct 0.2 mg/dL (0-0.2); Bilirubin Total 0.3 mg/dL (0.2-1.0); Potassium 4.1 mmol/L (3.5-5.1); Troponin High Sensitivity 4.6 pg/mL (<58.9)
[2022-01-19 13:44] LABS: Protime INR 0.96
--- NOTE | 2022-01-19 14:03 | RAD REPORT ---
EXAM DESCRIPTION: MRI - Brain Wo Cont - 01/19/2022 1:50 pm CLINICAL HISTORY: Dizziness, non-specific COMPARISON: Brain Wo Cont dated 12/24/2021; Head Brain Wo Cont dated 01/19/2022 TECHNIQUE: Sagittal T1-weighted images were obtained along with axial PD, heavily T2-weighted and T2 -FLAIR images. Axial DWI and ADC mapping sequences were also obtained along with coronal heavily T2-w eighted images. FINDINGS: No intracranial hemorrhage, mass or acute infarction. There is no edema or shift of midlin e structures. No extra-axial fluid collections. Tran-matter/white matter junction is preserved. Signa l voids are seen as a normal finding in the major intracranial vessels. Very minimal atrophy is seen with ventricles in proportion. Only trace amounts of chronic ischemic ch hernandez are identifiable in the cerebral white matter. Intracranial findings are not clearly different f rom the short interval December 24 study. Mastoid air cells and paranasal sinuses are clear. IMPRESSION: Negative non-contrast MRI of the Brain for acute finding No significant change dating back to December 24 MRI study.
--- NOTE | 2022-01-19 14:28 | RAD REPORT ---
EXAM DESCRIPTION: RAD - Chest Single View - 01/19/2022 2:09 pm CLINICAL HISTORY: dizziness COMPARISON: Portable 12/24/2021 TECHNIQUE: AP portable chest image was obtained 01/19/2022 2:09 pm . FINDINGS: Lungs are clear. Heart and vasculature are normal. No measurable pleural effusion and no p neumothorax. No acute bony abnormality seen. No acute aortic findings suspected. IMPRESSION: No acute cardiopulmonary process. No significant change from comparison study.
--- NOTE | 2022-01-19 14:56 | EDPHYS ---
Physician Documentation [facility] Name: Nelsy Perez Age: 71 yrs Sex: Female : 1950 Arrival Date: 01/19/2022 Time: 12:17 Bed 4 Private MD: ED Physician Mani Pierson HPI: 01/19 12:53 This 71 yrs old Female presents to ER via Wheelchair with complaints of pm1 Headache, Dizziness. 12:53 The patient complains of pain to the left side of the back of head and right side of pm1 the back of head. The patient describes the headache as aching. Onset: The symptoms/episode began/occurred today. Associated signs and symptoms: Pertinent positives: dizziness, nausea, Pertinent negatives: fever, neck stiffness, paresthesias, vomiting, weakness. Severity of symptoms: in the emergency department the pain is unchanged. Headache History: The patient has had previous headaches and this one is similar to previous episodes. The symptoms are alleviated by remaining still, closing eyes the symptoms are aggravated by changing position and movement. patient with similar presentation of symptoms 1 month ago. Patient was admitted at that time to the hospital here. Patient with negative heart cath since hospitalization. Patient with ultrasound showing right carotid stenosis with outpatient follow up planned. The patient has not recently seen a physician. Historical: - Allergies: 15:28 No Known Allergies; jl7 - PMHx: 12:54 Diabetes - IDDM; Hypercholesterolemia; Hypertension; neuropathy; panic attack; vg1 - PSHx: 12:54 cataract sx both eyes; Ligation of fallopian tube; vg1 - Immunization history:: Client reports receiving the 2nd dose of the Covid vaccine. - Social history:: Smoking status: Patient denies any tobacco usage or history of. ROS: 12:59 Constitutional: Negative for fever, chills, and weight loss, Cardiovascular: Negative pm1 for chest pain, palpitations, and edema, Respiratory: Negative for shortness of breath, cough, wheezing, and pleuritic chest pain. 12:59 Back: Negative for injury and pain, MS/Extremity: Negative for injury and deformity, Skin: Negative for injury, rash, and discoloration. 12:59 Abdomen/GI: Positive for nausea, Negative for abdominal pain, vomiting, diarrhea, constipation. 12:59 Neuro: Positive for dizziness, Negative for altered mental status, headache, numbness, tingling, weakness. 12:59 All other systems are negative. Exam: 12:59 Constitutional: This is a well developed, well nourished patient who is awake, alert, pm1 and in no acute distress. 12:59 Back: No spinal tenderness. No costovertebral tenderness. Full range of motion. Skin: Warm, dry with normal turgor. Normal color with no rashes, no lesions, and no evidence of cellulitis. MS/ Extremity: Pulses equal, no cyanosis. Neurovascular intact. Full, normal range of motion. 12:59 Head/face: Noted is no obvious of injury or deformity except tenderness, that is mild, of the left side of the back of head and right side of the back of head. 12:59 Eyes: Nystagmus: horizontal nystagmus looking right wards bilaterally. 12:59 ENT: Exam is negative for acute changes, Mouth: no acute changes, Lips: normal, moist, Oral mucosa: normal, pink and intact, moist. 12:59 Cardiovascular: Exam negative for acute changes, Rate: normal, Rhythm: regular, Pulses: no pulse deficits are appreciated, Heart sounds: normal, normal S1and S2. 12:59 Respiratory: Exam negative for acute changes, respiratory distress, shortness of breath, Breath sounds: are clear throughout. 12:59 Abdomen/GI: Inspection: abdomen appears normal, Palpation: abdomen is soft and non-tender, in all quadrants. 12:59 Neuro: Exam negative for acute changes, Orientation: is normal, Mentation: is normal, Cranial nerves: CN II- XII are normal as tested, Cerebellar function: no acute changes, Motor: is normal, moves all fours. Vital Signs: 12:53 BP 167 / 79; Pulse 82; Resp 16; Temp 97.8; Pulse Ox 97% on R/A; Weight 110.68 kg; vg1 Height 5 ft. 3 in. (160.02 cm); Pain 6/10; 13:00 BP 152 / 76; Pulse 79; Resp 18; Pulse Ox 100% ; Pain 5/10; jh6 14:13 BP 153 / 97; Pulse 74; Resp 17; Pulse Ox 97% ; jh6 14:46 BP 136 / 57; Pulse 73; Resp 15; Pulse Ox 96% ; jl7 15:00 BP 144 / 56; Pulse 71; Resp 15; Pulse Ox 96% ; jl7 12:53 Body Mass Index 43.22 (110.68 kg, 160.02 cm) vg1 MDM: 12:48 Patient medically screened. pm1 14:53 Data reviewed: vital signs. Data interpreted: Pulse oximetry: on room air is 96 %. pm1 Interpretation: normal. Counseling: I had a detailed discussion with the patient and/or guardian regarding: the historical points, exam findings, and any diagnostic results supporting the discharge/admit diagnosis, lab results, radiology results, the need for outpatient follow up, to return to the emergency department if symptoms worsen or persist or if there are any questions or concerns that arise at home. 01/19 12:53 Order name: Basic Metabolic Panel; Complete Time: 13:46 pm01/19 12:53 Order name: CBC with Diff; Complete Time: 13:54 pm01/19 12:53 Order name: LFT's; Complete Time: 13:46 pm01/19 12:53 Order name: NT PRO-BNP; Complete Time: 13:46 pm01/19 12:53 Order name: PT-INR; Complete Time: 13:46 pm01/19 12:53 Order name: Troponin HS; Complete Time: 13:46 pm01/19 12:53 Order name: XRAY Chest (1 view); Complete Time: 14:32 pm01/19 12:53 Order name: EKG; Complete Time: 12:53 pm01/19 12:53 Order name: Cardiac monitoring; Complete Time: 13:07 pm01/19 12:53 Order name: CT Head Brain wo Cont; Complete Time: 13:46 pm01/19 13:10 Order name: MRI - Brain Wo Cont; Complete Time: 14:14 pm01/19 12:53 Order name: EKG - Nurse/Tech; Complete Time: 13:07 pm01/19 12:53 Order name: IV Saline Lock; Complete Time: 13:07 pm01/19 12:53 Order name: Labs collected and sent; Complete Time: 13:07 pm01/19 12:53 Order name: O2 Per Protocol; Complete Time: 13:08 pm01/19 12:53 Order name: O2 Sat Monitoring; Complete Time: 13:08 pm Administered Medications: 13:11 Drug: Valium (diazepam) 2 mg Route: IVP; Site: right antecubital; 6 15:29 Follow up: Response: No adverse reaction; Marked relief of symptoms jl7 13:11 Drug: Meclizine 25 mg Route: PO; 6 15:29 Follow up: Response: No adverse reaction; Marked relief of symptoms jl7 13:11 Drug: Zofran (Ondansetron) 4 mg Route: IVP; Site: right antecubital; 6 15:30 Follow up: Response: No adverse reaction; Marked relief of symptoms jl7 Disposition: 18:49 Co-signature as Attending Physician, Mani Pierson MD. rn Disposition Summary: 01/19/22 14:55 Discharge Ordered Location: Home pm1 Problem: new pm1 Symptoms: have improved pm1 Condition: Stable pm1 Diagnosis - Benign paroxysmal vertigo pm1 Followup: pm1 - With: Emergency Department - When: As needed - Reason: Worsening of condition Followup: pm1 - With: Private Physician - When: 2 - 3 days - Reason: Recheck today's complaints, Continuance of care, Re-evaluation by your physician Discharge Instructions: - Discharge Summary Sheet pm1 - Benign Positional Vertigo pm1 Forms: - Medication Reconciliation Form pm1 - Thank You Letter pm1 - Antibiotic Education pm1 - Prescription Opioid Use pm1 Prescriptions: - ondansetron 4 mg Oral tablet,disintegrating - place 1 tablet by TRANSLINGUAL route every 8 hours As needed; 12 tablet; pm1 Refills: 0, Product Selection Permitted - Meclizine 25 mg Oral Tablet - take 1 tablet by ORAL route every 8 hours As needed; 30 tablet; Refills: 0, pm1 Product Selection Permitted - Valium 2 mg Oral Tablet - take 1 tablet by ORAL route every 8 hours As needed; 6 tablet; Refills: 0, pm1 Product Selection Permitted Signatures: Dispatcher [employer] Mani Dunham MD MD rn Marinas, Patrick, NITZA DRAWBENCH OPERATOR pm1 Casey Rod RN RN jl7 Alecia Page RN RN vg1 Swapna Thompson RN RN jh6
--- NOTE | 2022-01-19 14:56 | ER ---
Nurse's Notes [facility] Name: Nelsy Perez Age: 71 yrs Sex: Female : 1950 Arrival Date: 01/19/2022 Time: 12:17 Bed 4 Private MD: Diagnosis: Benign paroxysmal vertigo Presentation: 01/19 12:53 Chief complaint: Patient states: sudden on set of dizziness and headache; states nausea vg1 and "feels like the room is spinning", also stated "my vision feels hazzy". Coronavirus screen: Vaccine status: Patient reports receiving the 2nd dose of the covid vaccine. Client denies travel out of the [place] in the last 14 days. Ebola Screen: Patient denies exposure to infectious person. Patient denies travel to an Ebola-affected area in the 21 days before illness onset. Initial Sepsis Screen: Does the patient meet any 2 criteria? No. Patient's initial sepsis screen is negative. Does the patient have a suspected source of infection? No. Patient's initial sepsis screen is negative. Risk Assessment: Do you want to hurt yourself or someone else? Patient reports no desire to harm self or others. Onset of symptoms was January 19, 2022. 12:53 Method Of Arrival: Wheelchair vg1 12:53 Acuity: ARRON 3 vg1 Triage Assessment: 12:54 Headache History: The patient has had previous headaches and this one is different than vg1 previous episodes, and this one is more severe than previous episodes. General: Appears uncomfortable, Behavior is cooperative, anxious. General: Appears Behavior is drowsy. Pain: Complains of pain in head Pain currently is 6 out of 10 on a pain scale. Pain began 1 hour ago. Also complains of nausea. Neuro: Level of Consciousness is awake, alert, obeys commands, Oriented to person, place, time, situation. Historical: - Allergies: 15:28 No Known Allergies; jl7 - PMHx: 12:54 Diabetes - IDDM; Hypercholesterolemia; Hypertension; neuropathy; panic attack; vg1 - PSHx: 12:54 cataract sx both eyes; Ligation of fallopian tube; vg1 - Immunization history:: Client reports receiving the 2nd dose of the Covid vaccine. - Social history:: Smoking status: Patient denies any tobacco usage or history of. Screenin:00 Abuse screen: Denies threats or abuse. Denies injuries from another. jh6 13:00 Nutritional screening: No deficits noted. Tuberculosis screening: No symptoms or risk jh6 factors identified. Fall Risk None identified. Assessment: 13:00 General: Appears in no apparent distress. uncomfortable, Behavior is calm, cooperative. jh6 13:00 Pain: Complains of pain in forehead, right cheondoism and left cheondoism Pain currently is 7 jh6 out of 10 on a pain scale. Quality of pain is described as aching, gnawing. Neuro: Reports dizziness, since this am after lunch. Cardiovascular: No deficits noted. Respiratory: No deficits noted. GI: Reports nausea. 14:12 Reassessment: No changes from previously documented assessment. Patient is alert, jh6 oriented x 3, equal unlabored respirations, skin warm/dry/pink. Patient states symptoms have improved. General: states that headache is better but when she moves her head it makes her dizziness worse. . Pain: Pain currently is 3 out of 10 on a pain scale. 15:15 Reassessment: Patient appears in no apparent distress at this time. Patient and/or jl7 family updated on plan of care and expected duration. Pain level reassessed. Patient is alert, oriented x 3, equal unlabored respirations, skin warm/dry/pink. Patient states feeling better. Patient states symptoms have improved. Vital Signs: 12:53 BP 167 / 79; Pulse 82; Resp 16; Temp 97.8; Pulse Ox 97% on R/A; Weight 110.68 kg; vg1 Height 5 ft. 3 in. (160.02 cm); Pain 6/10; 13:00 BP 152 / 76; Pulse 79; Resp 18; Pulse Ox 100% ; Pain 5/10; jh6 14:13 BP 153 / 97; Pulse 74; Resp 17; Pulse Ox 97% ; jh6 14:46 BP 136 / 57; Pulse 73; Resp 15; Pulse Ox 96% ; jl7 15:00 BP 144 / 56; Pulse 71; Resp 15; Pulse Ox 96% ; jl7 12:53 Body Mass Index 43.22 (110.68 kg, 160.02 cm) vg1 ED Course: 12:17 Patient arrived in ED. mr 12:27 Leonidas Arredondo NP is PHCP. pm1 12:27 Mani Pierson MD is Attending Physician. pm1 12:54 Triage completed. vg1 12:54 Arm band placed on. vg1 12:55 EKG done, by ED staff, reviewed by Leonidas Arredondo CYLINDER PRESS FEEDER. 12:56 Swapna Thompson, RN is Primary Nurse. jh6 13:00 Placed in gown. Bed in low position. Call light in reach. Side rails up X2. Adult w/ jh6 patient. 13:08 Inserted saline lock: 20 gauge in right antecubital area, using aseptic technique. zm Blood collected. 13:[address] jh6 13:16 CT Head Brain wo Cont In Process Unspecified. EDMS 13:16 No provider procedures requiring assistance completed. jh6 13:46 MRI - Brain Wo Cont In Process Unspecified. EDMS 14:11 XRAY Chest (1 view) In Process Unspecified. EDMS 14:12 Patient moved back from radiology. jh6 15:30 IV discontinued, intact, bleeding controlled, No redness/swelling at site. Pressure jl7 dressing applied. Administered Medications: 13:11 Drug: Valium (diazepam) 2 mg Route: IVP; Site: right antecubital; 6 15:29 Follow up: Response: No adverse reaction; Marked relief of symptoms jl7 13:11 Drug: Meclizine 25 mg Route: PO; jh6 15:29 Follow up: Response: No adverse reaction; Marked relief of symptoms jl7 13:11 Drug: Zofran (Ondansetron) 4 mg Route: IVP; Site: right antecubital; jh6 15:30 Follow up: Response: No adverse reaction; Marked relief of symptoms jl7 Outcome: 14:55 Discharge ordered by . pm1 15:30 Discharged to home via wheelchair, with family. jl7 15:30 Condition: stable 15:30 Discharge instructions given to patient, family, Instructed on discharge instructions, follow up and referral plans. medication usage, Demonstrated understanding of instructions, follow-up care, medications, Prescriptions given X 3. 15:30 Patient left the ED. jl7 Signatures: Dispatcher [employer] [facility] Angie Rodriguez Betzaida, RN Leonidas Suazo, NITZA CYLINDER PRESS FEEDER pm1 Casey Rod RN RN jl7 Alecia Page RN RN 1 Swapna Thompson, RN RN 6 Solange Ramos Corrections: (The following items were deleted from the chart) 12:55 EKG done, ss ss 13:15 13:13 BP 152 / 76; Pulse 79bpm; Resp 18bpm; Pulse Ox 100%; Pain 5/10; jh6 jh6
[2022-01-19 16:15] VITALS: TEMP 97.8
[2022-01-19 16:19] VITALS: O2SAT 96
[2022-01-19 16:20] VITALS: BP 144/56
--- NOTE | 2022-01-20 10:52 | EKG ---
Test Date: 2022-01-19 Test Time: 12:49:42 [employer]: UNRULY MEASUREMENT RESULTS: Intervals: Rate: 79 IL: 184 QRSD: 74 QT: 378 QTc: 433 [place]: P: 49 IL: 184 QRS: 17 T: 72 INTERPRETIVE STATEMENTS: Normal sinus rhythm Normal ECG Compared to ECG 12/24/2021 18:14:15 No significant changes Electronically Signed On 01-20-22 10:50:23 CDT by Trevin Patel
== END 2022-01-19 15:30 | disposition home or self-care (01) ==
LOC: ER 12:15
DX: H81.10 Benign paroxysmal vertigo, unspecified ear (principal); R51.9 Headache, unspecified; E11.9 Type 2 diabetes mellitus without complications; I10 Essential (primary) hypertension; E78.00 Pure hypercholesterolemia, unspecified
CPT/HCPCS: 93005; 85025; 80048; 36415; 85610; 80076; 84484; 83880; 70450; 71045; 70551; J8597; J3360; J2405; 96374; 96375; 99284

== ENCOUNTER 2023-01-29 11:09 | Emergency (ER) | payer OTHER ==
--- OUTSIDE RECORDS SUMMARY | 2023-01-29 11:18 | XMS REPORT | Continuity of Care Document ---
:1950 Author Organization [facility] t Address [address] [place] [address] Care Team Providers Name Role Phone YADIRA DOAN Primary Care Physician Unavailable BERT CHESTER Attending Clinician Unavailable FREDY LORA Attending Clinician Unavailable BOB RAY Attending Clinician Unavailable MD ARELY Attending Clinician Unavailable GABI AVALOS Attending Clinician Unavailable LAB90 Attending Clinician Unavailable ZAIRE GARCÍA Attending Clinician Unavailable RONAK KEYES Attending Clinician Unavailable DARRON ART Attending Clinician Unavailable CHAGO EAGLE Attending Clinician Unavailable LAB47 Attending Clinician Unavailable Fredy Lroa DO Attending Clinician Bob Ray DO Attending Clinician Juan Jiménez MD Attending Clinician [phone] JUAN JIMÉNEZ Attending Clinician Unavailable Angie Foy RN Attending Clinician Ronak Keyes MD Somogyi Attending Clinician [phone] JIMBO EUBANKS Attending Clinician Unavailable Jimbo Eubanks MD Attending Clinician TESTING, PL COVID Attending Clinician Unavailable Raj Kurtz DO Attending Clinician RAJ KURTZ Attending Clinician Unavailable Doctor Unassigned, [place] Attending Clinician Unavailable Rex CARMONA, Sia Attending Clinician ALEXIA MORGAN Attending Clinician Unavailable Dalila Erazo Attending Clinician Cathy JACOBSEN, lAexia Attending Clinician TANO SHERIDAN Attending Clinician Unavailable JUAN JIMÉNEZ Admitting Clinician Unavailable ALEXIA MORGAN Admitting Clinician Unavailable Alexia Morgan MD Admitting Clinician TANO SHERIDAN Admitting Clinician Unavailable Payers Payer Name Policy Type Policy Number Effective Date Expiration Date S liliana RAMOS [facility] 7 [id number] 2022 00:00:00 [facility] [id number] 2021 00:00:00 Problems Condition Condition Condition Status Onset Resolution Last Treating Co mments Source Name Details Category Date Date Treatment Clinician Date Hyperlipid Hyperlipid Disease Active Mariela gilbert emia emia 2-27 Seybold 00:00: - 00 Externa l Gastroesop Gastroesop Disease Active 2021-09 Mariela gilbert hageal hageal 2-29 Seybold reflux reflux 00:00: - disease disease 00 Externa without without l esophagiti esophagiti s s Other Other Disease Active 2021-09 Mary fatigue fatigue 2- Seybold 00:00: - 00 Externa l Iron Iron Disease Active 2021-09 Mary deficiency deficiency 2- Se ybold anemia anemia 00:00: - secondary secondary 00 Exte rna to to l inadequate inadequate dietary dietary iron iron intake intake Rectal Rectal Disease Active 2021-09 Mary bleeding bleeding 2- Seybol d 00:00: - 00 Externa l Other Other Disease Active 2021-09 Mary hemorrhoid hemorrhoid 2-01 Se ybold s s 00:00: - 00 Externa l 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 0-24 Se ybold y y 00:00: - associated associated 00 Ex terna with type with 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 9 Se ybold to to 00:00: - conditions conditions 00 Ex terna classified classified l elsewhere elsewhere Gout Gout Disease Active Mary 9-19 Seybold 00:00: - 00 Externa l Acute Acute Disease Active Mary non-recurr non-recurr 14 Se ybold ent ent 00:00: - frontal frontal 00 Externa sinusitis sinusitis l Seasonal Seasonal Disease Active Kelse y allergic allergic 714 Seybol d rhinitis rhinitis 00:00: - due to due to 00 Externa pollen pollen l Stenosis Stenosis Disease [facility] carotid carotid 00:00: Medical artery artery 00 Center Type 2 Type [address] [facility] diabetes diabetes nce 5-09 [facility] mellitus mellitus 00:00: Medica l with with 00 Center administrative director administrative director y y disorder, disorder, with with long-term long-term current current use of use of insulin insulin Mixed Mixed Disease Active [facility] hyperlipid hyperlipid 5-09 Sl[facility] kes emia emia 00:00: Medical 00 Center Primary Primary Disease Active [facility] hypertensi hypertensi 5- [place] kes on on 00:00: Medical 00 Center Poorly Poorly Disease Active Mary controlled controlled 4-25 Se ybold type 2 type 2 00:00: - diabetes diabetes 00 Safety Advisor a mellitus mellitus l with with neuropathy neuropathy Mixed Mixed Disease Active Mary hyperlipid hyperlipid 4-25 Se ybold emia emia 00:00: - 00 Externa l Carotid Carotid Disease Active Mary artery artery 4-22 Seybold disease disease 00:00: - 00 Externa l 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 9-29 Seybol d mellitus mellitus 00:00: - with with 00 Externa peripheral peripheral l vascular vascular disease disease Body mass Body mass Disease Active Ismael sey index index 9-29 Seybold 40.0-44.9, 40.0-44.9, 00:00: - adult adult 00 Externa l Current Current Disease Active Mary use of use of 9-29 Seybold insulin insulin 00:00: - 00 Externa l Essential Essential Disease Active Ismael sey hypertensi hypertensi 8-10 Se ybold on on 00:00: - 00 Externa l Glaucoma Glaucoma Disease Active Kelse y of both of both 8-10 Seybold eyes eyes 00:00: 00 PVD PVD Disease Active Mary (periphera (periphera 8-10 Se ybold l vascular l vascular 00:00: - disease) disease) 00 Safety Advisor a l Controlled Controlled Disease Active K elseroselyn type 2 type 2 8-10 Seybold diabetes diabetes 00:00: - with with 00 Externa neuropathy neuropathy l Hyperlipid Hyperlipid Disease Active K ofelia emia emia 8-10 Seybold 00:00: 00 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 8-10 Se ybold glaucoma glaucoma 00:00: - of both of both 00 Externa eyes, eyes, l indetermin indetermin ate stage ate stage Acute on Acute on Disease Active Unive rs chronic chronic 3-09 ity of [place] congest[place] congestive 00 Me dical heart heart Branch failure failure Morbid Morbid Disease Active [facility] obesity obesity 3-09 ity of 00:00: [place] 00 Medical Branch Essential Essential Disease Active Uni vers hypertensi hypertensi 3-08 it y of on on 00:00: 00 Medical Branch History of History of [...] Dyslipidem Disease Active U nivers ia ia 3-08 ity of 00:00: [place] 00 Medical Branch Carotid Carotid Disease Active [facility] St artery artery 7-22 [facility] stenosis [facility] [address] Chest pain Chest pain Disease Active 2005-09 Overview : Univers 1-24 ICD10 ity of 00:00: Diagnosis [place] [id number] 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 Allergies, Adverse Reactions, Alerts Allergy Allergy Status Severity Reaction(s) Onset Inactive Treating Comm ents Source Name Type Date Date Clinician NO KNOWN Drug Active Univers ALLERGIE Class ity of [facility] NO KNOWN Allergy Active [facility] [place] Family History Family Member Diagnosis Comments Start Date Stop Date Source Natural brother Hyperlipidemia [facility] Natural father Hyperlipidemia [facility] Natural mother Hyperlipidemia [facility] Natural sister Cancer [facility] Social History Social Habit Start Date Stop Date Quantity Comments Source History of Current smoker [facility] tobacco use Medical Cent[facility] r Exposure to Not sure Mary maldonado SARS-CoV-2 (event) Alcohol intake 2022-01-27 2022-01-27 [facility]00:00 alcohol (finding) [facility] Tobacco use and 2022-01-26 2022-01-26 Smokeless tobacco [facility] exposure 00:00:00 00:00:00 non-user [facility] Alcohol Comment 2022-01-26 2022-01-26 [address] Sulma kes 00:00:00 00:00:00 [facility] Sex Ass[birth year] At [birth year] [facility] [address] Sulma kes 00:00:00 00:00:00 [facility] Smoking Status Start Date Stop Date Source Ex-smoker 2022-01-26 00:00:00 2022-01-26 00:00:00 [facility] Never smoked tobacco Mary story - External Medications Ordered Filled Start Stop Current Ordering Indication Dosage Frequency Signature Comments Components Source Medication Medication Date Date Medication? Clinician (SIG) Name Name Benzonatate Yes [id number] 100mg [id number] Take 1 Mary 100 MG oral 3-23 [id number] capsule Seybold Capsule 00:00: 3D (100 mg - 00 total) by Externa mouth 3 l times daily as needed for cough PAXLOVID 2022-0 2023- Yes [id number] Take two Mary STANDARD 3-23 03-29 150 mg Seybold (30) 00:00: 04:59 nirmatrelv - (300/100) 00 :00 ir (pink) Exter na Therapy tablets l Pack with one 100 mg ritonavir (white) tablet by mouth two times daily for 5 days Loratadine 2022-0 Yes 1{tbl} Take 1 Ismael sey (CLARITIN) 3-06 tablet by Seyb old 10 MG oral 11:26: mouth - tablet 27 Externa l Loratadine 2022-0 Yes 1{tbl} Take 1 Ismael sey (CLARITIN) 3-06 tablet by Seyb old 10 MG oral 11:26: mouth - tablet 27 Externa l Aspirin 81 2022-0 Yes 81mg Take 81 mg K elsey MG oral 3-06 by mouth Seybold Tablet 11:24: daily On - Delayed 58 hold Externa Response l Ascorbic 2022-0 Yes 1000mg Take 1,000 K elsey Acid 3-06 mg by Seybold (Vitamin C) 11:24: mouth - 1000 MG 58 daily Externa oral Tablet l Famotidine 2022-0 Yes 20mg Q.5D Take 20 mg K elsey (PEPCID) 20 3-06 by mouth 2 Se ybold MG oral 11:24: times - tablet 58 daily as Externa needed for l heartburn Aspirin 81 2022-0 Yes 81mg Take 81 mg K elsey MG oral 3-06 by mouth Seybold Tablet 11:24: daily On - Delayed 58 hold Externa Response l Ascorbic 2022-0 Yes 1000mg Take 1,000 K elsey Acid 3-06 mg by Seybold (Vitamin C) 11:24: mouth - 1000 MG 58 daily Externa oral Tablet l Famotidine 2022-0 Yes 20mg Q.5D Take 20 mg K elsey (PEPCID) 20 3-06 by mouth 2 Se ybold MG oral 11:24: times - tablet 58 daily as Externa needed for l heartburn Azelastine 2022-0 Yes [id number] 1{spray Use 1 Mary HCl 0.1 % 3-06 } spray in Seybol d nasal 00:00: each - Solution 00 nostril 2 Safety Advisor a times l daily Azelastine 0 2022- No [id number] 1{spray Use 1 Mary HCl 0.1 % 11-23 } spray in Seybo ld nasal 00:00: 00:00 each - Solution 00 :00 nostril 2 Safety Advisor a times l daily Famotidine 0 Yes 20mg Q.5D Take 20 mg K elsey (PEPCID) 20 2-27 by mouth 2 Se ybold MG oral 09:09: times - tablet 33 daily as Externa needed for l heartburn Loratadine Yes 1{tbl} Take 1 Ismael sey (CLARITIN) 2-27 tablet by Seyb old 10 MG oral 09:08: mouth - tablet 27 Externa l Aspirin 81 0 Yes 81mg Take 81 mg K elsey MG oral 2-27 by mouth Seybold Tablet 09:08: daily On - Delayed 27 hold Externa Response l Ascorbic 0 Yes 1000mg Take 1,000 K elsey Acid 2-27 mg by Seybold (Vitamin C) 09:08: mouth - 1000 MG 27 daily Externa oral Tablet l Blood 0 Yes [id number] 1{each} 1 each by Mary Glucose 2-27 does not Seybold Monitoring 00:00: apply - Suppl 00 route 3 Externa (OneTouch times l Verio IQ daily System) w/Device does not apply Kit Atorvastati Yes [id number] 40mg Take 1 Mary n Calcium 2-27 tablet (40 Seyb old 40 MG oral 00:00: mg total) - Tablet 00 by mouth Externa daily l Glucose 0 Yes [id number] Use as Chandni ey Blood 2-27 directed Seybold (OneTouch 00:00: three - Verio) in 00 times Externa vitro Strip daily l Insulin Pen 0 Yes [id number] Takes K elsey Needle 31G 2-27 insulin Seybol d X 5 MM does 00:00: once daily - not apply 00 Externa Misc l OneTouch 0 Yes [id number] 1{each} 1 each by Mary Delica 2-27 does not Seybold Lancets 33G 00:00: apply - does not 00 route 3 Externa apply Misc times l daily Insulin 2023-0 Yes [id number] 40 units Ke lsey Degludec-Li 2-27 SQ daily Seyb old raglutide 00:00: in AM - (Xultophy) 00 Externa 100-3.6 l UNIT-MG/ML subcutaneou s Solution Pen-injecto r Blood Yes [id number] 1{each} 1 each by Mary Glucose 2-27 does not Seybold Monitoring 00:00: apply - Suppl 00 route 3 Externa (OneTouch times l Verio IQ daily System) w/Device does not apply Kit Atorvastati Yes [id number] 40mg Take 1 Mary n Calcium 2-27 tablet (40 Seyb old 40 MG oral 00:00: mg total) - Tablet 00 by mouth Externa daily l Glucose Yes [id number] Use as Chandni ey Blood 2-27 directed Seybold (OneTouch 00:00: three - Verio) in 00 times Externa vitro Strip daily l Insulin Pen Yes [id number] Takes K elsey Needle 31G 2-27 insulin Seybol d X 5 MM does 00:00: once daily - not apply 00 Externa Misc l OneTouch 0 Yes [id number] 1{each} 1 each by Mary Delica 2-27 does not Seybold Lancets 33G 00:00: apply - does not 00 route 3 Externa apply Misc times l daily Insulin Yes [id number] 40 units Ke lsey Degludec-Li 2-27 SQ daily Seyb old raglutide 00:00: in AM - (Xultophy) 00 Externa 100-3.6 l UNIT-MG/ML subcutaneou s Solution Pen-injecto r Blood Yes [id number] 1{each} 1 each by Mary Glucose 2-27 does not Seybold Monitoring 00:00: apply - Suppl 00 route 3 Externa (OneTouch times l Verio IQ daily System) w/Device does not apply Kit Atorvastati 0 Yes [id number] 40mg Take 1 Mary n Calcium 2-27 tablet (40 Seyb old 40 MG oral 00:00: mg total) - Tablet 00 by mouth Externa daily l Glucose Yes [id number] Use as Chandni ey Blood 2-27 directed Seybold (OneTouch 00:00: three - Verio) in 00 times Externa vitro Strip daily l Insulin Pen Yes [id number] Takes K elsey Needle 31G 2-27 insulin Seybol d X 5 MM does 00:00: once daily - not apply 00 Externa Misc l OneTouch Yes [id number] 1{each} 1 each by Mary Paredes 2 does not Seybold Lancets 33G 00:00: apply - does not 00 route 3 Externa apply Misc times l daily ReliOn Pen Yes USE 1 PEN Ke lsey [place] 31G 2-27 NEEDLE Seybol d X 6 MM does 00:00: ONCE DAILY - not apply 00 Externa Misc l Insulin 2022- No [id number] 40 units K elsey Degludec-Li 11-16 03-23 SQ daily Sey bold raglutide 00:00: 00:00 in AM - (Xultophy) 00 :00 Externa 100-3.6 l UNIT-MG/ML subcutaneou s Solution Pen-injecto r FLUTICASONE 2021-09 Yes [id number] 50ug Use 1 K elsey PROPIONATE, 2-30 spray (50 Sey bold NASAL, 50 00:00: mcg total) - MCG/ACT 00 in each Externa nasal nostril l Suspension daily FLUTICASONE 2021-09 Yes [id number] 50ug Use 1 K elsey PROPIONATE, 2-30 spray (50 Sey bold NASAL, 50 00:00: mcg total) - MCG/ACT 00 in each Externa nasal nostril l Suspension daily FLUTICASONE 2021-09 Yes [id number] 50ug Use 1 K elsey PROPIONATE, 2-30 spray (50 Sey bold NASAL, 50 00:00: mcg total) - MCG/ACT 00 in each Externa nasal nostril l Suspension daily Famotidine 2021-09 Yes 20mg Q.5D Take 20 mg K elsey (PEPCID) 20 2-29 by mouth 2 Se ybold MG oral 09:42: times - tablet 01 daily as Externa needed for l heartburn Loratadine 2021-09 Yes 1{tbl} Take 1 Ismael sey (CLARITIN) 2-29 tablet by Seyb old 10 MG oral 09:20: mouth - tablet 35 Externa l Aspirin 81 2021-09 Yes 81mg Take 81 mg K elsey MG oral 2-29 by mouth Seybold Tablet 09:20: daily On - Delayed 35 hold Externa Response l Ascorbic 2021-09 Yes 1000mg Take 1,000 K elsey Acid 2-29 mg by Seybold (Vitamin C) 09:20: mouth - 1000 MG 35 daily Externa oral Tablet l Loratadine 2021-09 Yes 1{tbl} Take 1 Ismael sey (CLARITIN) 2-14 tablet by Seyb old 10 MG oral 14:45: mouth - tablet 23 Externa l Aspirin 81 2021-09 Yes 81mg Take 81 mg K elsey MG oral 2-14 by mouth Seybold Tablet 14:45: daily On - Delayed 23 hold Externa Response l Ascorbic 2021-09 Yes 1000mg Take 1,000 K elsey Acid 2-14 mg by Seybold (Vitamin C) 14:45: mouth - 1000 MG 23 daily Externa oral Tablet l Amoxicillin 2021-09 Yes [id number] 1{tbl} Take 1 Mary -Pot 2-14 tablet by Seybold Clavulanate 00:00: mouth 2 - 875-125 MG 00 times Externa oral Tablet daily l Ciprofloxac 2021-09 Yes [id number] 3[drp] Place 3 Mary in-Dexameth 2-14 drops into Se ybold asone 00:00: the left - 0.3-0.1 % 00 ear 2 Externa otic times l Suspension daily Ciprofloxac 2021-09 Yes [id number] 3[drp] Place 3 Mary in-Dexameth 2-14 drops into Se ybold asone 00:00: the left - 0.3-0.1 % 00 ear 2 Externa otic times l Suspension daily Ciprofloxac 2021-09- No [id number] 3[drp] Place 3 Mary in-Dexameth 2-14 02-27 drops into S eybold asone 00:00: 00:00 the left - 0.3-0.1 % 00 :00 ear 2 Externa otic times l Suspension daily Amoxicillin 2021-09- No [id number] 1{tbl} Take 1 Mary -Pot 2-14 12-29 tablet by Seybold Clavulanate 00:00: 00:00 mouth 2 - 875-125 MG 00 :00 times Externa oral Tablet daily l Pantoprazol 2021-09 Yes [id number] TAKE 1 Mary gaines Sodium 40 2-09 TABLET BY Sey bold MG oral 00:00: MOUTH - Tablet 00 EVERY DAY Externa Delayed l Response Pantoprazol 2021-09- No [id number] TAKE 1 Mary e Sodium 40 2-09 12-29 TABLET BY Se ybold MG oral 00:00: 00:00 MOUTH - Tablet 00 :00 EVERY DAY Externa Delayed l Response Na 2021-09 Yes [id number] USE Mary Sulfate-K 2-08 DIRECTED Seybol d Sulfate-Mg 00:00: - Sulf 00 Externa (SUPREP l BOWEL PREP KIT) 17.5-3.13-1 .6 GM/177ML oral Solution Na 2021-09 Yes [id number] USE Mary Sulfate-K 2-08 DIRECTED Seybol d Sulfate-Mg 00:00: - Sulf 00 Externa (SUPREP l BOWEL PREP KIT) 17.5-3.13-1 .6 GM/177ML oral Solution Na 2021-09 Yes [id number] USE Mary Sulfate-K 2-08 DIRECTED Seybol d Sulfate-Mg 00:00: - Sulf 00 Externa (SUPREP l BOWEL PREP KIT) 17.5-3.13-1 .6 GM/177ML oral Solution Na 2021-09 Yes [id number] USE Mary Sulfate-K 2-08 DIRECTED Seybol d Sulfate-Mg 00:00: - Sulf 00 Externa (SUPREP l BOWEL PREP KIT) 17.5-3.13-1 .6 GM/177ML oral Solution Na 2021-09 Yes [id number] USE Mary Sulfate-K 2-08 DIRECTED Seybol d Sulfate-Mg 00:00: - Sulf 00 Externa (SUPREP l BOWEL PREP KIT) 17.5-3.13-1 .6 GM/177ML oral Solution Ascorbic 2021-09 Yes 1000mg Take 1,000 K elsey Acid 2-07 mg by Seybold (Vitamin C) 08:32: mouth - 1000 MG 11 daily Externa oral Tablet l Loratadine 2021-09 Yes 1{tbl} Take 1 Ismael sey (CLARITIN) 2-07 tablet by Seyb old 10 MG oral 08:31: mouth - tablet 36 Externa l Aspirin 81 2021-09 Yes 81mg Take 81 mg K elsey MG oral 2-07 by mouth Seybold Tablet 08:31: daily On - Delayed 36 hold Externa Response l Sod 2021-09 Yes [id number] Instructio Ismael sey Picosulfate 2-07 n given to Se ybjez [facility] Ox-Cit 00:00: patient in - [facility] 00 clinic. Externa (Clenpiq) Use as l 10-3.5-12 directed MG-GM by -GM/160ML provider oral during Solution office visit. Multiple 2021-09 Yes [id number] 1{each} Take 1 Mary Vitamins-Ir 2-02 each by Seybo ld on 00:00: mouth - (Multivitam 00 daily Externa in Plus l Iron Adult) oral Tablet Cholecalcif 2021-09 Yes [id number] 1{tbl} Take 1 Mary carlos 2-02 tablet by Seybold (Vitamin 00:00: mouth - D3) 20 MCG 00 daily Externa (800 UNIT) l oral Tablet Multiple 2021-09 Yes [id number] 1{each} Take 1 Mary Vitamins-Ir 2-02 each by Seybo vee on 00:00: mouth - (Multivitam 00 daily Externa in Plus l Iron Adult) oral Tablet Cholecalcif 2021-09 Yes [id number] 1{tbl} Take 1 Mary carlos 2-02 tablet by Seybold (Vitamin 00:00: mouth - D3) 20 MCG 00 daily Externa (800 UNIT) l oral Tablet Multiple 2021-09 Yes [id number] 1{each} Take 1 Mary Vitamins-Ir 2-02 each by Seybo ld on 00:00: mouth - (Multivitam 00 daily Externa in Plus l Iron Adult) oral Tablet Cholecalcif 2021-09 Yes [id number] 1{tbl} Take 1 Mary carlos 2-02 tablet by Seybold (Vitamin 00:00: mouth - D3) 20 MCG 00 daily Externa (800 UNIT) l oral Tablet Multiple 2021-09 Yes [id number] 1{each} Take 1 Mary Vitamins-Ir 2-02 each by Seybo ld on 00:00: mouth - (Multivitam 00 daily Externa in Plus l Iron Adult) oral Tablet Cholecalcif 2021-09 Yes [id number] 1{tbl} Take 1 Mary carlos 2-02 tablet by Seybold (Vitamin 00:00: mouth - D3) 20 MCG 00 daily Externa (800 UNIT) l oral Tablet Multiple 2021-09 Yes [id number] 1{each} Take 1 Mary Vitamins-Ir 2-02 each by Appbistroybo ld on 00:00: mouth - (Multivitam 00 daily Externa in Plus l Iron Adult) oral Tablet Cholecalcif 2021-09 Yes [id number] 1{tbl} Take 1 Mary carlos 2-02 tablet by Seybold (Vitamin 00:00: mouth - D3) 20 MCG 00 daily Externa (800 UNIT) l oral Tablet Multiple 2021-09 Yes [id number] 1{each} Take 1 Mary Vitamins-Ir 2-02 each by Appbistroybo ld on 00:00: mouth - (Multivitam 00 daily Externa in Plus l Iron Adult) oral Tablet Cholecalcif 2021-09 Yes [id number] 1{tbl} Take 1 Mary carlos 2-02 tablet by Seybold (Vitamin 00:00: mouth - D3) 20 MCG 00 daily Externa (800 UNIT) l oral Tablet Aspirin 81 2021-09 Yes 81mg Take 81 mg K elsey MG oral 2-01 by mouth Seybold Tablet 13:08: daily - Delayed 13 Externa Response l Aspirin 325 2021-09- No 325mg Take 325 Mary MG oral 2-01 12-01 mg by Seybold Tablet 13:08: 00:00 mouth - Delayed 03 :00 daily Externa Response l Loratadine 2021-09 Yes 1{tbl} Take 1 Ismael sey (CLARITIN) 2-01 tablet by Seyb old 10 MG oral 12:54: mouth - tablet 18 Externa l Continuous 2021-09 Yes Use as Kelse y Blood Gluc 2-01 directed Seybo ld Brazer Electronic 00:00: for - (FreeStyle 00 continuous Ext ceci Amaya 14 glucose l Day [place]) monitoring does not . Use apply device to Device monitor blood sugars minimal of 4 times per day and PRN Continuous 2022-1 Yes Use as Kelse y Blood Gluc 2-01 directed Seybo ld Sensor 00:00: for - (FreeStyle 00 continuous Ext ceci Amaya 14 glucose l Day Sensor) monitoring does not with Amaya apply Misc sytem Ostomy 2021-09 Yes Use as Mary Supplies 2-01 directed Seybold (Skin Tac 00:00: for - Adhesive 00 continuous Exter na Barrier glucose l Wipe) does monitoring not apply with Amaya Misc system Continuous 2021-09 Yes Use as Kelse y Blood Gluc 2-01 directed Seybo ld [place] Electronic 00:00: for - (FreeStyle 00 continuous Ext ceci Amaya 14 glucose l Day [place]) monitoring does not . Use apply device to Device monitor blood sugars minimal of 4 times per day and PRN Continuous 2021-09 Yes Use as Kelse y Blood Gluc 2-01 directed Seybo ld Sensor 00:00: for - (FreeStyle 00 continuous Ext ceci Amaya 14 glucose l Day Sensor) monitoring does not with Amaya apply Misc sytem Ostomy 2021-09 Yes Use as Mary Supplies 2-01 directed Seybold (Skin Tac 00:00: for - Adhesive 00 continuous Exter na Barrier glucose l Wipe) does monitoring not apply with Amaya Misc system Continuous 2021-09 Yes Use as Kelse y Blood Gluc 2-01 directed Seybo ld [place]razer Electronic 00:00: for - (FreeStyle 00 continuous Ext ceci Amaya 14 glucose l Day [place]) monitoring does not . Use apply device to Device monitor blood sugars minimal of 4 times per day and PRN Continuous 2021-09 Yes Use as Kelse y Blood Gluc 2-01 directed Seybo ld Sensor 00:00: for - (FreeStyle 00 continuous Ext ceci Amaya 14 glucose l Day Sensor) monitoring does not with Amaya apply Misc sytem Ostomy 2021-09 Yes Use as Mary Supplies 2-01 directed Seybold (Skin Tac 00:00: for - Adhesive 00 continuous Exter na Barrier glucose l Wipe) does monitoring not apply with Amaya Misc system Ostomy 2021-09 Yes Use as Mary Supplies 2-01 directed Seybold (Skin Tac 00:00: for - Adhesive 00 continuous Exter na Barrier glucose l Wipe) does monitoring not apply with Amaya Misc system Ostomy 2021-09 Yes Use as Mary Supplies 2-01 directed Seybold (Skin Tac 00:00: for - Adhesive 00 continuous Exter na Barrier glucose l Wipe) does monitoring not apply with Amaya Misc system Ostomy 2021-09 Yes Use as Mary Supplies 2- directed Seybold (Skin Tac 00:00: for - Adhesive 00 continuous Exter na Barrier glucose l Wipe) does monitoring not apply with Amaya Misc system Continuous 2021-09- No Use as Chandni ey Blood Gluc 10-21 directed Seyb old Brazer Electronic 00:00: 00:00 for - (FreeStyle 00 :00 continuous Ext ceci Amaya 14 glucose l Day [place]) monitoring does not . Use apply device to Device monitor blood sugars minimal of 4 times per day and PRN Continuous 2021-09- No Use as Chandni ey Blood Gluc 10-21 directed Seyb old Sensor 00:00: 00:00 for - (FreeStyle 00 :00 continuous Ext ceci Amaya 14 glucose l Day Sensor) monitoring does not with Amaya apply Misc sytem Metoprolol 2021-09 Yes [id number] TAKE 1 K elsey Succinate 1-17 TABLET BY Seybo ld 100 MG oral 00:00: MOUTH - TABLET SR 00 EVERY DAY Exter na 24 HR l Metoprolol 2021-09 Yes [id number] TAKE 1 K elsey Succinate 1-17 TABLET BY Seybo ld 100 MG oral 00:00: MOUTH - TABLET SR 00 EVERY DAY Exter na 24 HR l Metoprolol 2021-09 Yes [id number] TAKE 1 K elsey Succinate 1-17 TABLET BY Seybo ld 100 MG oral 00:00: MOUTH - TABLET SR 00 EVERY DAY Exter na 24 HR l Metoprolol 2021-09 Yes [id number] TAKE 1 K elsey Succinate 1-17 TABLET BY Seybo ld 100 MG oral 00:00: MOUTH - TABLET SR 00 EVERY DAY Exter na 24 HR l Metoprolol 2021-09 Yes [id number] TAKE 1 K elsey Succinate 1-17 TABLET BY Seybo ld 100 MG oral 00:00: MOUTH - TABLET SR 00 EVERY DAY Exter na 24 HR l Metoprolol 2021-09 Yes [id number] TAKE 1 K elsey Succinate 1-17 TABLET BY Seybo ld 100 MG oral 00:00: MOUTH - TABLET SR 00 EVERY DAY Exter na 24 HR l Metoprolol 2021-09 Yes [id number] TAKE 1 K elsey Succinate 1-17 TABLET BY Seybo ld 100 MG oral 00:00: MOUTH - TABLET SR 00 EVERY DAY Exter na 24 HR l Trazodone 2021-09 Yes [id number] TAKE 1 K elsey HCl 50 MG 1-02 TABLET BY Seybo ld oral Tablet 00:00: MOUTH - 00 EVERY DAY Externa AT NIGHT l Trazodone 2021-09 Yes [id number] TAKE 1 K elsey HCl 50 MG 1-02 TABLET BY Seybo ld oral Tablet 00:00: MOUTH - 00 EVERY DAY Externa AT NIGHT l Trazodone 2021-09 Yes [id number] TAKE 1 K elsey HCl 50 MG 1-02 TABLET BY Seybo ld oral Tablet 00:00: MOUTH - 00 EVERY DAY Externa AT NIGHT l Trazodone 2021-09 Yes [id number] TAKE 1 K elsey HCl 50 MG 1-02 TABLET BY Seybo ld oral Tablet 00:00: MOUTH - 00 EVERY DAY Externa AT NIGHT l Trazodone 2021-09 Yes [id number] TAKE 1 K elsey HCl 50 MG 1-02 TABLET BY Seybo ld oral Tablet 00:00: MOUTH - 00 EVERY DAY Externa AT NIGHT l Trazodone 2021-09 Yes [id number] TAKE 1 K elsey HCl 50 MG 1-02 TABLET BY Seybo ld oral Tablet 00:00: MOUTH - 00 EVERY DAY Externa AT NIGHT l Trazodone 2021-09 Yes [id number] TAKE 1 K elsey HCl 50 MG 1-02 TABLET BY Seybo ld oral Tablet 00:00: MOUTH - 00 EVERY DAY Externa AT NIGHT l Allopurinol 2021-09 Yes [id number] 100mg Take 1 Mary 100 MG oral 0-17 tablet Seybol d Tablet 00:00: (100 mg - 00 total) by Externa mouth l daily Allopurinol 2021-09 Yes [id number] 100mg Take 1 Mary 100 MG oral 0-17 tablet Seybol d Tablet 00:00: (100 mg - 00 total) by Externa mouth l daily Allopurinol 2021-09 Yes [id number] 100mg Take 1 Mary 100 MG oral 0-17 tablet Seybol d Tablet 00:00: (100 mg - 00 total) by Externa mouth l daily Allopurinol 2021-09 Yes [id number] 100mg Take 1 Mary 100 MG oral 0-17 tablet Seybol d Tablet 00:00: (100 mg - 00 total) by Externa mouth l daily Allopurinol 2021-09 Yes [id number] 100mg Take 1 Mary 100 MG oral 0-17 tablet Seybol d Tablet 00:00: (100 mg - 00 total) by Externa mouth l daily Allopurinol 2021-09 Yes [id number] 100mg Take 1 Mary 100 MG oral 0-17 tablet Seybol d Tablet 00:00: (100 mg - 00 total) by Externa mouth l daily Allopurinol 2021-09- No [id number] 100mg Take 1 Mary 100 MG oral 0-17 03-23 tablet Seybo ld Tablet 00:00: 00:00 (100 mg - 00 :00 total) by Externa mouth l daily Pantoprazol 2021-09 Yes [id number] TAKE 1 Mary e Sodium 40 0-10 TABLET BY Sey bold MG oral 00:00: MOUTH - Tablet 00 EVERY DAY Externa Delayed l Response Pantoprazol 2021-09 Yes [id number] TAKE 1 Mary e Sodium 40 0-10 TABLET BY Sey bold MG oral 00:00: MOUTH - Tablet 00 EVERY DAY Externa Delayed l Response FLUTICASONE 2021-09 Yes [id number] 50ug Use 1 K elsey PROPIONATE, 0-06 spray (50 Sey bold NASAL, 50 00:00: mcg total) - MCG/ACT 00 in each Externa nasal nostril l Suspension daily Vitamin D, 2021-09 Yes [id number] 46010X Take 1 Mary Ergocalcife 0-06 capsule Seybo ld rol, 1.25 00:00: (50,000 - MG (91300 00 units Externa UT) oral total) by l Capsule mouth once a week FLUTICASONE 2021-09 Yes [id number] 50ug Use 1 K elsey PROPIONATE, 0-06 spray (50 Sey bold NASAL, 50 00:00: mcg total) - MCG/ACT 00 in each Externa nasal nostril l Suspension daily FLUTICASONE 2021-09 Yes [id number] 50ug Use 1 K elsey PROPIONATE, 0-06 spray (50 Sey bold NASAL, 50 00:00: mcg total) - MCG/ACT 00 in each Externa nasal nostril l Suspension daily FLUTICASONE 2021-09 Yes [id number] 50ug Use 1 K elsey PROPIONATE, 0-06 spray (50 Sey bold NASAL, 50 00:00: mcg total) - MCG/ACT 00 in each Externa nasal nostril l Suspension daily Insulin Pen Yes [id number] Takes K elsey Needle 31G 9-21 insulin Seybol d X 5 MM does 00:00: once daily - not apply 00 Externa Misc l Insulin Yes [id number] 40 units Ke lsey Degludec 9-21 SQ daily Seybold (Tresiba 00:00: in AM - FlexTouch) 00 Externa 100 UNIT/ML l subcutaneou s Solution Pen-injecto r Insulin Pen Yes [id number] Takes K elsey Needle 31G 9-21 insulin Seybol d X 5 MM does 00:00: once daily - not apply 00 Externa Misc l Insulin Yes [id number] 40 units Ke lsey Degludec 9-21 SQ daily Seybold (Tresiba 00:00: in AM - FlexTouch) 00 Externa 100 UNIT/ML l subcutaneou s Solution Pen-injecto r Insulin Pen Yes [id number] Takes K elsey Needle 31G 9-21 insulin Seybol d X 5 MM does 00:00: once daily - not apply 00 Externa Misc l Insulin Yes [id number] 40 units Ke lsey Degludec 9-21 SQ daily Seybold (Tresiba 00:00: in AM - FlexTouch) 00 Externa 100 UNIT/ML l subcutaneou s Solution Pen-injecto r Insulin Pen Yes [id number] Takes K elsey Needle 31G 9-21 insulin Seybol d X 5 MM does 00:00: once daily - not apply 00 Externa Misc l Insulin Yes [id number] 40 units Ke lsey Degludec 9-21 SQ daily Seybold (Tresiba 00:00: in AM - FlexTouch) 00 Externa 100 UNIT/ML l subcutaneou s Solution Pen-injecto r Insulin Yes [id number] 40 units Ke lsey Degludec 9-21 SQ daily Seybold (Tresiba 00:00: in AM - FlexTouch) 00 Externa 100 UNIT/ML l subcutaneou s Solution Pen-injecto r Insulin 2022- No [id number] 40 units K elsey Degludec 06-10 03-06 SQ daily Seybol d (Tresiba 00:00: 00:00 in AM - FlexTouch) 00 :00 Externa 100 UNIT/ML l subcutaneou s Solution Pen-injecto r Insulin Pen 2022- No [id number] Takes Mary Needle 31G 06-10 insulin Seybo ld X 5 MM does 00:00: 00:00 once daily - not apply 00 :00 Externa Misc l Gabapentin 2021- No 1{capsu Take 1 K elsey 300 MG oral 9-06-08 le} capsule by S eybold Capsule 08:56: 00:00 mouth 3 - 24 :00 times Externa daily l Lisinopril Yes [id number] 20mg Take 1 K elsey 20 MG oral 9-19 tablet (20 Sey bold Tablet 00:00: mg total) - 00 by mouth 2 Externa times l daily Gabapentin Yes [id number] 300mg Take 1 Mary 300 MG oral 9-19 capsule Seybo ld Capsule 00:00: (300 mg - 00 total) by Externa mouth 3 l times daily Metformin Yes [id number] 1000mg Take 1 Mary HCl 1000 MG 9-19 tablet Seybol d oral Tablet 00:00: (1,000 mg - 00 total) by Externa mouth l every 12 hours Allopurinol Yes [id number] 100mg Take 1 Mary 100 MG oral 9-19 tablet Seybol d Tablet 00:00: (100 mg - 00 total) by Externa mouth l daily FLUTICASONE Yes [id number] 50ug Use 1 K elsey PROPIONATE, 9-19 spray (50 Sey bold NASAL, 50 00:00: mcg total) - MCG/ACT 00 in each Externa nasal nostril l Suspension daily hydroCHLORO 2022-0 Yes [id number] 12.5mg Take 1 Mary thiazide 9-19 capsule Seybold 12.5 MG 00:00: (12.5 mg - oral 00 total) by Externa Capsule mouth l daily Lisinopril 2021-0 Yes [id number] 20mg Take 1 K elsey 20 MG oral 9-19 tablet (20 Sey bold Tablet 00:00: mg total) - 00 by mouth 2 Externa times l daily Gabapentin 2021-0 Yes [id number] 300mg Take 1 Mary 300 MG oral 9-19 capsule Seybo ld Capsule 00:00: (300 mg - 00 total) by Externa mouth 3 l times daily Metformin 2021-0 Yes [id number] 1000mg Take 1 Mary HCl 1000 MG 9-19 tablet Seybol d oral Tablet 00:00: (1,000 mg - 00 total) by Externa mouth l every 12 hours Lisinopril 2021-0 Yes [id number] 20mg Take 1 K elsey 20 MG oral 9-19 tablet (20 Sey bold Tablet 00:00: mg total) - 00 by mouth 2 Externa times l daily Gabapentin 2021-0 Yes [id number] 300mg Take 1 Mary 300 MG oral 9-19 capsule Seybo ld Capsule 00:00: (300 mg - 00 total) by Externa mouth 3 l times daily Metformin 2021-0 Yes [id number] 1000mg Take 1 Mary HCl 1000 MG 9-19 tablet Seybol d oral Tablet 00:00: (1,000 mg - 00 total) by Externa mouth l every 12 hours Lisinopril 2021-0 Yes [id number] 20mg Take 1 K elsey 20 MG oral 9-19 tablet (20 Sey bold Tablet 00:00: mg total) - 00 by mouth 2 Externa times l daily Gabapentin 2021-0 Yes [id number] 300mg Take 1 Mary 300 MG oral 9-19 capsule Seybo ld Capsule 00:00: (300 mg - 00 total) by Externa mouth 3 l times daily Metformin 2021-0 Yes [id number] 1000mg Take 1 Mary HCl 1000 MG 9-19 tablet Seybol d oral Tablet 00:00: (1,000 mg - 00 total) by Externa mouth l every 12 hours Lisinopril 2-0 Yes [id number] 20mg Take 1 K elsey 20 MG oral 9-19 tablet (20 Sey bold Tablet 00:00: mg total) - 00 by mouth 2 Externa times l daily Gabapentin 2022-0 Yes [id number] 300mg Take 1 Mary 300 MG oral 9-19 capsule Seybo ld Capsule 00:00: (300 mg - 00 total) by Externa mouth 3 l times daily Metformin 2022-0 Yes [id number] 1000mg Take 1 Mary HCl 1000 MG 9-19 tablet Seybol d oral Tablet 00:00: (1,000 mg - 00 total) by Externa mouth l every 12 hours Lisinopril 2022-0 Yes [id number] 20mg Take 1 K elsey 20 MG oral 9-19 tablet (20 Sey bold Tablet 00:00: mg total) - 00 by mouth 2 Externa times l daily Gabapentin 2-0 Yes [id number] 300mg Take 1 Mary 300 MG oral 9-19 capsule Seybo ld Capsule 00:00: (300 mg - 00 total) by Externa mouth 3 l times daily Metformin 2-0 Yes [id number] 1000mg Take 1 Mary HCl 1000 MG 9-19 tablet Seybol d oral Tablet 00:00: (1,000 mg - 00 total) by Externa mouth l every 12 hours Lisinopril 2022-0 Yes [id number] 20mg Take 1 K elsey 20 MG oral 9-19 tablet (20 Sey bold Tablet 00:00: mg total) - 00 by mouth 2 Externa times l daily Gabapentin 2022-0 Yes [id number] 300mg Take 1 Mary 300 MG oral 9-19 capsule Seybo ld Capsule 00:00: (300 mg - 00 total) by Externa mouth 3 l times daily Metformin 2022-0 Yes [id number] 1000mg Take 1 Mary HCl 1000 MG 9-19 tablet Seybol d oral Tablet 00:00: (1,000 mg - 00 total) by Externa mouth l every 12 hours Lisinopril 2022-0 Yes [id number] 20mg Take 1 K elsey 20 MG oral 9-19 tablet (20 Sey bold Tablet 00:00: mg total) - 00 by mouth 2 Externa times l daily Gabapentin 2022-0 Yes [id number] 300mg Take 1 Mary 300 MG oral 9-19 capsule Seybo ld Capsule 00:00: (300 mg - 00 total) by Externa mouth 3 l times daily Metformin Yes [id number] 1000mg Take 1 Mary HCl 1000 MG 9-19 tablet Seybol d oral Tablet 00:00: (1,000 mg - 00 total) by Externa mouth l every 12 hours Loratadine Yes 1{tbl} Take 1 Ismael sey (CLARITIN) 7-25 tablet by Seyb old 10 MG oral 14:50: mouth - tablet 04 Externa l Aspirin 325 Yes 325mg Take 325 K elsey MG oral 7-25 mg by Seybold Tablet 14:50: mouth - Delayed 04 daily Externa Response l Glucose Yes [id number] Use as Chandni ey Blood 7-25 directed Seybold (OneTouch 00:00: three - Verio) in 00 times Externa vitro Strip daily l Atorvastati Yes [id number] 40mg Take 1 Mary n Calcium 7-25 tablet (40 Seyb old 40 MG oral 00:00: mg total) - Tablet 00 by mouth Externa daily l Insulin Yes [id number] Takes up Ke lsey Glargine-Li 7-25 to 44 Seybold xisenatide 00:00: units SQ - (Soliqua) 00 daily in Safety Advisor a 100-33 AM l UNT-MCG/ML subcutaneou s Solution Pen-injecto r Glucose Yes [id number] Use as Chandni ey Blood 7-25 directed Seybold (OneTouch 00:00: three - Verio) in 00 times Externa vitro Strip daily l Atorvastati Yes [id number] 40mg Take 1 Mary n Calcium 7-25 tablet (40 Seyb old 40 MG oral 00:00: mg total) - Tablet 00 by mouth Externa daily l Glucose Yes [id number] Use as Chandni ey Blood 7-25 directed Seybold (OneTouch 00:00: three - Verio) in 00 times Externa vitro Strip daily l Atorvastati Yes [id number] 40mg Take 1 Mary n Calcium 7-25 tablet (40 Seyb old 40 MG oral 00:00: mg total) - Tablet 00 by mouth Externa daily l Glucose Yes [id number] Use as Chandni ey Blood 7-25 directed Seybold (OneTouch 00:00: three - Verio) in 00 times Externa vitro Strip daily l Atorvastati Yes [id number] 40mg Take 1 Mary n Calcium 7-25 tablet (40 Seyb old 40 MG oral 00:00: mg total) - Tablet 00 by mouth Externa daily l Glucose Yes [id number] Use as Chandni ey Blood 7-25 directed Seybold (OneTouch 00:00: three - Verio) in 00 times Externa vitro Strip daily l Atorvastati Yes [id number] 40mg Take 1 Mary n Calcium 7-25 tablet (40 Seyb old 40 MG oral 00:00: mg total) - Tablet 00 by mouth Externa daily l Glucose 2022- No [id number] Use as Ismael sey Blood 7-25 02-27 directed Seybold (OneTouch 00:00: 00:00 three - Verio) in 00 :00 times Externa vitro Strip daily l Atorvastati 2022- No [id number] 40mg Take 1 Mary n Calcium 7-25 -27 tablet (40 Sey bold 40 MG oral 00:00: 00:00 mg total) - Tablet 00 :00 by mouth Externa daily l Metformin 2021- No [id number] 1000mg Take 1 Mary HCl 1000 MG 04-13 tablet Seybo ld oral Tablet 00:00: 00:00 (1,000 mg - 00 :00 total) by Externa mouth l every 12 hours FLUTICASONE 2021- No [id number] 50ug Use 1 Mary PROPIONATE, 04-02 spray (50 Se ybold NASAL, 50 00:00: 00:00 mcg total) - MCG/ACT 00 :00 in each Externa nasal nostril l Suspension daily Benzonatate 2021- No [id number] 100mg Q.[id number] Take 1 Mary (Tessalon 04-02 [id number] capsule Seybold Alicia) 100 00:00: 00:00 3D (100 mg - MG oral 00 :00 total) by Externa Capsule mouth 3 l times daily as needed for cough Pantoprazol Yes [id number] TAKE 1 Mary e Sodium 40 7-13 TABLET BY Sey bold MG oral 00:00: MOUTH - Tablet 00 EVERY DAY Externa Delayed l Response metFORMIN Yes 1000mg Take 1,[address] [facility] (GLUCOPHAGE 5-23 [facility] ) 1000 MG 11:05: mouth 2 Medic al tablet 38 (two) Center times daily with breakfast and dinner. lisinopril Yes 20mg Take [address] [facility] (PRINIVIL,Z 5-23 by mouth 2 Sulma kes ESTRIL) 20 11:05: (two) Medica l MG tablet 38 times Center daily with breakfast and dinner. gabapentin Yes 300mg QD Take [address] [facility] [address] [facility] (NEURONTIN) 5-23 mg by [facility] 300 MG 11:05: mouth Medical capsule 38 daily. Center loratadine Yes 1{tbl} QD Take [address] [facility] (CLARITIN) 5-23 tablet by Sulmake s 10 mg 11:05: mouth Medical tablet 38 daily. Center metoprolol 2021- No 25mg Q.5D Take [address] [facility] (LOPRESSOR) 02-09- by mouth 2 L [facility] 25 MG 11:04: 00:00 (two) Medical tablet 55 :00 times Center daily. aspirin 325 2022- No 325mg QD Take [address] [facility] [address] [facility] MG EC 01-28 tablet [facility] tablet 00:00: 23:59 (325 mg Medical 00 :00 total) by Center mouth daily. Tramadol 2021- No 1{tbl} Q.25D Take 1 Ismael sey HCl 50 MG 01-28 tablet by Seyb old oral Tablet 00:00: 00:00 mouth - 00 :00 every 6 Externa hours as l needed PLEASE SEE ATTACHED FOR DETAILED DIRECTIONS traMADoL 2021- No 50mg Take [address] [facility] (ULTRAM) 50 01-28- tablet (50 L [facility] mg tablet 00:00: 23:59 mg total) Me dical 00 :00 by mouth Center every 6 (six) hours as needed for up to 10 days. Max Daily Amount: 200 mg traZODone Yes Primary 50mg QD Take [address] [facility] (DESYREL) 5-04 hypertensio by mouth [facility] 50 MG 00:00: n nightly . Medical tablet 00 [place] Trazodone Yes [id number] 50mg Take 1 K elsey HCl 50 MG 5-04 tablet (50 Seyb old oral Tablet 00:00: mg total) - 00 by mouth Externa nightly l meclizine Yes 25mg Take [address] [facility] [address] [facility] (ANTIVERT) 5-02 by mouth [facility] 25 mg 00:00: every 8 Medical tablet 00 (eight) Center hours as needed. ondansetron Yes DISSOLVE [address] [facility] (ZOFRAN-ODT 5-02 TABLET [facility] ) 4 MG 00:00: UNDER THE Medica l disintegrat 00 TONGUE Center ing tablet EVERY 8 HOURS NEEDED Gabapentin Yes 1{capsu Take 1 Ke lsey 300 MG oral 4-25 le} capsule by Se ybold Capsule 16:00: mouth 3 22 times daily Loratadine Yes 1{tbl} Take 1 Ismael sey (CLARITIN) 4-25 tablet by Seyb old 10 MG oral 16:00: mouth tablet 22 Farxiga 10 Yes Primary 10mg QD Take [address] [facility] mg tablet 4-25 hypertensio by mouth [facility] 00:[facility]: n daily. Medical [address] [place] [address] Soliqua Yes Primary 36U QD [address] [facility] 100/33 100 4-25 hypertensio daily . [facility] unit-33 00:00: n Medical mcg/mL InPn [address] [place] [address] Insulin Yes [id number] 36 units Ke lsey Glargine-Li 4-25 SQ daily Seyb old xisenatide 00:00: in AM (Soliqua) 00 100-33 UNT-MCG/ML subcutaneou s Solution Pen-injecto r Dapaglifloz Yes [id number] 1 tablet Mary in 4-25 po Q daily Seybold Propanediol 00:00: (Farxiga) 00 10 MG oral Tablet Glucose Yes [id number] 100{eac 100 each Mary Blood in 4-25 h} by other Seybold vitro Strip 00:00: route 00 daily Insulin Pen Yes [id number] Takes K elsey Needle 31G 4-25 insulin Seybol d X 5 MM does 00:00: once daily not apply 00 Misc Dapaglifloz 2021-0 Yes [id number] 1 tablet Mary in 4-25 po Q daily Seybold Propanediol 00:00: - () 00 Externa 10 MG oral l Tablet Glucose 0 Yes [id number] 100{eac 100 each Mary Blood in 4-25 h} by other Seybold vitro Strip 00:00: route - 00 daily Externa l Insulin Pen 0 Yes [id number] Takes K elsey Needle 31G 4-25 insulin Seybol d X 5 MM does 00:00: once daily - not apply 00 Externa Misc l Glucose 0 Yes [id number] 100{eac 100 each Mary Blood in 4-25 h} by other Seybold vitro Strip 00:00: route - 00 daily Externa l Glucose 2021-0 Yes [id number] 100{eac 100 each Mary Blood in 4-25 h} by other Seybold vitro Strip 00:00: route - 00 daily Externa l Glucose 2021-0 Yes [id number] 100{eac 100 each Mary Blood in 4-25 h} by other Seybold vitro Strip 00:00: route - 00 daily Externa l Glucose 2021-0 Yes [id number] 100{eac 100 each Mary Blood in 4-25 h} by other Seybold vitro Strip 00:00: route - 00 daily Externa l Glucose 2021-0 2023- No [id number] 100{eac 100 each Mary Blood in 4-25 02-27 h} by other Seybol d vitro Strip 00:00: 00:00 route - 00 :00 daily Externa l Gabapentin 2021-0 Yes 1{capsu Take 1 Ke lsey 300 MG oral 4-22 le} capsule by Se ybold Capsule 14:07: mouth 3 21 times daily Loratadine 2021-0 Yes 1{tbl} Take 1 Ismael sey (CLARITIN) 4-22 tablet by Seyb old 10 MG oral 14:07: mouth tablet 21 Gabapentin 2021-0 Yes 1{capsu Take 1 Ke lsey 300 MG oral 4-11 le} capsule by Se ybold Capsule 08:12: mouth 3 53 times daily Loratadine 2021-0 Yes 1{tbl} Take 1 Ismael sey (CLARITIN) 4-11 tablet by Seyb old 10 MG oral 08:12: mouth tablet 53 allopurinoL Yes Primary 100mg QD Take [address] [facility] (ZYLOPRIM) 4-11 hypertensio mg by L ukes 100 MG 00:00: n mouth Medical tablet 00 daily. Center pantoprazol Yes Primary 40mg QD Take [address] [facility] e 4-11 hypertensio by mouth Luke s (PROTONIX) 00:00: n daily. Medic al 40 MG 00 Center tablet Trazodone Yes [id number] 50mg Take 1 K elsey HCl 50 MG 4-11 tablet (50 Seyb old oral Tablet 00:00: mg total) 00 by mouth nightly Pantoprazol Yes [id number] 40mg Take 1 Mary e Sodium 40 4-11 tablet (40 Se ybold MG oral 00:00: mg total) Tablet 00 by mouth Delayed daily Response Allopurinol Yes [id number] 100mg Take 1 Mary 100 MG oral 4-11 tablet Seybol d Tablet 00:00: (100 mg 00 total) by mouth daily Trazodone Yes [id number] 50mg Take 1 K elsey HCl 50 MG 4-11 tablet (50 Seyb old oral Tablet 00:00: mg total) 00 by mouth nightly Pantoprazol 0 Yes [id number] 40mg Take 1 Mary e Sodium 40 4-11 tablet (40 Se ybold MG oral 00:00: mg total) Tablet 00 by mouth Delayed daily Response Allopurinol Yes [id number] 100mg Take 1 Mary 100 MG oral 4-11 tablet Seybol d Tablet 00:00: (100 mg 00 total) by mouth daily Trazodone 2021- Yes [id number] 50mg Take 1 K elsey HCl 50 MG 4-11 tablet (50 Seyb old oral Tablet 00:00: mg total) 00 by mouth nightly Pantoprazol 0 Yes [id number] 40mg Take 1 Mary e Sodium 40 4-11 tablet (40 Se ybold MG oral 00:00: mg total) Tablet 00 by mouth Delayed daily Response Allopurinol Yes [id number] 100mg Take 1 Mary 100 MG oral 4-11 tablet Seybol d Tablet 00:00: (100 mg 00 total) by mouth daily Allopurinol 2021- No [id number] 100mg Take 1 Mary 100 MG oral 4-11 -19 tablet Seybo ld Tablet 00:00: 00:00 (100 mg - 00 :00 total) by Externa mouth l daily Gabapentin Yes TAKE 1 Kelse y 300 MG oral 2-22 CAPSULE BY Se ybold Capsule 00:00: MOUTH 00 THREE TIMES A DAY Gabapentin Yes TAKE 1 Kelse y 300 MG oral 2-22 CAPSULE BY Se ybold Capsule 00:00: MOUTH 00 THREE TIMES A DAY Gabapentin Yes TAKE 1 Kelse y 300 MG oral 2-22 CAPSULE BY Se ybold Capsule 00:00: MOUTH 00 THREE TIMES A DAY Insulin 2021- No [id number] 40U Inject 40 Mary Degludec 2-22 05-24 units into Seyb old (Tresiba 00:00: 04:59 the skin FlexTouch) 00 :00 every 24 200 UNIT/ML hours subcutaneou s Solution Pen-injecto r Insulin 2021- No [id number] 40U Inject 40 Mary Degludec 2-22 05-24 units into Seyb old (Tresiba 00:00: 04:59 the skin FlexTouch) 00 :00 every 24 200 UNIT/ML hours subcutaneou s Solution Pen-injecto r Insulin 2021- No [id number] 40U Inject 40 Mary Degludec 2-22 04-25 units into Seyb old (Tresiba 00:00: [...] 100{eac 100 each Ke lsey Blood in 1-12 04-25 h} by other Seybol d vitro [...] Yes 1{tbl} Take 1 Ismael sey (Claritin) 09-23 tablet by Seyb old 10 MG oral 08:25: mouth tablet 14 atorvastati 2020-09 Yes 40mg QD Take [address] [facility] (LIPITOR) -04 by mouth Luke s 40 MG 00:00: daily. Medical tablet 00 Center metoprolol 2020-09 Yes 100mg QD Take [address] succinate 1-04 [facility] (TOPROL-XL) 00:00: mouth Medic al 100 MG 24 00 daily. Center hr tablet Metoprolol 2020-09 Yes [id number] 100mg Take 1 Mary Succinate 1-04 tablet Seybold 100 MG oral 00:00: (100 mg TABLET SR 00 total) by 24 HR mouth daily Metformin 2020-09 Yes [id number] 1000mg Take 1 Mary HCl 1000 MG -04 tablet Seybol d oral Tablet 00:00: (1,000 mg 00 total) by mouth every 12 hours Amlodipine 2020-09 Yes [id number] 10mg Take 1 K elsey Besylate 10 1-04 tablet (10 Se ybold MG oral 00:00: mg total) Tablet 00 by mouth daily Atorvastati 2020-09 Yes [id number] 40mg Take 1 Mary n Calcium 1-04 tablet (40 Seyb old 40 MG oral 00:00: mg total) Tablet 00 by mouth daily Lisinopril 2020-09 Yes [id number] 20mg Take 1 K elsey 20 MG oral 1-04 tablet (20 Sey bold Tablet 00:00: mg total) 00 by mouth daily OneTouch 2020-09 Yes [id number] 1{each} 1 each by Mary Paredes 09-23 does not Seybold Lancets 33G 00:00: apply does not 00 route 3 apply Misc times daily Glucose 2020-09 Yes [id number] Use as Chandni ey Blood 1-04 directed Seybold (OneTouch 00:00: three Verio) in 00 times vitro Strip daily Metoprolol 2020-09 Yes [id number] 100mg Take 1 Mary Succinate 1-04 tablet Seybold 100 MG oral 00:00: (100 mg TABLET SR 00 total) by 24 HR mouth daily Metformin 2020-09 Yes [id number] 1000mg Take 1 Mary HCl 1000 MG 1-04 tablet Seybol d oral Tablet 00:00: (1,000 mg 00 total) by mouth every 12 hours Amlodipine 2020-09 Yes [id number] 10mg Take 1 K elsey Besylate 10 1-04 tablet (10 Se ybold MG oral 00:00: mg total) Tablet 00 by mouth daily Atorvastati 2020-09 Yes [id number] 40mg Take 1 Mary n Calcium 1-04 tablet (40 Seyb old 40 MG oral 00:00: mg total) Tablet 00 by mouth daily Lisinopril 2020-09 Yes [id number] 20mg Take 1 K elsey 20 MG oral 1-04 tablet (20 Sey bold Tablet 00:00: mg total) 00 by mouth daily OneTouch 2020-09 Yes [id number] 1{each} 1 each by Mary Paredes -04 does not Seybold Lancets 33G 00:00: apply does not 00 route 3 apply Misc times daily Glucose 2020-09 Yes [id number] Use as Chandni ey Blood 1-04 directed Seybold (OneTouch 00:00: three Verio) in 00 times vitro Strip daily Metoprolol 2020-09 Yes [id number] 100mg Take 1 Mary Succinate 1-04 tablet Seybold 100 MG oral 00:00: (100 mg TABLET SR 00 total) by 24 HR mouth daily Metformin 2020-09 Yes [id number] 1000mg Take 1 Mary HCl 1000 MG 1-04 tablet Seybol d oral Tablet 00:00: (1,000 mg 00 total) by mouth every 12 hours Amlodipine 2020-09 Yes [id number] 10mg Take 1 K elsey Besylate 10 1-04 tablet (10 Se ybold MG oral 00:00: mg total) Tablet 00 by mouth daily Atorvastati 2020-09 Yes [id number] 40mg Take 1 Mary n Calcium 1-04 tablet (40 Seyb old 40 MG oral 00:00: mg total) Tablet 00 by mouth daily Lisinopril 2020-09 Yes [id number] 20mg Take 1 K elsey 20 MG oral 1-04 tablet (20 Sey bold Tablet 00:00: mg total) 00 by mouth daily OneTouch 2020-09 Yes [id number] 1{each} 1 each by Mary Deljasmeet -04 does not Seybold Lancets 33G 00:00: apply does not 00 route 3 apply Misc times daily Glucose 2020-09 Yes [id number] Use as Chandni ey Blood -04 directed Seybold (OneTouch 00:00: three Verio) in 00 times vitro Strip daily Metoprolol 2020-09 Yes [id number] 100mg Take 1 Mary Succinate 1-04 tablet Seybold 100 MG oral 00:00: (100 mg TABLET SR 00 total) by 24 HR mouth daily Metformin 2020-09 Yes [id number] 1000mg Take 1 Mary HCl 1000 MG 1-04 tablet Seybol d oral Tablet 00:00: (1,000 mg 00 total) by mouth every 12 hours Amlodipine 2020-09 Yes [id number] 10mg Take 1 K elsey Besylate 10 1-04 tablet (10 Se ybold MG oral 00:00: mg total) Tablet 00 by mouth daily Atorvastati 2020-09 Yes [id number] 40mg Take 1 Mary n Calcium - tablet (40 Seyb old 40 MG oral 00:00: mg total) Tablet 00 by mouth daily Lisinopril 2020-09 Yes [id number] 20mg Take 1 K elsey 20 MG oral - tablet (20 Sey bold Tablet 00:00: mg total) 00 by mouth daily OneTouch 2020-09 Yes [id number] 1{each} 1 each by Mary Paredes 09-23 does not Seybold Lancets 33G 00:00: apply does not 00 route 3 apply Misc times daily Glucose 2020-09 Yes [id number] Use as Chandni ey Blood 09-23 directed Seybold (OneTouch 00:00: three Verio) in 00 times vitro Strip daily Metoprolol 2020-09 Yes [id number] 100mg Take 1 Mary Succinate 09-23 tablet Seybold 100 MG oral 00:00: (100 mg - TABLET SR 00 total) by Exter na 24 HR mouth l daily OneTouch 2020-09 Yes [id number] 1{each} 1 each by Mary Paredes 09-23 does not Seybold Lancets 33G 00:00: apply - does not 00 route 3 Externa apply Misc times l daily OneTouch 2020-09 Yes [id number] 1{each} 1 each by Mary Paredes 09-23 does not Seybold Lancets 33G 00:00: apply - does not 00 route 3 Externa apply Misc times l daily OneTouch 2020-09 Yes [id number] 1{each} 1 each by Mary Paredes 09-23 does not Seybold Lancets 33G 00:00: apply - does not 00 route 3 Externa apply Misc times l daily OneTouch 2020-09 Yes [id number] 1{each} 1 each by Mary Paredes 09-23 does not Seybold Lancets 33G 00:00: apply - does not 00 route 3 Externa apply Misc times l daily OneTouch 2020-09 Yes [id number] 1{each} 1 each by Mary Paredes 09-23 does not Seybold Lancets 33G 00:00: apply - does not 00 route 3 Externa apply Misc times l daily OneTouch 2020-09- No [id number] 1{each} 1 each by Mary Paredes 09-23 does not Seybold Lancets 33G 00:00: 00:00 apply - does not 00 :00 route 3 Externa apply Misc times l daily Lisinopril 2020-09- No [id number] 20mg Take 1 Mary 20 MG oral 09-23 tablet (20 Se ybold Tablet 00:00: 00:00 mg total) - 00 :00 by mouth Externa daily l Insulin 2020-09- No [id number] 40U Inject 40 Mary Degludec 09-23 units into Seyb old (Tresiba 00:00: 05:59 [...] 15:56: mouth tablet 16 Nitrofurant 2020-09 Yes [id number] 100mg Take 1 Mary oin Monohyd 0-26 capsule Seybo ld Macro 100 00:00: (100 mg MG oral 00 total) by Capsule mouth 2 times daily Nitrofurant 2020-09- No [id number] 100mg Take 1 Mary oin Monohyd 0-26 11-04 capsule Seyb old Macro 100 00:00: 00:00 (100 mg MG oral 00 :00 total) by Capsule mouth 2 times daily Glucose Yes [id number] Use as Chandni ey Blood 9-27 directed Seybold (OneTouch 00:00: three Verio) in 00 times vitro Strip daily Glucose 2020- No [id number] Use as Ismael sey Blood 9-27 11-04 directed Seybold (OneTouch 00:00: 00:00 three Verio) in 00 :00 times vitro Strip daily Albuterol Yes [id number] 2{puff} Q6H Inhale 2 Mary HFA 108 (90 9-07 puffs into Se ybold Base) 00:00: the lungs MCG/ACT IN 00 every 6 AERS hours as needed for wheezing Albuterol Yes [id number] 2{puff} Q6H Inhale 2 Mary HFA 108 (90 9-07 puffs into Se ybold Base) 00:00: the lungs MCG/ACT IN 00 every 6 AERS hours as needed for wheezing Albuterol 2020- No [id number] 2{puff} Q6H Inhale 2 Mary HFA 108 (90 9-07 11-04 puffs into S eybold Base) 00:00: 00:00 the lungs MCG/ACT IN 00 :00 every 6 AERS hours as needed for wheezing Doxycycline 2020- No [id number] 100mg Take 1 Mary Hyclate 100 - 09-15 capsule Seyb old MG oral 00:00: 04:59 (100 mg Capsule 00 :00 total) by mouth 2 times daily for 7 days Blood Yes [id number] 1{each} 1 each by Mary Glucose 8-27 does not Seybold Monitoring 00:00: apply Suppl 00 route 3 (OneTouch times Verio IQ daily System) w/Device does not apply Kit Blood 2021-0 Yes [id number] Use as Mary Glucose 8-27 directed Seybold Monitoring 00:00: to check Suppl 00 blood (Blood sugar Glucose three Monitor times System) daily. w/Device does not apply Kit Blood 2021-0 Yes [id number] 1{each} 1 each by Mary Glucose 8-27 does not Seybold Monitoring 00:00: apply Suppl 00 route 3 (OneTouch times Verio IQ daily System) w/Device does not apply Kit Blood 2021-0 Yes [id number] Use as Mary Glucose 8-27 directed Seybold Monitoring 00:00: to check Suppl 00 blood (Blood sugar Glucose three Monitor times System) daily. w/Device does not apply Kit Blood 2021-0 Yes [id number] 1{each} 1 each by Mary Glucose 8-27 does not Seybold Monitoring 00:00: apply Suppl 00 route 3 (OneTouch times Verio IQ daily System) w/Device does not apply Kit Blood 2021-0 Yes [id number] Use as Mary Glucose 8-27 directed Seybold Monitoring 00:00: to check Suppl 00 blood (Blood sugar Glucose three Monitor times System) daily. w/Device does not apply Kit Blood 2021-0 Yes [id number] 1{each} 1 each by Mary Glucose 8-27 does not Seybold Monitoring 00:00: apply Suppl 00 route 3 (OneTouch times Verio IQ daily System) w/Device does not apply Kit Blood 2021-0 Yes [id number] Use as Mary Glucose 8-27 directed Seybold Monitoring 00:00: to check Suppl 00 blood (Blood sugar Glucose three Monitor times System) daily. w/Device does not apply Kit Blood 2021-0 Yes [id number] 1{each} 1 each by Mary Glucose 8-27 does not Seybold Monitoring 00:00: apply - Suppl 00 route 3 Externa (OneTouch times l Verio IQ daily System) w/Device does not apply Kit Blood 2021-0 Yes [id number] Use as Mary Glucose 8-27 directed Seybold Monitoring 00:00: to check - Suppl 00 blood Externa (Blood sugar l Glucose three Monitor times System) daily. w/Device does not apply Kit Blood 2021-0 Yes [id number] 1{each} 1 each by Mary Glucose 8-27 does not Seybold Monitoring 00:00: apply - Suppl 00 route 3 Externa (OneTouch times l Verio IQ daily System) w/Device does not apply Kit Blood 2021-0 Yes [id number] Use as Mary Glucose 8-27 directed Seybold Monitoring 00:00: to check - Suppl 00 blood Externa (Blood sugar l Glucose three Monitor times System) daily. w/Device does not apply Kit Glucose 2021-0 Yes [id number] Use as Chandni ey Blood 8-27 directed Seybold (OneTouch 00:00: three Verio) in 00 times vitro Strip daily Blood 2021-0 Yes [id number] 1{each} 1 each by Mary Glucose 8-27 does not Seybold Monitoring 00:00: apply - Suppl 00 route 3 Externa (OneTouch times l Verio IQ daily System) w/Device does not apply Kit Blood 2021-0 Yes [id number] Use as Mary Glucose 8-27 directed Seybold Monitoring 00:00: to check - Suppl 00 blood Externa (Blood sugar l Glucose three Monitor times System) daily. w/Device does not apply Kit Blood 2021-0 Yes [id number] 1{each} 1 each by Mary Glucose 8-27 does not Seybold Monitoring 00:00: apply Suppl 00 route 3 (OneTouch times Verio IQ daily System) w/Device does not apply Kit OneTouch 2021-0 Yes [id number] 1{each} 1 each by Mary Delica 8-27 does not Seybold Lancets 33G 00:00: apply does not 00 route 3 apply Misc times daily Blood 2021-0 Yes [id number] Use as Mary Glucose 8-27 directed Seybold Monitoring 00:00: to check Suppl 00 blood (Blood sugar Glucose three Monitor times System) daily. w/Device does not apply Kit Blood 2021-0 Yes [id number] 1{each} 1 each by Mary Glucose 8-27 does not Seybold Monitoring 00:00: apply - Suppl 00 route 3 Externa (OneTouch times l Verio IQ daily System) w/Device does not apply Kit Blood 2021-0 Yes [id number] Use as Mary Glucose 8-27 directed Seybold Monitoring 00:00: to check - Suppl 00 blood Externa (Blood sugar l Glucose three Monitor times System) daily. w/Device does not apply Kit Blood 2020-0 Yes [id number] 1{each} 1 each by Mary Glucose 8-27 does not Seybold Monitoring 00:00: apply - Suppl 00 route 3 Externa (OneTouch times l Verio IQ daily System) w/Device does not apply Kit Blood 2020-0 Yes [id number] Use as Mary Glucose 8-27 directed Seybold Monitoring 00:00: to check - Suppl 00 blood Externa (Blood sugar l Glucose three Monitor times System) daily. w/Device does not apply Kit Blood 2020-0 Yes [id number] Use as Mary Glucose 8-27 directed Seybold Monitoring 00:00: to check - Suppl 00 blood Externa (Blood sugar l Glucose three Monitor times System) daily. w/Device does not apply Kit Blood 2020-0 Yes [id number] Use as Mary Glucose 8-27 directed Seybold Monitoring 00:00: to check - Suppl 00 blood Externa (Blood sugar l Glucose three Monitor times System) daily. w/Device does not apply Kit Blood 2020-0 Yes [id number] Use as Mary Glucose 8-27 directed Seybold Monitoring 00:00: to check - Suppl 00 blood Externa (Blood sugar l Glucose three Monitor times System) daily. w/Device does not apply Kit Blood 2020-0 Yes [id number] 1{each} 1 each by Mary Glucose 8-27 does not Seybold Monitoring 00:00: apply Suppl 00 route 3 (OneTouch times Verio IQ daily System) w/Device does not apply Kit OneTouch 2020-0 Yes [id number] 1{each} 1 each by Mary Delica 8-27 does not Seybold Lancets 33G 00:00: apply does not 00 route 3 apply Misc times daily Blood 2020-0 Yes [id number] Use as Mary Glucose 8-27 directed Seybold Monitoring 00:00: to check Suppl 00 blood (Blood sugar Glucose three Monitor times System) daily. w/Device does not apply Kit Blood 202-0 2023- No [id number] 1{each} 1 each by Mary Glucose 8-27 - does not Seybold Monitoring 00:00: 00:00 apply - Suppl 00 :00 route 3 Externa (OneTouch times l Verio IQ daily System) w/Device does not apply Kit OneTouch 2020-0 2021- No [id number] 1{each} 1 each by Mary Delica 05-16 does not Seybold Lancets 33G 00:00: 00:00 apply does not 00 :00 route 3 apply Misc times daily Lancets 33G 2020-0 Yes [id number] 1{each} 1 each by Mary does not 05-15 does not Seybold apply Misc 00:00: apply 00 route 3 times daily Use as directed Glucose 2020-0 Yes [id number] Use as Chandni ey Blood in 05-15 directed Seybold vitro Strip 00:00: three 00 times daily Lancets 33G 2020-0 Yes [id number] 1{each} 1 each by Mary does not 05-15 does not Seybold apply Misc 00:00: apply 00 route 3 times daily Use as directed Glucose 2020-0 Yes [id number] Use as Chandni ey Blood in 05-15 directed Seybold vitro Strip 00:00: three 00 times daily Lancets 33G 2020-0 2021- No [id number] 1{each} 1 each by Mary does not 05-15 does not Seybol d apply Misc 00:00: 00:00 apply 00 :00 route 3 times daily Use as directed Glucose 2020-0 2021- No [id number] Use as Ismael sey Blood in 05-15 directed Seybol d vitro Strip 00:00: 00:00 three 00 :00 times daily Glucose 202-0 Yes [id number] Use as Chandni ey Blood 05-14 directed Seybold (Contour 00:00: three Test) in 00 times vitro Strip daily, patient uses Contour Plus Glucose 2020-0 Yes [id number] Use as Chandni ey Blood 05-14 directed Seybold (Contour 00:00: three Test) in 00 times vitro Strip daily, patient uses Contour Plus Glucose 2020-0 2021- No [id number] Use as Ismael sey Blood 05-14 directed Seybold (Contour 00:00: 00:00 three Test) in 00 :00 times vitro Strip daily, patient uses Contour Plus Continuous Yes [id number] Use 1 Ke lsey Blood Gluc 8-24 sensors Seybol d Sensor 00:00: every 14 (FreeStyle 00 days with Amaya 14 the Day Sensor) Freestyle does not Amaya apply Misc Continuous Yes [id number] Use 1 [place] Blood Gluc 8-24 sensors Seybol d Sensor 00:00: every 14 (FreeStyle 00 days with Amaya 14 the Day Sensor) Freestyle does not Amaya apply Misc Continuous 202- No [id number] Use 1 K elsey Blood Gluc 8-24 11-04 sensors Seybo ld Sensor 00:00: 00:00 [...] oral 09:30: mouth Tablet 46 daily allopurinoL 0 Yes [id number] 100mg Take 1 Univers 100 mg 01-17 tablet by ity of tablet 00:00: mouth [place] 00 daily. Medical Branch methylPREDN Yes [id number] Take by [facility] 01-10 mouth ity of (MEDROL, 00:00: SEE-INSTRU [place] as CHRISTIAN,) 4 mg 00 CTIONS. Medica l tablets follow Branch package directions indomethaci 2020- No [id number] 50mg Take 1 Univers n 50 mg [...] s Solution Pen-injecto r methylPREDN 2019-09 Yes [id number] Take by [facility] [phone] mouth ity of (MEDROL, 00:00: SEE-INSTRU [place] as CHRISTIAN,) 4 mg 00 CTIONS. Medica l tablets follow Branch package directions methylPREDN 2019-09 Yes [id number] Take by [facility] 10-08 9103 mouth ity of (MEDROL, 00:00: SEE-INSTRU [place] CHRISTIAN,) 4 mg 00 CTIONS. Medica l tablets follow Branch package directions methylPREDN 2019-09- No [id number] Take by [facility] 10-08 9103 mouth ity of (MEDROL, 00:00: 00:00 [place] CHRISTIAN,) 4 mg 00 :00 CTIONS. Medica l tablets follow Branch package directions aspirin 81 2019- Yes 81mg Take 1 Unive rs mg [...] 00:00: mouth [place] 00 daily. Medical Branch Aspirin 81 2020-0 Yes 1{tbl} Take 1 [...] Seybold Chewable 00:00: mouth Tablet 00 daily metoprolol 2020-0 Yes 50mg Take 50 mg U nivers succinate 3-10 by mouth ity of XL 50 mg 24 19:23: [place]. [place] tablet [address] [place] [address] lisinopril 2020-0 Yes 20mg Take 20 mg U nivers 20 mg 3-10 by mouth ity of tablet 19:23: daily. [address] metFORMIN 2020-0 Yes 1000mg Take 1,000 Univers 1,000 mg 3-10 mg by ity of tablet 19:23: mouth [address] daily with meals. metoprolol 2020-0 Yes 50mg Take 50 mg U nivers succinate 3-10 by mouth ity of XL 50 mg 24 19:23: daily. [place] [address] [place] [address] lisinopril 2020-0 Yes 20mg Take 20 mg U nivers 20 mg 3-10 by mouth ity of tablet 19:23: daily. [address] metFORMIN 2020-0 Yes 1000mg Take 1,000 Univers 1,000 mg 3-10 mg by ity of tablet 19:23: mouth [address] daily with meals. metoprolol 2020-0 Yes 50mg Take 50 mg U nivers succinate 3-10 by mouth ity of XL 50 mg 24 19:23: daily. [place] tablet [address] [place] [address] lisinopril 2020-0 Yes 20mg Take 20 mg U nivers 20 mg 3-10 by mouth ity of tablet 19:23: daily. [address] Branch metFORMIN 2020-0 Yes 1000mg Take 1,000 Univers 1,000 mg 3-10 mg by ity of tablet 19:23: mouth [address] [place] [address] (two) Medical times [place] daily with meals. metoprolol 2020-0 Yes 50mg Take 50 mg U nivers succinate 3-10 by mouth ity of XL 50 mg 24 19:23: daily. [place] hr tablet Medical Branch lisinopril 2020-0 Yes 20mg Take 20 mg U nivers 20 mg 3-10 by mouth ity of tablet 19:23: daily. [address] Branch metFORMIN 2020-0 Yes 1000mg Take 1,000 Univers 1,000 mg 3-10 mg by ity of tablet 19:23: mouth 2 [place] [address] (two) Medical times [place] daily with meals. metoprolol 2020-0 Yes 50mg Take 50 mg U nivers succinate 3-10 by mouth ity of XL 50 mg 24 19:23: [facility]. [facility] tablet [address] [place] [address] Branch lisinopril 2020-0 Yes 20mg Take 20 mg U nivers 20 mg 3-10 by mouth ity of tablet 19:23: daily. [address] Branch metFORMIN 2020-0 Yes 1000mg Take 1,000 Univers 1,000 mg 3-10 mg by ity of tablet 19:23: mouth 2 [place] [address] (two) Medical times [place] daily with meals. INSULN ASP 2020-0 2020- No 26U inject 26 U nivers PRT/INSULIN 3-10 03-10 Units ity of ASPART 18:36: 00:00 under the [place] (NOVOLOG 06 :00 skin 2 Medical MIX 70-30 (two) Branch SC) times daily. lisinopril- 2020-0 2020- No 1{tbl} Take 1 Tab Univers hydrochloro 3-10 03-10 by mouth ity of thiazide 18:36: 00:00 daily. [place] (PRINZIDE,Z 06 :00 Medical ESTORETIC) Branch 20-25 mg per tablet INSULIN 2020-0 2020- No 6U inject 6 Unive rs LISPRO 3-10 03-10 Units ity of (HUMALOG 18:36: 00:00 under the [facility] as SC) 06 :00 skin 3 Medical (three) Branch times daily. INSULIN 2020-0 2020- No 36U inject 36 Univ ers DEGLUDEC 3-10 03-10 Units ity of (TRESIBA 18:36: 00:00 under the [place] as FLEXTOUCH 06 :00 skin Medical U-100 SC) daily. [place] Regadenoson 2020-0 2020- No .4mg 0.4 mg, IV Univers (LEXISCAN) 3-10 -10 Push, ity of injection 15:30: 15:00 ONCE, 1 [place] 0.4 mg 00 :00 dose, [facility] Medical 11/28/19 at Branch 1030, Routine
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 approving Restricted medication : FLORENTIN MALAGON tc 2020-0 2020- No 44mCi 44 Univers 99m-tetrofo 3-10 -10 millicurie i ty of [facility] 15:15: 15:01 , [place] ([facility]) 00 :00 Intravenou Medi salvatore injection s, ONCE, 1 Bran ch 44 dose, [facility] millicurie 11/28/19 at 1015, Routine tc 2020-0 2020- No 16.5mCi 16.5 Univers 99m-tetrofo 3-10 -10 millicurie i ty of smin 13:15: 13:04 , [place] ([facility]) 00 :00 Intravenou Medi salvatore injection s, ONCE, 1 Bran ch 16.5 dose, [facility] millicurie 11/28/19 at 0815, Routine insulin 2020-0 Yes 34U inject 34 Unive rs degludec-li 3-10 Units ity of raglutide 00:00: under the [place] (XULTOPHY 00 skin at [facility] 100/3.6) bedtime. Branch 100 unit-3.6 mg /mL (3 mL) InPn atorvastati 2020-0 Yes 40mg Take 2 Univ ers n 20 mg 3-10 tablets by ity of tablet 00:00: mouth at [place] 00 bedtime. Medical Branch insulin 2020-0 Yes 34U inject 34 Unive rs degludec-li 3-10 Units ity of raglutide 00:00: under the [place] (XULTOPHY 00 skin at [facility] 100/3.6) bedtime. Branch 100 unit-3.6 mg /mL (3 mL) InPn atorvastati 2020-0 Yes 40mg Take 2 Univ ers n 20 mg 3-10 tablets by ity of tablet 00:00: mouth at [place] 00 bedtime. Medical Branch insulin 2020-0 Yes 34U inject 34 Unive rs degludec-li 3-10 Units ity of raglutide 00:00: under the [place] (XULTOPHY 00 skin at [facility] 100/3.6) bedtime. Branch 100 unit-3.6 mg /mL (3 mL) InPn atorvastati 2020-0 Yes 40mg Take 2 Univ ers n 20 mg 3-10 tablets by ity of tablet 00:00: mouth at [place] 00 bedtime. Medical Branch insulin 2020-0 Yes 34U inject 34 Unive rs degludec-li 3-10 Units ity of raglutide 00:00: under the [place] (XULTOPHY 00 skin at [facility] 100/3.6) bedtime. Branch 100 unit-3.6 mg /mL (3 mL) InPn atorvastati 2020-0 Yes 40mg Take 2 Univ ers n 20 mg 3-10 tablets by ity of tablet 00:00: mouth at [place] 00 bedtime. Medical Branch insulin 2020-0 Yes 34U inject 34 Unive rs degludec-li 3-10 Units ity of raglutide 00:00: under the [place] (XULTOPHY 00 skin at [facility] 100/3.6) bedtime. Branch 100 unit-3.6 mg /mL (3 mL) InPn atorvastati 2020-0 Yes 40mg Take 2 Univ ers n 20 mg 3-10 tablets by ity of tablet 00:00: mouth at [place] 00 bedtime. Medical Branch pantoprazol 2019-0 2020- No [id number] 40mg Take 1 Univers e 40 mg EC 3-10 04-10 tablet by ity of tablet 00:00: 04:59 mouth [place] 00 :00 daily for Medical 30 days. Branch pantoprazol 2020-0 2020- No [id number] 40mg Take 1 Univers e 40 mg EC 3-10 04-10 tablet by ity of tablet 00:00: 04:59 mouth [place] 00 :00 daily for Medical 30 days. Branch sucralfate 2019-0 2020- No [id number] 1g Take 1 Univers 1 gram 3-10 03-10 tablet by ity of tablet 00:00: 00:00 mouth [place] 00 :00 before Medical meals and Branch at bedtime for 14 days. atorvastati 2020-0 Yes 20mg 20 mg, Univ ers n (LIPITOR) 3-09 Oral, QHS, it y of tablet 20 02:00: First dose [place] mg 00 on [facility] 11/26/19 at Branch 2100, Until Discontinu ed, Routine clopidogreL 2020-0 Yes 75mg 75 mg, Univ ers (PLAVIX) 3-08 Oral, ity of tablet 75 14:00: DAILY, [place] mg 00 First dose Medical on [facility] 11/26/19 at 0900, Until Discontinu ed, Routine aspirin 2020-0 Yes 81mg 81 mg, Univers chewable 3-08 Oral, ity of tablet 81 14:00: DAILY, [place] mg 00 First dose Medical on [facility] 11/26/19 at 0900, Until Discontinu ed, Routine amLODIPine 2020-0 Yes 5mg 5 mg, Univer s (NORVASC) 3-08 Oral, ity of tablet 5 mg 14:00: DAILY, [place] 00 First dose Medical on [facility] 11/26/19 at 0900, Until Discontinu ed, Routine lisinopril 2020-0 Yes 20mg 20 mg, Unive rs (PRINIVIL,Z 3-08 Oral, ity of ESTRIL) 14:00: DAILY, [place] tablet 20 00 First dose Medi salvatore mg on [facility] 11/26/19 at 0900, Until Discontinu ed, Routine metoprolol 2020-0 Yes 50mg 50 mg, Unive rs succinate 3-08 Oral, ity of XL (TOPROL 14:00: DAILY, [place] XL) tablet 00 First dose Med ical 50 mg on [facility] 11/26/19 at 0900, Until Discontinu ed, Routine enoxaparin 2020-0 Yes 40mg 40 mg, Unive rs (LOVENOX) 3-08 Subcutaneo ity of injection 14:00: [place], DAILY, [place] 40 mg 00 First dose Medical on [facility] 11/26/19 at 0900, Until Discontinu ed, Routine docusate 2020-0 Yes 100mg 100 mg, Unive rs (COLACE) 3-08 Oral, BID, ity o f capsule 100 13:00: First dose [place] mg 00 on [facility] 11/26/19 at Branch 0800, Until Discontinu ed, [...] First dose Medic al NaCl 0.9% on Sat Branch (NS) 100 mL 11/25/19 at MINI-BAG 2245, Until Discontinu ed, 100 mL furosemide 2020-0 2020- No 20mg 20 mg, Univ ers (LASIX) 11-25 03-10 Slow IV ity of injection 04:45: 14:21 Push, [place] 20 mg 00 :16 QAM+PM, Medical First dose Branch on 11/25/19 at 2245, Until Discontinu ed, Routine insulin 2020-0 Yes 34U 34 Units, Unive rs glargine 11-25 Subcutaneo ity o f (LANTUS 04:30: us, [...] IV Push, ity of (PF)) 04:28: Q6HPRN, [place] injection 4 22 Starting Medi salvatore mg 11/25/19 Branch at 8, Until Discontinu ed, Routine, Nausea and Vomiting [...] 25 mL, Univ ers % in water - Slow IV ity of (D50W) 04:27: Push, PRN, [place] injection 39 Starting Medica l 25 mL 11/25/19 Branch at 2227, Until Discontinu ed, FREDDIE, Blood Glucose < or = 70 mg/dL and patient is unable to swallow or has mental status changes. nitroglycer 2020-0 Yes .4mg 0.4 mg, Uni vers in 11-25 Sublingual ity of (NITROSTAT) 04:27: , Q5MIN [place] sublingual 05 PRN, Medical tablet 0.4 Starting Branc h mg 11/25/19 at 2227, Until Discontinu ed, Routine, Chest pain morpHINE 2020-0 Yes 2mg 2 mg, Slow Uni vers injection 2 11-25 IV Push, ity of mg 04:26: Q4HPRN, [place] 55 Starting Medical 11/25/19 Branch at 2226, Until Discontinu ed, Routine, Pain (scale 7-10), Chest pain proMETHazin 2019-0 2020- No 12.5mg 12.5 mg, Univers e 11-25 IV ity of (PHENERGAN) 03:30: 03:30 [place], [place] 12.5 mg in 00 :00 ONCE, 1 Medica l NaCl 0.9% dose, Sat Branc h (NS) 50 mL 11/25/19 at piggyback 0, 50 mL nitroglycer 2020-0 2020- No .4mg 0.4 mg, Un danny in 11-25 Sublingual ity of (NITROSTAT) 03:00: 02:02 , ONCE, 1 [place] sublingual 00 :00 dose, Sat Medi salvatore tablet 0.4 11/25/19 at Bran ch mg 2100, FREDDIE morpHINE 2020-0 2020- No 4mg 4 mg, Slow Un danny injection 4 11-25 IV Push, ity of mg 03:00: 02:08 ONCE, 1 [place] 00 :00 dose, Sat Medical 11/25/19 at Branch 2100, STAT iohexol 2020-0 2020- No 120mL 120 mL, Unive rs (OMNIPAQUE 11-25 Intravenou it y of 350 01:30: 01:15 s, ONCE, 1 [place] BULK-100 00 :00 dose, Sat Medica l mL) 11/25/19 at Branch injection 0, 120 mL Routine nitroglycer 2020- No .4mg 0.4 mg, Un danny in 11-25 Sublingual ity of (NITROSTAT) 01:30: 00:32 , ONCE, 1 [place] sublingual 00 :00 dose, Sat Medi salvatore tablet 0.4 11/25/19 at Bran ch mg 1929, FREDDIE NaCl 0.9% 2020- No 500mL at 999 Univ ers (NS) bolus 11-25 mL/hr, 500 it [...] Medical 11/25/19 at Branch 1930, STAT acetaminoph 2018-0 Yes 2{tbl} Take 2 Un [...] (scale 7-10) (ALTERNATE WITH TYLENOL #3). Nitrofurant 2017-0 2020- No 100mg Take 1 Un danny oin&Nit. 4-28 03-10 capsule by ity of Macrocryst 00:00: 00:00 mouth 2 [place] (MACROBID) 00 :00 (two) Medical 100 mg times Branch capsule daily. NITROGLYCER 2005- Yes 1 Tab SL Un danny IN 0.4 MG 1-24 Q5MIN PRN ity o f SL SUBL 00:00: [place] 00 [facility] NITROGLYCER 2005-09 Yes 1 Tab SL Un danny IN 0.4 MG 1-24 Q5MIN PRN ity o f SL SUBL 00:00: [place] 00 [facility] NITROGLYCER 2005- Yes 1 Tab SL Un danny IN 0.4 MG 1-24 Q5MIN PRN ity o f SL SUBL 00:00: [place] 00 [facility] NITROGLYCER 2005-09 Yes 1 Tab SL Un danny IN 0.4 MG 1-24 Q5MIN PRN ity o f SL SUBL 00:00: [place] 00 [facility] NITROGLYCER 2005-09 Yes 1 Tab SL Un danny IN 0.4 MG 1-24 Q5MIN PRN ity o f SL SUBL 00:00: [place] 00 [facility] ATORVASTATI 2005- 2020- No 1 Tab Oral Univers N 20 MG 1-24 03-10 QHS ity of ORAL TAB 00:00: 00:00 [place] 00 :00 [facility] Immunizations Ordered Immunization Filled Immunization Date Status Commen ts Source Name Name pA IM 2022-11-16 Completed Mary maldonado (Shingrix) 00:00:00 - External Tdap- (Boostrix, 2022-11-16 Completed Mary villeda Adacel) 00:00:00 - External Shingles IM 2022-11-16 Completed Mary maldonado (Shingrix) 00:00:00 - External Tdap- (Boostrix, 2022-11-16 Completed Mary helmsbovee Adacel) 00:00:00 - External Influenza Virus 2022-06-08 Completed Mary Nice ybold Vaccine, 00:00:00 - External Quadrivalent, High Dose, Age 65 And Up Influenza Virus 2022-06-08 Completed Mary Nice ybold Vaccine, 00:00:00 - External Quadrivalent, High Dose, Age 65 And Up Influenza Virus 2022-06-08 Completed Mary Nice ybold Vaccine, 00:00:00 - External Quadrivalent, High Dose, Age 65 And Up Influenza Virus 2022-06-08 Completed Mary Nice ybold Vaccine, 00:00:00 - External Quadrivalent, High Dose, Age 65 And Up Influenza Virus 2022-06-08 Completed Mary Nice ybold Vaccine, 00:00:00 - External Quadrivalent, High Dose, Age 65 And Up Influenza Virus 2022-06-08 Completed Mary Se ybold Vaccine, 00:00:00 - External Quadrivalent, High Dose, Age 65 And Up Influenza Virus 2022-06-08 Completed Mary Se ybold Vaccine, 00:00:00 - External Quadrivalent, High Dose, Age 65 And Up Influenza Virus 2022-06-08 Completed Mary Se ybold Vaccine, 00:00:00 - External Quadrivalent, High Dose, Age 65 And Up [...] 2021-07-24 Completed Mary Se ybold Vaccine, 00:00:00 - External Quadrivalent, High Dose, Age 65 And Up Influenza Virus 2021-07-24 Completed Mary Se ybold Vaccine, 00:00:00 - External Quadrivalent, High Dose, Age 65 And Up Influenza Virus 2021-07-24 Completed Mary Se ybold Vaccine, 00:00:00 - External Quadrivalent, High Dose, Age 65 And Up Influenza Virus 2021-07-24 Completed Mary Se ybold Vaccine, 00:00:00 - External Quadrivalent, High Dose, Age 65 And Up Influenza Virus 2021-07-24 Completed Mary Se ybold Vaccine, 00:00:00 - External Quadrivalent, High Dose, Age 65 And Up Influenza Virus 2021-07-24 Completed Mary Se ybold Vaccine, 00:00:00 - External Quadrivalent, High Dose, Age 65 And Up Influenza Virus 2021-07-24 Completed Mary Se ybold Vaccine, 00:00:00 - External Quadrivalent, High Dose, Age 65 And Up Influenza Virus 2021-07-24 Completed Mary Se ybold Vaccine, 00:00:00 - External Quadrivalent, High Dose, Age 65 And Up Covid-19 Vaccine 2020-12-18 Completed Mary villeda (Moderna), Mrna-lnp, 00:00:00 Jorge Protein, Pf, 100 Mcg/0.5ml,IM Covid-19 Vaccine 2020-12-18 Completed Mary villeda Moderna (Spikevax), 00:00:00 Mrna-lnp, Jorge Protein, Pf Covid-19 Vaccine 2020-12-18 Completed Mary villeda Moderna (Spikevax), 00:00:00 Mrna-lnp, Jorge Protein, Pf Covid-19 Vaccine 2020-12-18 Completed Mary villeda Moderna (Spikevax), 00:00:00 Mrna-lnp, Jorge Protein, Pf Covid-19 Vaccine 2020-12-18 Completed Mary villeda Moderna (Spikevax), 00:00:00 - Ext ernal Mrna-lnp, Jorge Protein, Pf Covid-19 Vaccine 2020-12-18 Completed Mary villeda Moderna (Spikevax), 00:00:00 - Ext ernal Mrna-lnp, Jorge Protein, Pf Covid-19 Vaccine 2020-12-18 Completed Mary villeda Moderna (Spikevax), 00:00:00 - Ext ernal Mrna-lnp, Jorge Protein, Pf Covid-19 Vaccine 2020-12-18 Completed Mary villeda (Moderna), Mrna-lnp, 00:00:00 Jorge Protein, Pf, 100 Mcg/0.5ml,IM Covid-19 Vaccine 2020-12-18 Completed Mary villeda Moderna (Spikevax), 00:00:00 - Ext ernal Mrna-lnp, Jorge Protein, Pf Covid-19 Vaccine 2020-12-18 Completed Mary villeda Moderna (Spikevax), 00:00:00 - Ext ernal Mrna-lnp, Jorge Protein, Pf Covid-19 Vaccine 2020-12-18 Completed Mary Harrison eybovee Moderna (Spikevax), 00:00:00 - Ext ernal Mrna-lnp, Jorge Protein, Pf Covid-19 Vaccine 2020-12-18 Completed Mary Harrison eybovee Moderna (Spikevax), 00:00:00 - Ext ernal Mrna-lnp, Jorge Protein, Pf Covid-19 Vaccine 2020-12-18 Completed Mary villeda Moderna (Spikevax), 00:00:00 - Ext ernal Mrna-lnp, Jorge Protein, Pf Covid-19 Vaccine 2020-12-18 Completed Mary villeda (Moderna), [...] 2020-11-20 Completed Mary villeda Moderna (Spikevax), 00:00:00 - Ext ernal Mrna-lnp, Jorge Protein, Pf Covid-19 Vaccine 2020-11-20 Completed Mary villeda Moderna (Spikevax), 00:00:00 - Ext ernal Mrna-lnp, Jorge Protein, Pf Covid-19 Vaccine 2020-11-20 Completed Mary villeda Moderna (Spikevax), 00:00:00 - Ext ernal Mrna-lnp, Jorge Protein, Pf Covid-19 Vaccine 2020-11-20 Completed Mary villeda (Moderna), Mrna-lnp, 00:00:00 Jorge Protein, Pf, 100 Mcg/0.5ml,IM Covid-19 Vaccine 2020-11-20 Completed Mary villeda Moderna (Spikevax), 00:00:00 - Ext ernal Mrna-lnp, Jorge Protein, Pf Covid-19 Vaccine 2020-11-20 Completed Mary villeda Moderna (Spikevax), 00:00:00 - Ext ernal Mrna-lnp, Jorge Protein, Pf Covid-19 Vaccine 2020-11-20 Completed Mary arayald Moderna (Spikevax), 00:00:00 - Ext ernal Mrna-lnp, Jorge Protein, Pf Covid-19 Vaccine 2020-11-20 Completed Mary villeda Moderna (Spikevax), 00:00:00 - Ext ernal Mrna-lnp, Jorge Protein, Pf Covid-19 Vaccine 2020-11-20 Completed Mary villeda Moderna (Spikevax), 00:00:00 - Ext ernal Mrna-lnp, Jorge Protein, Pf Covid-19 Vaccine 2020-11-20 [...] B Combo 2016-07-15 Completed Mary Seybold 00:00:00 - External Hep A/ Hep B Combo 2016-07-15 Completed Mary Seybold 00:00:00 - External Hep A/ Hep B Combo 2016-07-15 Completed Mary Seybold 00:00:00 - External Hep A/ Hep B Combo 2016-07-15 Completed Mary Seybold 00:00:00 - External Hep A/ Hep B Combo 2016-07-15 Completed Mary Seybold 00:00:00 Hep A/ Hep B Combo 2016-07-15 Completed Mary Seybold 00:00:00 - External Hep A/ Hep B Combo 2016-07-15 Completed Mary Seybold 00:00:00 - External Hep A/ Hep B Combo 2016-07-15 Completed Mary Seybold 00:00:00 - External Hep A/ Hep B Combo 2016-07-15 Completed Mary Seybold 00:00:00 - External Hep A/ Hep B Combo 2016-07-15 Completed Mary Seybold 00:00:00 Hep A/ Hep B Combo 2016-06-15 Completed Mary Seybold 00:00:00 Hep A/ Hep B Combo 2016-06-15 Completed Mary Seybold 00:00:00 Hep A/ Hep B Combo 2016-06-15 Completed Mary Seybold 00:00:00 Hep A/ Hep B Combo 2016-06-15 Completed Mary Seybold 00:00:00 Hep A/ Hep B Combo 2016-06-15 Completed Mary Seybold 00:00:00 - External Hep A/ Hep B Combo 2016-06-15 Completed Mary Seybold 00:00:00 - External Hep A/ Hep B Combo 2016-06-15 Completed Mary Seybold 00:00:00 - External Hep A/ Hep B Combo 2016-06-15 Completed Mary Seybold 00:00:00 Hep A/ Hep B Combo 2016-06-15 Completed Mary Seybold 00:00:00 - External Hep A/ Hep B Combo 2016-06-15 Completed Mary Seybold 00:00:00 - External Hep A/ Hep B Combo 2016-06-15 Completed Mary Seybold 00:00:00 - External Hep A/ Hep B Combo 2016-06-15 Completed Mary Seybold 00:00:00 - External Hep A/ Hep B Combo 2016-06-15 Completed Mary Seybold 00:00:00 - External Hep A/ Hep B Combo 2016-06-15 Completed Mary Seybold 00:00:00 Vital Signs Vital Name Observation Time Observation Value Comments Source Body height 2022-11-23 17:23:00 160 cm Mary villeda - External Body weight 2022-11-23 17:23:00 107.049 kg Mary villeda - External BMI 2022-11-23 17:23:00 41.81 kg/m2 Mary villeda - External Systolic blood 2022-11-16 15:03:00 122 mm[Hg] Mary Seybold - pressure External Diastolic blood 2022-11-16 15:03:00 78 mm[Hg] Tenisha y Seybold - pressure External Heart rate 2022-11-16 15:03:00 80 /min Mary Harrison eybold - External Body temperature 2022-11-16 15:03:00 36.61 Brunilda Chandni ey Seybold - External Respiratory rate 2022-11-16 15:03:00 16 /min Chandni ey Seybold - External Body height 2022-11-16 15:03:00 160 cm Mary Harrison eybold - External Body weight 2022-11-16 15:03:00 107.049 kg Mary Harrison eybold - External BMI 2022-11-16 15:03:00 41.81 kg/m2 Mary Harrison eybold - External Systolic blood 2022-09-17 15:17:00 146 mm[Hg] Mary Seybold - pressure External Diastolic blood 2022-09-17 15:17:00 63 mm[Hg] Tenisha dempsey Seybold - pressure External Heart rate 2022-09-17 15:17:00 74 /min Mary Harrison eybold - External Body temperature 2022-09-17 15:17:00 36.28 Brunilda Chandni helms Seybold - External Respiratory rate 2022-09-17 15:17:00 14 /min Chandni helms Seybold - External Body height 2022-09-17 15:17:00 162.6 cm Mary Harrison eybold - External Body weight 2022-09-17 15:17:00 109.77 kg Mary Harrison eybold - External BMI 2022-09-17 15:17:00 41.54 kg/m2 Mary Harrison eybold - External Oxygen saturation in 2022-09-17 15:17:00 99 /min Mary Rosales - Arterial blood by External Pulse oximetry Systolic blood 2022-09-02 20:42:00 154 mm[Hg] Mary Seybold - pressure External Diastolic blood 2022-09-02 20:42:00 60 mm[Hg] Tenisha y Seybold - pressure External Heart rate 2022-09-02 20:42:00 80 /min Mary Harrison eybold - External Body temperature 2022-09-02 20:42:00 36.67 Brunilda Chandni ey Seybold - External Respiratory rate 2022-09-02 20:42:00 16 /min Chandni ey Seybold - External Body height 2022-09-02 20:42:00 162.6 cm Mary Harrison eybold - External Body weight 2022-09-02 20:42:00 108.863 kg Mary Harrison eybold - External BMI 2022-09-02 20:42:00 41.20 kg/m2 Mary S eybold - External Systolic blood 2022-08-26 14:29:00 148 mm[Hg] Mary Seybold - pressure External Diastolic blood 2022-08-26 14:29:00 74 mm[Hg] Ismaelse y Seybold - pressure External Heart rate 2022-08-26 14:29:00 82 /min Mary Harrison eybold - External Body temperature 2022-08-26 14:29:00 36.67 Brunilda Chandni ey Seybold - External Body weight 2022-08-26 14:29:00 106.595 kg Mary Harrison eybold - External BMI 2022-08-26 14:29:00 40.34 kg/m2 Mary S eybold - External Systolic blood 2022-08-20 18:50:00 134 mm[Hg] Mary Seybold - pressure External Diastolic blood 2022-08-20 18:50:00 82 mm[Hg] Tenisha y Seybold - pressure External Heart rate 2022-08-20 18:50:00 79 /min Mary Harrison eybold - External Body temperature 2022-08-20 18:50:00 36.44 Brunilda Chandni ey Seybold - External Respiratory rate 2022-08-20 18:50:00 14 /min Chandni helms Seybold - External Body height 2022-08-20 18:50:00 162.6 cm Mary Harrison eybold - External Body weight 2022-08-20 18:50:00 108.41 kg Mary Harrison eybold - External BMI 2022-08-20 18:50:00 41.02 kg/m2 Mary Harrison eybold - External Oxygen saturation in 2022-08-20 18:50:00 99 /min Mary Seybold - Arterial blood by External Pulse oximetry Systolic blood 2022-06-08 13:03:00 136 mm[Hg] Mary Seybold - pressure External Diastolic blood 2022-06-08 13:03:00 62 mm[Hg] Ismaelse roselyn Seybold - pressure External Heart rate 2022-06-08 13:03:00 74 /min Mary Harrison eybold - External Body temperature 2022-06-08 13:03:00 36.72 Brunilda Chandni ey Seybold - External Respiratory rate 2022-06-08 13:03:00 14 /min Chandni ey Seybold - External Body height 2022-06-08 13:03:00 162.6 cm Mary Harrison eybold - External Body weight 2022-06-08 13:03:00 107.956 kg Mary helmsbold - External BMI 2022-06-08 13:03:00 40.85 kg/m2 Mary helmsbold - External Oxygen saturation in 2022-06-08 13:03:00 99 /min Mary Niceyefrijez - Arterial blood by External Pulse oximetry HEIGHT 2022-02-09 10:54:00 160 cm WEIGHT 2022-02-09 10:54:00 105.235 kg HEIGHT 2022-02-09 10:54:00 160 cm WEIGHT 2022-02-09 10:54:00 105.235 kg HEIGHT 2022-01-27 07:59:00 160 cm WEIGHT 2022-01-27 07:59:00 105.2 kg HEIGHT 2022-01-27 07:59:00 160 cm WEIGHT 2022-01-27 07:59:00 105.2 kg HEIGHT 2022-01-26 10:11:00 160 cm WEIGHT 2022-01-26 10:11:00 99.338 kg HEIGHT 2022-01-26 10:11:00 160 cm WEIGHT 2022-01-26 10:11:00 99.338 kg Systolic blood 2022-01-12 20:58:00 156 mm[Hg] Mary Seybold pressure Diastolic blood 2022-01-12 20:58:00 66 mm[Hg] Ismaelse y Seybold pressure Heart rate 2022-01-12 20:58:00 64 /min Mary Harrison eybold Body temperature 2022-01-12 20:58:00 36.5 Brunilda Chandni ey Seybold Respiratory rate 2022-01-12 20:58:00 16 /min Chandni ey Seybold Body height 2022-01-12 20:58:00 160 cm Mary S eybold Body weight 2022-01-12 20:58:00 108.954 kg Mary S eybold BMI 2022-01-12 20:58:00 42.55 kg/m2 Mary S eybold Systolic blood 2022-01-09 19:06:00 142 mm[Hg] Mary Seybold pressure Diastolic blood 2022-01-09 19:06:00 68 mm[Hg] Kelse y Seybold pressure Heart rate 2022-01-09 19:06:00 62 /min Mary S eybold Body temperature 2022-01-09 19:06:00 36.28 Brunilda Chandni ey Seybold Respiratory rate 2022-01-09 19:06:00 14 /min Chandni ey Seybold Body height 2022-01-09 19:06:00 160 cm Mary S eybold Body weight 2022-01-09 19:06:00 109.226 kg Mary S eybold BMI 2022-01-09 19:06:00 42.66 kg/m2 Mary S eybold Systolic blood 2021-12-29 13:11:00 143 mm[Hg] [...] pressure Diastolic blood 2021-07-24 13:15:00 62 mm[Hg] Ismaelse y Seybold pressure Heart rate 2021-07-24 13:15:00 86 /min Mary helmsbovee Body temperature 2021-07-24 13:15:00 36.33 Brunilda Chandni ey Seybold Respiratory rate 2021-07-24 13:15:00 14 /min Chandni helms Seybold Body height 2021-07-24 13:15:00 160 cm Mary helmsbovee Body weight 2021-07-24 13:15:00 107.049 kg Mary helmsbold BMI 2021-07-24 13:15:00 41.81 kg/m2 Mary Harrison eybold Systolic blood 2021-07-15 20:51:00 146 mm[Hg] Mary Seybold pressure Diastolic blood 2021-07-15 20:51:00 52 mm[Hg] Ismaelse y Seybold pressure Heart rate 2021-07-15 20:51:00 89 /min Mary helmsbovee Body temperature 2021-07-15 20:51:00 36.06 Brunilda Chandni helms Seybold Respiratory rate 2021-07-15 20:51:00 16 /min Chandni helms Seybjez Body height 2021-07-15 20:51:00 160 cm Mary helmsbovee Body weight 2021-07-15 20:51:00 106.595 kg Mary helmsbold BMI 2021-07-15 20:51:00 41.63 kg/m2 Mary helmsbovee Systolic blood 2021-01-11 02:48:00 178 mm[Hg] [facility] Diastolic blood 2021-01-11 02:48:00 84 mm[Hg] [facility] Heart rate 2021-01-11 02:48:00 75 /[facility] Respiratory rate 2021-01-11 02:48:00 18 /min [facility] in 2021-01-11 02:48:00 99 /min [facility] Arterial blood by [facility] Pulse oximetry Branch Body temperature 2021-01-11 00:30:00 36.33 Brunilda [facility] Body height 2021-01-11 00:30:00 161.3 cm [facility] [place] [facility] Body weight 2021-01-11 00:30:00 109.317 kg [facility] BMI 2021-01-11 00:30:00 42.02 kg/m2 [facility] Systolic blood 2021-01-11 02:48:00 178 mm[Hg] [facility] Diastolic blood 2021-01-11 02:48:00 84 mm[Hg] [facility] Heart rate 2021-01-11 02:48:00 75 /min [facility] Respiratory rate 2021-01-11 02:48:00 18 /min [facility] Oxygen saturation in 2021-01-11 02:48:00 99 /min [facility] Arterial blood by [place] [employer] [facility] Pulse oximetry Branch Body temperature 2021-01-11 00:30:00 36.33 Brunilda [facility] Body height 2021-01-11 00:30:00 161.3 cm [facility] Body weight 2021-01-11 00:30:00 109.317 kg [facility] [place] [facility] BMI 2021-01-11 00:30:00 42.02 kg/m2 [facility] Systolic blood 2020-08-08 15:03:00 176 mm[Hg] [facility] Diastolic blood 2020-08-08 15:03:00 67 mm[Hg] [facility] Heart rate 2020-08-08 15:03:00 82 /min [facility] Body temperature 2020-08-08 15:03:00 36.56 Brunilda [facility] Respiratory rate 2020-08-08 15:03:00 14 /min [facility] Body weight 2020-08-08 15:03:00 108.863 kg [facility] BMI 2020-08-08 15:03:00 42.51 kg/m2 [facility] Oxygen saturation in 2020-08-08 15:03:00 98 /min [facility] Arterial blood by [place] [employer] [facility] Pulse oximetry Branch Systolic blood 2020-08-08 15:03:00 176 mm[Hg] [facility] Diastolic blood 2020-08-08 15:03:00 67 mm[Hg] [facility] Heart rate 2020-08-08 15:03:00 82 /min [facility] Body temperature 2020-08-08 15:03:00 36.56 Brunilda [facility] Respiratory rate 2020-08-08 15:03:00 14 /min [facility] Body weight 2020-08-08 15:03:00 108.863 kg [facility] [place] [facility] BMI 2020-08-08 15:03:00 42.51 kg/m2 [facility] Oxygen saturation in 2020-08-08 15:03:00 98 /min [facility] Arterial blood by [facility] Pulse oximetry Branch Systolic blood 2019-11-28 16:15:00 150 mm[Hg] [facility] Diastolic blood 2019-11-28 16:15:00 76 mm[Hg] [facility] Heart rate 2019-11-28 16:15:00 93 /min [facility] Body temperature 2019-11-28 16:15:00 36.11 Brunilda [facility] [place] [facility] Respiratory rate 2019-11-28 16:15:00 18 /min [facility] Oxygen saturation in 2019-11-28 16:15:00 98 /min [facility] Arterial blood by [facility] Pulse oximetry Branch Body height 2019-11-28 14:18:00 160 cm [facility] Body weight 2019-11-28 14:18:00 107.502 kg [facility] BMI 2019-11-28 14:18:00 41.98 kg/m2 [facility] Systolic blood 2019-11-28 16:15:00 150 mm[Hg] [facility] Diastolic blood 2019-11-28 16:15:00 76 mm[Hg] [facility] [place] [facility] Heart rate 2019-11-28 16:15:00 93 /min [facility] Body temperature 2019-11-28 16:15:00 36.11 Brunilda [facility] Respiratory rate 2019-11-28 16:15:00 18 /min [facility] Oxygen saturation in 2019-11-28 16:15:00 98 /min [facility] Arterial blood by [facility] Pulse oximetry Branch Body height 2019-11-28 14:18:00 160 cm [facility] Body weight 2019-11-28 14:18:00 107.502 kg [facility] BMI 2019-11-28 14:18:00 41.98 kg/m2 [facility] Systolic blood 2022-02-09 10:54:00 135 mm[Hg] [facility] Diastolic blood 2022-02-09 10:54:00 61 mm[Hg] [facility] Heart rate 2022-02-09 10:54:00 71 /min [facility] Body temperature 2022-02-09 10:54:00 37 Brunilda [facility] Respiratory rate 2022-02-09 10:54:00 17 /min [facility] Body height 2022-02-09 10:54:00 160 cm [facility] Body weight 2022-02-09 10:54:00 105.235 kg [facility] BMI 2022-02-09 10:54:00 41.11 kg/m2 [facility] Oxygen saturation in 2022-02-09 10:54:00 98 /min room air [facility] Arterial blood by Medical Ce nter Pulse oximetry Procedures Procedure Date / Time Performing Clinician Source Performed REAGENT STRIP/BLOOD 2022-11-16 15:09:00 Fredy Lora - GLUCOSE External [facility] 2022-06-08 14:34:28 Darron Art - External REAGENT STRIP/BLOOD 2022-01-12 21:02:00 Outside, Reported Mary Rosales GLUCOSE CBC WITH 2021-07-24 13:44:00 Jimbo Eubanks DIFFERENTIAL/PLATELET URINALYSIS NONAUTO W/O 2021-07-15 21:06:00 Ronak Keyes SCOPE Somogyi URIC ACID 2021-01-11 00:44:00 Singer [facility] COMP. METABOLIC PANEL 2021-01-11 00:44:00 Singer [facility] ([id number]) Medical Branch CBC WITH DIFF 2021-01-11 00:44:00 Singer [facility] XR FOOT <3 VW RIGHT 2021-01-11 00:42:14 Singer Raj [facility] NOTICE OF PRIVACY 2021-01-11 00:20:55 Doctor Unassigned, No [facility] PRACTICES Name Medical Branch CONSENT/REFUSAL FOR 2020-08-08 14:50:51 Doctor Unassigned, No [facility] DIAGNOSIS AND TREATMENT Name Medical Branch POCT GLUCOSE 2019-11-28 16:18:00 Cathy [facility] (AUTOMATED) Medical Branch POCT GLUCOSE 2019-11-28 12:26:00 Cathy [facility] (AUTOMATED) Medical Branch POCT GLUCOSE 2019-11-28 08:06:00 Cathy [facility] (AUTOMATED) Medical Branch POCT GLUCOSE 2019-11-28 04:39:00 Cathy [facility] (AUTOMATED) Medical Branch POCT GLUCOSE 2019-11-28 00:58:00 Cathy [facility] (AUTOMATED) Medical Branch POCT GLUCOSE 2019-11-27 21:13:00 Cathy [facility] (AUTOMATED) Medical Branch POCT GLUCOSE 2019-11-27 17:17:00 Cathy [facility] (AUTOMATED) Medical Branch ECHO ROUTINE W/DOPPLER 2019-11-27 16:18:52 Nitesh Akhtar [facility] COLOR [facility] POCT GLUCOSE 2019-11-27 12:22:00 Cathy [facility] (AUTOMATED) [facility] Branch BASIC METABOLIC PANEL 2019-11-27 08:32:00 Cathy [facility] (NA, K, CL, CO2, Medical Branch GLUCOSE, BUN, CREATININE, CA) CBC WITH DIFFERENTIAL 2019-11-27 08:32:00 Cathy [facility] Medical [place] N-TERMINAL PRO-BNP 2019-11-27 08:32:00 Cathy [facility] POCT GLUCOSE 2019-11-27 07:06:00 Cathy [facility] (AUTOMATED) Medical Branch POCT GLUCOSE 2019-11-27 00:57:00 Cathy [facility] (AUTOMATED) Medical Branch POCT GLUCOSE 2019-11-26 21:30:00 Cathy [facility] (AUTOMATED) [facility] TROPONIN I 2019-11-26 20:26:00 Leonid [facility] POCT GLUCOSE 2019-11-26 19:51:00 Cathy [facility] (AUTOMATED) [facility] Branch EKG-12 LEAD 2019-11-26 19:03:59 Leonid [facility] POCT GLUCOSE 2019-11-26 16:30:00 Cathy [facility] (AUTOMATED) [facility] POCT GLUCOSE 2019-11-26 11:27:00 Cathy [facility] (AUTOMATED) [facility] PHOSPHORUS 2019-11-26 09:29:00 Cathy [facility] MAGNESIUM 2019-11-26 09:29:00 Cathy [facility] TROPONIN I 2019-11-26 09:29:00 Cathy [facility] BASIC METABOLIC PANEL 2019-11-26 09:29:00 Cathy [facility] (NA, K, CL, CO2, Medical Branch GLUCOSE, BUN, CREATININE, CA) LIPID PANEL 2019-11-26 09:29:00 Nitesh Akhtar [facility] ([id number])(TOTAL Medical Branch CHOLESTEROL, TRIGLYCERIDES, HDL) N-TERMINAL PRO-BNP 2019-11-26 09:29:00 Cathy [facility] TROPONIN I 2019-11-26 06:05:00 Cathy [facility] POCT GLUCOSE 2019-11-26 05:50:00 Cathy [facility] (AUTOMATED) [facility] Branch EKG-12 LEAD 2019-11-26 04:25:00 Cathy [facility] TROPONIN I 2019-11-26 03:04:00 [facility] CRITICAL CARE 2019-11-26 01:45:[address] [facility] CHEST PULMONARY 2019-11-26 01:20:39 Evert [facility] ANGIOGRAM [facility] CT HEAD WO CONTRAST 2019-11-26 01:20:21 Dalila Loyd [facility] XR CHEST 1 VW 2019-11-26 00:35:51 [facility] EKG-12 LEAD 2019-11-26 00:30:29 Gabi Schmidt [facility] POCT GLUCOSE 2019-11-26 00:29[facility] TROPONIN I 2019-11-26 00:17:00 [facility] COMP. METABOLIC PANEL 2019-11-26 00:17:00 Evert Dalila [facility] ([id number]) [facility] CBC WITH DIFFERENTIAL 2019-11-26 00:17:00 Evert [facility] GLYCOSYLATED HEMOGLOBIN 2019-11-26 00:17:00 Alexia Morgan [facility] (A1C) [facility] PROTHROMBIN TIME / INR 2019-11-26 00:[facility] 2019-11-26 00:17:00 [facility] ACTIVATED PARTIAL 2019-11-26 00:17[facility] N-TERMINAL PRO-BNP 2019-11-26 00:17:00 Evert Dalila [facility] EKG-12 LEAD 2019-11-26 00:10:13 [facility] EKG-12 LEAD 2019-11-26 00:04:49 Gabi Schmidt [facility] NOTICE OF PRIVACY 2019-11-25 23:54:05 Doctor Unassigned, No [facility] CONSENT/REFUSAL FOR 2019-11-25 23:53:07 [facility] HOSPITAL ADM - MISC 2019-11-25 06:01:00 Doctor Unassigned, No [facility] [place] [facility] Plan of Care Planned Activity Planned Date Details Comments Source Future Scheduled 2023-05-[address] [facility] Test 00:00:00 (Season Ended) [code = Medic al Center INFLUENZA VACCINE (Season Ended)] Future Scheduled 2023-01-[address] [facility] Test 00:00:00 [facility]ing [facility] Cent[facility] r Screening (12+) [code = Tobacco Cessation Counseling and Screening (12+)] Future Scheduled 2023-01-15 Urine screening for [facility] Test 00:00:00 protein (procedure) Medical Center [code = 613633787] Future Scheduled 2022-09-[address] [facility] Test 00:00:00 (12+) [code = Medical Center DEPRESSION SCREENING (12+)] Future Scheduled 2022-09-20 FALLS RISK SCREENING [facility] Test 00:00:00 [code = FALLS RISK Medical C enter SCREENING] Future Scheduled 2022-01-[address] [facility] 00:[facility]:00 measurement (procedure) [facility] [code = [id number]] Future Scheduled 2022-01-08 COVID-19 VACCINE ([facility] - [facility]00 Booster for Modern[facility] series) [code = COVID-19 VACCINE (4 - Booster for Moderna series)] Future Scheduled 2019-09-[address] [facility] [facility] 00:00:00 WELLNESS (YEAR 2 or Medical Center FIRST YEAR if no IPPE) [code = MEDICARE ANNUAL WELLNESS (YEAR 2 or FIRST YEAR if no IPPE)] Future Scheduled 2000 SHINGLES VACCINES ([address] [facility] 00:00:00 2) [code = SHINGLES [facility] VACCINES (1 of 2)] Future Scheduled 1969 DTAP/TDAP/TD [facility]ACCINES [facility] 00:00:00 (1 - Tdap) [code = Medical C enter DTAP/TDAP/TD VACCINES (1 - Tdap)] Future Scheduled 1968 HEPATITIS C [facility]CRE[facility]ING [facility] 00:00:00 [code = HEPATITIS C Medical Center SCREENING] Future Scheduled 1960 DIABETIC EYE EXAM [code [facility] 00:00:00 = DIABETIC EYE EXAM] Medical Center Future Scheduled [address] [facility] Center (regime/therapy) [code = 128662259] Future Scheduled 1956 PNEUMOCOCCAL 65+ YRS ([address] [facility] 00:00:00 - PCV) [code = Medical Cente r PNEUMOCOCCAL 65+ YRS (1 - PCV)] Future Scheduled 1950 Screening for malignant [facility] 00:00:00 neoplasm of breast Medical C enter (procedure) [code = 717228294] Future Scheduled 1950 CT Colonography (combo) [facility] 00:00:00 [code = CT Colonography [facility] (combo)] Future Scheduled 1950 Screening for malignant [facility] 00:00:00 neoplasm of colon Medical Ce nter (procedure) [code = 632983519] Future Scheduled 1950 Screening for malignant [facility] 00:00:00 neoplasm of colon Medical Ce nter (procedure) [code = 156348947] Future Scheduled 1950 DXA SCAN [code = DXA [facility] Test 00:00:00 SCAN] Medical Center Future Scheduled 1950 Screening for malignant [facility] 00:00:00 neoplasm of colon Medical Ce nter (procedure) [code = 897280038] Future Scheduled 1950 Screening for malignant [facility] Test 00:00:00 neoplasm of colon Medical Ce nter (procedure) [code = 022526697] Future Scheduled 1950 Sigmoidoscopy [code = [facility] 00:[facility] Sigmoidoscopy] Medical Johne r Encounters Start End Encounter Admission Attending Care Care Encounter Source Date/Time Date/Time Type Type Clinicians Facility Department ID 2023-04-02 2023-04-02 Outpatient MARY CHESTER [id number] Mary 12:30:00 12:30:00 BERT maldonado 2023-03-01 2023-03-01 Outpatient FREDY LORA [id number] Mary 08:15:00 08:15:00 Seybol d 2023-02-08 2023-02-08 Outpatient MARY RAY [id number] Mary 08:30:00 08:30:00 BOB Seybol d 2023-01-29 2023-01-29 Outpatient MARY CHESTER [id number] Mary 00:00:00 00:00:00 BERT Seybol d 2023-01-29 2023-01-29 Outpatient MARY CORADO [id number] Mary 00:00:00 00:00:00 Seybol d 2023-01-15 2023-01-15 Outpatient MARY CHESTER [id number] Mary 00:00:00 00:00:00 BERT Seybol d 2023-01-13 2023-01-13 Outpatient MARY CHESTER [id number] Mary 08:30:00 08:30:00 BERT Seybol d 2023-01-07 2023-01-07 Outpatient MARINA CORADO [id number] Mary 00:00:00 00:00:00 MD YEHUDA Seybol d 2023-01-05 2023-01-05 Outpatient MARY RAY [id number] Mary 15:00:00 15:00:00 BOB Seybol d 2022-12-14 2022-12-14 Outpatient MARY RAY [id number] Mary 09:00:00 09:00:00 BOB Seybol d 2022-12-10 2022-12-10 Outpatient MARY AVALOS [id number] Mary 10:30:00 10:30:00 GABI Seybol d 2022-12-10 2022-12-10 Outpatient MARY AVALOS [id number] Mary 00:00:00 00:00:00 GABI Seybol d 2022-12-07 2022-12-07 Outpatient LAB90 MARY CORADO [id number] Mary 08:35:00 08:35:00 Seybol d 2022-11-23 2022-11-23 Outpatient ZAIRE GARCÍA [id number] Mary 11:45:00 11:45:00 Seybol d 2022-11-23 2022-11-23 Outpatient MARY KEYES [id number] Mary 00:00:00 00:00:00 RONAK Seybol d 2022-11-23 2022-11-23 Outpatient MARY CORADO [id number] Mary 00:00:00 00:00:00 Seybol d 2022-11-16 2022-11-16 Outpatient FREDY LORA MARY CORADO [id number] Mary 09:30:00 09:30:00 Seybol d 2022-11-05 2022-11-05 Outpatient MARY CORADO [id number] Mary 00:00:00 00:00:00 Seybol d 2022-10-12 2022-10-12 Outpatient LAB90 MARY CORADO [id number] Mary 13:25:00 13:25:00 Seybol d 2022-10-02 2022-10-02 Outpatient MARY RAY [id number] Mary 00:00:00 00:00:00 BOB Seybol d 2022-09-18 2022-09-18 Outpatient MARY ART [id number] Mary 00:00:00 00:00:00 DARRON Seybol d 2022-09-17 2022-09-17 Outpatient MARY RAY [id number] Mary 09:30:00 09:30:00 BOB Seybol d 2022-09-02 2022-09-02 Outpatient MARY ART [id number] Mary 15:00:00 15:00:00 DARRON Seybol d 2022-09-02 2022-09-02 Outpatient MARY ART [id number] Mary 00:00:00 00:00:00 DARRON Seybol d 2022-08-27 2022-08-27 Outpatient MARY CHESTER [id number] Mary 00:00:00 00:00:00 BERT Seybol d 2022-08-26 2022-08-26 Outpatient MARY CHESTER [id number] Mary 09:00:00 09:00:00 BERT Seybol d 2022-08-26 2022-08-26 Outpatient MARY KEYES [id number] Mary 00:00:00 00:00:00 RONAK Seybol d 2022-08-21 2022-08-21 Outpatient PREFRANCISCO MARY CORADO [id number] Mary 00:00:00 00:00:00 BOB Seybol d 2022-08-20 2022-08-20 Outpatient LAB90 MARY CORADO [id number] Mary 14:15:00 14:15:00 Seybol d 2022-08-20 2022-08-20 Outpatient PREFRANCISCO MARY CORADO [id number] Mary 13:30:00 13:30:00 BOB Seybol d 2022-08-20 2022-08-20 Outpatient PREFRANCISCO MARY CORADO [id number] Mary 00:00:00 00:00:00 BOB Seybol d 2022-07-13 2022-07-13 Outpatient FREDY LORA [id number] Mary 08:45:00 08:45:00 Seybol d 2022-07-06 2022-07-06 Outpatient LAB90 MARY CORADO [id number] Mary 16:25:00 16:25:00 Seybol d 2022-07-06 2022-07-06 Outpatient MARY ART [id number] Mary 15:30:00 15:30:00 DARRON Seybol d 2022-06-24 2022-06-24 Outpatient CHAGO EAGLE [id number] Mary 00:00:00 00:00:00 Seybol d 2022-06-15 2022-06-15 Outpatient MARY CORADO [id number] Mary 08:40:00 08:40:00 Seybol d 2022-06-11 2022-06-11 Outpatient MARY ART [id number] Mary 00:00:00 00:00:00 DARRON Seybol d 2022-06-11 2022-06-11 Outpatient MARY ART [id number] Mary 00:00:00 00:00:00 DARRON Seybol d 2022-06-10 2022-06-10 Outpatient MARY ART [id number] Mary 00:00:00 00:00:00 DARRON Seybol d 2022-06-10 2022-06-10 Outpatient FREDY LORA [id number] Mary 00:00:00 00:00:00 Seybol d 2022-06-08 2022-06-08 Outpatient LAB90 MARY CORADO [id number] Mary 09:20:00 09:20:00 Seybol d 2022-06-08 2022-06-08 Outpatient MARY ART [id number] Mary 08:00:00 08:00:00 DARRON Seybol d 2022-04-27 2022-04-27 Outpatient MARY KEYES [id number] Mary 00:00:00 00:00:00 RONAK Seybol d 2022-04-13 2022-04-13 Outpatient LAB47 MARY CORADO [id number] Mary 15:45:00 15:45:00 Seybol d 2022-04-13 2022-04-13 Office Fredy Lora 1.2.840.114 [id number] Mary 15:15:00 15:30:00 Visit 350.1.13.13 Se ybold 1.2.7.2.686 [id number] 2022-04-06 2022-04-06 Outpatient MARY KEYES [id number] Mary 08:00:00 08:00:00 RONAK Seybol d 2022-04-02 2022-04-02 Office Eriberto Ray 1.2.840.114 [id number] Mary 09:45:00 10:00:00 Visit Bob Potter 350.1.13.13 Se ybold 1.2.7.2.686 [id number] 2022-03-30 2022-03-30 Outpatient MARY KEYES [id number] Mary 08:45:00 08:45:00 RONAK Seybol d 2022-03-24 2022-03-24 Outpatient MARY KEYES [id number] Mary 00:00:00 00:00:00 RONAK Seybol d 2022-03-16 2022-03-16 Outpatient MARY KEYES [id number] Mary 00:00:00 00:00:00 RONAK Seybol d 2022-02-23 2022-02-23 Outpatient FREDY LORA [id number] Mary 10:00:00 10:00:00 Seybol d 2022-02-19 2022-02-19 Outpatient MARY KEYES [id number] Mary 00:00:00 00:00:00 RONAK Seybol d 2022-02-09 2022-02-[address] [facility] [id number] 11:00:00 11:30:00 Visit [facility] 2022-02-09 2022-02-09 Outpatient DEIRDRE UMANZOR [facility] [id number] SLE 10:51:13 10:51:13 JUAN 2022-02-01 2022-02-[address] [facility] [id number] 00:[facility] 00[facility]00 [facility] 2022-01-27 2022-01-28 Inpatient UR DEIRDRE JIMÉNEZ Surgery [id number] SLE 06:36:00 10:25:00 JUAN 2022-01-27 2022-01-27 Outpatient [facility] [id number] [facility] 06:36:00 23:59:00 Sandy 2022-01-26 2022-01-26 Outpatient DEIRDRE UMANZOR [facility] [id number] SLE 10:03:55 10:03:55 JUAN 2022-01-15 2022-01-15 Outpatient LAB90 MARY CORADO [id number] Mary 08:35:00 08:35:00 Seybol d 2022-01-12 2022-01-12 Office Fredy Lora 1.2.840.114 [id number] Mary 16:15:00 16:45:00 Visit M 350.1.13.13 Se ybold 1.2.7.2.686 [id number] 2022-01-12 2022-01-12 Outpatient MARY KEYES [id number] Mary 00:00:00 00:00:00 RONAK Seybol d 2022-01-09 2022-01-09 Office Eriberto Keyes 1.2.840.114 [id number] Mary 14:00:00 14:30:00 Visit Ronak Potter 350.1.13.13 Se ybold Somogyi 1.2.7.2.686 [id number] 0 2021-12-29 2021-12-29 Office Eriberto Keyes 1.2.840.114 [id number] Mary 08:15:00 08:45:00 Visit Ronak Potter 350.1.13.13 Se ybold Somogyi 1.2.7.2.686 [id number] 0 2021-11-10 2021-11-10 Outpatient MARY KEYES [id number] Mary 00:00:00 00:00:00 RONAK Seybol d 2021-11-10 2021-11-10 Outpatient JIMBO EUBANKS MARY CORADO [id number] Mary 00:00:00 00:00:00 Seybol d 2021-08-01 2021-08-01 Outpatient MARY KEYES [id number] Mary 00:00:00 00:00:00 RONAK Seybol d 2021-07-24 2021-07-24 Outpatient LAB90 MARY CORADO [id number] Mary 09:15:00 09:15:00 Seybol d 2021-07-24 2021-07-24 Office Jimbo Eubanks 1.2.840.114 [id number] Mary 08:12:47 08:57:47 Visit Lev Potter 350.1.13.13 Se ybold 1.2.7.2.686 [id number] 2021-07-16 2021-07-16 Outpatient MARY KEYES [id number] Mary 00:00:00 00:00:00 RONAK Seybol d 2021-07-15 2021-07-15 Office Jesus Alberto Eriberto 1.2.840.114 [id number] Mary 15:47:06 16:17:06 Visit Ronak Potter 350.1.13.13 Se ybold Somogyi 1.2.7.2.686 [id number] 0 2021-07-09 2021-07-09 Outpatient MARY KEYES [id number] Mary 00:00:00 00:00:00 RONAK Seybol d 2021-06-10 2021-06-10 Outpatient MARY KEYES [id number] Mary 00:00:00 00:00:00 RONAK Seybol d 2021-06-10 2021-06-10 Outpatient JIMBO EUBANKS MARY CORADO [id number] Mary 00:00:00 00:00:00 Seybol d 2021-06-02 2021-06-02 Outpatient MARY KEYES [id number] Mary 00:00:00 00:00:00 RONAK Seybol d 2021-05-30 2021-05-30 Outpatient TESTING, JULIO CORADO [id number] Mary 15:25:00 15:25:00 Seybol d 2021-05-27 2021-05-27 Telemedici Marcos Eubanksclaire Wei 1.2.840.114 [id number] Mary 09::09 09:48:19 ne W Tariq 350.1.13.13 Se ybold 1.2.7.2.686 [id number] 2021-04-30 2021-04-30 Outpatient LAB90 MARY CORADO [id number] Mary 10:55:00 10:55:00 Seybol d 2021-04-30 2021-04-30 Outpatient JIMBO EUBANKS MRAY CORADO [id number] Mary 00:00:00 00:00:00 Seybol d 2021-04-29 2021-04-29 Outpatient LAB90 MARY CORADO [id number] Mary 10:15:00 10:15:00 Seybol d 2021-04-29 2021-04-29 Outpatient MALENA EUBANKSArchie CORADO 101 [id number] Mary 09:30:00 09:30:00 Seybol d 2021-04-24 2021-04-24 Outpatient MARY KEYES [id number] Mary 16:30:00 16:30:00 RONAK Seybol d 2021-01-10 2021-01-10 Emergency Kurtz, [facility] 1.2.969.229 [id number] Univers 19:30:00 21:51:00 Raj Cha 350.1.13.10 i ty of [place] 4.2.7.2.686 [facility] [id number] [address] 2021-01-10 2021-01-10 Emergency , [facility] [id number] [id number] 19:30:00 21:51:00 Raj Eubanks 350.1.13.10 [place] 4.2.7.2.686 [place] [id number] 2021-01-10 2021-01-10 Emergency X , [facility] ERT [id number] Univers 19:30:00 19:30:00 RAJ albarran [facility] 2021-01-10 2021-01-10 Orders Doctor KENTON 1.2.840.114 [id number] Univers 00:00:00 00:00:00 Only Unassigned, DES 350.1.13.10 ity of [place] [facility] 4.[address] [place] [id number] 2021-01-10 2021-01-10 Orders Doctor FUNG 1.2.840.114 [id number] 00:00:00 00:00:00 Only Unassigned, DES 350.1.13.10 [place] [facility] 4.2.7.2.68 [id number] 2020-08-08 2020-08-08 Emergency [facility] 1.2.337.447 [id number] Univers 09:00:00 10:08:00 Raj Eubanks 350.1.13.10 i ty of [place] 4.2.7.2.686 [facility] [id number] [address] 2020-08-08 2020-08-08 Emergency , [facility] 1.2.468.892 [id number] 09:00:00 10:08:00 Raj Eubanks 350.1.13.10 [place] [address] [place] [address] [id number] 2020-08-08 2020-08-08 Emergency Bernardo KURTZ [facility] ERT [id number] Univers 09:00:00 09:00:00 RAJ albarran [facility] 2019-11-29 2019-11-29 Transition Rain Goodman 1.2.840.114 [id number] Univers 00:00:00 00:00:00 of Care Sia Bowen 350.1.13.10 it y of [place] 4.2.7.2.686 [place] [id number] [facility] [address] 2019-11-29 2019-11-29 Transition Rain Goodman 1.2.840.114 [id number] 00:00:00 00:00:00 of Care Sia Bowen 350.1.13.10 [place] 4.2.7.2.686 [id number] [facility] 2019-11-25 2019-11-28 Outpatient X CATHY [facility] [id number] Univers 18:01:16 14:20:00 ALEXIA albarran [facility] 2019-11-25 2019-11-28 Emergency [facility] 1.2.840. 114 [id number] Univers 18:01:16 14:20:00 Cathy Alexia Eubanks 350.1.13.10 ity of [place] 4.2.7.2.686 [facility] [place] [id number] [facility] [address] [place] [address] 2019-11-25 2019-11-28 [facility] 1.2.840. 114 [id number] 18:01:16 14:20:00 Alexia Morgan 350.1.13.10 [place] 4.2.7.2.686 [place] [id number] Results Test Description Test Time Test Comments Results Result Comments Source REAGENT STRIP/BLOOD GLUCOSE 2022-11-16 15:09:00 Test Item Value Reference Range Interpretation Comme nts BLOOD SUGAR (test code = 257085) 201 mg/dL 65-99 A Lab Interpretation (test code = 69029-3) Abnormal Mary Rosales - [id number] 14:35:03 Test Item Value Reference Range Interpretation Comments QuantaFlo left side See_Comment [Automa cipriano message] (test code = 53200-7A) The s ystem which generated this result transmitted ref erence range: 1.40 - 0 .90 NA. The reference r hernandez was not used to int erpret this result as normal/abnormal . QuantaFlo right side See_Comment L Present ation Factors: (test code = 39885-1J) Hyper tension, DiabetesExercis e Modality: At Re stNormal - 1.40 - 1.00Bo rderline - 0.99 - 0.90Mi ld - 0.89 - 0.60Mode rate - 0.59 - 0.30Seve re - 0.29 - 0.00 [Au tomated message] The sy stem which generated this result transmit cipriano reference range : 1.40 - 0.90 NA. The re ference range was not u sed to interpret this result as normal/abnor mal. Lab Interpretation Abnormal (test code = 32676-1) Mary Connie - ExternalTISSUE [id number] 10:34:48Surgical Pathology Report Case: [id number] Authorizing Provider: Juan Jiménez, Collected: 01/27/2022 10:53 AM Ordering Location: [facility] Received: 01/27/2022 01:01 PM PERIOPERATIVESERVICES Pathologist: Joann Wilcox MD Specimen: Plaque, Right Carotid Artery Plaque A. PLAQUE, RIGHT CAROTID ARTERY, ENDARTERECTOMY: - CALCIFIED ATHEROMATOUS PLAQUESJ/pl Signing Pathologist Direct Phone Line: [phone] signed by Joann Wilcox MD on 02/02/2022 at 10:34 [id number] x1; 71215 u0Fxjetha stenosis, right A. Plaque.Received fresh labeled the patient's name, accession number and "right carotid artery plaque" is a 3.0 cm in length by 0.7 cm in diameter portion of paul-yellow, tubular, focally calcified plaque. Business Test Analyst sections are submitted in A1 following decalcification.RANDELL Vera, HENNA (ASCP)Performed [facility], Department of Pathology, [address] [place] [address], [facility], Department of Pathology, [address] [place] [address], [facility], Department of Pathology, [address] [place] [address], [id number] 06:43:58 Test Item Value Reference Range Interpretation Comments ACTIVATED CLOTTING TIME 142 sec : 74 -137 seconds, (BEAKER) (test code = Baseli ne: TESTED AT 441) [address], 770 30: Screw Machine Tender/Techni flavio ID = [id number] for ALEXANDER MOODY [id number] 06:43:57 Test Item Value Reference Range Interpretation Comments ACTIVATED CLOTTING TIME 279 sec : 74 -137 seconds, (BEAKER) (test code = Baseli ne: TESTED AT 441) [address], [facility] 30: Screw Machine Tender/Techni flavio ID = [id number] for ALEXANDER MOODY BASIC METABOLIC [id number] 06:09:36 Test Item Value Reference Range Interpretation Comments SODIUM (BEAKER) 138 meq/L 136-145 (test code = 381) POTASSIUM (BEAKER) 4.5 meq/L 3.5-5.1 (test code = 379) CHLORIDE (BEAKER) 103 meq/L 98-107 (test code = 382) CO2 (BEAKER) (test 26 meq/L 22-29 code = 355) BLOOD UREA NITROGEN 22 mg/dL 7-21 H (BEAKER) (test code = 354) CREATININE (BEAKER) 1.16 mg/dL 0.57-1.25 (test code = 358) GLUCOSE RANDOM 193 mg/dL 70-105 H (BEAKER) (test code = 652) CALCIUM (BEAKER) 8.9 mg/dL 8.4-10.2 (test code = 697) EGFR (BEAKER) (test 46 mL/min/1.73 ESTIMA CIPRIANO GFR IS code = 1092) sq m NOT ACCURATE CREATININE CLEARANCE IN PREDICTING GLOMERULAR FILTRATION RATE . ESTIMATED GFR I S NOT APPLICABLE FOR DIALYSIS PATIEN TS. Screw Machine Tender ID - [id number] (HEMOGRAM ONLY)2022-01-28 05:37:02 Test Item Value Reference Range Interpretation Comments WHITE BLOOD CELL COUNT (BEAKER) 9.2 K/ L 3.5-10.5 (test code = 775) RED BLOOD CELL COUNT (BEAKER) 3.58 M/ L 3.93-5.22 L (test code = 761) HEMOGLOBIN (BEAKER) (test code = 10.2 GM/DL 11.2-15.7 L 410) HEMATOCRIT (BEAKER) (test code = 32.1 % 34.1-44.9 L 411) MEAN CORPUSCULAR VOLUME (BEAKER) 89.7 fL 79.4-94.8 (test code = 753) MEAN CORPUSCULAR HEMOGLOBIN 28.5 pg 25.6-32.2 (BEAKER) (test code = 751) MEAN CORPUSCULAR HEMOGLOBIN CONC 31.8 GM/DL 32.2-35.5 L (BEAKER) (test code = 752) RED CELL DISTRIBUTION WIDTH 14.2 % 11.7-14.4 (BEAKER) (test code = 412) PLATELET COUNT (BEAKER) (test 275 K/CU MM 150-450 code = 756) MEAN PLATELET VOLUME (BEAKER) 11.1 fL 9.4-12.3 (test code = 754) NUCLEATED RED BLOOD CELLS 0 /100 WBC 0-0 (BEAKER) (test code = 413) GLUCOSE-STAT [id number] 12:08:33 Test Item Value Reference Range Interpretation Comments GLUCOSE RANDOM (BEAKER) (test code 136 mg/dL 70-110 H = 652) CALCIUM, [id number] 12:08:06 Test Item Value Reference Range Interpretation Comments CALCIUM IONIZED (BEAKER) (test 1.11 mmol/L 1.12-1.27 L code = 698) PH, BLOOD (BEAKER) (test code = 7.36 1810) POTASSIUM-STAT [id number] 12:07:40 Test Item Value Reference Range Interpretation Comments POTASSIUM (BEAKER) (test code = 3.7 meq/L 3.6-5.5 379) HGB/HCT (H&H) - STAT [id number] 12:07:40 Test Item Value Reference Range Interpretation Comments HEMOGLOBIN (BEAKER) (test code = 12.1 GM/DL 12.0-15.0 410) HEMATOCRIT (BEAKER) (test code = 36.0 % 36.0-45.0 411) SODIUM NA-STAT [id number] 12:07:40 Test Item Value Reference Range Interpretation Comments SODIUM (BEAKER) (test code = 381) 139 meq/L 136-145 POCT-GLUCOSE [id number] 08:14:51 Test Item Value Reference Range Interpretation Comments POC-GLUCOSE METER 158 mg/dL 70-110 H : TESTED A T [facility] 6720 (TRUDY) (test code = JEANNIE OCHOA NE, 1538) [address]: Screw Machine Tender/Techni flavio ID = [id number] for TYRELL CRUZ SARS-COV2/RT-PCR ([facility])2022-01-27 01:26:34 Test Item Value Reference Range Interpretation Comments SARS-COV2/RT-PCR (test Negative Not Detected, Negative, code = 0499691) See external report for linked test SARS-COV-2 PERFORMING LAB [facility] BREANNA (test code = 2000667) Negative result for this test determines that SARS-CoV-2 RNA was not present in the specimen above the Limit of Detection (LOD). However, Negative results do not preclude SARS-CoV-2 infection and should not be used as the sole basis for treatment or patient management decisions. Negative results must be combined with clinical observations, patient history, and epidemiological information. A false negative result may occur if a specimen is improperly collected, transported or handled. A false negative result should be considered if patient's recent exposures or clinical presentation indicate that COVID-19 (SARS-CoV-2) is likely and diagnostic tests for other causes of illness are negative. Re-testing should be considered in cases of suspected false negatives.The limit of detection for this assay is 800 copies/mL.This SARS CoV-2 test is a real-time RT-PCR test intended for the qualitative detection of nucleic acid from SARS-CoV-2 in a nasopharyngeal swab specimen collected from individuals suspected of COVID-19 by their healthcare provider.This test has not been Food and Drug Administration (FDA) cleared or approved. This is a modified version of an approved Emergency Use Authorization (EUA) and is in the process of review by the FDA. Once authorized by the FDA, the issued EUA will be effective until the declaration that circumstances exist justifying the authorization of the emergency use ofin vitro diagnostic tests for detection and/or diagnosis of COVID-19 is terminated under Section 564(b)(2) of the Act or the EUA is revoked under Section 564(g) of the Act.Fact Sheet for Healthcare Prov iders:https://www.[employer]/sites/default/files/product/documents/Fact_Sheet_HC _Lusejfurf_Niah_HCDF-CjX-9.pdfFact Sheet for Healthcare Patients:https://www.[employer]/sites/default/files/product/docume nts/Qebb_Qlrbm_Hvisbbao_Icfg_AGXK-JcY-7.pdfPerforming Laboratory:[place] [address] [address] [place], [place] [address]VDXNN METABOLIC PANEL 2022-01-26 12:58:42 Test Item Value Reference Range Interpretation Comments SODIUM (BEAKER) 140 meq/L 136-145 (test code = 381) POTASSIUM (BEAKER) 4.5 meq/L 3.5-5.1 (test code = 379) CHLORIDE (BEAKER) 102 meq/L 98-107 (test code = 382) CO2 (BEAKER) (test 28 meq/L 22-29 code = 355) BLOOD UREA NITROGEN 21 mg/dL 7-21 (BEAKER) (test code = 354) CREATININE (BEAKER) 0.86 mg/dL 0.57-1.25 (test code = 358) GLUCOSE RANDOM 128 mg/dL 70-105 H (BEAKER) (test code = 652) CALCIUM (BEAKER) 10.4 mg/dL 8.4-10.2 H (test code = 697) EGFR (BEAKER) (test 65 mL/min/1.73 ESTIMA CIPRIANO GFR IS code = 1092) sq m NOT ACCURATE CREATININE CLEARANCE IN PREDICTING GLOMERULAR FILTRATION RATE . ESTIMATED GFR I S NOT APPLICABLE FOR DIALYSIS PATIEN TS. Screw Machine Tender ID - [id number] 12:54:23 Test Item Value Reference Range Interpretation Comments PROTIME (BEAKER) 12.8 seconds 11.9-14.2 (test code = 759) INR (BEAKER) (test 0.98 See_Comment [Automat ed message] code = 370) The system [employer] generated this result transmitted ref erence range: <=5.90. The reference range was not used to int erpret this result as normal/abnormal . RECOMMENDED COUMADIN/WARFARIN INR THERAPY RANGESSTANDARD DOSE: 2.0 - 3.0 Includes: PROPHYLAXIS for venous thrombosis, systemic embolization; TREATMENT for venous thrombosis and/or pulmonary embolus.HIGH RISK: Target INR is 2.5-3.5 for patients with mechanical heart valves.CBC W/PLT COUNT & AUTO [id number] 12:41:19 Test Item Value Reference Range Interpretation Comments WHITE BLOOD CELL COUNT (BEAKER) 8.5 K/ L 3.5-10.5 (test code = 775) RED BLOOD CELL COUNT (BEAKER) 4.46 M/ L 3.93-5.22 (test code = 761) HEMOGLOBIN (BEAKER) (test code = 12.5 GM/DL 11.2-15.7 410) HEMATOCRIT (BEAKER) (test code = 39.9 % 34.1-44.9 411) MEAN CORPUSCULAR VOLUME (BEAKER) 89.5 fL 79.4-94.8 (test code = 753) MEAN CORPUSCULAR HEMOGLOBIN 28.0 pg 25.6-32.2 (BEAKER) (test code = 751) MEAN CORPUSCULAR HEMOGLOBIN CONC 31.3 GM/DL 32.2-35.5 L (BEAKER) (test code = 752) RED CELL DISTRIBUTION WIDTH 14.1 % 11.7-14.4 (BEAKER) (test code = 412) PLATELET COUNT (BEAKER) (test 294 K/CU MM 150-450 code = 756) MEAN PLATELET VOLUME (BEAKER) 10.4 fL 9.4-12.3 (test code = 754) NUCLEATED RED BLOOD CELLS 0 /100 WBC 0-0 (BEAKER) (test code = 413) NEUTROPHILS RELATIVE PERCENT 62 % (BEAKER) (test code = 429) LYMPHOCYTES RELATIVE PERCENT 29 % (BEAKER) (test code = 430) MONOCYTES RELATIVE PERCENT 5 % (BEAKER) (test code = 431) EOSINOPHILS RELATIVE PERCENT 4 % (BEAKER) (test code = 432) BASOPHILS RELATIVE PERCENT 0 % (BEAKER) (test code = 437) NEUTROPHILS ABSOLUTE COUNT 5.25 K/ L 1.56-6.13 (BEAKER) (test code = 670) LYMPHOCYTES ABSOLUTE COUNT 2.46 K/ L 1.18-3.74 (BEAKER) (test code = 414) MONOCYTES ABSOLUTE COUNT (BEAKER) 0.43 K/ L 0.24-0.36 H (test code = 415) EOSINOPHILS ABSOLUTE COUNT 0.30 K/ L 0.04-0.36 (BEAKER) (test code = 416) BASOPHILS ABSOLUTE COUNT (BEAKER) 0.03 K/ L 0.01-0.08 (test code = 417) IMMATURE GRANULOCYTES-RELATIVE 0 % 0-1 PERCENT (BEAKER) (test code = 2801) REAGENT STRIP/BLOOD [id number] 21:02:00 Test Item Value Reference Range Interpretation Comments BLOOD SUGAR (test code = 377887) 156 mg/dL 65-99 A Lab Interpretation (test code = Abnormal 96860-5) [facility]anieAR[facility] WITH [facility]FFERENTIAL/[id number] 12:10:00 Test Item Value Reference Range Interpretation [...] % Not Estab. GRANULOCYTES (test code = 04814-7) IMMATURE GRANS (ABS) See_Comment [Autom ated (test code = message] The 29951-0) system which generated this result transmit cipriano reference range : 0.0 - 0.1 x10E3/uL. The reference range was not used to interpret this result as normal/abnormal . OLMAN (test code = [facility] results OLMAN) reported in Eastern Time. [facility] Clinical Information:SRC: Blood, venous*Venipunc ture ? [facility] Source of Specimen:Blood, venous*Venipunc Mary HinsonoldURINALYSIS NONAUTO W/O [id number] 21:06:00 Test Item Value Reference Range Interpretation Comments UD KETONES (test code = neg 5-160 330129) UD GLUCOSE (test code = neg 100-2000 552517) UD PROTEIN (test code = 30 mg/dL Trace - 2,000 179774) UD LEUKOCYTES (test moderate Trace - Large @ 2 code = 586360) min. UD NITRITE (test code = neg Neg. - Pos. @ 60 247182) sec. UD UROBILINOGEN (test 0.2 mg/dL 0.2-8 code = 141562) UD PH (test code = See_Comment [Automat ed 752945) message] The sy stem which generated this result transmitted reference range : 5.0 - 8.5 @ 60 sec.. The refer ence range was not u sed to interpret th is result as normal/abnormal . UD BLOOD (test code = trace Neg. - Large @ 60 229351) sec. UD SPECIFIC GRAVITY See_Comment [Automa cipriano (test code = 992657) message ] The system which generated this result transmitted reference range : 1.000 - 1.030 @ 45 sec.. The refer ence range was not u sed to interpret th is result as normal/abnormal . UD BILIRUBIN (test code neg Neg. - Large @ 45 = 562780) sec. Lab Interpretation Abnormal (test code = 96788-5) Mary Adkins. METABOLIC PANEL (44765)2021-01-11 02:20:56 Test Item Value Reference Range Interpretation Comments NA (test code = 140 mmol/L 135-145 1600685063) K (test code = 4.5 mmol/L 3.5-5.0 7639995977) CL (test code = 102 mmol/L 98-108 5125979895) CO2 TOTAL (test code = 27 mmol/L 23-31 0963786344) AGAP (test code = 2-16 8857241503) BUN (test code = 23 mg/dL 7-23 9354817381) GLUCOSE (test code = 239 mg/dL 70-110 H 5760192144) CREATININE (test code = 0.84 mg/dL 0.50-1.04 8706582328) TOTAL BILI (test code = 0.4 mg/dL 0.1-1.1 3884165941) CALCIUM (test code = 8.9 mg/dL 8.6-10.6 7046363302) T PROTEIN (test code = 6.8 g/dL 6.3-8.2 4238995072) ALBUMIN (test code = 4.1 g/dL 3.5-5.0 6086083690) ALK PHOS (test code = 81 U/L 34-122 2684111872) ALTv (test code = 14 U/L 5-35 1742-6) AST(SGOT) (test code = 24 U/L 13-40 5663342088) eGFR (test code = mL/min/1.73m2 2689148047) OLMAN (test code = OLMAN) Association of [...] tests). Lab Interpretation Abnormal (test code = 91912-3) [facility] [id number] 02:20:55 Test Item Value Reference Range Interpretation Comments URIC ACID (test code = 0445017798) 8.9 mg/dL 2.9-6.0 H Lab Interpretation (test code = Abnormal 00028-9) [facility] WITH [id number] 00:59:14 Test Item Value Reference Range Interpretation Comments WBC (test code = See_Comment [Automated 6690-2) message] The sy stem which generated this result transmitted reference range : 4.30 - 11.10 10*3/?L. The reference range was not used to interpret this result as normal/abnormal . RBC (test code = See_Comment L [Automated 789-8) message] The sy stem which [...] RDW-SD (test code = 47.5 fL 39.0-49.9 69198-2) RDW-CV (test code = 14.6 % 12.0-15.5 788-0) PLT (test code = See_Comment [Automated 777-3) message] The sy stem which generated this result transmitted reference range : 166 - 358 10*3/ ?L. The reference r hernandez was not used to interpret this result as normal/abnormal . MPV (test code = 11.0 fL 9.5-12.9 06088-9) NRBC/100 WBC (test See_Comment [Automat ed code = 7242522065) message] The system which generated this result transmitted reference range : 0.0 - 10.0 /100 WBCs. The refer ence range was not u sed to interpret th is result as normal/abnormal . NRBC x10^3 (test code <0.01 See_Comment [Auto mated = 8111455114) message] The s ystem which generated this result transmitted reference range : 10*3/?L. The reference range was not used to interpret this result as normal/abnormal . GRAN MAT (NEUT) % 52.4 % (test code = 770-8) IMM GRAN % (test code 0.20 % = 1300099539) LYMPH % (test code = 36.6 % 736-9) MONO % (test code = 6.7 % 5905-5) EOS % (test code = 3.6 % 713-8) BASO % (test code = 0.5 % 706-2) GRAN MAT x10^3(ANC) 3.03 10*3/uL 1.88-7.09 (test code = 8157285626) IMM GRAN x10^3 (test <0.03 0.00-0.06 code = 3334001237) LYMPH x10^3 (test code 2.12 10*3/uL 1.32-3.29 = 731-0) MONO x10^3 (test code 0.39 10*3/uL 0.33-0.92 = 742-7) EOS x10^3 (test code = 0.21 10*3/uL 0.03-0.39 711-2) BASO x10^3 (test code 0.03 10*3/uL 0.01-0.07 = 704-7) Lab Interpretation Abnormal (test code = 34318-3) [facility] GLUCOSE (AUTOMATED)2019-11-28 16:42:00 Test Item Value Reference Range Interpretation Comments POCT GLU (test code = 1888801340) 187 mg/dL 70-110 H Lab Interpretation (test code = Abnormal 62486-6) [facility] GLUCOSE (AUTOMATED)2019-11-28 13:25:00 Test Item Value Reference Range Interpretation Comments POCT GLU (test code = 4751618080) 154 mg/dL 70-110 H Lab Interpretation (test code = Abnormal 75777-2) [facility] GLUCOSE (AUTOMATED)2019-11-28 08:09:00 Test Item Value Reference Range Interpretation Comments POCT GLU (test code = 9574508777) 134 mg/dL 70-110 H Lab Interpretation (test code = Abnormal 95246-5) [facility] GLUCOSE (AUTOMATED)2019-11-28 04:55:00 Test Item Value Reference Range Interpretation Comments POCT GLU (test code = 9032524422) 184 mg/dL 70-110 H Lab Interpretation (test code = Abnormal 68386-5) [facility] GLUCOSE (AUTOMATED)2019-11-28 01:21:00 Test Item Value Reference Range Interpretation Comments POCT GLU (test code = 7958010901) 333 mg/dL 70-110 H Lab Interpretation (test code = Abnormal 86509-7) [facility] GLUCOSE (AUTOMATED)2019-11-27 21:22:00 Test Item Value Reference Range Interpretation Comments POCT GLU (test code = 0761331046) 361 mg/dL 70-110 H Lab Interpretation (test code = Abnormal 83317-8) [facility] GLUCOSE (AUTOMATED)2019-11-27 17:21:00 Test Item Value Reference Range Interpretation Comments POCT GLU (test code = 0636518330) 236 mg/dL 70-110 H Lab Interpretation (test code = Abnormal 20595-7) [facility] GLUCOSE (AUTOMATED)2019-11-27 12:41:00 Test Item Value Reference Range Interpretation Comments POCT GLU (test code = 7432205830) 154 mg/dL 70-110 H Lab Interpretation (test code = Abnormal 78376-0) [facility] [id number] 11:42:00 Test Item Value Reference Range Interpretation Comments NT-proBNP (test code 62 pg/mL See_Comment [Autom ated = 0622567678) message] The system which generated this result transmitted reference range : <=125. The reference range was not used to interpret this result as normal/abnormal . OLMAN (test code = OLMAN) Biotin has been reported to cause a negative bias, interpret results relative to patient's use of biotin. Lab Interpretation Normal (test code = 50182-5) [facility] (NA, K, CL, CO2, GLUCOSE, BUN, CREATININE, CA)2019-11-27 11:40:00 Test Item Value Reference Range Interpretation Comments NA (test code = 141 mmol/L 135-145 7328291809) K (test code = 3.7 mmol/L 3.5-5 5084606471) CL (test code = 102 mmol/L 98-108 1448338087) CO2 TOTAL (test code = 31 mmol/L 23-31 6276361433) AGAP (test code = 2-16 6230598662) BUN (test code = 24 mg/dL 7-23 H 0762789931) GLUCOSE (test code = 136 mg/dL 70-110 H 2040783333) CREATININE (test code = 0.86 mg/dL 0.5-1.04 0339788333) CALCIUM (test code = 9.2 mg/dL 8.6-10.6 4291499812) eGFR Calculation mL/min/1.73m2 (Non-) (test code = 0748769810) eGFR Calculation mL/min/1.73m2 () (test code = 8769565831) OLMAN (test code = OLMAN) Association of [...] tests). Lab Interpretation Abnormal (test code = 96596-6) [facility] WITH [id number] 11:07:00 Test Item Value Reference Range Interpretation Comments WBC (test code = See_Comment [Automated 6690-2) message] The sy stem which generated this result transmitted reference range : 4.30 - 11.10 10*3/?L. The reference range was not used to interpret this result as normal/abnormal . RBC (test code = See_Comment L [Automated 789-8) message] The sy stem which [...] RDW-SD (test code = 43.7 fL 39-49.9 31354-1) RDW-CV (test code = 14.4 % 12-15.5 788-0) PLT (test code = See_Comment [Automated 777-3) message] The sy stem which generated this result transmitted reference range : 166 - 358 10*3/ ?L. The reference r hernandez was not used to interpret this result as normal/abnormal . MPV (test code = 11.5 fL 9.5-12.9 71761-0) NRBC/100 WBC (test See_Comment [Automat ed code = 8900383840) message] The system which generated this result transmitted reference range : 0.0 - 10.0 /100 WBCs. The refer ence range was not u sed to interpret th is result as normal/abnormal . NRBC x10^3 (test code <0.01 See_Comment [Auto mated = 1033601823) message] The s ystem which generated this result transmitted reference range : 10*3/?L. The reference range was not used to interpret this result as normal/abnormal . GRAN MAT (NEUT) % 57.3 % (test code = 770-8) IMM GRAN % (test code 0.30 % = 2579718289) LYMPH % (test code = 31.4 % 736-9) MONO % (test code = 7.2 % 5905-5) EOS % (test code = 3.3 % 713-8) BASO % (test code = 0.5 % 706-2) GRAN MAT x10^3(ANC) 3.53 10*3/uL 1.88-7.09 (test code = 5076410035) IMM GRAN x10^3 (test <0.03 0-0.06 code = 5040074977) LYMPH x10^3 (test code 1.93 10*3/uL 1.32-3.29 = 731-0) MONO x10^3 (test code 0.44 10*3/uL 0.33-0.92 = 742-7) EOS x10^3 (test code = 0.20 10*3/uL 0.03-0.39 711-2) BASO x10^3 (test code 0.03 10*3/uL 0.01-0.07 = 704-7) Lab Interpretation Abnormal (test code = 74586-1) [facility] GLUCOSE (AUTOMATED)2019-11-27 07:09:00 Test Item Value Reference Range Interpretation Comments POCT GLU (test code = 1038114734) 163 mg/dL 70-110 H Lab Interpretation (test code = Abnormal 15253-2) [facility] GLUCOSE (AUTOMATED)2019-11-27 01:10:00 Test Item Value Reference Range Interpretation Comments POCT GLU (test code = 4467064184) 214 mg/dL 70-110 H Lab Interpretation (test code = Abnormal 27394-8) [facility] GLUCOSE (AUTOMATED)2019-11-26 21:32:00 Test Item Value Reference Range Interpretation Comments POCT GLU (test code = 0186597557) 193 mg/dL 70-110 H Lab Interpretation (test code = Abnormal 64947-9) [facility] GLUCOSE (AUTOMATED)2019-11-26 21:23:00 Test Item Value Reference Range Interpretation Comments POCT GLU (test code = 8123076599) 224 mg/dL 70-110 H Lab Interpretation (test code = Abnormal 86011-2) [id number] 21:14:00 Test Item Value Reference Range Interpretation Comments TROPONIN I (test 0.002 ng/mL See_Comment [Automated code = 1318399175) message] The system which generated this result [...] ? Lab Interpretation Normal (test code = 31475-7) [facility]2019-11-26 16:50:00 Test Item Value Reference Range Interpretation Comments POCT GLU (test code = 1318673137) 140 mg/dL 70-110 H Lab Interpretation (test code = Abnormal 98827-9) [facility] HospitalLIP[facility] PAN[facility] (12291)(TOTAL CHOLESTEROL, TRIGLYCERIDES, HDL)2019-11-26 16:08:00 Test Item Value Reference Range Interpretation Comments CHOL (test code = 126 mg/dL 120-200 0103211292) HDL (test code = 26 mg/dL >50 L 4654681701) HDLC RATIO (test code = See_Comment H [Au tomated message] 1252903807) The system [employer] generated this result transmit cipriano reference range : <=4.5. The refe rence range was not u sed to interpret th is result as normal/abnormal . TRIG (test code = 118 mg/dL 30-170 7119132630) LDL CHOL (test code = 76 mg/dL See_Comment [Auto mated message] 78785-5) The system [employer] generated this result transmit cipriano reference range : <=160. The refe rence range was not u sed to interpret th is result as normal/abnormal . VLDL (test code = 24 mg/dL 5-60 3224647214) Lab Interpretation (test Abnormal code = 31065-6) [facility]2019-11-26 13:00:00 Test Item Value Reference Range Interpretation Comments POCT GLU (test code = 1823038233) 101 mg/dL 70-110 Lab Interpretation (test code = Normal 86752-2) [facility] [id number] 10:41:00 Test Item Value Reference Range Interpretation Comments TROPONIN I (test 0.005 ng/mL See_Comment [Automated code = 8840708148) message] The system which generated this result [...] ? Lab Interpretation Normal (test code = 89044-7) [facility]-TERMINAL [id number] 10:38:00 Test Item Value Reference Range Interpretation Comments NT-proBNP (test code 136 pg/mL See_Comment H [Autom ated = 9189182920) message] The system which generated this result transmitted reference range : <=125. The reference range was not used to interpret this result as normal/abnormal . OLMAN (test code = OLMAN) Biotin has been reported to cause a negative bias, interpret results relative to patient's use of biotin. Lab Interpretation Abnormal (test code = 16031-9) [facility]2020-03-08 10:35:00 Test Item Value Reference Range Interpretation Comments MAGNESIUM (test code = 9894969980) 1.1 mg/dL 1.7-2.4 L Lab Interpretation (test code = Abnormal 06376-1) [facility] (NA, K, CL, CO2, GLUCOSE, BUN, CREATININE, CA)2019-11-26 10:30:00 Test Item Value Reference Range Interpretation Comments NA (test code = 141 mmol/L 135-145 0331642730) K (test code = 4.2 mmol/L 3.5-5 6737882106) CL (test code = 104 mmol/L 98-108 5312278923) CO2 TOTAL (test code = 31 mmol/L 23-31 7496090428) AGAP (test code = 2-16 3903748706) BUN (test code = 18 mg/dL 7-23 9281555292) GLUCOSE (test code = 103 mg/dL 70-110 1223733910) CREATININE (test code 0.74 mg/dL 0.5-1.04 = 9382111685) CALCIUM (test code = 9.4 mg/dL 8.6-10.6 2512455444) eGFR Calculation mL/min/1.73m2 (Non-) (test code = 4090347229) eGFR Calculation mL/min/1.73m2 () (test code = 3428122766) OLMAN (test code = OLMAN) Association of [...] or urine or abnormalities in imaging tests). [facility]PHOS[facility]US2020-03-08 10:30:00 Test Item Value Reference Range Interpretation Comments PHOSPHORUS (test code = 1197841149) 3.6 mg/dL 2.5-5 Lab Interpretation (test code = Normal 19110-7) [facility]TR[facility] [id number] 06:54:00 Test Item Value Reference Range Interpretation Comments TROPONIN I (test 0.006 ng/mL See_Comment [Automated code = 3293780703) message] The system which generated this result [...] ? Lab Interpretation Normal (test code = 42614-1) [facility]2019-11-26 06:14:00 Test Item Value Reference Range Interpretation Comments POCT GLU (test code = 8668838791) 116 mg/dL 70-110 H Lab Interpretation (test code = Abnormal 74793-6) [facility] HospitalGLYCOSYLATED HEMOGLOBIN (A1C)2019-11-26 05:58:00 Test Item Value Reference [...] Indicated Lab Interpretation Abnormal (test code = 05029-4) [facility]TR[facility] [id number] 02:54:00 Test Item Value Reference Range Interpretation Comments TROPONIN I (test 0.004 ng/mL See_Comment [Automated code = 1281420400) message] The system which generated this result [...] ? Lab Interpretation Normal (test code = 32940-8) [facility] HospitalCritical [id number] 01:45:00Dalila Loyd FNP ? ? 11/26/2019 10:35 AMCritical CarePerformed by: Dalila Loyd FNPAuthorized by: Dalila Loyd FNP Critical care provider statement: ?Critical care time (minutes): ?35 ?Critical care time was exclusive of: ?Separately billable procedures and treating other patients and teaching time ?Critical care was necessary to treat or prevent imminent or life-threatening deterioration of the following conditions: ?Cardiac failure ?Critical care [...] from another provider in my specialty: no ?[facility]IO[facility] 2019-11-26 01:36:12No evidence of [...] was performed using ALARA principle.FINDINGS:There are no fi lling defects visualized within the pulmonary arteries tosuggest pulmonary embolism.No aortic dissection. There is right nodular goiter. There are multiplesmall mediastinal and hilar lymph nodes, nonspecific and may be reactive.Each individually does not meet size criteria for pathologic enlargement.Hiatal hernia. Some wall thickening of the stomach, [...] seen with air trapping and/or mild edema. [facility] HospitalCT HEAD WO [id number] 01:34:31 No acute intracranial abnormality. Preliminary Report Dictated by Resident: Juliane Ford MD., have reviewed this study and agree with the abovereport.CT HEAD WO CONTRAST HISTORY:Altered mental status (AMS), unclear cause COMPARISON: 01/15/2018 TECHNIQUE: Noncontrast CT of the brain was obtained with coronal andsagittal reconstructions. FINDINGS: The ventricles and cerebral sulci are normal in caliber and configuration.No hydrocephalus, midline shift or pathological extra-axialfluidcollection is present. The basal cisterns are unremarkable. There is no acute intraparenchymal hemorrhage or significant mass effect.No parenchymal attenuation abnormality. The mora-white matterdif ferentiation is preserved. There are no acute extracranial findings. [facility], Radiant Results Inft User- 11/25/2019 8:28 PM CSTCT HEAD WO CONTRASTHISTORY: Altered mental status (AMS), unclear cause COMPARISON: 01/15/2018TECHNIQUE: Noncontrast CT of the brain was obtained with coronal andsagittal reconstru ctions.FINDINGS:The ventricles and cerebral sulci are normal in caliber and configuration.No hydrocephalus, midline shift or pathological extra-axial fluidcollection is present. The basal cisterns are unremarkable.There is no acute intraparenchymal hemorrhage or significant mass effect.No parenchymal a ttenuation abnormality. The mora-white matterdifferentiation is preserved. There are no acute extracranial findings.IMPRESSIONNo acute intracranial abnormality.Preliminary Report Dictated by Resident: Juliane Gutierrez MD., have reviewed this study and agree with the abovereport. [facility] HospitalD-[id number] 01:13:00 Test Item Value Reference Interpretation Comments Range D-DIMER (test code = See_Comment H [Autom ated 1647777372) message] The system which generated this result [...] diagnosis. Lab Interpretation Abnormal (test code = 43953-6) [facility] HospitalXR CHEST 1 [id number] 01:08:23No evidence of acute cardiopulmonary disease. 2 VIEWS OF THE CHEST HISTORY: sob COMPARISON: none TECHNIQUE: PA and lateral views of the chest. FINDINGS: Suboptimal inspiratory volumes resulting vascular crowding and exaggerationof mediastinal contour. Otherwise, lungs are clear. There is no focalconsolidation, pleural effusion or pneumothorax. The cardiomediastinal silhouette is within normal limits.?No acute bonyabnormalities are seen. Degenerative changes at bilateral acromioclavicularjoints. [facility], Radiant Results Inft User - 11/25/2019 7:09 [...] at bilateral acromioclavicularjoints.IMPRESSIONNo evidence of acute cardiopulmonary disease.[facility] TROPONIN [id number] 01:05:00 Test Item Value Reference Range Interpretation Comments TROPONIN I (test 0.002 ng/mL See_Comment [Automated code = 7355908654) message] The system which generated this result [...] ? Lab Interpretation Normal (test code = 22850-7) [facility]AL [id number] 01:02:00 Test Item Value Reference Range Interpretation Comments NT-proBNP (test code 163 pg/mL See_Comment H [Autom ated = 3050685866) message] The system which generated this result transmitted reference range : <=125. The reference range was not used to interpret this result as normal/abnormal . OLMAN (test code = OLMAN) Biotin has been reported to cause a negative bias, interpret results relative to patient's use of biotin. Lab Interpretation Abnormal (test code = 93115-2) [facility] HospitalCOMP. METABOLIC PANEL (64100)2019-11-26 00:53:00 Test Item Value Reference Range Interpretation Comments NA (test code = 142 mmol/L 135-145 3008704468) K (test code = 4.3 mmol/L 3.5-5 2858418974) CL (test code = 104 mmol/L 98-108 4114568508) CO2 TOTAL (test code = 26 mmol/L 23-31 9782578486) AGAP (test code = 2-16 2854525448) BUN (test code = 19 mg/dL 7-23 1558251119) GLUCOSE (test code = 155 mg/dL 70-110 H 5042221972) CREATININE (test code = 0.69 mg/dL 0.5-1.04 1590214833) TOTAL BILI (test code = 0.3 mg/dL 0.1-1.4 7200248658) CALCIUM (test code = 10.0 mg/dL 8.6-10.6 7857601250) T PROTEIN (test code = 7.9 g/dL 6.3-8.2 7055154123) ALBUMIN (test code = 4.6 g/dL 3.5-5 7998516035) ALK PHOS (test code = 90 U/L 34-122 8215515843) ALTv (test code = 21 U/L 5-35 1742-6) AST(SGOT) (test code = 36 U/L 13-40 7754808379) eGFR Calculation mL/min/1.73m2 (Non-) (test code = 5460690251) eGFR Calculation mL/min/1.73m2 () (test code = 7434364259) OLMAN (test code = OLMAN) Association of [...] tests). Lab Interpretation Abnormal (test code = 49749-1) [facility] HospitalaPTT2020-03-08 00:42:00 Test Item Value Reference Range Interpretation Comments APTT Patient (test See_Comment [Automat ed code = 3173-2) message] The system which generated this result transmitted reference range : 23 - 38 Seconds . The reference range was not used to interpr et this result as normal/abnormal . OLMAN (test code = OLMAN) The [facility] patient population mean normal value for aPTT is 30 seconds. Lab Interpretation Normal (test code = 18166-8) [facility] HospitalPROTHROMBIN TIME / [id number] 00:40:00 Test Item Value Reference Range Interpretation [...] tions. Lab Interpretation (test Normal code = 73809-9) [facility]PO[facility] (AUT[facility])2019-11-26 00:31:00 Test Item Value Reference Range Interpretation Comments POCT GLU (test code = 4832346327) 141 mg/dL 70-110 H Lab Interpretation (test code = Abnormal 59537-4) [facility] HospitalCBC WITH [id number] 00:30:00 Test Item Value Reference Range Interpretation [...] RDW-SD (test code = 43.8 fL 39-49.9 88370-6) RDW-CV (test code = 14.4 % 12-15.5 788-0) PLT (test code = See_Comment [Automated 777-3) message] The sy stem which generated this result transmitted reference range : 166 - 358 10*3/ ?L. The reference r hernandez was not used to interpret this result as normal/abnormal . MPV (test code = 10.5 fL 9.5-12.9 60417-6) NRBC/100 WBC (test See_Comment [Automat ed code = 2001941522) message] The system which generated this result transmitted reference range : 0.0 - 10.0 /100 WBCs. The refer ence range was not u sed to interpret th is result as normal/abnormal . NRBC x10^3 (test code <0.01 See_Comment [Auto mated = 4863729247) message] The s ystem which generated this result transmitted reference range : 10*3/?L. The reference range was not used to interpret this result as normal/abnormal . GRAN MAT (NEUT) % 57.1 % (test code = 770-8) IMM GRAN % (test code 0.40 % = 6898471382) LYMPH % (test code = 32.2 % 736-9) MONO % (test code = 7.3 % 5905-5) EOS % (test code = 2.7 % 713-8) BASO % (test code = 0.3 % 706-2) GRAN MAT x10^3(ANC) 3.81 10*3/uL 1.88-7.09 (test code = 5899101533) IMM GRAN x10^3 (test 0.03 10*3/uL 0-0.06 code = 5779492265) LYMPH x10^3 (test code 2.15 10*3/uL 1.32-3.29 = 731-0) MONO x10^3 (test code 0.49 10*3/uL 0.33-0.92 = 742-7) EOS x10^3 (test code = 0.18 10*3/uL 0.03-0.39 711-2) BASO x10^3 (test code <0.03 0.01-0.07 = 704-7) Lab Interpretation Abnormal (test code = 03283-5) [facility]PO[facility] [id number] 08:19:00 Test Item Value Reference Range Interpretation Comments POC-GLUCOSE METER 194 mg/dL 70-110 H TESTED AT [facility] [address] (BEAKER) (test code = JEANNIE Jensen [place] 1538) [address] [id number] 06:24:00 Test Item Value Reference Range Interpretation Comments MAGNESIUM (BEAKER) (test code = 1.7 mg/dL 1.6-2.6 627) BASIC METABOLIC [id number] 06:24:00 Test Item Value Reference Range Interpretation [...] PATIEN TS. CBC W/PLT COUNT & AUTO [id number] 04:51:00 Test Item Value Reference Range Interpretation [...] PERCENT (BEAKER) (test code = 2801) POCT-GLUCOSE [id number] 22:18:00 Test Item Value Reference Range Interpretation Comments POC-GLUCOSE METER 252 mg/dL 70-110 H TESTED AT [facility] 6720 (TRUDY) (test code = JEANNIE Jensen [facility] 1538) [id number] POCT-GLUCOSE [id number] 17:53:00 Test Item Value Reference Range Interpretation Comments POC-GLUCOSE METER 173 mg/dL 70-110 H TESTED AT [facility] 6720 ([facility]) (test code = JEANNIE eJnsen [facility] 1538) [id number] NEEDLE EMG, 2 [id number] 15:01:00Please do with repetitive stimulationReason for exam:->[facility] [address] [place], [place] [id number] Name: Nelsy Celis Date of : 1950 Gender: Female Referring Physician: Freddy Awad M.D. Examining Physician: Terence Banerjee D.O. Date of Exam: 04/12/2019 6:06 PM Patient History: The patient is a 68 year old woman who presents for evaluation of right ptosis and diplopia. 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 There is weakness in (R/L) FDI (4/5) and ADM (4/5). Sensation to [...] m/s Above elbow 9.6 ms 6.6 mV Below elbow-Above elbow 2.1 ms 1 00 mm 48 m/s Facial.R Nasalis 4.0 ms 1.5 mV Sensory Nerve Conduction: Nerve and Site Onset Latency Peak Latency Amplitude Segment Latency Difference Distance Conduction Velocity Median.R Wrist 2.7 ms 4.2 ms 14 ᬹV Digit II (index finger)-Wrist 2.7 ms 130 mm 48 m/s Ulnar.R Wrist NR ms NR ms NR 𑪓V Digit V (little finger)-Wrist 110 mm Radial.R Forearm 1.9 ms 2.8 ms 24 𒚆VAnatomical snuff box-Forearm 1.9 ms 100 mm 53 m/s Sural.R Lower leg 3.3 ms 4.2 ms 5 V Ankle-Lower leg 3.3 ms 140 mm 42 m/s Repetitive Stimulation: Nerve Potential Amplitude Area Number Violeta.Decr. Violeta. Decr. Ulnar.R Pre-exercise 10 stimuli at 2Hz 1 8.97 mV 0 % 54.00 mVms 0 % 2 8.69 mV 3 % 53.20 mVms 1 % 3 8.54 mV 5 % 46.50 mVms 14 % 4 8.43 mV 6 % 44.50 mVms 18 % 5 8.46 mV 6 % 47.10 mVms 13% 6 8.38 mV 7 % 50.30 mVms [...] 58.50 mVms 4 % 4 9.04 mV 6 % 57.60mVms 5 % 5 9.17 mV 5 % 60.00 mVms 1 % 6 9.12 mV 5 % 63.60 mVms -4 % 7 9.19 mV 5 % 67.70 mVms -11 % 89.18 mV 5 % 66.30 mVms -9 % 9 9.18 mV 5 % 63.10 mVms -4 % 10 9.18 mV 5 % 57.70 mVms 5 % 2 min post-exercise 10 stimuli at 2Hz 1 9.64 mV 0 % 65.10 mVms 0 % 2 9.23 mV 4 % 60.00 mVms 8 % 3 9.00 mV 7 % 59.40 mVms 9 % 4 8.80 mV 9 % 57.50 mVms 12 % 5 8.95 mV 7 % 59.80 mVms 8 % 6 8.78 mV 9 % 60.70 mVms 7 %7 8.91 mV 8 % 59.30 mVms 9 [...] % 54.00 mVms 10 % 9 8.81 mV7 % 59.10 mVms 2 % 10 8.67 mV 8 % 54.60 mVms 9 % 4 min post- exercise 10 stimuli at 2Hz 1 9.15 mV 0 % 50.70 mVms 0 % 2 8.68 mV 5 % 49.00 mVms 3 % 3 8.45 mV 8 % 46.70 mVms 8 % 4 8.36 mV 9 % 47.60 mVms 6 % 5 8.41 mV 8 % 48.10 mVms 5 % 6 8.44 mV 8 % 49.00 mVms 3 % 7 8.40 mV 8 % 47.50 mVms 6 % 8 8.44 mV8 % 48.50 mVms 4 % 9 8.31 mV 9 % 47.30 mVms 7 % 10 8.51 mV 7 % 48.70 mVms 4 % Facial.R Pre-exercise 8 stimuli at 2Hz 1 1.42 mV 0 % 13.40 mVms 0 % 2 1.46 mV -3 % 13.40 mVms 0 % 3 1.44 mV -1 % 13.00 mVms3 % 4 1.38 mV 3 % 13.10 [...] mVms -3 % 6 1.52 mV -3 % 15.40 mVms -3 % 7 1.55 mV -5 % 15.40 mVms-3 % 8 1.48 mV -1 % 15.50 [...] 12.70 mVms 2 % 3 1.44 mV -1 % 13.80 mVms -7 % 4 1.43 [...] 14.00 mVms -9 % Needle EMG Examination: Ins ertional Spontaneous Activity Volitional MUAPs Muscle Insertional Fibs +Wave Fasc Duration AmplitudePoly Recruitment Other Deltoid.R Normal None None None Normal Normal None Normal Biceps brachii.R Normal None None None Normal Normal None Normal Triceps brachii.R Normal None None None Normal Normal None Normal Pronator teres.R Normal None None None Normal Normal None Normal Abductor pollicis brevis.R Normal None None None Normal Normal None Normal 1st dorsal interosseous.R Normal None None None Sl. Incr. Sl. Incr. None Mild Red. Abductor digiti minimi.R Normal None None None Sl. Incr. Gr. Incr. None Mild Red. Summary of Findings: Motor and sensory nerve conduction studies are abnormal for no res ponse in the right ulnar sensory study. Repetitive nerve stimulation of the right facial [...] rule out a neuromuscular junction disorder. Terence Banerjee D.O. POCT- GLUCOSE [id number] 12:29:00 Test Item Value Reference Range Interpretation Comments POC-GLUCOSE METER 233 mg/dL 70-110 H TESTED AT [facility] 6720 (BEAKER) (test code = JEANNIE [place] 1538) [id number] POCT-GLUCOSE [id number] 08:14:00 Test Item Value Reference Range Interpretation Comments POC-GLUCOSE METER 216 mg/dL 70-110 H TESTED AT [facility] 6720 (BEAKER) (test code = JEANNIE Jensen [place] 1538) [address] TSH/FREE T4 IF [id number] 07:06:00 Test Item Value Reference Range Interpretation Comments THYROID STIMULATING HORMONE 1.20 uIU/mL 0.35-4.94 (BEAKER) (test code = 772) [id number] 06:39:00 Test Item Value Reference Range Interpretation Comments MAGNESIUM (BEAKER) (test code = 1.9 mg/dL 1.6-2.6 627) BASIC METABOLIC [id number] 06:39:00 Test Item Value Reference Range Interpretation [...] PATIEN TS. CBC W/PLT COUNT & AUTO [id number] 05:54:00 Test Item Value Reference Range Interpretation [...] PERCENT (BEAKER) (test code = 2801) POCT-GLUCOSE [id number] 22:09:00 Test Item Value Reference Range Interpretation Comments POC-GLUCOSE METER 292 mg/dL 70-110 H TESTED AT [facility] 67 (BEAKER) (test code = JEANNIE Jensen [facility] 1538) [id number] POCT-GLUCOSE [id number] 18:14:00 Test Item Value Reference Range Interpretation Comments POC-GLUCOSE METER 229 mg/dL 70-110 H TESTED AT [place] [address] (BEAKER) (test code = [facility] Camila [facility] 1538) [address] POCT-GLUCOSE [id number] 12:25:00 Test Item Value Reference Range Interpretation Comments POC-GLUCOSE METER 225 mg/dL 70-110 H TESTED AT [place] [address] (BEAKER) (test code = [facility] Camila [facility] 1538) [id number] POCT-GLUCOSE [id number] 09:21:00 Test Item Value Reference Range Interpretation Comments POC-GLUCOSE METER 240 mg/dL 70-110 H TESTED AT [place] [address] (BEAKER) (test code = [facility] Camila [facility] 1538) [id number] 06:17:00 Test Item Value Reference Range Interpretation Comments MAGNESIUM (BEAKER) (test code = 2.0 mg/dL 1.6-2.6 627) BASIC METABOLIC [id number] 06:17:00 Test Item Value Reference Range Interpretation [...] PATIEN TS. CBC W/PLT COUNT & AUTO [id number] 05:33:00 Test Item Value Reference Range Interpretation [...] (test code = 2801) MR, BRAIN, WITHOUT [id number] 05:23:00Reason for exam:->Right third nerve palsy/headacheWhat is [...] There are no intraconal abnormalities, optic nerve lesionsor mass effect. The optic chiasm is normal and there are no suprasellar cistern masses. Asymmetry ofthe bilateral internal auditory canals is favored to be related to volume averaging and slice selecti on. IMPRESSION: No evidence of acute infarct, hemorrhage, or hydrocephalus. Normal noncontrast MRI of the orbits. Signed: Deborah Luxisabel Verified Date/Time: 04/12/2019 05:23:37 MR, ORBIT, FACE, NECK, WITHOUT CONTRAST 2019-04-12 05:23:00Reason for exam:->Right third nerve palsy/headacheFINAL REPORT [...] There are no intraconal abnormalities, optic nerve lesionsor mass effect. The optic chiasm is normal and there are no suprasellar cistern masses. Asymmetry ofthe bilateral internal auditory canals is favored to be related to volume averaging and slice selection. IMPRESSION: No evidence of acute infarct, hemorrhage, or hydrocephalus. Normal noncontrast MRI of the orbits. Signed: Deborah Lux [facility] Verified Date/Time: 04/12/2019 05:23:37 MR, MRA, NECK, WITHOUT IV [id number] 05:09:00Reason for exam:- >Right third nerve palsy/headacheWhat is the patient's sedation requirement?->No SedationIs the patient claustrophobic?->NoFINAL REPORT Clinical History: Right third nerve palsy/headacheRight third nerve palsy/headache Technique: MRA of the head utilizing 3-D owfx-sm-nfpowk technique, with 3-D reconstructions. MRA of the neck utilizing 2- D and 3-D mrkf-ys-ikmmul technique, with 3-D reconstructions. 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 Otherwise there is no evidence of intracranial aneurysm, focal stenosis, or major branch vessel occlusion. MRA neck: 60% stenosis of the origin of the right internal carotid artery. The left carotid artery in the neck is patent including the bifurcation. There is antegrade flow in the vertebral arteries in the neck. Enlarged right thyroid gland with a 1.5 cm hypodense nodule. IMPRESSION: MRA head: No evidence for a major redding of Johnson proximal branch vessel occlusion or [...] Date/Time: 04/12/2019 05:09:17 MR, MRA, BRAIN, WITHOUT [id number] 05:09:00Reason for exam:->Right third nerve palsy/headacheWhat is the patient's sedation requirement?->No SedationIs the patient claustrophobic?->NoFINAL REPORT Clinical History: Right third nerve palsy/headacheRight third nerve palsy/headache Technique: MRA of the head utilizing 3-D uyjd-ao-yhcasn technique, with 3-D reconstructions. MRA of the neck utilizing 2- D and 3-D pcqt-xs-bmclmc technique, with 3-D reconstructions. 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 Otherwise there is no evidence of intracranial aneurysm, focal stenosis, or major branch vessel occlusion. MRA neck: 60% stenosis of the origin of the right internal carotid artery. The left carotid artery in the neck is patent including the bifurcation. There is antegrade flow in the vertebral arteries in the neck. Enlarged right thyroid gland with a 1.5 cm hypodense nodule. IMPRESSION: MRA head: No evidence for a major redding of Johnson proximal branch vessel occlusion or [...] Signed: Deborah Lux Verified Date/Time: 04/12/2019 05:09:17 POCT-GLUCOSE [id number] 21:59:00 Test Item Value Reference Range Interpretation Comments POC-GLUCOSE METER 283 mg/dL 70-110 H TEST[facility] AT [place] [address] [facility] (test code = [facility] 1538) [id number] POCT-GLUCOSE [id number] 17:44:00 Test Item Value Reference Range Interpretation Comments POC-GLUCOSE METER 178 mg/dL 70-110 H TESTED AT [place] [address] ([facility]) (test code = [facility] 1538) [id number] POCT-GLUCOSE [id number] 17:44:00 Test Item Value Reference Range Interpretation Comments POC-GLUCOSE METER 262 mg/dL 70-110 H TESTED AT [place] [address] ([facility]) (test code = [facility] 1538) [address] POCT-GLUCOSE [id number] 12:43:00 Test Item Value Reference Range Interpretation Comments POC-GLUCOSE METER 194 mg/dL 70-110 H TESTED AT [place] [address] ([facility]) (test code = [facility] 1538) [id number] 08:18:00 Test Item Value Reference Range Interpretation Comments MAGNESIUM (BEAKER) (test code = 1.7 mg/dL 1.6-2.6 627) BASIC METABOLIC [id number] 08:18:00 Test Item Value Reference Range Interpretation [...] NOT APPLICABLE FOR DIALYSIS PATIEN TS. LIPID [id number] 08:18:00 Test Item Value Reference Range Interpretation Comments TRIGLYCERIDES (BEAKER) (test code = 276 mg/dL 540) CHOLESTEROL (BEAKER) (test code = 271 mg/dL 631) HDL CHOLESTEROL (BEAKER) (test code 35 mg/dL = 976) LDL CHOLESTEROL CALCULATED (BEAKER) 181 mg/dL (test code = 633) Triglyceride Reference Range: Low Risk <150 Borderline 150-199 High Risk 200- 499 Very High Risk >=500Cholesterol Reference Range: Low Risk <200 Borderline 200-239 High Risk >240HDL Cholesterol Reference Range: Low Risk >=60 High Risk <40LDL Cholesterol Reference Range: Optimal <100 Near Optimal 100-129 Borderline 130-159 High 160-189 Very High >=190POCT-GLUCOSE [id number] 07:55:00 Test Item Value Reference Range Interpretation Comments POC-GLUCOSE METER 135 mg/dL 70-110 H TESTED AT [facility] 6720 ([facility]) (test code = JEANNIE [place] 1538) [id number] HEMOGLOBIN [id number] 07:04:00 Test Item Value Reference Range Interpretation Comments HEMOGLOBIN A1C (BEAKER) (test code = 10.5 % 4.3-6.1 H 368) CBC W/PLT COUNT & AUTO [id number] 06:51:00 Test Item Value Reference Range Interpretation [...] 0-1 PERCENT (BEAKER) (test code = 2801) [id number] 23:01:00 Test Item Value Reference Range Interpretation Comments MAGNESIUM (BEAKER) (test code = 1.6 mg/dL 1.6-2.6 627) BASIC METABOLIC [id number] 23:01:00 Test Item Value Reference Range Interpretation [...] NOT APPLICABLE FOR DIALYSIS PATIEN TS. PROTHROMBIN [id number] 22:54:00 Test Item Value Reference Range Interpretation Comments PROTIME (BEAKER) (test code = 13.3 seconds 11.9-14.2 759) INR (BEAKER) (test code = 370) 1.1 <=5.9 Effective 02/15/2019: PT Reference Range ChangeNew: 11.9-14.2 Previous: 11.7- 14.7RECOMMENDED COUMADIN/WARFARIN INR THERAPY RANGESSTANDARD DOSE: 2.0-3.0 Includes: PROPHYLAXIS for venous thrombosis, systemic embolization; TREATMENT for venous thrombosis and/or pulmonary embolus.HIGH RISK: Target INR is 2.5-3.5 for patients wiht mechanical heart valves.CBC W/PLT COUNT & AUTO [id number] 22:46:00 Test Item Value Reference Range Interpretation [...] PERCENT (BEAKER) (test code = 2801) POCT-GLUCOSE [id number] 21:32:00 Test Item Value Reference Range Interpretation Comments POC-GLUCOSE METER 143 mg/dL 70-110 H TESTED AT [facility] 6720 (BEAKER) (test code = JEANNIE Jensen [facility] 1538) [address] RAD, CHEST, 1 VIEW, NON [id number] 19:49:00Reason for exam:->chest painShould this be performed at the bedside?->YesFINAL REPORT AP view of the chest dated 04/10/2019 CLINICAL INFORMATION: chest pain Comment: Heart is normal in size. Pulmonary vasculature is unremarkable. Lungs are clear. No pulmonary infiltrate or pleural effusion is present. Impression: No active cardiopulmonary disease. Signed: Ollie Mccaineport Verified Date/Time: 04/10/2019 19:49:30 Reading Location: [facility] [id number] Consult Reading Room
[2023-01-29] MEDS ORDERED: NA CHLORIDE 0.9% 1,000 ML ONE (11:53)
[2023-01-29 12:17] LABS: Absolute Lymphocytes (CBC) 2.2 K/uL (0.7-4.9); Lymphocytes % 25.7 % (15.3-44.8); MCV 85.8 fL (80-100); MPV 9.1 fL (7.6-11.3); RBC Red Blood Cell Count 3.61 M/uL (3.86-4.86)
[2023-01-29 12:19] LABS: Specific Gravity 1.015 (1.005-1.030); Transitional Epithelial <5 /HPF (None Seen); Urine Bacteria >50 /HPF (<20); Urine Bilirubin NEGATIVE (Negative); Urine Blood Negative (Negative); Urine Clarity Clear (Clear); Urine Color Light-Yellow (Yellow); Urine Glucose NEGATIVE (Negative); Urine Protein TRACE (Negative); Urine RBC <5 /HPF (None Seen); Urine Urobilinogen Normal (Normal)
[2023-01-29 12:34] LABS: Albumin 3.4 g/dL (3.4-5.0); Bilirubin Total 0.4 mg/dL (0.2-1.0); Potassium 4.7 mEq/L (3.5-5.1); Protein, Total 7.3 g/dL (6.4-8.2)
--- NOTE | 2023-01-29 12:59 | RAD REPORT ---
EXAM DESCRIPTION: CTAbdomen Pelvis W Contrast - 01/29/2023 12:47 pm CLINICAL HISTORY: Abdominal pain. FLANK PAIN COMPARISON: Abdomen Pelvis W Contrast dated 04/27/2021 TECHNIQUE: Biphasic CT imaging of the abdomen and pelvis was performed with 100 ml non-ionic IV cont rast. All CT scans are performed using dose optimization technique as appropriate and may include automated exposure control or mA/KV adjustment according to patient size. FINDINGS: The lung bases are clear.Cholecystectomy. There is a large duodenal diverticulum measuring 6 cm involving the transverse duodenum. The liver, spleen, pancreas, adrenal glands and kidneys are within normal limits. No bowel obstruction, free air, free fluid or abscess. Moderate fecal retention. The appendix is norm al. No evidence of significant lymphadenopathy. Mild lumbar degenerative changes. IMPRESSION: No acute intra-abdominal or pelvic finding.
--- NOTE | 2023-01-29 13:12 | EDPHYS ---
Physician Documentation [facility] Name: Nelsy Perez Age: 72 yrs Sex: Female : 1950 Arrival Date: 01/29/2023 Time: 11:09 Bed 8 Private MD: ED Physician Scotty Fuentes HPI: 01/29 12:30 This 72 yrs old Female presents to ER via Ambulatory with complaints of Back rt Pain, Headache, General Weakness. 12:30 Presents to the ED with 2 weeks of right flank pain that has been intermittent. rt Somewhat worsened today prompting her to come to the ED for further evaluation. Patient reports a generalized malaise, headache. The patient reports cloudy urine denies hematuria. She does report dysuria. Denies other acute complaints at this time. Symptoms are moderate severity, no other aggravating or alleviating factors. Pain is aching in nature, nonradiating.. Historical: - Allergies: 11:20 No Known Allergies; hb - Home Meds: 11:20 atorvastatin 40 mg Oral tab 1 tab once daily [Active]; gabapentin 300 mg Oral cap 1 cap hb 3 times per day [Active]; lisinopril 20 mg Oral tab 1 tab twice a day [Active]; metformin 1,000 mg Oral tab 1 tab 2 times per day [Active]; metoprolol 100 mg daily ( pt reports she only takes half) [Active]; Xultophy 100/3.6 100 unit-3.6 mg /mL (3 mL) subcutaneous Insulin Pen [Active]; - PMHx: 11:20 Hypercholesterolemia; Hypertension; neuropathy; Diabetes - IDDM; panic attack; hb - PSHx: 11:20 cataract sx both eyes; Ligation of fallopian tube; hb - Immunization history:: Adult Immunizations up to date. - Social history:: Smoking status: Patient denies any tobacco usage or history of. - Family history:: not pertinent. ROS: 12:30 Constitutional: Negative for fever, chills, and weight loss, Eyes: Negative for injury, rt pain, redness, and discharge, Cardiovascular: Negative for chest pain, palpitations, and edema, Respiratory: Negative for shortness of breath, cough, wheezing, and pleuritic chest pain, MS/Extremity: Negative for injury and deformity, Skin: Negative for injury, rash, and discoloration, Neuro: Negative for headache, weakness, numbness, tingling, and seizure, Psych: Negative for depression, anxiety, suicide ideation, homicidal ideation, and hallucinations. 12:30 Abdomen/GI: Positive for nausea, Negative for abdominal pain, vomiting. 12:30 Back: Positive for flank pain, Negative for injury or acute deformity. 12:30 : Positive for burning with urination, Negative for difficulty urinating. Exam: 12:30 Constitutional: This is a well developed, well nourished patient who is awake, alert, rt and in no acute distress. Head/Face: Normocephalic, atraumatic. Chest/axilla: Normal chest wall appearance and motion. Nontender with no deformity. No lesions are appreciated. Cardiovascular: Regular rate and rhythm with a normal S1 and S2. No gallops, murmurs, or rubs. Normal PMI, no JVD. No pulse deficits. Respiratory: Lungs have equal breath sounds bilaterally, clear to auscultation and percussion. No rales, rhonchi or wheezes noted. No increased work of breathing, no retractions or nasal flaring. Abdomen/GI: Soft, non-tender, with normal bowel sounds. No distension or tympany. No guarding or rebound. No evidence of tenderness throughout. Skin: Warm, dry with normal turgor. Normal color with no rashes, no lesions, and no evidence of cellulitis. MS/ Extremity: Pulses equal, no cyanosis. Neurovascular intact. Full, normal range of motion. Neuro: Awake and alert, GCS 15, oriented to person, place, time, and situation. Cranial nerves II-XII grossly intact. Motor strength 5/5 in all extremities. Sensory grossly intact. Cerebellar exam normal. Normal gait. Psych: Awake, alert, with orientation to person, place and time. Behavior, mood, and affect are within normal limits. 12:30 Back: CVA tenderness, is noted on the right. Vital Signs: 11:19 BP 173 / 69; Pulse 86; Resp 16; Temp 98.7(O); Pulse Ox 100% on R/A; Weight 101.6 kg; hb Height 5 ft. 4 in. ; Pain 5/10; 12:00 BP 139 / 54; Pulse 83; Resp 15; Pulse Ox 98% ; bp 13:00 BP 154 / 40; Pulse 92; Resp 16; Pulse Ox 98% ; bp 11:19 Body Mass Index 38.45 (101.60 kg, 162.56 cm) hb 11:19 Pain Scale: Adult hb MDM: 11:30 Patient medically screened. rt 13:13 Differential diagnosis: UTI, mechanical back pain, pyelonephritis, ureteral calculus. rt Data reviewed: vital signs, nurses notes, lab test result(s), radiologic studies. Consideration of Admission/Observation Escalation of care including admission/observation considered. I considered the following discharge prescriptions or medication management in the emergency department Medications were administered in the Emergency Department. See MAR. Independent interpretation of the following test(s) in the Emergency Department CT Scan: My interpretation is No stone seen on my interpretation of the CT scan images, no bowel obstruction. Care significantly affected by the following chronic conditions: Diabetes. Counseling: I had a detailed discussion with the patient and/or guardian regarding: the historical points, exam findings, and any diagnostic results supporting the discharge/admit diagnosis, lab results, radiology results, the need for outpatient follow up. ED course: No clinical evidence for sepsis, no ureteral obstruction requiring stenting. Patient is p.o. tolerant with unremarkable labs. Patient does meet criteria for an uncomplicated pyelonephritis, does not require admission at this time, trial of outpatient management with antibiotics is most appropriate, patient is in agreement this plan, will follow-up as an outpatient, return precautions were discussed.. 01/29 11:40 Order name: Urinalysis w/ reflexes; Complete Time: 13:06 ko1 01/29 11:44 Order name: CBC with Diff; Complete Time: 13:06 rt 01/29 11:44 Order name: CMP; Complete Time: 13:06 rt 01/29 12:30 Order name: Urine Culture EDMS 01/29 11:44 Order name: CT Abd/Pelvis - IV Contrast Only; Complete Time: 13:06 rt Administered Medications: 11:56 Drug: NS 0.9% IV 1000 ml Route: IV; Rate: 1 bolus; Site: right forearm; bp 13:26 Follow up: IV Status: Completed infusion; IV Intake: 1000ml bp Disposition Summary: 01/29/23 13:12 Discharge Ordered Location: Home rt Problem: new rt Symptoms: have improved rt Condition: Stable rt Diagnosis - Pyelonephritis acute rt Followup: rt - With: Private Physician - When: 5 - 6 days - Reason: Discharge Instructions: - Discharge Summary Sheet rt - Pyelonephritis, Adult rt Forms: - Medication Reconciliation Form rt - Thank You Letter rt - Antibiotic Education rt - Prescription Opioid Use rt Prescriptions: - cefpodoxime 200 mg Oral Tablet - take 1 tablet by ORAL route every 12 hours with food; 20 tablet; Refills: 0, rt Product Selection Permitted Signatures: Dispatcher [employer] EDJennifer Arnold RN RN Salomón Mak RN RN bp Scotty Fuentes MD MD rt Corrections: (The following items were deleted from the chart) 11: 11:20 Home Meds: Novolog Sub-Q 5 unit before meals; hb hb 11:22 11:20 Home Meds: Tresiba FlexTouch U-100 100 unit/mL (3 mL) subcutaneous inpn 40 unit hb daily; hb
--- NOTE | 2023-01-29 13:12 | ER ---
Nurse's Notes [facility] Name: Nelsy Perez Age: 72 yrs Sex: Female : 1950 Arrival Date: 01/29/2023 Time: 11:09 Bed 8 Private MD: Diagnosis: Pyelonephritis acute Presentation: 01/29 11:19 Chief complaint: Right low back pain, nausea, and burning with urination x 2 weeks. hb Coronavirus screen: At this time, the client does not indicate any symptoms associated with coronavirus-19. Ebola Screen: No symptoms or risks identified at this time. Initial Sepsis Screen: Does the patient meet any 2 criteria? No. Patient's initial sepsis screen is negative. Does the patient have a suspected source of infection? No. Patient's initial sepsis screen is negative. Risk Assessment: Do you want to hurt yourself or someone else? Patient reports no desire to harm self or others. Onset of symptoms was January 17, 2023. 11:19 Method Of Arrival: Ambulatory hb 11:19 Acuity: ARRON 3 hb Triage Assessment: 11:20 General: Appears distressed, uncomfortable, Behavior is calm, cooperative, appropriate bp for age. Pain: Complains of pain in right flank. EENT: No deficits noted. Neuro: No deficits noted. Cardiovascular: No deficits noted. Respiratory: No deficits noted. GI: No signs and/or symptoms were reported involving the gastrointestinal system. : Reports burning with urination, pain in right flank(s). Derm: No deficits noted. Musculoskeletal: Circulation, motion, and sensation intact. Historical: - Allergies: 11:20 No Known Allergies; hb - Home Meds: 11:20 atorvastatin 40 mg Oral tab 1 tab once daily [Active]; gabapentin 300 mg Oral cap 1 cap hb 3 times per day [Active]; lisinopril 20 mg Oral tab 1 tab twice a day [Active]; metformin 1,000 mg Oral tab 1 tab 2 times per day [Active]; metoprolol 100 mg daily ( pt reports she only takes half) [Active]; Xultophy 100/3.6 100 unit-3.6 mg /mL (3 mL) subcutaneous Insulin Pen [Active]; - PMHx: 11:20 Hypercholesterolemia; Hypertension; neuropathy; Diabetes - IDDM; panic attack; hb - PSHx: 11:20 cataract sx both eyes; Ligation of fallopian tube; hb - Immunization history:: Adult Immunizations up to date. - Social history:: Smoking status: Patient denies any tobacco usage or history of. - Family history:: not pertinent. Screenin:00 [facility] ED Fall Risk Assessment (Adult) History of falling in the last 3 months, bp including since admission No falls in past 3 months (0 pts). Abuse screen: Denies threats or abuse. Denies injuries from another. Nutritional screening: No deficits noted. Tuberculosis screening: No symptoms or risk factors identified. Assessment: 11:20 General: SEE TRIAGE NOTE. bp 13:00 Reassessment: No changes from previously documented assessment. Patient is alert, bp oriented x 3, equal unlabored respirations, skin warm/dry/pink. Neuro: Level of Consciousness is awake, alert, obeys commands, Oriented to Appropriate for age. 13:27 Reassessment: DC HOME AMBULATORY. bp Vital Signs: 11:19 BP 173 / 69; Pulse 86; Resp 16; Temp 98.7(O); Pulse Ox 100% on R/A; Weight 101.6 kg; hb Height 5 ft. 4 in. ; Pain 5/10; 12:00 BP 139 / 54; Pulse 83; Resp 15; Pulse Ox 98% ; bp 13:00 BP 154 / 40; Pulse 92; Resp 16; Pulse Ox 98% ; bp 11:19 Body Mass Index 38.45 (101.60 kg, 162.56 cm) hb 11:19 Pain Scale: Adult hb ED Course: 11:09 Patient arrived in ED. ts1 11:16 Scotty Fuentes MD is Attending Physician. rt 11:20 Triage completed. hb 11:22 Arm band placed on. hb 11:36 Salomón Mak, MATHEW is Primary Nurse. bp 11:40 Urinalysis w/ reflexes Sent. ko1 11:56 Inserted saline lock: 20 gauge in right forearm, using aseptic technique. Blood bp collected. 12:00 Patient has correct armband on for positive identification. Bed in low position. Call bp light in reach. Side rails up X2. 12:49 CT Abd/Pelvis - IV Contrast Only In Process Unspecified. EDMS 13:27 No provider procedures requiring assistance completed. IV discontinued, intact, bp bleeding controlled, No redness/swelling at site. Pressure dressing applied. Administered Medications: 11:56 Drug: NS 0.9% IV 1000 ml Route: IV; Rate: 1 bolus; Site: right forearm; bp 13:26 Follow up: IV Status: Completed infusion; IV Intake: 1000ml bp Medication: 13:27 VIS not applicable for this client. bp Intake: 13:26 IV: 1000ml; Total: 1000ml. bp Outcome: 13:12 Discharge ordered by MD. rt 13:27 Discharged to home ambulatory. bp 13:27 Condition: stable 13:27 Discharge instructions given to patient, Instructed on discharge instructions, follow up and referral plans. medication usage, Demonstrated understanding of instructions, follow-up care, medications, Prescriptions given X 1. 13:27 Patient left the ED. bp Addendum: 01/31/2023 07:08 Addendum: Culture Results: Positive urine culture. No further action required. Bacteria e b sensitive to prescribed antibiotic. Signatures: Dispatcher [employer] EDMS Jennifer Martinez RN RN Salomón Mak RN Natalee Ackerman Kathy, RN RN ko1 Scotty Fuentes MD MD rt Alondra Spaulding PAS PAS ts1 Corrections: (The following items were deleted from the chart) 01/29 11:22 11:20 Home Meds: Novolog Sub-Q 5 unit before meals; hb hb 11:22 11:20 Home Meds: Tresiba FlexTouch U-100 100 unit/mL (3 mL) subcutaneous inpn 40 unit hb daily; hb
[2023-01-29 13:56] VITALS: TEMP 98.7
[2023-01-29 13:57] VITALS: O2SAT 98
[2023-01-29 13:58] VITALS: BP 154/40
== END 2023-01-29 13:27 | disposition home or self-care (01) ==
LOC: ER 11:09
DX: N10 Acute pyelonephritis (principal); E11.9 Type 2 diabetes mellitus without complications; I10 Essential (primary) hypertension; Z79.4 Long term (current) use of insulin
CPT/HCPCS: 87088; 85025; 81001; 87086; 36415; 87077; 87186; 80053; 74177; 96360; 99284; Q9967; J7030

== ENCOUNTER 2023-08-24 06:30 | Day surgery (SDC) | payer OTHER ==
--- NOTE | 2023-08-19 15:47 | RAD REPORT ---
EXAM DESCRIPTION: RAD - Chest Pa And Lat (2 Views) - 08/19/2023 3:38 pm CLINICAL HISTORY: Pre op pending abdominal angiogram Chest pain. TECHNIQUE: PA and lateral views of the chest were obtained. FINDINGS: The lungs are hyperexpanded compatible with COPD. The heart is upper limit of normal in si ze. No fracture or aggressive bony process. IMPRESSION: COPD without acute process identified. The USPSTF recommends annual screening for lung cancer with low-dose CT (LDCT) in adults aged 50 to 80 years who have a 20 pack-year smoking history and currently smoke or have quit within the past 15 years.
[2023-08-19 15:51] LABS: Absolute Lymphocytes (CBC) 2.3 K/uL (0.7-4.9); Hematocrit 30.7 % (36.0-45.0); Lymphocytes % 29.9 % (15.3-44.8); MCV 83.5 fL (80-100); MPV 9.1 fL (7.6-11.3); Platelets 275 thou/uL (152-406); RBC Red Blood Cell Count 3.67 M/uL (3.86-4.86)
[2023-08-19 16:03] LABS: Potassium 4.7 mEq/L (3.5-5.1)
[2023-08-19 16:11] LABS: Protime INR 1.01
--- NOTE | 2023-08-20 14:49 | EKG ---
Test Date: 2023-08-19 Test Time: 16:20:48 Marking Machine Operator: VIKKI MEASUREMENT RESULTS: Intervals: Rate: 75 IL: 186 QRSD: 70 QT: 382 QTc: 426 Romance: P: 49 IL: 186 QRS: 28 T: 73 INTERPRETIVE STATEMENTS: Normal sinus rhythm Normal ECG Compared to ECG 01/19/2022 12:49:42 No significant changes Electronically Signed On 08-20-23 14:45:39 INTERACTIVE MEDIA MARKETING SPECIALIST by Dimitris Garcias
[2023-08-24] MEDS ORDERED: NA CHLORIDE 0.9% 500 ML ONE (07:14)
[2023-08-24] MEDS ORDERED: VERAPAMIL HCL 10 MG/4 ML VIAL IV ONE (07:22)
[2023-08-24] MEDS ORDERED: HEPA 1000U/500MLS 2,000 UNIT/1,000 ML BAG IV ONE (07:22)
[2023-08-24] MEDS ORDERED: LIDOCAINE 1% 20 ML MDV ONE (07:22)
[2023-08-24] MEDS ORDERED: NITROGLYCERIN/D5W 50 MG/250 ML BTL IV ONE (07:22)
[2023-08-24] MEDS ORDERED: MIDAZOLAM HCL 2 MG/2 ML INJ ONE (07:23)
[2023-08-24] MEDS ORDERED: ATROPINE SULFATE 1 MG/ML INJ ONE (07:23)
[2023-08-24] MEDS ORDERED: FENTANYL CITR 100 MCG/2 ML ONE (07:23)
[2023-08-24] MEDS ORDERED: HEPARIN 5000 UNIT/ML 1 ML VIAL ONE (07:23)
[2023-08-24] MEDS ORDERED: HYDRALAZINE HCL 20 MG/ML VIAL ONE ×2 (07:23→10:00)
[2023-08-24] MEDS ORDERED: HEPARIN 10,000 UNIT/10 ML VIAL IV ONE (07:23)
[2023-08-24] MEDS ORDERED: ATROPINE SULF 1 MG/10 ML SYR IV ONE (07:24)
[2023-08-24 09:24] VITALS: TEMP 97.5
--- NOTE | 2023-08-24 09:44 | OP ---
Date of Procedure: 08/24/2023 Surgeon: NELSON VILLALTA Procedure Performed: Peripheral angiogram, selective and with runoff. Indication: Peripheral vascular disease. Access: Right radial artery, 6-[place], closed with TR band. Complications: None. Bleeding: Less than 20 mL. Total Sedation Time: 50 minutes, used fentanyl and Versed. Description Of Procedure: After risks, benefits, alternatives were explained, the patient agreed to proceed and signed informed consent. The patient was brought into the cardiac catheterization labora tory, prepped and draped in usual sterile fashion. Then, I accessed the right radial artery using pe diatric micropuncture kit, placed a 6-[place] Slender sheath and took 5-[place] 4.0 catheter into the aortic root over J-wire, and ascended to the descending aorta and then exchanged for a long 4-Fr ench pigtail catheter and placed within the left common iliac, performed left lower extremity angiogr am, and then the right common iliac and performed right lower extremity angiogram, and then in the di stal aorta and performed the aortogram with runoff, and then removed the catheter and the sheath, and placed TR band with good hemostasis. Findings: 1.Distal aorta widely patent. 2.Right lower extremity: Right common iliac, external iliac, internal iliac, common femoral, and pr ofunda widely patent, however calcified vessels. The right SFA is calcified, but with luminal irregu larity. The popliteal artery has 40% stenosis, and there is a triple vessel below the knee that beco mes small; however, they are patent. 3.Left lower extremity: The left common iliac, external iliac, internal iliac, common femoral, and profunda are widely patent. The left SFA is widely patent. The popliteal artery is widely patent. The anterior tibial, posterior tibial, and peroneal all patent, but they become very small vessels. Conclusion: Mild nonobstructive peripheral vascular disease with calcified vessels. Plan: Medical management. SR/MODL Voice ID: [id number] Report ID: [id number]
[2023-08-24] MEDS ORDERED: HYDRALAZINE HCL 20 MG/ML VIAL IV ONE (09:53)
[2023-08-24 11:00] VITALS: BP 148/79; O2SAT 97
== END 2023-08-24 11:09 | disposition home or self-care (01) ==
LOC: CCL 06:30
PROVIDERS: ATTEND Internal Medicine
DX: I70.223 Atherosclerosis of native arteries of extremities with rest pain, bilateral legs (principal); I65.23 Occlusion and stenosis of bilateral carotid arteries; E11.9 Type 2 diabetes mellitus without complications; I10 Essential (primary) hypertension; E78.2 Mixed hyperlipidemia; Z79.899 Other long term (current) drug therapy; Z82.49 Family history of ischemic heart disease and other diseases of the circulatory system
CPT/HCPCS: 93005; 85025; 80048; 36415; 83721; 85610; 82947; 85730; 71046; 75625; 36245; 75710; 76937; C1893; J1644; J0360; J2001; J2250; J3010; J7040; 36200; 75630; 75716; 99152; 99153; J0461

== ENCOUNTER 2024-05-07 19:27 | Emergency (ER) | payer OTHER ==
[2024-05-07 20:34] LABS: Absolute Basophils 0.1 K/uL (0-0.5); Absolute Eosinophils 0.1 K/uL (0-0.5); Absolute Monocytes 0.4 K/uL (0.1-1.3); Absolute Neutrophil 7.5 K/uL (1.8-8.0); Basophils % 0.6 % (0-1.3); Eosinophils % 0.6 % (0-4.4); Hematocrit 34.4 % (36.0-45.0); Hemoglobin 11.3 g/dL (12.0-15.0); Lymphocytes % 10.9 % (15.3-44.8); MCH 28.2 pg (27.0-35.0); MCHC 32.7 g/dL (32.0-36.0); MCV 86.2 fL (80-100); MPV 8.7 fL (7.6-11.3); Monocytes % 4.7 % (3.3-12.3); Neutrophils % 83.2 % (41.7-73.7); Platelets 299 thou/uL (152-406); Red Cell Distribution Width 16.3 % (12.1-15.2)
--- NOTE | 2024-05-07 20:35 | RAD REPORT ---
EXAM DESCRIPTION: US - Extrem Venous W Compress Gordy - 05/07/2024 8:16 pm CLINICAL HISTORY: Pain;Swelling COMPARISON: Extremity Venous Uni Ltd dated 01/09/2022 TECHNIQUE: Real-time sonographic evaluation of the lower extremity deep venous systems was performed using color Doppler, grayscale, and compression. FINDINGS: Bilateral lower extremities. Normal compressibility, flow augmentation, phasic flow and spontaneous flow is identified in both the left and right lower extremity deep venous systems. No intraluminal filling defects seen. IMPRESSION: No DVT in either lower extremity.
[2024-05-07 20:38] LABS: PT Prothrombin Time 12.8 SECONDS (9.4-12.5); Protime INR 1.15
--- NOTE | 2024-05-07 20:39 | RAD REPORT ---
EXAM DESCRIPTION: RAD - Chest Single View - 05/07/2024 8:29 pm CLINICAL HISTORY: CHEST PAIN COMPARISON: Chest Pa And Lat (2 Views) dated 08/19/2023; Chest Single View dated 01/19/2022; Chest Sin gle View dated 12/24/2021; Chest Single View dated 04/27/2021 FINDINGS: Lines: None. Lungs: No evidence of edema or pneumonia. Pleural: No significant pleural effusions or pneumothorax. Cardiac: The heart size is within normal limits. Mediastinum: Within normal limits. Bones: No acute fractures. Other: None IMPRESSION: No acute cardiopulmonary disease.
[2024-05-07 20:44] LABS: SARS-CoV-2 Antigen CONTROL BLUE LINE VIS/BG OK
[2024-05-07 20:45] LABS: SARS-CoV-2 Antigen Rapid Res Positive (Negative)
[2024-05-07 20:51] LABS: Albumin 3.5 g/dL (3.4-5.0); Albumin/Globulin Ratio 0.9 (1.1-1.8); Anion Gap 10.8 mEq/L (5.0-15.0); Bilirubin Direct 0.2 mg/dL (0-0.2); Bilirubin Indirect, Calculated 0.2 mg/dL (0.2-0.8); Bilirubin Total 0.4 mg/dL (0.2-1.0); Globulin 4.1 g/dL (2.3-3.5); Potassium 3.8 mEq/L (3.5-5.1); Protein, Total 7.6 g/dL (6.4-8.2); Troponin High Sensitivity 11.3 pg/mL (<58.9)
--- NOTE | 2024-05-07 21:22 | RAD REPORT ---
EXAM DESCRIPTION: CT - Chest For Pe Angio - 05/07/2024 9:14 pm CLINICAL HISTORY: CHEST PAIN COMPARISON: No comparisons TECHNIQUE: Dynamically enhanced axial 3 mm thick images of the chest were obtained during administra tion of <100> mL Isovue 370 IV contrast. Coronal and oblique reconstruction images were generated and reviewed. Exam utilizes a protocol for optimal evaluation of pulmonary arterial tree. Maximum intensity projections 3D imaging was utilized All CT scans are performed using dose optimization technique as appropriate and may include automated exposure control or mA/KV adjustment according to patient size. FINDINGS: Chest Wall: No suspicious thyroid nodules or pathologic lymphadenopathy. Multinodular thyr oid. Lungs: No acute abnormality. Tiny calcified right upper lobe nodule. No suspicious noncalcified pulmo nary nodules. Pleura: No significant effusions or pneumothorax. Mediastinum/alondra: No pathologic lymphadenopathy. Pulmonary arteries/Aorta: No filling defect identified. No aortic aneurysm. Heart: No significant pericardial effusion. Normal heart size. Coronary calcifications. Upper abdomen: No acute abnormality. Bones: No acute abnormality. Bridging osteophytes in the spine. IMPRESSION: Negative for pulmonary embolism. No acute findings in the chest.
--- NOTE | 2024-05-07 21:34 | ER ---
Nurse's Notes [facility] Name: Nelsy Perez Age: 73 yrs Sex: Female : 1950 Arrival Date: 05/07/2024 Time: 19:27 Bed 16 Private MD: Diagnosis: SARS-associated coronavirus as the cause of diseases classified elsewhere Presentation: 05/07 19:37 Chief complaint: Patient states: Chest pain to the center of chest onset yesterday. Pt cm10 states that the pain is worse with inspiration and cough. Pt describes the pain as a dull ache. Pt also reports shortness of breath and non-productive cough. Coronavirus screen: Client denies travel out of the [place] in the last 14 days. At this time, the client does not indicate any symptoms associated with coronavirus-19. Ebola Screen: Patient denies travel to an Ebola-affected area in the 21 days before illness onset. No symptoms or risks identified at this time. Initial Sepsis Screen: Does the patient meet any 2 criteria? HR > 90 bpm. Does the patient have a suspected source of infection? No. Patient's initial sepsis screen is negative. Risk Assessment: Do you want to hurt yourself or someone else? Patient reports no desire to harm self or others. Onset of symptoms was May 07, 2024. 19:37 Method Of Arrival: Ambulatory cm10 19:37 Acuity: ARRON 2 cm10 Triage Assessment: 19:41 General: Appears in no apparent distress. uncomfortable, Behavior is calm, cooperative. cm10 Neuro: No deficits noted. Level of Consciousness is awake, alert, obeys commands, Oriented to person, place, time, situation, Appropriate for age. Respiratory: No deficits noted. Airway is patent Respiratory effort is even, unlabored. Historical: - Allergies: 19:40 No Known Allergies; cm10 - PMHx: 19:40 Diabetes - IDDM; Hypercholesterolemia; Hypertension; neuropathy; panic attack; cm10 - PSHx: 19:40 cataract sx both eyes; Ligation of fallopian tube; cm10 - Immunization history:: Adult Immunizations. - Infectious Disease History:: Denies. - Social history:: Smoking status: Patient denies any tobacco usage or history of. Screenin:00 [facility] ED Fall Risk Assessment (Adult) History of falling in the last 3 months, rg5 including since admission No falls in past 3 months (0 pts) Confusion or Disorientation No (0 pts) Intoxicated or Sedated No (0 pts) Impaired Gait No (0 pts) Mobility Assist Device Used No (0 pt) Altered Elimination No (0 pt) Score/Fall Risk Level 0 - 2 = Low Risk Oriented to surroundings, Maintained a safe environment, Hourly rounding (assess needs \T\ fall precautionary measures) done. Abuse screen: Denies threats or abuse. Nutritional screening: No deficits noted. Tuberculosis screening: No symptoms or risk factors identified. Assessment: 20:00 General: Appears in no apparent distress. comfortable, Behavior is calm, cooperative, rg5 appropriate for age. 20:00 Pain: Complains of pain in chest Pain does not radiate. Pain currently is 4 out of 10 rg5 on a pain scale. Quality of pain is described as aching, Pain began 1 day ago. Neuro: Level of Consciousness is awake, alert, obeys commands, Oriented to person, place, time. Cardiovascular: Reports chest pain. Respiratory: Reports cough that is Airway is patent Trachea midline Respiratory effort is even, unlabored, Respiratory pattern is regular, symmetrical. GI: Abdomen is round non-distended. : No signs and/or symptoms were reported regarding the genitourinary system. EENT: No deficits noted. Derm: Skin is intact, Skin is dry, Skin is normal. Musculoskeletal: Range of motion: intact in all extremities. 21:10 Reassessment: Patient and/or family updated on plan of care and expected duration. Pain rg5 level reassessed. Patient is alert, oriented x 3, equal unlabored respirations, skin warm/dry/pink. Patient states feeling better. Patient states symptoms have improved. Vital Signs: 19:37 BP 178 / 84; Pulse 128; Resp 19; Temp 98.9; Pulse Ox 96% on R/A; Weight 97.98 kg; cm10 Height 5 ft. 3 in. ; Pain 5/10; 20:00 BP 131 / 55; Pulse 114; Resp 17; Temp 98; Pulse Ox 96% on R/A; Pain 3/10; rg5 21:32 Pulse 100; Resp 16; rn 19:37 Body Mass Index 38.26 (97.98 kg, 160.02 cm) cm10 19:37 Pain Scale: Adult cm10 20:00 Pain Scale: Adult rg5 ED Course: 19:32 Patient arrived in ED. jj6 19:33 Mani Pierson MD is Attending Physician. rn 19:39 Triage completed. cm10 19:41 Arm band placed on Patient placed in an exam room, on a stretcher. EKG completed in cm10 triage. Results shown to MD. 19:42 EKG done, by ED staff, reviewed by Mani Pierson MD. cm10 19:45 Kadeem Best, RN is Primary Nurse. rg5 20:00 Patient has correct armband on for positive identification. Placed in gown. Bed in low rg5 position. Call light in reach. Side rails up X 1. bus driver/monitor on. Pulse ox on. NIBP on. 20:00 No provider procedures requiring assistance completed. Patient maintains SpO2 rg5 saturation greater than 95% on room air. 20:18 Extrem Venous W Compression Gordy US In Process Unspecified. EDMS 20:31 XRAY Chest (1 view) In Process Unspecified. EDMS 20:53 Notified ED physician of a critical lab result(s). Covid positive to Dr Pierson. tl4 21:15 CT Chest For PE Angio In Process Unspecified. EDMS 21:58 IV discontinued. rg5 21:59 Provided Education on: airborne precaution \T\ handwashing. rg5 Administered Medications: No medications were administered Medication: 20:00 VIS not applicable for this client. rg5 Outcome: 21:33 Discharge ordered by MD. rn 21:58 Discharged to home ambulatory, rg5 21:58 Condition: stable 21:58 Discharge instructions given to patient, friend, Instructed on discharge instructions, follow up and referral plans. Demonstrated understanding of instructions, follow-up care, medications, Prescriptions given X 1, 21:59 Patient left the ED. rg5 Signatures: Dispatcher [employer] EDMS Mani Pierson MD MD rn Jeffries, Jennifer jj6 Thais Ramos RN RN cm10 Kris Dillard RN RN tl4 Kadeem Best, RN RN rg5 Corrections: (The following items were deleted from the chart) 19:40 19:37 BP 180 / 74; Pulse 128bpm; Resp 19bpm; Pulse Ox 96% RA; Temp 98.9F; 97.98 kg; cm10 Height 5 ft. 3 in.; BMI: 38.2; Pain 5/10, Adult; cm10
--- NOTE | 2024-05-07 21:34 | EDPHYS ---
Physician Documentation [facility] Name: Nelsy Perez Age: 73 yrs Sex: Female : 1950 Arrival Date: 05/07/2024 Time: 19:27 Bed 16 Private MD: ED Physician Mani Pierson HPI: 05/07 19:53 This 73 yrs old Female presents to ER via Ambulatory with complaints of Chest rn Pain, Shortness Of Breath, Cough. 19:53 73-year-old female past medical history of insulin-dependent diabetes, rn hypercholesterolemia, hypertension presents to the emergency department complaining of chest pain, shortness of breath, cough. Patient states that the symptoms began last night with an aching substernal chest pain worse with deep breathing and a dry nonproductive cough. She also reports feeling a low-grade fever and states that she feels like she may be getting sick but reports no sick contacts. Patient states she has had similar symptoms in the past but states that she had a normal stress test with cardiology earlier this year. Denies nausea, vomiting, dizziness.. Historical: - Allergies: 19:40 No Known Allergies; cm10 - PMHx: 19:40 Diabetes - IDDM; Hypercholesterolemia; Hypertension; neuropathy; panic attack; cm10 - PSHx: 19:40 cataract sx both eyes; Ligation of fallopian tube; cm10 - Immunization history:: Adult Immunizations. - Infectious Disease History:: Denies. - Social history:: Smoking status: Patient denies any tobacco usage or history of. ROS: 19:58 Constitutional: Negative for fever, chills, and weight loss, ENT: Negative for injury, rn pain, and discharge, Abdomen/GI: Negative for abdominal pain, nausea, vomiting, and constipation, : Negative for injury, bleeding, discharge, and swelling, Neuro: Negative for headache, weakness, numbness, tingling, and seizure, 19:58 Constitutional: Positive for fever, malaise, Negative for 19:58 Cardiovascular: Positive for chest pain, edema, orthopnea, palpitations, paroxysmal nocturnal dyspnea, Negative for palpitations, 19:58 Respiratory: Positive for cough, pleurisy, of the chest, shortness of breath, Negative for dyspnea on exertion, hemoptysis, sputum production, 19:58 Abdomen/GI: Negative for abdominal pain, nausea and vomiting, 19:58 Back: Negative for injury or acute deformity, radiated pain, 19:58 Neuro: Negative for altered mental status, dizziness, headache, syncope, visual changes, 19:58 All other systems are negative, Exam: 20:04 Constitutional: The patient appears in no acute distress, alert, awake, anxious, rn diaphoretic, uncomfortable, 20:04 Neck: Well-healed surgical scar present on right neck likely secondary to carotid endarterectomy., 20:04 Cardiovascular: Rate: tachycardic, Edema: 1+ edema to level of right midcalf, right ankle and right foot, 2+ edema to level of left midcalf and left ankle, 20:04 Respiratory: mild respiratory distress is noted, Respirations: tachypnea, that is mild, Breath sounds: are clear throughout, Vital Signs: 19:37 BP 178 / 84; Pulse 128; Resp 19; Temp 98.9; Pulse Ox 96% on R/A; Weight 97.98 kg; cm10 Height 5 ft. 3 in. ; Pain 5/10; 20:00 BP 131 / 55; Pulse 114; Resp 17; Temp 98; Pulse Ox 96% on R/A; Pain 3/10; rg5 21:32 Pulse 100; Resp 16; rn 19:37 Body Mass Index 38.26 (97.98 kg, 160.02 cm) cm10 19:37 Pain Scale: Adult cm10 20:00 Pain Scale: Adult rg5 MDM: 19:33 Patient medically screened. rn 21:31 Differential diagnosis: acute myocardial infarction, acute pericarditis, rn costochondritis. 21:32 Data reviewed: vital signs, nurses notes, lab test result(s), EKG, radiologic studies, rn CT scan, plain films, ultrasound, and as a result, I will discharge patient. Counseling: I had a detailed discussion with the patient and/or guardian regarding the historical points, exam findings, and any diagnostic results supporting the discharge/admit diagnosis, lab results, radiology results, the need for outpatient follow up, to return to the emergency department if symptoms worsen or persist or if there are any questions or concerns that arise at home. Response to treatment: the patient's symptoms have mildly improved after treatment, and as a result, I will discharge patient. Special discussion: I discussed with the patient/guardian in detail that at this point there is no indication for admission to the hospital. It is understood, however, that if the symptoms persist or worsen the patient needs to return immediately for re-evaluation. ED course: Patient improved, heart rate has decreased, no oxygen requirement. 100% on room air while wearing a mask. Chest x-ray negative for pneumonia or pneumothorax per my interpretation. CT chest PE protocol negative for PE. Ultrasound negative for DVT. Patient COVID-positive. Will DC home with return precautions.. 05/07 19:44 Order name: Basic Metabolic Panel; Complete Time: 20:52 rn 05/07 19:44 Order name: CBC with Diff; Complete Time: 20:44 rn 05/07 19:44 Order name: LFT's; Complete Time: 20:52 rn 05/07 19:44 Order name: NT PRO-BNP; Complete Time: 20:52 rn 05/07 19:44 Order name: PT-INR; Complete Time: 20:44 rn 05/07 19:44 Order name: Troponin HS; Complete Time: 20:52 rn 05/07 19:44 Order name: SARS RAPID; Complete Time: 20:52 rn 05/07 19:44 Order name: Flu; Complete Time: 20:52 rn 05/07 19:44 Order name: XRAY Chest (1 view); Complete Time: 20:44 rn 05/07 19:44 Order name: CT Chest For PE Angio; Complete Time: 21:24 rn 05/07 19:52 Order name: Extrem Venous W Compression [place] US; Complete Time: 20:36 rn 05/07 19:44 Order name: Cardiac monitoring; Complete Time: 20:21 rn 05/07 19:44 Order name: EKG - Nurse/Tech; Complete Time: 19:45 rn 05/07 19:44 Order name: IV Saline Lock; Complete Time: 20:21 rn 05/07 19:44 Order name: Labs collected and sent; Complete Time: 20:21 rn 05/07 19:44 Order name: O2 Per Protocol; Complete Time: 20:21 rn 05/07 19:44 Order name: O2 Sat Monitoring; Complete Time: 20:21 rn Administered Medications: No medications were administered Disposition Summary: 05/07/24 21:33 Discharge Ordered Notes: Location: Home rn Problem: new rn Symptoms: have improved rn Condition: Stable rn Diagnosis - SARS-associated coronavirus as the cause of diseases classified elsewhere rn Followup: rn - With: Private Physician - When: As needed - Reason: Recheck today's complaints, Re-evaluation by your physician Discharge Instructions: - Discharge Summary Sheet rn - COVID-19 rn - 10 Things You Can Do to Manage Your COVID-19 Symptoms at Home - [facility] (04/04/2021) rn - Viral Illness, Adult rn Forms: - Medication Reconciliation Form rn - Antibiotic returns processor - Prescription Opioid Use rn - Patient Portal Instructions rn - Leadership Thank You Letter rn Prescriptions: - Paxlovid 300 mg (150 mg x 2)-100 mg Oral Tablet, Dose Pack - take 1 dose pack ORAL route per package directions; 1 packet; Refills: 0, rn Product Selection Permitted Signatures: Dispatcher [employer] EDMS Mani Pierson MD MD rn Martinez, Clarissa RN RN cm10 Kadeem Best RN RN rg5 Corrections: (The following items were deleted from the chart) 19:44 19:44 BASIC METABOLIC PANEL+C.LAB.BRZ ordered. EDMS EDMS 19:44 19:44 CBC+H.LAB.BRZ ordered. EDMS EDMS 19:44 19:44 HEPATIC FUNCTION+C.LAB.BRZ ordered. EDMS EDMS 19:44 19:44 PROBNP+C.LAB.BRZ ordered. EDMS EDMS 19:44 19:44 PROTIME (+INR)+COAG.LAB.BRZ ordered. EDMS EDMS 19:44 19:44 Troponin High Sensitivity+C.LAB.BRZ ordered. EDMS EDMS 19:44 19:44 SARS-COV-2 Antigen Rapid+I.LAB.BRZ ordered. EDMS EDMS 19:44 19:44 Influenza Screen (A \T\ B)+BA.LAB.BRZ ordered. EDMS EDMS 19:44 19:44 Chest Single View+RAD.RAD.BRZ ordered. EDMS EDMS 19:45 19:44 Chest For PE Angio+CT.RAD.BRZ ordered. EDMS EDMS
[2024-05-07 22:18] VITALS: O2SAT 96
[2024-05-07 22:19] VITALS: BP 131/55; TEMP 98
--- NOTE | 2024-05-09 17:50 | EKG ---
Test Date: 2024-05-07 Test Time: 19:40:22 Book Shelver: YAYA MEASUREMENT RESULTS: Intervals: Rate: 120 LA: 154 QRSD: 72 QT: 314 QTc: 443 [place]: P: 24 LA: 154 QRS: 1 T: 28 INTERPRETIVE STATEMENTS: Sinus tachycardia Minimal voltage criteria for LVH, may be normal variant Cannot rule out Anterior infarct, age undetermined Abnormal ECG Compared to ECG 08/19/2023 16:20:48 Left ventricular hypertrophy now present Myocardial infarct finding now present Sinus rhythm no longer present Electronically Signed On 05-09-24 17:46:39 CDT by Jevon Urrutia
== END 2024-05-07 21:59 | disposition home or self-care (01) ==
LOC: ER 19:27
DX: U07.1 COVID-19 (principal); E11.9 Type 2 diabetes mellitus without complications; Z79.4 Long term (current) use of insulin; I10 Essential (primary) hypertension
CPT/HCPCS: 93005; 85025; 80048; 36415; 85610; 80076; 84484; 83880; 87804 ×2; 71275; 71045; 93970; 99284; 87811; Q9967